=== PATIENT | male | born 2000 | race Hispanic/Latino ===

== ENCOUNTER 2018-07-01 16:39 | Emergency (ER) | payer BC, OTHER ==
--- NOTE | 2018-07-01 16:54 | ER ---
Nurse's Notes [facility] Name: Orion Barnes Jr Age: 18 yrs Sex: Male : 2000 Arrival Date: 07/01/2018 Time: 16:43 Bed 24 Private MD: None, None Diagnosis: Sleep related leg cramps;Contusion of right thigh Presentation: 07/01 16:44 Presenting complaint: Patient states: bruise noted on his right upper thigh 2 days ago sv and now he has pain to his RLE. Transition of care: patient was not received from another setting of care. Onset of symptoms was June 29, 2018. Care prior to arrival: None. 16:44 Method Of Arrival: Ambulatory sv 16:44 Acuity: MIRZA 3 sv 16:47 Presenting complaint: Mother states: "I don't know if its related but a couple of weeks sv ago he wasn't feeling good and I checked his sugar and it was 220." Pt has not f/u with a MD for this. 17:16 Risk Assessment: Do you want to hurt yourself or someone else? Patient reports no mg2 desire to harm self or others. Initial Sepsis Screen: Does the patient meet any 2 criteria? No. Patient's initial sepsis screen is negative. Does the patient have a suspected source of infection? No. Patient's initial sepsis screen is negative. Historical: - Allergies: 16:46 DEET; sv - PMHx: 16:46 None; sv - PSHx: 16:46 None; sv - Immunization history:: Flu vaccine status is unknown. - Social history:: Smoking status: unknown. - Ebola Screening: : No symptoms or risks identified at this time. Screenin:15 Abuse screen: Denies threats or abuse. Denies injuries from another. Nutritional mg2 screening: No deficits noted. Tuberculosis screening: No symptoms or risk factors identified. Fall Risk Gait- Weak (10 pts.). Assessment: 17:13 General: Appears in no apparent distress. comfortable, Behavior is calm, cooperative. mg2 Pain: Complains of pain in right leg Pain radiates to right lower leg Pain currently is 3 out of 10 on a pain scale. Quality of pain is described as aching, Pain began gradually, 1 day ago. Is intermittent. Neuro: Level of Consciousness is awake, alert, obeys commands, Oriented to person, place, time, situation. Cardiovascular: Capillary refill < 3 seconds Patient's skin is warm and dry. Respiratory: Airway is patent Respiratory effort is even, unlabored, Respiratory pattern is regular, symmetrical. GI: No signs and/or symptoms were reported involving the gastrointestinal system. : No deficits noted. EENT: No signs and/or symptoms were reported regarding the EENT system. Derm: Skin is intact, is healthy with good turgor, Skin is pink, warm \\T\\ dry. normal, Bruising that is yellow, on right leg. Musculoskeletal: Circulation, motion, and sensation intact. Capillary refill < 3 seconds, Reports pain in right leg. Vital Signs: 16:46 BP 127 / 62; Pulse 67; Resp 16; Temp 97.8; Pulse Ox 98% ; Weight 58.06 kg; Height 5 ft. sv 9 in. (175.26 cm); 16:46 Body Mass Index 18.90 (58.06 kg, 175.26 cm) sv ED Course: 16:43 Patient arrived in ED. mr 16:43 None, None is Private Physician. mr 16:45 Triage completed. sv 16:46 Elena Ordoñez FNP-C is [facility]. snw 16:46 Alirio Cheng MD is Attending Physician. snw 16:47 Arm band placed on. sv 16:50 Rodrigo Canas RN is Primary Nurse. mg2 17:15 No provider procedures requiring assistance completed. Patient did not have IV access mg2 during this emergency room visit. 17:16 Patient has correct armband on for positive identification. Door closed. mg2 Administered Medications: 17:12 Drug: Ketorolac 15 mg Route: IM; Site: right gluteus; mg2 17:13 Follow up: Response: No adverse reaction; Medication administered at discharge. mg2 Outcome: 16:53 Discharge ordered by . snw 17:16 Discharged to home via wheelchair, with family. mg2 17:16 Condition: stable 17:16 Discharge instructions given to patient, family, Instructed on discharge instructions, follow up and referral plans. medication usage, Demonstrated understanding of instructions, follow-up care, medications, Prescriptions given X 1. 17:17 Patient left the ED. mg2 Signatures: Viky Luu RN RN Elena Ordoñez FNP-C FNP-Csnw Violet Valadez Michele, DINESH RN mg2 Corrections: (The following items were deleted from the chart) 16:48 16:46 Resp 16bpm; Temp 97.8F; 58.06 kg; Height 5 ft. 9 in.; BMI: 18.9; sv sv
--- NOTE | 2018-07-01 16:54 | EDPHYS ---
Physician Documentation [facility] Name: Orion Barnes Jr Age: 18 yrs Sex: Male : 2000 Arrival Date: 07/01/2018 Time: 16:43 Bed 24 Private MD: None, None ED Physician Alirio Cheng HPI: 07/01 16:56 This 18 yrs old Male presents to ER via Ambulatory with complaints of Leg Pain.snw 16:56 The patient presents with pain, that is acute. The complaints affect the right snw quadriceps. Context: The problem was sustained at home, resulted from awoke from sleep. Onset: The symptoms/episode began/occurred suddenly, this morning. Treatment prior to arrival includes: no previous treatment. Severity of symptoms: At their worst the symptoms were mild, moderate. It is unknown whether or not the patient has had similar symptoms in the past. The patient has not recently seen a physician. Historical: - Allergies: 16:46 DEET; sv - PMHx: 16:46 None; sv - PSHx: 16:46 None; sv - Immunization history:: Flu vaccine status is unknown. - Social history:: Smoking status: unknown. - Ebola Screening: : No symptoms or risks identified at this time. ROS: 16:54 Constitutional: Negative for fever, chills, and weight loss, Eyes: Negative for injury, snw pain, redness, and discharge, ENT: Negative for injury, pain, and discharge, Neck: Negative for injury, pain, and swelling, Cardiovascular: Negative for chest pain, palpitations, and edema, Respiratory: Negative for shortness of breath, cough, wheezing, and pleuritic chest pain, Abdomen/GI: Negative for abdominal pain, nausea, vomiting, diarrhea, and constipation, Back: Negative for injury and pain, : Negative for injury, bleeding, discharge, and swelling, Skin: Negative for injury, rash, and discoloration, Neuro: Negative for headache, weakness, numbness, tingling, and seizure. 16:54 MS/extremity: Positive for pain, of the right quadriceps, small bruise noted to anterior thigh. Exam: 16:54 Constitutional: This is a well developed, well nourished patient who is awake, alert, snw and in no acute distress. Head/Face: Normocephalic, atraumatic. Eyes: Pupils equal round and reactive to light, extra-ocular motions intact. Lids and lashes normal. Conjunctiva and sclera are non-icteric and not injected. Cornea within normal limits. Periorbital areas with no swelling, redness, or edema. ENT: Nares patent. No nasal discharge, no septal abnormalities noted. Tympanic membranes are normal and external auditory canals are clear. Oropharynx with no redness, swelling, or masses, exudates, or evidence of obstruction, uvula midline. Mucous membranes moist. Neck: Trachea midline, no thyromegaly or masses palpated, and no cervical lymphadenopathy. Supple, full range of motion without nuchal rigidity, or vertebral point tenderness. No Meningismus. Chest/axilla: Normal chest wall appearance and motion. Nontender with no deformity. No lesions are appreciated. Cardiovascular: Regular rate and rhythm with a normal S1 and S2. No gallops, murmurs, or rubs. Normal PMI, no JVD. No pulse deficits. Respiratory: Lungs have equal breath sounds bilaterally, clear to auscultation and percussion. No rales, rhonchi or wheezes noted. No increased work of breathing, no retractions or nasal flaring. Abdomen/GI: Soft, non-tender, with normal bowel sounds. No distension or tympany. No guarding or rebound. No evidence of tenderness throughout. Back: No spinal tenderness. No costovertebral tenderness. Full range of motion. Skin: Warm, dry with normal turgor. Normal color with no rashes, no lesions, and no evidence of cellulitis. Neuro: Awake and alert, GCS 15, oriented to person, place, time, and situation. Cranial nerves II-XII grossly intact. Motor strength 5/5 in all extremities. Sensory grossly intact. Cerebellar exam normal. Normal gait. Psych: Awake, alert, with orientation to person, place and time. Behavior, mood, and affect are within normal limits. 16:54 Musculoskeletal/extremity: ROM: limited active range of motion due to pain, right quad, Circulation is intact in all extremities. Sensation intact. Weight bearing: able to fully bear weight, without difficulty. Vital Signs: 16:46 BP 127 / 62; Pulse 67; Resp 16; Temp 97.8; Pulse Ox 98% ; Weight 58.06 kg; Height 5 ft. sv 9 in. (175.26 cm); 16:46 Body Mass Index 18.90 (58.06 kg, 175.26 cm) sv MDM: 16:49 Patient medically screened. snw 16:55 Data reviewed: vital signs, nurses notes. Data interpreted: Pulse oximetry: on room air snw is 98 %. Interpretation: normal. Counseling: I had a detailed discussion with the patient and/or guardian regarding: the historical points, exam findings, and any diagnostic results supporting the discharge/admit diagnosis, the need for outpatient follow up, to return to the emergency department if symptoms worsen or persist or if there are any questions or concerns that arise at home. Special discussion: Based on the history and exam findings, there is no indication for further emergent testing or inpatient evaluation. I discussed with the patient/guardian the need to see the primary care provider for further evaluation of the symptoms. Administered Medications: 17:12 Drug: Ketorolac 15 mg Route: IM; Site: right gluteus; mg2 17:13 Follow up: Response: No adverse reaction; Medication administered at discharge. mg2 Disposition: 18:37 Co-signature as Attending Physician, Alirio Cheng MD. rn Disposition: 07/01/18 16:53 Discharged to Home. Impression: Sleep related leg cramps, Contusion of right thigh. - Condition is Stable. - Discharge Instructions: Leg Cramps, Muscle Cramps and Spasms, Muscle Strain. - Prescriptions for Mobic 7.5 mg Oral Tablet - take 1 tablet by ORAL route once daily take with food; 20 tablet. - Work release form, Medication Reconciliation Form, Thank You Letter, Antibiotic Education, Prescription Opioid Use form. - Follow up: Emergency Department; When: As needed; Reason: Worsening of condition. Follow up: Private Physician; When: 2 - 3 days; Reason: Recheck today's complaints, Continuance of care, Re-evaluation by your physician. Signatures: Viky Luu RN RN Elena Mancia, PRIMARY SUBSTANCE ABUSE COUNSELOR-C PRIMARY SUBSTANCE ABUSE COUNSELOR-Csnw Alirio Cheng MD MD rn Gardose, Michele, RN RN mg2 Corrections: (The following items were deleted from the chart) 17:17 16:53 07/01/2018 16:53 Discharged to Home. Impression: Sleep related leg cramps; mg2 Contusion of right thigh. Condition is Stable. Forms are Medication Reconciliation Form, Thank You Letter, Antibiotic Education, Prescription Opioid Use. Follow up: Emergency Department; When: As needed; Reason: Worsening of condition. Follow up: Private Physician; When: 2 - 3 days; Reason: Recheck today's complaints, Continuance of care, Re-evaluation by your physician. snalessandra
[2018-07-01] MEDS ORDERED: KETOROLAC 30 MG/ML INJ ONE (17:13)
== END 2018-07-01 17:17 | disposition home or self-care (01) ==
LOC: ER 16:39
DX: G47.62 Sleep related leg cramps (principal); S70.11XA Contusion of right thigh, initial encounter; X58.XXXA Exposure to other specified factors, initial encounter
CPT/HCPCS: 96372; 99283

== ENCOUNTER 2021-07-14 02:58 | Emergency (ER) | payer BC ==
[2021-07-14] MEDS ORDERED: MORPHINE 4 MG/ML SYR ONE (03:15)
[2021-07-14] MEDS ORDERED: ONDANSETRON 4 MG/2 ML VIAL ONE (03:15)
[2021-07-14] MEDS ORDERED: HYDROMORPHONE HCL 1 MG/ML INJ ONE ×2 (04:11→05:58)
[2021-07-14 04:21] LABS: Hematocrit 44.6 % (39.6-49.0); Lymphocytes % 26.7 % (15.3-44.8); RBC Red Blood Cell Count 4.78 M/uL (4.33-5.43)
[2021-07-14 04:26] LABS: Protime INR 0.93
[2021-07-14 04:43] LABS: Barbiturates NEGATIVE (NEGATIVE); Benzodiazepines NEGATIVE (NEGATIVE); Cocaine NEGATIVE (NEGATIVE); METHAMPHETAM NEGATIVE (NEGATIVE); Methadone NEGATIVE (NEGATIVE); Opiates NEGATIVE (NEGATIVE); Phencyclidine NEGATIVE (NEGATIVE); THC Cannibis POSITIVE (NEGATIVE)
[2021-07-14 04:44] LABS: ALT/SGPT 45 U/L (12-78); AST/SGOT 33 U/L (15-37); Albumin 4.4 g/dL (3.4-5.0); Alkaline Phosphatase 99 U/L (45-117); BUN Blood Urea Nitrogen 6 mg/dL (7-18); Bicarbonate 25 mmol/L (21-32); Bilirubin Total 0.3 mg/dL (0.2-1.0); Glucose Level 98 mg/dL (74-106); Potassium 3.6 mmol/L (3.5-5.1); Protein, Total 7.8 g/dL (6.4-8.2); Sodium Level 141 mmol/L (136-145)
[2021-07-14 04:47] LABS: Bilirubin Direct < 0.1 mg/dL (0-0.2)
--- NOTE | 2021-07-14 07:03 | ER ---
Nurse's Notes [facility] Name: Orion Barnes Jr Age: 21 yrs Sex: Male : 2000 Arrival Date: 07/14/2021 Time: 03:02 Bed 8 Private MD: Diagnosis: Tibial Plateau Frcture, Right;Alcohol use, unspecified with intoxication Presentation: 07/14 03:12 Chief complaint: Patient states: Pt states he had been drinking, states he jumped off a ll3 trampoline on to the ground then felt pain, states he asked his friends to "pop it back in like the movies", reports hitting head on ground after jumping off trampoline, reports LOC, States "I passed out from the pain", c/o difficulty breathing. Coronavirus screen: Vaccine status: Patient reports being unvaccinated. At this time, the client does not indicate any symptoms associated with coronavirus-19. Ebola Screen: No symptoms or risks identified at this time. Initial Sepsis Screen: Does the patient meet any 2 criteria? No. Patient's initial sepsis screen is negative. Does the patient have a suspected source of infection? No. Patient's initial sepsis screen is negative. Risk Assessment: Do you want to hurt yourself or someone else? Patient reports no desire to harm self or others. Onset of symptoms was July 14, 2021. 03:12 Method Of Arrival: Wheelchair ll3 03:12 Acuity: MIRZA 2 ll3 Triage Assessment: 03:18 General: Appears uncomfortable, Behavior is cooperative, anxious. Pain: Complains of ll3 pain in lateral aspect of right calf. Musculoskeletal: Circulation, motion, and sensation intact. Swelling present in lateral aspect of right calf Reports pain in lateral aspect of right calf Pain is 10 out of 10 on a pain scale. Injury Description: Pt states he jumped to the ground from a trampoline and landed wrong. Historical: - Allergies: 03:18 DEET; ll3 - Home Meds: 03:18 None [Active]; ll3 - PMHx: 03:18 None; ll3 - PSHx: 03:18 None; ll3 - Immunization history:: Client reports having NOT received the Covid vaccine. - Social history:: Smoking status: Patient reports the use of cigarette tobacco products, smokes one-half pack cigarettes per day, Patient uses alcohol, occasionally. street drugs, marijuana. Screenin:55 Abuse screen: Denies threats or abuse. Nutritional screening: No deficits noted. ll3 Tuberculosis screening: No symptoms or risk factors identified. Fall Risk No fall in past 12 months (0 pts). No secondary diagnosis (0 pts). IV access (20 points). Ambulatory Aid- None/Bed Rest/Nurse Assist (0 pts). Gait- Normal/Bed Rest/Wheelchair (0 pts) Mental Status- Oriented to own ability (0 pts). Total Ruiz Fall Scale indicates No Risk (0-24 pts). Assessment: 03:12 General: See triage assessment.. ll3 04:00 Reassessment: No changes from previously documented assessment. Patient and/or family ll3 updated on plan of care and expected duration. Pain level reassessed. Patient is alert, oriented x 3, equal unlabored respirations, skin warm/dry/pink. 05:00 Reassessment: No changes from previously documented assessment. Patient and/or family ag7 updated on plan of care and expected duration. Pain level reassessed. 06:00 Reassessment: No changes from previously documented assessment. Patient and/or family ag7 updated on plan of care and expected duration. Pain level reassessed. 07:15 Reassessment: Patient appears in no apparent distress at this time. No changes from jl7 previously documented assessment. Patient is alert, oriented x 3, equal unlabored respirations, skin warm/dry/pink. Awaiting crutches from [employer] for discharge. 08:39 Reassessment: Pt reports continued severe pain at injury site to right lower extremity, jl7 Dr. Samson notified, VO for 30 mg Toradol IVP, pt medicated as ordered. Right knee noted to be swollen, pt unable to straighten knee out and reports continued severe pain, knee immobilizer noted to be loose and unable to stabilize knee with the 12" 3-panel knee, no larger knee immobilizers available. Dr. Samson notified and gave VO to apply ortho glass knee immobilizer. Orthoglass knee immobilizer applied and pt reports moderate pain relief. Vital Signs: 03:12 BP 120 / 90; Pulse 110; Resp 18; Temp 98.6; Pulse Ox 98% on R/A; Weight 63.5 kg (R); ll3 Height 5 ft. 7 in. (170.18 cm) (R); Pain 10/10; 04:00 BP 114 / 94; Pulse 99; Resp 13; Pulse Ox 100% on R/A; ll3 05:18 BP 133 / 83; Pulse 105; Resp 13 S; Pulse Ox 99% on R/A; Pain 10/10; ag7 06:00 BP 133 / 107; Pulse 88; Resp 16 S; Pulse Ox 93% on R/A; Pain 10/10; ag7 08:00 BP 114 / 64; Pulse 76; Resp 15; Pulse Ox 98% on R/A; jl7 03:12 Body Mass Index 21.93 (63.50 kg, 170.18 cm) ll3 ED Course: 03:02 Patient arrived in ED. kz 03:16 Barbara Rios, DINESH is Primary Nurse. vc1 03:18 Triage completed. ll3 03:18 Arm band placed on Patient placed in an exam room, on a stretcher, on cardiac monitor technician, ll3 on pulse oximetry. 03:26 Sandro Garcia MD is Attending Physician. 7 03:46 XRAY Knee RIGHT 3 view In Process Unspecified. EDMS 04:55 Patient has correct armband on for positive identification. Placed in gown. Bed in low ll3 position. Call light in reach. Side rails up X 1. Pulse ox on. NIBP on. 05:33 CT Traumagram (Head C Spine CAP W Con) In Process Unspecified. EDMS 05:33 Knee Right Wo Cont In Process Unspecified. EDMS 06:52 Orth[address] and connected Dr. Leonard with Dr. Garcia for patient admission eb consultation. 07:01 Greg Leonard MD is Referral Physician. 7 07:15 Inserted saline lock: 20 gauge in right antecubital area, using aseptic technique. jl7 ,using aseptic technique. IV noted to be in place, placed by previous shift. 08:20 No provider procedures requiring assistance completed. IV discontinued, intact, jl7 bleeding controlled, No redness/swelling at site. Pressure dressing applied. Administered Medications: 03:18 Drug: morphine 4 mg Route: IVP; Site: right antecubital; vc1 03:18 Drug: Zofran (Ondansetron) 4 mg Route: IVP; Site: right antecubital; vc1 04:18 Drug: Dilaudid (HYDROmorphone) 1 mg Route: IVP; Site: right antecubital; vc1 06:21 Follow up: Response: No adverse reaction ll3 06:00 Drug: Dilaudid (HYDROmorphone) 1 mg Route: IVP; Site: right antecubital; ll3 07:55 Drug: Ketorolac 30 mg Route: IVP; Site: right antecubital; jl7 08:15 Follow up: Response: No adverse reaction; Pain is decreased 7 Outcome: 07:02 Discharge ordered by . [facility] 08:48 Discharged to home ambulatory, with crutches, with significant other. 7 08:48 Condition: stable 08:48 Discharge instructions given to patient, significant other, Instructed on discharge instructions, follow up and referral plans. medication usage, crutch walking, Splint Demonstrated understanding of instructions, follow-up care, medications, crutch walking, splint care, Prescriptions given X 2. 08:48 Patient left the ED. [facility] Signatures: Dispatcher [employer] EDZach Benavidez RN RN jl7 Lynn Aleman Maurice, MD MD 7 Yan Holcomb RN RN ll3 Barbara Rios RN RN vc1 Liliane Longoria Angela RN RN ag7 Corrections: (The following items were deleted from the chart) 04:56 04:56 General: See triage assessment.. ll3 ll3
--- NOTE | 2021-07-14 07:03 | EDPHYS ---
Physician Documentation [facility] Name: Orion Barnes Jr Age: 21 yrs Sex: Male : 2000 Arrival Date: 07/14/2021 Time: 03:02 Bed 8 Private MD: ED Physician Sandro Garcia HPI: 07/14 03:10 This 21 yrs old Male presents to ER via Wheelchair with complaints of Leg mh7 Injury. 03:10 Trauma demographics: County: The injury occurred in [place] Location of Injury: The mh7 injury occurred at a friend's home, Date: July 14, 2021. 03:10 Mechanism of injury: Fall: the patient fell trampoline, approximately and struck a mh7 grass-covered surface. Associated injuries: The patient sustained injury to the head, pain, right leg, decreased range of motion, painful injury. Onset: The symptoms/episode began/occurred today. Historical: - Allergies: 03:18 DEET; ll3 - Home Meds: 03:18 None [Active]; ll3 - PMHx: 03:18 None; ll3 - PSHx: 03:18 None; ll3 - Immunization history:: Client reports having NOT received the Covid vaccine. - Social history:: Smoking status: Patient reports the use of cigarette tobacco products, smokes one-half pack cigarettes per day, Patient uses alcohol, occasionally. street drugs, marijuana. ROS: 03:10 Constitutional: Negative for fever, chills, and weight loss, Eyes: Negative for injury, mh7 pain, redness, and discharge, ENT: Negative for injury, pain, and discharge, Neck: Negative for injury, pain, and swelling, Cardiovascular: Negative for chest pain, palpitations, and edema, Respiratory: Negative for shortness of breath, cough, wheezing, and pleuritic chest pain, Abdomen/GI: Negative for abdominal pain, nausea, vomiting, diarrhea, and constipation, Back: Negative for injury and pain, : Negative for injury, bleeding, discharge, and swelling, Skin: Negative for injury, rash, and discoloration, Psych: Negative for depression, anxiety, suicide ideation, homicidal ideation, and hallucinations, Allergy/Immunology: Negative for hives, rash, and allergies, Endocrine: Negative for neck swelling, polydipsia, polyuria, polyphagia, and marked weight changes, Hematologic/Lymphatic: Negative for swollen nodes, abnormal bleeding, and unusual bruising. Exam: 03:10 Head/Face: Normocephalic, atraumatic. Eyes: Pupils equal round and reactive to light, mh7 extra-ocular motions intact. Lids and lashes normal. Conjunctiva and sclera are non-icteric and not injected. Cornea within normal limits. Periorbital areas with no swelling, redness, or edema. ENT: Nares patent. No nasal discharge, no septal abnormalities noted. Tympanic membranes are normal and external auditory canals are clear. Oropharynx with no redness, swelling, or masses, exudates, or evidence of obstruction, uvula midline. Mucous membranes moist. Neck: Trachea midline, no thyromegaly or masses palpated, and no cervical lymphadenopathy. Supple, full range of motion without nuchal rigidity, or vertebral point tenderness. No Meningismus. Chest/axilla: Normal chest wall appearance and motion. Nontender with no deformity. No lesions are appreciated. Cardiovascular: Regular rate and rhythm with a normal S1 and S2. No gallops, murmurs, or rubs. Normal PMI, no JVD. No pulse deficits. Respiratory: Lungs have equal breath sounds bilaterally, clear to auscultation and percussion. No rales, rhonchi or wheezes noted. No increased work of breathing, no retractions or nasal flaring. Abdomen/GI: Soft, non-tender, with normal bowel sounds. No distension or tympany. No guarding or rebound. No evidence of tenderness throughout. Back: No spinal tenderness. No costovertebral tenderness. Full range of motion. Skin: Warm, dry with normal turgor. Normal color with no rashes, no lesions, and no evidence of cellulitis. 03:10 Psych: Awake, alert, with orientation to person, place and time. Behavior, mood, and affect are within normal limits. 03:10 Constitutional: The patient appears in no acute distress, alert, awake, uncomfortable. 03:10 Musculoskeletal/extremity: Extremities: noted in the right knee and proximal lateral right leg: ROM: limited active range of motion, in the right leg, limited passive range of motion, in the right leg, Circulation is intact in all extremities. Sensation intact. Compartment Syndrome exam of affected extremity: is normal. no numbness, no tingling, no sensation deficit, no palor, no weak pulses, Joints: the right knee displays limited range of motion, painful range of motion, Weight bearing: is unable to bear weight, Tendon exam: specific tendon testing normal through active and passive range of motion 03:10 Neuro: Orientation: is normal, Mentation: is normal, Memory: is normal, Cranial nerves: grossly normal, Cerebellar function: is grossly normal, Motor: is normal, Sensation: is normal, Gait: not tested. seizure activity, is not displayed by the patient, Abnormal movements: there are no abnormal movements. Vital Signs: 03:12 BP 120 / 90; Pulse 110; Resp 18; Temp 98.6; Pulse Ox 98% on R/A; Weight 63.5 kg (R); ll3 Height 5 ft. 7 in. (170.18 cm) (R); Pain 10/10; 04:00 BP 114 / 94; Pulse 99; Resp 13; Pulse Ox 100% on R/A; ll3 05:18 BP 133 / 83; Pulse 105; Resp 13 S; Pulse Ox 99% on R/A; Pain 10/10; ag7 06:00 BP 133 / 107; Pulse 88; Resp 16 S; Pulse Ox 93% on R/A; Pain 10/10; ag7 08:00 BP 114 / 64; Pulse 76; Resp 15; Pulse Ox 98% on R/A; jl7 03:12 Body Mass Index 21.93 (63.50 kg, 170.18 cm) ll3 MDM: 06:57 Differential diagnosis: intra-abdominal injury, closed head injury, extremity fracture, mh7 C spine fracture. Data reviewed: vital signs, nurses notes, lab test result(s), CBC, drug level(s), alcohol, electrolytes, radiologic studies, CT scan, plain films. Data interpreted: Pulse oximetry: on room air is 96 %. Interpretation: normal. Counseling: I had a detailed discussion with the patient and/or guardian regarding: the historical points, exam findings, and any diagnostic results supporting the discharge/admit diagnosis, lab results, radiology results, the need for outpatient follow up, a orthopedic surgeon. Response to treatment: the patient's symptoms have markedly improved after treatment. Physician consultation: Greg Leonard MD was contacted at 06:40, regarding patient's condition, and will see patient in office. 07:02 Patient medically screened. [facility] 07/14 03:49 Order name: Basic Metabolic Panel; Complete Time: 04:51 [facility] 07/14 03:49 Order name: CBC with Diff; Complete Time: 04:51 [facility] 07/14 03:49 Order name: Type And Screen; Complete Time: 05:11 [facility] 07/14 03:49 Order name: LFT's; Complete Time: 04:51 [facility] 07/14 03:49 Order name: Protime (+inr); Complete Time: 04:51 [facility] 07/14 03:49 Order name: Ptt, Activated; Complete Time: 04:51 [facility] 07/14 03:04 Order name: XRAY Knee RIGHT 3 view bb 07/14 03:49 Order name: CT Traumagram (Head C Spine CAP W Con) [facility] 07/14 03:49 Order name: ETOH Level; Complete Time: 04:51 [facility] 07/14 03:49 Order name: UDS; Complete Time: 04:51 [facility] 07/14 04:09 Order name: Knee Right Wo Cont EDMS 07/14 03:49 Order name: Labs collected and sent; Complete Time: 04:17 [facility] 07/14 05:48 Order name: Knee Immobilizer; Complete Time: 06:21 [facility] 07/14 07:07 Order name: Crutches [facility] Administered Medications: 03:18 Drug: morphine 4 mg Route: IVP; Site: right antecubital; vc1 03:18 Drug: Zofran (Ondansetron) 4 mg Route: IVP; Site: right antecubital; vc1 04:18 Drug: Dilaudid (HYDROmorphone) 1 mg Route: IVP; Site: right antecubital; vc1 06:21 Follow up: Response: No adverse reaction ll3 06:00 Drug: Dilaudid (HYDROmorphone) 1 mg Route: IVP; Site: right antecubital; ll3 07:55 Drug: Ketorolac 30 mg Route: IVP; Site: right antecubital; jl7 08:15 Follow up: Response: No adverse reaction; Pain is decreased jl7 Disposition Summary: 07/14/21 07:02 Discharge Ordered Location: Home [facility] Problem: new [facility] Symptoms: have improved [facility] Condition: Stable [facility] Diagnosis - Tibial Plateau Frcture, Right mh7 - Alcohol use, unspecified with intoxication [facility] Followup: [facility] - With: Private Physician - When: 1 - 2 days - Reason: Worsening of condition, Recheck today's complaints, Continuance of care, Re-evaluation by your physician Followup: [facility] - With: Greg Leonard MD - When: 1 - 2 days - Reason: Worsening of condition, Further diagnostic work-up, Recheck today's complaints Discharge Instructions: - Discharge Summary Sheet [facility] - Displaced Tibial Plateau Fracture [facility] - Crutch Use, Adult, [id number]-[id number] [facility] - Alcohol Intoxication, Uybh-ni-Nmor [facility] - How to Use a Knee Immobilizer, [id number] [facility] Forms: - Medication Reconciliation Form [facility] - Thank You Letter [facility] - Antibiotic Education [facility] - Prescription Opioid Use [facility] Prescriptions: - Ibuprofen 600 mg Oral Tablet - take 1 tablet by ORAL route every 6 hours As needed take with food; 15 tablet; [facility] Refills: 0, Product Selection Permitted - Tylenol-Codeine #3 300 mg-30 mg Oral - take 2 tablet by ORAL route every 6 hours As needed; 30 tablet; Refills: 0, [facility] Product Selection Permitted Signatures: Dispatcher [employer] Zach Everett RN RN jl7 Sandro Garcia MD MD [facility] Yan Holcomb RN RN ll3 Barbara Rios RN RN vc1
[2021-07-14] MEDS ORDERED: KETOROLAC 30 MG/ML INJ ONE (07:42)
[2021-07-14 08:56] VITALS: TEMP 98.6
[2021-07-14 09:01] VITALS: BP 114/64; O2SAT 98
--- NOTE | 2021-07-14 17:38 | RAD REPORT ---
EXAM DESCRIPTION: CT - Head C Spine Cap Phill Ponce - 07/14/2021 6:45 am CLINICAL HISTORY: Trauma COMPARISON: None. TECHNIQUE: CT HEAD C-SPINE WITHOUT CHEST ABDOMEN PELVIS WITH IV CONTRAST on 07/14/2021 3:49 AM CDT This exam was performed according to our departmental dose-optimization program, which includes autom ated exposure control, adjustment of the mA and/or kV according to patient size and/or use of iterati ve reconstruction technique. FINDINGS: Brain: There is no acute hemorrhage, mass effect or midline shift. Crowe-white differentiat ion is preserved. There is no hydrocephalus. There is no significant volume loss for age. The calvarium is intact. Orbits and globes are unremarkable. The paranasal sinuses are clear. Mastoid air cells are clear. Cervical Spine: There is no acute fracture. Alignment is anatomic. Disc spaces are maintained. Vertebral body heights are preserved. Soft tissues are unremarkable. Chest: The heart is normal in size. There is no pericardial effusion. Intrathoracic lymph nodes are n ot enlarged. There is no pleural effusion, pleural thickening or pneumothorax. Central airways are patent. Lungs a re clear with no consolidation, mass or interstitial lung disease. Abdomen: The liver is normal in appearance. There is no biliary dilatation. Gallbladder is normal in appearance. The pancreas and spleen are normal in appearance. The adrenal glands and kidneys are unre markable. Abdominal aorta is normal in course and caliber without aneurysm. There is no free air. There is no r etroperitoneal adenopathy. Pelvis: There is no bowel obstruction. Urinary bladder is unremarkable. There is no free fluid. Appen opal is normal. Skeleton: There are no acute osseous findings. No suspicious bony lesions. IMPRESSION: No definite acute post traumatic findings. Electronically signed by: Yehuda Cortes MD 07/14/2021 6:11 AM CDT Due to temporary technical issues with the PACS/Fluency reporting system, reports are being signed by the in house radiologists without review as a courtesy to insure prompt reporting. The interpreting radiologist is fully responsible for the content of the report.
--- NOTE | 2021-07-14 17:54 | RAD REPORT ---
EXAM DESCRIPTION: CT - Knee Right Wo Cont - 07/14/2021 6:43 am CLINICAL HISTORY: 1 years Male, EVAL TIBIAL FX COMPARISON: None TECHNIQUE: Contiguous axial CT images of the right knee were obtained. Sagittal and coronal reformat s were reviewed. This exam was performed according to our departmental dose-optimization program, w hich includes automated exposure control, adjustment of the mA and/or kV according to patient size an d/or use of iterative reconstruction technique. FINDINGS: There is a comminuted displaced and depressed fracture involving the lateral tibial platea u. The tibia is displaced laterally relative to the femur with varus angulation. The fracture also ex tends to the medial tibial plateau and through the posterior cortex. There is also fracture involveme nt of the tibial spines. The longitudinal component extends through the proximal metaphysis into the proximal and mid left fibula and the femur and patella appear intact. There is extensive soft tissue swelling around the knee and associated lipohemarthrosis. Diaphysis of the tibia. IMPRESSION: Comminuted displaced and depressed tibial plateau fracture. Electronically signed by: Orville Merino DO 07/14/2021 6:02 AM CDT Due to temporary technical issues with the PACS/Fluency reporting system, reports are being signed by the in house radiologists without review as a courtesy to insure prompt reporting. The interpreting radiologist is fully responsible for the content of the report.
--- NOTE | 2021-07-14 20:21 | RAD REPORT ---
EXAM DESCRIPTION: RAD - Knee Right 3 View - 07/14/2021 3:44 am CLINICAL HISTORY: 21 years Male Pain TECHNIQUE Three x-ray views of the right knee were performed on 07/14/2021 at 3:37 AM. COMPARISON: None FINDINGS: There is a comminuted, mildly displaced and depressed fracture through the lateral tibial plateau. There is partial medial subluxation of the distal femur relative to the proximal tibia. The patellofemoral compartment appears intact. There are no lytic or sclerotic bone lesions. No significa nt arthritic or degenerative changes are identified. Bone mineralization is normal. There is soft tissue swelling surrounding the proximal tibia and fibula. No definite knee joint effus ion is identified. There is no subcutaneous emphysema. IMPRESSION: Comminuted, mildly displaced and depressed lateral tibial plateau fracture with partial medial subluxation of the distal femur relative to the proximal tibia. There is surrounding soft tiss ue swelling. Electronically signed by: Nishi Payne DO 07/14/2021 4:20 AM CDT Due to temporary technical issues with the PACS/Fluency reporting system, reports are being signed by the in house radiologists without review as a courtesy to insure prompt reporting. The interpreting radiologist is fully responsible for the content of the report.
== END 2021-07-14 08:48 | disposition home or self-care (01) ==
LOC: ER 02:58
DX: S82.141A Displaced bicondylar fracture of right tibia, initial encounter for closed fracture (principal); F10.929 Alcohol use, unspecified with intoxication, unspecified; Y93.44 Activity, trampolining; F17.210 Nicotine dependence, cigarettes, uncomplicated; Z91.048 Other nonmedicinal substance allergy status
CPT/HCPCS: 85025; 80048; 36415; 80320; 86900; 86850; 85610; 86901; 80076; 85730; 80307; 70450; 72125; 71260; 73700; 74177; 73562; 96375; 96374; 99284; Q9967; J1170 ×2; J2405

== ENCOUNTER 2021-10-29 14:18 | Emergency (ER) | payer BC ==
--- OUTSIDE RECORDS SUMMARY | 2021-10-29 14:21 | XMS REPORT | Continuity of Care Document ---
:[address] [facility] t Address [address] [place] [address] Care Team Providers Name Role Phone Oliverio Attending Clinician Unavailable Jose Brand Attending Clinician [phone] Jose Brand Attending Clinician Unavailable Oliverio Admitting Clinician Unavailable Jose Brand Admitting Clinician Unavailable Payers Payer Name Policy Type Policy Number Effective Date Expiration Date S ourharesh [place] [id number] 2019 00:00:00 [place] Problems This patient has no known problems. Allergies, Adverse Reactions, Alerts Allergy Allergy Status Severity Reaction(s) Onset Inactive Treating Comm ents Source Name Type Date Date Clinician No Known DA Active U [facility] 07-23 Clear Allergie 00:00: Moses s 00 [facility] DEET DA Active CA ITCHINESS [facility] 5-09 Clear 00:00: Moses 00 [facility] Medications This patient has no known medications. Procedures This patient has no known procedures. Encounters Start End Encounter Admission Attending Care Care Encounter Source Date/Time Date/Time Type Type Clinicians Facility Department ID 2021-07-18 [facility] [id number] Common 14:43:06 [facility] 2021-10-18 2021-10-18 Outpatient Noble [facility] [id number] Soco 00:00:00 00:00:00 _Wai [id number] [facility] 2021-10-13 2021-10-13 Outpatient FOG_Brinker [facility] AOSM [id number] Soco 00:00:00 00:00:00 _Wai [id number] [facility] 2021-09-13 2021-09-13 Outpatient FOG_Brinker AOSM AOSM [id number] [facility] 10:21:00 10:21:00 _Wai [id number] [facility] 2021-09-12 2021-09-12 Outpatient FOG_Brinker AOSM AOSM [id number] [facility]o 11:36:00 11:36:00 _Wai [id number] [facility] 2021-09-12 2021-09-12 Outpatient Sunday, AOSM AOSM [id number] 00:00:00 00:00:00 Jose [id number] 2021-09-08 2021-09-08 Outpatient FOG_Brinker AOSM AOSM [id number] [facility] 01:54:00 01:54:00 _Wai [id number] [facility] 2021-09-03 2021-09-03 Outpatient FOG_Brinker AOSM AOSM [id number] Soco 10:07:00 10:07:00 _Wai [id number] [facility] 2021-08-23 2021-08-23 Outpatient FOG_Brinker AOSM AOSM [id number] [id number] Soco 11:30:00 11:30:00 _Wai [id number] [facility] 2021-08-22 2021-08-22 Outpatient FOG_Brinker AOSM AOSM [id number] Soco 01:22:00 01:22:00 _Wai [id number] [facility] 2021-08-22 2021-08-22 Outpatient Sunday, AOSM AOSM [id number] 00:00:00 00:00:00 Jose [id number] 2021-08-17 2021-08-17 Outpatient FOG_Sunday AOSM AOSM [id number] Soco 02:35:00 02:35:00 _JoseChelle [id number] [facility] 2021-08-14 2021-08-16 Outpatient WANDA Winston OBSE [id number] [facility] 07:24:00 15:26:00 Jose [facility] 2021-08-14 2021-08-16 Outpatient WANDA Winston OBSE [id number] [facility] 07:24:00 15:26:00 Jose [id number] [facility] 2021-08-14 2021-08-14 Outpatient Sunday, AOSM AOSM [id number] 00:00:00 00:00:00 Jose [id number] 2021-08-08 2021-08-08 Outpatient Sunday, AOSM AOSM [id number] 00:00:00 00:00:00 Jose [id number] 2021-08-02 2021-08-02 Outpatient WANDA Winston RADI [id number] [facility] 11:13:00 11:13:00 Jose 76 [facility] 2021-07-24 2021-07-26 Outpatient WANDA Winston OBSE [id number] [facility] 11:29:00 17:00:00 Jose [id number] [facility] 2021-07-24 2021-07-26 Outpatient WANDA Winston OBSE [id number] [facility] 11:29:00 17:00:00 Jose 78 [facility] Results Test Description Test Time Test Comments Results Result Comments Source BASIC METABOLIC PANEL 2021-08-15 06:12:00 Test Item Value Reference Range Interpretation Comme nts SODIUM (test code = NA) 133 mmol/L 136-145 L POTASSIUM (test code = K) 4.2 mmol/L 3.5-5.1 N CHLORIDE (test code = CL) 98.0 mmol/L 98-107 N CARBON DIOXIDE (test code = CO2) 28.3 mmol/L 21-32 N GLUCOSE (test code = GLU) 110 mg/dL 70-110 N BLOOD UREA NITROGEN (test code = 9 mg/dL 7-18 N BUN) GLOMERULAR FILTRATION RATE (test 110.2 >60 Unit of measure: mL/min/1.73 code = GFR) [id number] Ran ge:Healthy Adults >90 mL/m in/1.73 m2 For Chronic Kidney Disease: Stage II Mild Decreas e in GFR 60-90 Stage III Moder ate Decrease in GFR 30-59 St age IV Severe Decrease in GFR 15-29 Stage V Kidney Failure <15 CREATININE (test code = CREAT) 0.86 mg/dL 0.55-1.30 N CALCIUM (test code = CA) 8.1 mg/dL 8.2-10.1 L CBC W/AUTO [id number] 05:44:00 Test Item Value Reference Range Interpretation Comments WHITE BLOOD CELL (test code = WBC) 10.8 K/mm3 5.7-10.5 H RED BLOOD CELL (test code = RBC) 2.99 M/mm3 4.2-5.4 L HEMOGLOBIN (test code = HGB) 9.5 g/dL 12-16 L HEMATOCRIT (test code = HCT) 27.0 % 37-47 L MEAN CELL VOLUME (test code = MCV) 90 fL 80-98 N MEAN CELL HGB (test code = MCH) 31.8 pg 27-34 N MEAN CELL HGB CONCENTRATION (test 35.2 g/dL 30.8-34.1 H code = MCHC) RED CELL DISTRIBUTION WIDTH (test 12.7 % 11-16 N code = RDW) PLT (test code = PLT) 188 K/mm3 130-400 N MEAN PLATELET VOLUME (test code = 10.4 fL 8.9-12.1 N MPV) NEUTROPHIL % (test code = NT%) 75.2 % 45-70 H LYMPHOCYTE % (test code = LY%) 16.5 % 20-40 L MONOCYTE % (test code = MO%) 6.9 % 3-10 N EOSINOPHIL % (test code = EO%) 0.3 % 1-5 L BASOPHIL % (test code = BA%) 0.3 % 0.0-1.1 N NEUTROPHIL # (test code = NT#) 8.13 K/mm3 2.00-7.50 H LYMPHOCYTE # (test code = LY#) 1.78 K/mm3 1.50-4.00 N MONOCYTE # (test code = MO#) 0.75 K/mm3 0.2-0.8 N EOSINOPHIL # (test code = EO#) 0.03 K/mm3 0.04-0.4 L BASOPHIL # (test code = BA#) 0.03 K/mm3 0.02-0.10 N MANUAL DIFF REQUIRED (test code = NO MANUAL DIFF MDIFF) NUCLEATED RED BLOOD CELL (test 0 % 0-0 N code = NRBC) Novel Coronavirus 2018 [id number] 00:46:00 Test Item Value Reference Range Interpretation Comments Novel Coronavirus Negative Negative Positive r esults are 2019 Inhouse (test indicativ e of the presence code = COVNONPUI) ofSARS-CoV -2 RNA, clinical correlation wit h patient historyand othe r diagnostic info rmation is necessary to determinepatien t infection status. Positiv e results do not rule out bacterial infection or co -infection with other viru ses. Negative result s do not preclude SARS-C oV-2 infection andsh ould not be used as the kristal e basis for patient managementdecis ions. Negative result s must be combined with otherclinical observations, p atient history, and epidemiological information . Detection of SARS-CoV-2 RNA may be affe cted bysample collec tion methods, storag e conditions, and /or stageof infection. Thalia l RNA mutations, vacc inations, antiviraltherap eutics, antibiotics, chemotherapeuti c orimmunosuppres raza drugs have not been e valuated for effectson d etection. Results are for the identification of SARS-CoV-2 RNA usingreal-time (RT) polymerase merissa n reaction (PCR) technolog yfor the qualitative det ection of nucleic acids f rom hdeAMVH-VrK-1 v irus and diagnosis of SA RS-CoV-2 virusinfection. It is an Emergency Use Authorization ( EUA) testauthorized by the U.S. FDA. Novel Coronavirus 2018 [id number] 00:45:00 Test Item Value Reference Range Interpretation Comments Novel Coronavirus Negative Negative Positive r esults are 2019 Inhouse (test indicativ e of the presence code = COVNONPUI) ofSARS-CoV -2 RNA, clinical correlation wit h patient historyand othe r diagnostic info rmation is necessary to determinepatien t infection status. Positiv e results do not rule out bacterial infection or co -infection with other viru ses. Negative result s do not preclude SARS-C oV-2 infection andsh ould not be used as the kristal e basis for patient managementdecis ions. Negative result s must be combined with otherclinical observations, p atient history, and epidemiological information . Detection of SARS-CoV-2 RNA may be affe cted bysample collec tion methods, storag e conditions, and /or stageof infection. Thalia l RNA mutations, vacc inations, antiviraltherap eutics, antibiotics, chemotherapeuti c orimmunosuppres raza drugs have not been e valuated for effectson d etection. Results are for the identification of SARS-CoV-2 RNA usingreal-time (RT) polymerase merissa n reaction (PCR) technolog yfor the qualitative det ection of nucleic acids f rom otiVWHY-FiP-1 v irus and diagnosis of SA RS-CoV-2 virusinfection. It is an Emergency Use Authorization ( EUA) testauthorized by the U.S. FDA. CBC W/AUTO [id number] 20:46:00 Test Item Value Reference Range Interpretation Comments WHITE BLOOD CELL (test code = WBC) 9.4 K/mm3 5.7-10.5 N RED BLOOD CELL (test code = RBC) 4.24 M/mm3 4.2-5.4 N HEMOGLOBIN (test code = HGB) 13.3 g/dL 12-16 N HEMATOCRIT (test code = HCT) 37.8 % 37-47 N MEAN CELL VOLUME (test code = MCV) 89 fL 80-98 N MEAN CELL HGB (test code = MCH) 31.4 pg 27-34 N MEAN CELL HGB CONCENTRATION (test 35.2 g/dL 30.8-34.1 H code = MCHC) RED CELL DISTRIBUTION WIDTH (test 12.3 % 11-16 N code = RDW) PLT (test code = PLT) 339 K/mm3 130-400 N MEAN PLATELET VOLUME (test code = 10.3 fL 8.9-12.1 N MPV) NEUTROPHIL % (test code = NT%) 79.3 % 45-70 H LYMPHOCYTE % (test code = LY%) 15.7 % 20-40 L MONOCYTE % (test code = MO%) 4.0 % 3-10 N EOSINOPHIL % (test code = EO%) 0.5 % 1-5 L BASOPHIL % (test code = BA%) 0.2 % 0.0-1.1 N NEUTROPHIL # (test code = NT#) 7.45 K/mm3 2.00-7.50 N LYMPHOCYTE # (test code = LY#) 1.48 K/mm3 1.50-4.00 L MONOCYTE # (test code = MO#) 0.38 K/mm3 0.2-0.8 N EOSINOPHIL # (test code = EO#) 0.05 K/mm3 0.04-0.4 N BASOPHIL # (test code = BA#) 0.02 K/mm3 0.02-0.10 N MANUAL DIFF REQUIRED (test code = NO MANUAL DIFF MDIFF) NUCLEATED RED BLOOD CELL (test 0 % 0-0 N code = NRBC) SED [id number] 20:46:00 Test Item Value Reference Range Interpretation Comments SED RATE (test code = SEDW) 32 mm/hr 0-15 H COMPREHENSIVE METABOLIC [id number] 19:04:00 Test Item Value Reference Range Interpretation Comments SODIUM (test code = 137 mmol/L 136-145 N NA) POTASSIUM (test code = 3.7 mmol/L 3.5-5.1 N K) CHLORIDE (test code = 100.0 mmol/L 98-107 N CL) CARBON DIOXIDE (test 25.9 mmol/L 21-32 N code = CO2) GLUCOSE (test code = 137 mg/dL 70-110 H GLU) BLOOD UREA NITROGEN 13 mg/dL 7-18 N (test code = BUN) GLOMERULAR FILTRATION 103.2 >60 Unit o f measure: RATE (test code = GFR) mL/mi n/1.73 [id number] Range:Healthy Adults >90 mL/min/1.73 m2 For Chronic Kidney Disease: Stage II Mild Decrease i n GFR 60-90 Stage III Moderate Decrea se in GFR 30-59 St age IV Severe Decre ase in GFR 15-29 St age V Kidney Failur e <15 CREATININE (test code 0.91 mg/dL 0.55-1.30 N = CREAT) TOTAL PROTEIN (test 7.9 g/dL 6.4-8.2 N code = PROT) ALBUMIN (test code = 4.4 g/dL 3.4-5.0 N ALB) GLOBULIN (test code = 3.5 g/dL 2.2-4.2 N GLOB) ALBUMIN/GLOBULIN RATIO 1.3 0.7-2.0 N (test code = A/G) CALCIUM (test code = 9.5 mg/dL 8.2-10.1 N CA) BILIRUBIN TOTAL (test 0.40 mg/dL 0.2-1.00 N code = BILT) SGOT/AST (test code = 24.0 U/L 15-37 N AST) SGPT/ALT (test code = 29.0 U/L 12-78 N Please note new ALT) normal range. ALKALINE PHOSPHATASE 131 U/L 46-116 H TOTAL (test code = ALKP) C REACTIVE [id number] 19:04:00 Test Item Value Reference Range Interpretation Comments C REACTIVE PROTEIN (test code = < 0.2 mg/dL <0.9 CRP) PROTHROMBIN [id number] 18:58:00 Test Item Value Reference Range Interpretation Comments PROTHROMBIN TIME 13.0 secs 9.7-12.5 H Please note new normal PATIENT (test code = range. PTP) INTERNATIONAL NORMAL 1.17 <2.0 RECOMME NDED THERAPEUTIC RATIO (test code = RANGE FOR ORAL INR) ANTICOAGULANTTR EATMENT: CONDITION INRPr ophylaxis of venous throm bosis in 2.0 - 3.0 high- risk medical or surg ical patientsTreatme nt of venous thrombos is 2.0 - 3.0Prevention o f embolism 2.0 - 3.0Prevention o f recurrent embol ism, or 3.0 - 4.5 patie nts with mechanical pros thetic intravascular v white IS PATIENT ON ANTICOAGULANTS ? YLIST ANTICOAGULANT/ANTI PLT MEDICATION : AspirinHas Lab been notified if Patient is on Heparin Drip? NOTHROMBOPLASTIN TIME [id number] 18:58:00 Test Item Value Reference Range Interpretation Comments PTT ACTIVATED (test 28.2 secs 26.6-34.6 N Please n ote new code = APTT) normal range. IS PATIENT ON ANTICOAGULANTS ? YLIST ANTICOAGULANT/ANTI PLT MEDICATION : AspirinHas Lab been notified if Patient is on Heparin Drip? NO- DUP VEIN UNI/LTD 2021-08-02 12:31:00 [facility] 2000 Sex: M Patient Name: ANDREY ANDRADE JR Unit No: [id number] EXAMS: CPT CODE: [id number] [facility] VEIN UNI/LTD 41262 FINDINGS: Right lower extremity grayscale and Doppler venous ultrasound demonstrates normal flow and luminal compressibility without evidence of intraluminal thrombus. IMPRESSION: No evidence of DVTwithin deep venous structures of the right lower extremity. at 1231 Reported and signed by: Anibal Hollins M.D. CC: Jose Brand MD Technologist: MCKENZIE MARTÍNEZ, LEANA, RVT Transcribed D/ (1231) [facility] NAME: ANDREY ANDRADE JR [address] [facility] PHYS: [email or web address].[email or web address] - Jose Brand MD : 2000 AGE: 21 SEX: M [place], [place] [address] LOC: Y.RAD PHONE #: [phone] EXAM DATE: 08/02/2021 STATUS: REG CLI FAX #: [phone] RAD #: D/C DT PAGE 1 Signed Report Patient Name: ANDREY ANDRADE JR Unit No: [id number] EXAMS: CPT CODE: [id number] DUP VEIN UNI/LTD 46269 <Continued> Orig Print D/T: S: 08/02/2021 (1235) [facility] NAME: HARSH ANDRADE JR [address] [facility] PHYS: [email or web address] - Jose Brand MD : 2000 AGE: 21 SEX: M [place], [place] [address] LOC: Y.RAD PHONE #: [phone] EXAM DATE: 08/02/2021 STATUS: REG CLI FAX #: [phone] RAD #: D/C DT PAGE 2 Signed Report- CT LOWER EXTRM W/O C [id number] 09:46:00 [facility] 2000 Sex: M Patient Name: ANDREY ANDRADE JR Unit No: [id number] EXAMS: CPT CODE: [id number] 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 The fracture extends into the distal end of the tibial tubercle COMMENT: COMPARISON: No prior exams available. Scans were performed with thin sections and reconstructions were obtained. CT radiation dose optimization is achieved for this examination by the use of a CT protocol in accordance with ACR practice standards and adherence to clinical resource nurse's recommendations. A tibial fracture are present as described. No other fractures are seen at 0946 Reported and signed by: Derrick Singh MD CC: Jose Brand MD; Brenda WARE Technologist: Ernesto Keenan,RT(R) CTDI: DLP: Trnscrpt: 07/25/2021 (0946) [facility] NAME: ANDREY ANDRADE JR [address] [facility] PHYS: BRIMA. - Jose Brand MD : 2000 AGE: 21 SEX: M [place], [place] [address] LOC: Y.321 A PHONE #: [phone] EXAM DATE: 07/25/2021 STATUS: REG [facility] [place] #: [phone] RAD #: D/C DT PAGE 1 Signed ReportPatient Name: ANDREY ANDRADE JR Unit No: [id number] EXAMS: CPT CODE: [id number] CT LOWER EXTRM W/[place] [address] <Continued> Orig Print D/T: S: 07/25/2021 (1352) [facility] NAME:ANDREY ANDRADE [address] [facility] PHYS: [facility]. - Jose Brand MD : 2000 AGE: 21 SEX: M [place], [place] [address] LOC: Y.321 A PHONE #: [phone] EXAM DATE: 07/25/2021 STATUS: REG [facility] [place] #: [phone] RAD #: D/C DT PAGE 2 Signed ReportBASIC METABOLIC [id number] 06:59:00 Test Item Value Reference Range Interpretation Comments SODIUM (test code = 138 mmol/L 136-145 N NA) POTASSIUM (test code = 4.0 mmol/L 3.5-5.1 N K) CHLORIDE (test code = 100.0 mmol/L 98-107 N CL) CARBON DIOXIDE (test 27.9 mmol/L 21-32 N code = CO2) GLUCOSE (test code = 96 mg/dL 70-110 N GLU) BLOOD UREA NITROGEN 9 mg/dL 7-18 N (test code = BUN) GLOMERULAR FILTRATION 133.1 >60 Unit o f measure: RATE (test code = GFR) mL/mi n/1.73 [id number] Range:Healthy Adults >90 mL/min/1.73 m2 For Chronic Kidney Disease: Stage II Mild Decrease i n GFR 60-90 Stage III Moderate Decrea se in GFR 30-59 St age IV Severe Decre ase in GFR 15-29 S tage V Kidney Failur e <15 CREATININE (test code 0.73 mg/dL 0.55-1.30 N = CREAT) CALCIUM (test code = 8.8 mg/dL 8.2-10.1 N CA) CBC W/AUTO [id number] 06:02:00 Test Item Value Reference Range Interpretation Comments WHITE BLOOD CELL (test code = WBC) 9.8 K/mm3 5.7-10.5 N RED BLOOD CELL (test code = RBC) 3.58 M/mm3 4.2-5.4 L HEMOGLOBIN (test code = HGB) 11.5 g/dL 12-16 L HEMATOCRIT (test code = HCT) 33.1 % 37-47 L MEAN CELL VOLUME (test code = MCV) 93 fL 80-98 N MEAN CELL HGB (test code = MCH) 32.1 pg 27-34 N MEAN CELL HGB CONCENTRATION (test 34.7 g/dL 30.8-34.1 H code = MCHC) RED CELL DISTRIBUTION WIDTH (test 12.2 % 11-16 N code = RDW) PLT (test code = PLT) 282 K/mm3 130-400 N MEAN PLATELET VOLUME (test code = 9.7 fL 8.9-12.1 N MPV) NEUTROPHIL % (test code = NT%) 74.0 % 45-70 H LYMPHOCYTE % (test code = LY%) 13.5 % 20-40 L MONOCYTE % (test code = MO%) 8.8 % 3-10 N EOSINOPHIL % (test code = EO%) 2.9 % 1-5 N BASOPHIL % (test code = BA%) 0.3 % 0.0-1.1 N NEUTROPHIL # (test code = NT#) 7.23 K/mm3 2.00-7.50 N LYMPHOCYTE # (test code = LY#) 1.32 K/mm3 1.50-4.00 L MONOCYTE # (test code = MO#) 0.86 K/mm3 0.2-0.8 H EOSINOPHIL # (test code = EO#) 0.28 K/mm3 0.04-0.4 N BASOPHIL # (test code = BA#) 0.03 K/mm3 0.02-0.10 N MANUAL DIFF REQUIRED (test code = NO MANUAL DIFF MDIFF) NUCLEATED RED BLOOD CELL (test 0 % 0-0 N code = NRBC) C REACTIVE [id number] 04:46:00 Test Item Value Reference Range Interpretation Comments C REACTIVE PROTEIN (test code = 5.0 mg/dL 0.6-1.2 H CRP) ACUTE HEPATITIS [id number] 04:46:00 Test Item Value Reference Range Interpretation Comments AB HEPATITIS A IGM (test code = NONREACTIVE NONREACTIVE HAVMAB) AG HEPATITIS B SURFACE (test code NONREACTIVE NONREACTIVE = HBSAG) AB HEPATITIS B CORE IGM (test NONREACTIVE NONREACTIVE code = HBCMAB) AB HEPATITIS C (test code = NONREACTIVE NONREACTIVE HCVAB) SIGNAL TO CUTOFF (test code = 0.09 <0.80 CUTOFF) AB HIV 04:46:00 Test Item Value Reference Range Interpretation Comments AB HIV 1 (test code NONREACTIVE NONREACTIVE Done by Call Loopaur = HIV1AB) 4th Gen HIV Ag/ Ab Combo Screen ACUTE HEPATITIS [id number] 04:45:00 Test Item Value Reference Range Interpretation Comments AB HEPATITIS A IGM (test code = NONREACTIVE NONREACTIVE HAVMAB) AG HEPATITIS B SURFACE (test code NONREACTIVE NONREACTIVE = HBSAG) AB HEPATITIS B CORE IGM (test NONREACTIVE NONREACTIVE code = HBCMAB) AB HEPATITIS C (test code = NONREACTIVE NONREACTIVE HCVAB) SIGNAL TO CUTOFF (test code = 0.09 <0.80 N CUTOFF) AB HIV 1 04:45:00 Test Item Value Reference Range Interpretation Comments AB HIV 1 2 (test NONREACTIVE NONREACTIVE Done by Aditiveaur code = IAQ55EN) 4th Gen HIV Ag/Ab Combo Screen C REACTIVE [id number] 00:46:00 Test Item Value Reference Range Interpretation Comments C REACTIVE PROTEIN (test code = 5.0 mg/dL 0.6-1.2 H CRP) COMPREHENSIVE METABOLIC [id number] 23:59:00 Test Item Value Reference Range Interpretation Comments SODIUM (test code = NA) 136 mEq/L 135-145 POTASSIUM (test code = 3.7 mEq/L 3.5-5.0 K) CHLORIDE (test code = 99 mEq/L 100-115 L CL) CARBON DIOXIDE (test 25 mEq/L 22-31 code = CO2) GLUCOSE (test code = 93 mg/dL 65-110 GLU) BLOOD UREA NITROGEN 15 mg/dL 7-18 (test code = BUN) GLOMERULAR FILTRATION 119.8 >60 Unit o f measure: RATE (test code = GFR) mL/mi n/1.73 [id number] Range:Healthy Adults >90 mL/min/1.73 m2 For Chronic Kidney Disease: Stage II Mild Decrease i n GFR 60-90 Stage III Moderate Decrea se in GFR 30-59 St age IV Severe Decre ase in GFR 15-29 St age V Kidney Failur e <15Unit of vu ure: mL/min/1.73 [id number] Range:Healthy Adults >90 mL/min/1.73 m2 For Chronic Kidney Disease: Stage II Mild Decrease i n GFR 60-90 Stage III Moderate Decrea se in GFR 30-59 St age IV Severe Decre ase in GFR 15-29 St age V Kidney Failur e <15 CREATININE (test code = 0.8 mg/dL 0.7-1.3 CREAT) TOTAL PROTEIN (test 7.9 gm/dL 6.3-8.2 code = PROT) ALBUMIN (test code = 4.3 gm/dL 3.4-4.8 ALB) GLOBULIN (test code = 3.6 GLOB) ALBUMIN/GLOBULIN RATIO 1.19 (test code = A/G) CALCIUM (test code = 8.8 mg/dL 8.4-10.2 CA) BILIRUBIN TOTAL (test 0.8 mg/dL 0.2-1.0 code = BILT) SGOT/AST (test code = 63 units/L 15-37 H AST) SGPT/ALT (test code = 129 units/L 12-78 H ALT) ALKALINE PHOSPHATASE 194 units/L 46-116 H TOTAL (test code = ALKP) COMPREHENSIVE METABOLIC [id number] 23:58:00 Test Item Value Reference Range Interpretation Comments SODIUM (test code = NA) 136 mEq/L 135-145 N POTASSIUM (test code = K) 3.7 mEq/L 3.5-5.0 N CHLORIDE (test code = CL) 99 mEq/L 100-115 L CARBON DIOXIDE (test code = CO2) 25 mEq/L 22-31 N ANION GAP (test code = GAP) 15.50 10-20 N GLUCOSE (test code = GLU) 93 mg/dL 65-110 N BLOOD UREA NITROGEN (test code = 15 mg/dL 7-18 N BUN) GLOMERULAR FILTRATION RATE (test 120 ml/min >60 N code = GFR) CREATININE (test code = CREAT) 0.8 mg/dL 0.7-1.3 N TOTAL PROTEIN (test code = PROT) 7.9 gm/dL 6.3-8.2 N ALBUMIN (test code = ALB) 4.3 gm/dL 3.4-4.8 N CALCIUM (test code = CA) 8.8 mg/dL 8.4-10.2 N BILIRUBIN TOTAL (test code = 0.8 mg/dL 0.2-1.0 N BILT) SGOT/AST (test code = AST) 63 units/L 15-37 H SGPT/ALT (test code = ALT) 129 units/L 12-78 H ALKALINE PHOSPHATASE TOTAL (test 194 units/L 46-116 H code = ALKP) COVID 19 Asymptomatic IH [id number] 20:17:00 Test Item Value Reference Range Interpretation Comments COVID 19 Asymptomatic IH AG (test NEGATIVE NEGATIVE code = COVNONPUIAG) CBC W/AUTO [id number] 18:03:00 Test Item Value Reference Range Interpretation Comments WHITE BLOOD CELL (test code = WBC) 9.5 K/mm3 5.7-10.5 N RED BLOOD CELL (test code = RBC) 3.94 M/mm3 4.2-5.4 L HEMOGLOBIN (test code = HGB) 12.6 g/dL 12-16 N HEMATOCRIT (test code = HCT) 35.6 % 37-47 L MEAN CELL VOLUME (test code = MCV) 90 fL 80-98 N MEAN CELL HGB (test code = MCH) 32.0 pg 27-34 N MEAN CELL HGB CONCENTRATION (test 35.4 g/dL 30.8-34.1 H code = MCHC) RED CELL DISTRIBUTION WIDTH (test 12.2 % 11-16 N code = RDW) PLT (test code = PLT) 307 K/mm3 130-400 N MEAN PLATELET VOLUME (test code = 9.5 fL 8.9-12.1 N MPV) NEUTROPHIL % (test code = NT%) 77.6 % 45-70 H LYMPHOCYTE % (test code = LY%) 14.2 % 20-40 L MONOCYTE % (test code = MO%) 5.6 % 3-10 N EOSINOPHIL % (test code = EO%) 1.9 % 1-5 N BASOPHIL % (test code = BA%) 0.3 % 0.0-1.1 N NEUTROPHIL # (test code = NT#) 7.34 K/mm3 2.00-7.50 N LYMPHOCYTE # (test code = LY#) 1.34 K/mm3 1.50-4.00 L MONOCYTE # (test code = MO#) 0.53 K/mm3 0.2-0.8 N EOSINOPHIL # (test code = EO#) 0.18 K/mm3 0.04-0.4 N BASOPHIL # (test code = BA#) 0.03 K/mm3 0.02-0.10 N MANUAL DIFF REQUIRED (test code = NO MANUAL DIFF MDIFF) NUCLEATED RED BLOOD CELL (test 0 % 0-0 N code = NRBC) SED [id number] 18:03:00 Test Item Value Reference Range Interpretation Comments SED RATE (test code = SEDW) 78 mm/hr 0-15 H PROTHROMBIN [id number] 18:00:00 Test Item Value Reference Range Interpretation Comments PROTHROMBIN TIME 12.7 secs 9.7-12.5 H Please note new normal PATIENT (test code = range. PTP) INTERNATIONAL NORMAL 1.14 <2.0 RECOMME NDED THERAPEUTIC RATIO (test code = RANGE FOR ORAL INR) ANTICOAGULANTTR EATMENT: CONDITION INRPr ophylaxis of venous throm bosis in 2.0 - 3.0 high- risk medical or surg ical patientsTreatme nt of venous thrombos is 2.0 - 3.0Prevention o f embolism 2.0 - 3.0Prevention o f recurrent embol ism, or 3.0 - 4.5 patie nts with mechanical pros thetic intravascular v white IS PATIENT ON ANTICOAGULANTS ? NHas Lab been notified if Patient is on Heparin Drip? NOTHROMBOPLASTIN TIME [id number] 18:00:00 Test Item Value Reference Range Interpretation Comments PTT ACTIVATED (test 33.6 secs 26.6-34.6 N Please n ote new code = APTT) normal range. IS PATIENT ON ANTICOAGULANTS ? NHas Lab been notified if Patient is on Heparin Drip? NO
--- NOTE | 2021-10-29 16:36 | EDPHYS ---
Physician Documentation [facility] Name: Orion Barnes Jr Age: 21 yrs Sex: Male : 2000 Arrival Date: 10/29/2021 Time: 14:20 Bed Waiting Private MD: ED Physician HPI: 10/29 16:01 This 21 yrs old Male presents to ER via Unassigned with complaints of Ear snw Pain, Fall Injury. 16:01 called to triage x 2, no answer. snw MDM: 15:27 Patient medically screened. snw Administered Medications: No medications were administered Disposition Summary: 10/29/21 16:35 Eloped Disposition: Before Triage ph Reason: unknown ph Signatures: Elena Maguire, SERGIO-C RATE ANALYST-Csnw Preeti Pablo, RN RN ph
--- NOTE | 2021-10-29 16:36 | ER ---
Nurse's Notes [facility] Name: Orion Barnes Jr Age: 21 yrs Sex: Male : 2000 Arrival Date: 10/29/2021 Time: 14:20 Bed Waiting Private MD: Diagnosis: ED Course: 10/29 14:20 Patient arrived in ED. mr 15:20 Gerald Toro DO is Attending Physician. ms3 15:22 [facility] Mag[facility]C [facility] snw 15:23 Patient's name was called from ER lobby. No response. ph 15:44 Patient's name was called from ER lobby. No response. Unable to locate patient. Will ph disposition as left without being seen by a provider. Administered Medications: No medications were administered Outcome: 16:35 Patient left the ED. ph Signatures: Elena Maguire FNP-C CONE TENDER-Csnw ValadezViolet Patricia, RN RN Gerald Toro DO DO ms3
== END 2021-10-29 16:35 | disposition left against medical advice (07) ==
LOC: ER 14:18
DX: Z02.9 Encounter for administrative examinations, unspecified (principal)

== ENCOUNTER → 2023-04-29 | Emergency (ER) | payer BC, SELFPAY ==
[~2023-04-29] MED LIST: DIPHENHYDRAMINE 50 MG/ML VIAL ONE; KETOROLAC 30 MG/ML INJ ONE; METOCLOPRAMIDE 10 MG/2mL INJ ONE; NA CHLORIDE 0.9% 1,000 ML ONE; ONDANSETRON 4 MG/2 ML VIAL ONE; dexAMETHasone 10 MG/ML VIAL ONE
--- OUTSIDE RECORDS SUMMARY | 2023-04-29 11:49 | XMS REPORT | Continuity of Care Document ---
Author Name Unknown Address [address] [facility] [address] [place] [address] [facility] thconnect Address [address] [facility] [address] [place] [address] Care Team Providers Care Branch Operations Manager Name Role Phone STEPHANI, RUKHSANA Primary Care Physician Unavail able Oliverio Attending Clinician UnavailJose Raymond Attending Clinician [phone] KEELY CASTRO Attending Clinician Unavailable Keely Lima Attending Clinician [phone] Jose Brand Attending Clinician Unavailable Oliverio Admitting Clinician UnavailJose Raymond Admitting Clinician Unavailable Payers Payer Name Policy Type Policy Number Effective Date Expirati on Date Source [facility] ([facility] [id number] 2019 00:00:00 [facility] [id number] 2015 00:00:00 Problems Condition Name Condition Details Condition Category Status Onset Date Resolution Date Last Treatment Date Treating Clinician Comments Source Closed bicondylar fracture of tibial plateau Closed Bicondylar Fracture of Tibial Plateau Problem Active 08-08 00:00: 00 [facility] Allergies, Adverse Reactions, Alerts Allergy Name Allergy Type Status Severity Reaction(s) Onset Date Inactive Date Treating Clinician Comments Source No Known Drug Allergie s DA Active U 07-23 00:00: 00 [facility] DEET DA Active [place] ITCHINESS 07-23 00:00: 00 [facility] NO KNOWN ALLERGIE S Drug Class Active [facility] Social History Social Habit Start Date Stop Date Quantity Comments Source History of tobacco use 2013-07-29 00:00:00 Cigarette Smoker [facility] History SDOH Alcohol Frequency [facility] History SDOH Alcohol Std Drinks [facility] History SDOH Alcohol Binge [facility] Exposure to SARS-CoV-2 (event) 2021-10-19 00:00:00 2021-10-29 23:16:00 Not sure [facility] Alcohol intake 2021-10-29 00:00:00 2021-10-29 00:00:00 Current drinker of alcohol (finding) [facility] Tobacco use and exposure 2018-07-29 00:00:00 2018-07-29 00:00:00 Smokeless tobacco non-user [facility] Alcohol Comment 2018-07-29 00:00:00 2018-07-29 00:00:00 socially [facility] Tobacco Comment 2018-07-29 00:00:00 2018-07-29 00:00:00 smokesabout 3 or 4 cigarettes per day [facility] Sex Assigned At 2000 00:00:00 2000 00:00:00 [facility] Smoking Status Start Date Stop Date Source Smokes tobacco daily 2018-07-29 00:00:00 [facility] Medications Ordered Medication Name Filled Medication Name Start Date Stop Date Current Medication? Ordering Clinician Indication Dosage Frequency Signature (SIG) Comments Components Source doxycycline hyclate (Vibramycin ) capsule 100 mg 10-30 05:00: 00 10-30 05:03 :00 No 100mg 100 mg, Oral, ONCE, 1 dose, On Fri10/30/21 at 0000, LOVE
Re ason for Anti-Infec tive: Empiric Therapy for Suspected Infection< br>Empiric Therapy Site: Skin / Soft tissue
Duration of therapy: 72 hours [facility] doxycycline hyclate 100 mg capsule 10-29 00:00: 11-06 04:59 :00 No [id number] 100mg Take 1 capsule by mouth in the morning and 1 capsule in the evening. Do all this for 7 days. [facility] Diclofenac Sodium (VOLTAREN) 1 % gel 08-12 00:00: 00 10-29 00:00 :00 No [id number] Apply to area(s) daily. [facility] cyclobenzap rine 5 mg tablet 08-12 00:00: 00 10-29 00:00 :00 No [id number] 9103 5mg Take 1 tablet by mouth 3 (three) times daily as needed for Muscle Spasms. [facility] gabapentin 100 mg capsule 07-29 00:00: 00 10-29 00:00 :00 No [id number] 9103 100mg Take 1 capsule by mouth 3 (three) times daily as needed for Pain (scale 4-6). [facility] acetaminoph en 300 mg-codeine 30 mg tablet TAKE 1 TO 2 TABLETS BY MOUTH EVERY 6 HOURS NEEDED FOR PAIN acetaminoph en 300 mg-codeine 30 mg tablet TAKE 1 TO 2 TABLETS BY MOUTH EVERY 6 HOURS NEEDED FOR PAIN No acetaminop hen 300 mg-codeine 30 mg tablet TAKE 1 TO 2 TABLETS BY MOUTH EVERY 6 HOURS NEEDED FOR PAIN [facility] gabapentin 300 mg capsule TAKE 1 CAPSULE BY MOUTH THREE TIMES DAILY gabapentin 300 mg capsule TAKE 1 CAPSULE BY MOUTH THREE TIMES DAILY No gabapentin 300 mg capsule TAKE 1 CAPSULE BY MOUTH THREE TIMES DAILY [facility] hydrocodone 5 mg-acetamin ophen 325 mg tablet Take 1 tablet every 6 hours by oral route. hydrocodone 5 mg-acetamin ophen 325 mg tablet Take 1 tablet every 6 hours by oral route. No 1 Q6H hydrocodon e 5 mg-acetami nophen 325 mg tablet Take 1 tablet every 6 hours by oral route. [facility] oxycodone 10 mg tablet TAKE 1 TABLET BY MOUTH EVERY 6 HOURS FOR PAIN FOR PAIN SCALE 7 TO 10 oxycodone 10 mg tablet TAKE 1 TABLET BY MOUTH EVERY 6 HOURS FOR PAIN FOR PAIN SCALE 7 TO 10 No oxycodone 10 mg tablet TAKE 1 TABLET BY MOUTH EVERY 6 HOURS FOR PAIN FOR PAIN SCALE 7 TO 10 [facility] acetaminoph en 300 mg-codeine 30 mg tablet TAKE 1 TO 2 TABLETS BY MOUTH EVERY 6 HOURS NEEDED FOR PAIN acetaminoph en 300 mg-codeine 30 mg tablet TAKE 1 TO 2 TABLETS BY MOUTH EVERY 6 HOURS NEEDED FOR PAIN No acetaminop hen 300 mg-codeine 30 mg tablet TAKE 1 TO 2 TABLETS BY MOUTH EVERY 6 HOURS NEEDED FOR PAIN [facility] gabapentin 300 mg capsule TAKE 1 CAPSULE BY MOUTH THREE TIMES DAILY gabapentin 300 mg capsule TAKE 1 CAPSULE BY MOUTH THREE TIMES DAILY No gabapentin 300 mg capsule TAKE 1 CAPSULE BY MOUTH THREE TIMES DAILY [facility] hydrocodone 5 mg-acetamin ophen 325 mg tablet Take 1 tablet every 6 hours by oral route. hydrocodone 5 mg-acetamin ophen 325 mg tablet Take 1 tablet every 6 hours by oral route. No 1 Q6H hydrocodon e 5 mg-acetami nophen 325 mg tablet Take 1 tablet every 6 hours by oral route. [facility] oxycodone 10 mg tablet TAKE 1 TABLET BY MOUTH EVERY 6 HOURS FOR PAIN FOR PAIN SCALE 7 TO 10 oxycodone 10 mg tablet TAKE 1 TABLET BY MOUTH EVERY 6 HOURS FOR PAIN FOR PAIN SCALE 7 TO 10 No oxycodone 10 mg tablet TAKE 1 TABLET BY MOUTH EVERY 6 HOURS FOR PAIN FOR PAIN SCALE 7 TO 10 [facility] acetaminoph en 300 mg-codeine 30 mg tablet TAKE 1 TO 2 TABLETS BY MOUTH EVERY 6 HOURS NEEDED FOR PAIN acetaminoph en 300 mg-codeine 30 mg tablet TAKE 1 TO 2 TABLETS BY MOUTH EVERY 6 HOURS NEEDED FOR PAIN No acetaminop hen 300 mg-codeine 30 mg tablet TAKE 1 TO 2 TABLETS BY MOUTH EVERY 6 HOURS NEEDED FOR PAIN [facility] doxycycline hyclate 100 mg capsule TAKE 1 CAPSULE BY MOUTH IN THE MORNING AND 1 CAPSULE IN THE EVENING FOR 7 DAYS doxycycline hyclate 100 mg capsule TAKE 1 CAPSULE BY MOUTH IN THE MORNING AND 1 CAPSULE IN THE EVENING FOR 7 DAYS No doxycyclin e hyclate 100 mg capsule TAKE 1 CAPSULE BY MOUTH IN THE MORNING AND 1 CAPSULE IN THE EVENING FOR 7 DAYS [facility] gabapentin 300 mg capsule TAKE 1 CAPSULE BY MOUTH THREE TIMES DAILY gabapentin 300 mg capsule TAKE 1 CAPSULE BY MOUTH THREE TIMES DAILY No gabapentin 300 mg capsule TAKE 1 CAPSULE BY MOUTH THREE TIMES DAILY [facility] hydrocodone 5 mg-acetamin ophen 325 mg tablet Take 1 tablet every 6 hours by oral route. hydrocodone 5 mg-acetamin ophen 325 mg tablet Take 1 tablet every 6 hours by oral route. No 1 Q6H hydrocodon e 5 mg-acetami nophen 325 mg tablet Take 1 tablet every 6 hours by oral route. [facility] oxycodone 10 mg tablet TAKE 1 TABLET BY MOUTH EVERY 6 HOURS FOR PAIN FOR PAIN SCALE 7 TO 10 oxycodone 10 mg tablet TAKE 1 TABLET BY MOUTH EVERY 6 HOURS FOR PAIN FOR PAIN SCALE 7 TO 10 No oxycodone 10 mg tablet TAKE 1 TABLET BY MOUTH EVERY 6 HOURS FOR PAIN FOR PAIN SCALE 7 TO 10 [facility] acetaminoph en 300 mg-codeine 30 mg tablet TAKE 1 TO 2 TABLETS BY MOUTH EVERY 6 HOURS NEEDED FOR PAIN acetaminoph en 300 mg-codeine 30 mg tablet TAKE 1 TO 2 TABLETS BY MOUTH EVERY 6 HOURS NEEDED FOR PAIN No acetaminop hen 300 mg-codeine 30 mg tablet TAKE 1 TO 2 TABLETS BY MOUTH EVERY 6 HOURS NEEDED FOR PAIN [facility] gabapentin 300 mg capsule TAKE 1 CAPSULE BY MOUTH THREE TIMES DAILY gabapentin 300 mg capsule TAKE 1 CAPSULE BY MOUTH THREE TIMES DAILY No gabapentin 300 mg capsule TAKE 1 CAPSULE BY MOUTH THREE TIMES DAILY [facility] hydrocodone 5 mg-acetamin ophen 325 mg tablet Take 1 tablet every 6 hours by oral route. hydrocodone 5 mg-acetamin ophen 325 mg tablet Take 1 tablet every 6 hours by oral route. No 1 Q6H hydrocodon e 5 mg-acetami nophen 325 mg tablet Take 1 tablet every 6 hours by oral route. [facility] oxycodone 10 mg tablet TAKE 1 TABLET BY MOUTH EVERY 6 HOURS FOR PAIN FOR PAIN SCALE 7 TO 10 oxycodone 10 mg tablet TAKE 1 TABLET BY MOUTH EVERY 6 HOURS FOR PAIN FOR PAIN SCALE 7 TO 10 No oxycodone 10 mg tablet TAKE 1 TABLET BY MOUTH EVERY 6 HOURS FOR PAIN FOR PAIN SCALE 7 TO 10 [facility] acetaminoph en 300 mg-codeine 30 mg tablet TAKE 1 TO 2 TABLETS BY MOUTH EVERY 6 HOURS NEEDED FOR PAIN acetaminoph en 300 mg-codeine 30 mg tablet TAKE 1 TO 2 TABLETS BY MOUTH EVERY 6 HOURS NEEDED FOR PAIN No acetaminop hen 300 mg-codeine 30 mg tablet TAKE 1 TO 2 TABLETS BY MOUTH EVERY 6 HOURS NEEDED FOR PAIN [facility] gabapentin 300 mg capsule Take 1 capsule 3 times a day by oral route. gabapentin 300 mg capsule Take 1 capsule 3 times a day by oral route. No 1capsul e(s) TID gabapentin 300 mg capsule Take 1 capsule 3 times a day by oral route. [facility] hydrocodone 5 mg-acetamin ophen 325 mg tablet Take 1 tablet every 6 hours by oral route. hydrocodone 5 mg-acetamin ophen 325 mg tablet Take 1 tablet every 6 hours by oral route. No 1 Q6H hydrocodon e 5 mg-acetami nophen 325 mg tablet Take 1 tablet every 6 hours by oral route. [facility] oxycodone 10 mg tablet TAKE 1 TABLET BY MOUTH EVERY 6 HOURS FOR PAIN FOR PAIN SCALE 7 TO 10 oxycodone 10 mg tablet TAKE 1 TABLET BY MOUTH EVERY 6 HOURS FOR PAIN FOR PAIN SCALE 7 TO 10 No oxycodone 10 mg tablet TAKE 1 TABLET BY MOUTH EVERY 6 HOURS FOR PAIN FOR PAIN SCALE 7 TO 10 [facility] Vital Signs Vital Name Observation Time Observation Value Comments S brunilda Systolic blood pressure 2021-10-30 04:18:00 101 mm[Hg] [facility] Diastolic blood pressure 2021-10-30 04:18:00 74 mm[Hg] [facility] Heart rate 2021-10-30 04:18:00 94 /min [facility] Body temperature 2021-10-30 04:18:00 37.06 Ana M [facility] Respiratory rate 2021-10-30 04:18:00 18 /min [facility] Body height 2021-10-30 04:18:00 175.3 cm [facility] Body weight 2021-10-30 04:18:00 58.968 kg [facility] BMI 2021-10-30 04:18:00 19.20 kg/m2 [facility] Oxygen saturation in Arterial blood by Pulse oximetry 2021-10-30 04:18:00 98 /min [facility] Procedures Procedure Date / Time Performed Performing Clinicia n Source XR, knee, 1 or 2 view 2021-11-14 00:00:00 [facility] INCISION AND DRAINAGE 2021-10-30 04:52:20 Chrystal Castro [facility] NOTICE OF PRIVACY PRACTICES 2021-10-30 04:06:52 Doctor Unassigned, [place] [facility] CONSENT/REFUSAL FOR DIAGNOSIS AND TREATMENT 2021-10-30 04:06:29 Doctor Unassigned, [place] [facility] XR, knee, 1 or 2 view 2021-09-12 00:00:00 [facility] XR, knee, 1 or 2 view 2021-08-08 00:00:00 [facility] US, duplex, venous, lower extremity 2021-08-01 00:00:00 [facility] XR, knee, 1 or 2 view 2021-07-23 00:00:00 [facility] Encounters Start Date/Time End Date/Time Encounter Type Admission Type Attending Clinicians Care Facility Care Department Encounter ID Source 2022-07-02 09:26:23 Outpatient [facility] [id number] [facility] 2022-06-26 14:19:07 Outpatient [facility] [id number] [facility] 2021-07-18 14:43:06 Outpatient [facility] [id number] [facility] 2022-06-24 00:00:00 2022-06-24 00:00:00 Outpatient JUSTIN_Sunday Tovar AO AO [id number] [facility] 2021-11-23 00:00:00 2021-11-23 00:00:00 Outpatient Noble Tovar AO AO [id number] [facility] 2021-11-18 00:00:00 2021-11-18 00:00:00 Outpatient FOG_Tristaner _Jose_ AOSM AO [id number] [facility] 2021-11-14 00:00:00 2021-11-14 00:00:00 Outpatient FOG_Brhermanner _Wai AOSM AO [id number] [facility] 2021-11-14 00:00:00 2021-11-14 00:00:00 Jose Brand MD: [address] [place] [id number] , Ph. [phone] [facility] [place] [facility] [place] [facility] [id number] [facility] 2021-11-14 00:00:00 2021-11-14 00:00:00 [id number] 2021-10-29 23:22:00 2021-10-30 00:13:00 Emergency X [facility] ERT [id number] [facility] 2021-10-29 23:22:00 2021-10-30 00:13:00 Emergency Keely Castro [facility] [id number] [facility] 2021-10-28 00:00:00 2021-10-28 00:00:00 Outpatient FOG_Sunday _Wai AO AO [id number] [facility] 2021-10-18 00:00:00 2021-10-18 00:00:00 Outpatient FOG_Tristaner _Wai AOSM AO [id number] [facility] 2021-10-13 00:00:00 2021-10-13 00:00:00 Outpatient FOG_Brinker _Mark_MD AOSM AOSM [id number] [facility] 2021-09-13 10:21:00 2021-09-13 10:21:00 Outpatient FOG_Brinker _Mark_MD AOSM AOSM [id number] [facility] 2021-09-12 11:36:00 2021-09-12 11:36:00 Outpatient FOG_Brinker _Mark_MD AOSM AOSM [id number] [facility] 2021-09-12 00:00:00 2021-09-12 00:00:00 Jose Brand MD: [address] [place] [address] , Ph. [phone] [facility] [place] [facility] [place] [facility] [id number] [facility] 2021-09-12 00:00:00 2021-09-12 00:00:00 Outpatient Jose Brand AOSM AO [id number] 2021-09-08 01:54:00 2021-09-08 01:54:00 Outpatient FOG_Brinker _Mark_ AOSM AO [id number] [facility] 2021-09-03 10:07:00 2021-09-03 10:07:00 Outpatient FOG_Brinker _Mark_ AOSM AOSM [id number] [facility] 2021-08-23 11:30:00 2021-08-23 11:30:00 Outpatient FOG_Brinker _Mark_MD AOSM AOSM [id number] [facility] 2021-08-22 01:22:00 2021-08-22 01:22:00 Outpatient FOG_Brinker _Mark_MD AOSM AOSM [id number] [facility] 2021-08-22 00:00:00 2021-08-22 00:00:00 Jose Brand MD: [address] [place] [address] , Ph. [phone] [facility] [place] [facility] [place] [facility] [id number] [facility] 2021-08-22 00:00:00 2021-08-22 00:00:00 Outpatient Jose Brand AOSM AOSM [id number] 2021-08-17 02:35:00 2021-08-17 02:35:00 Outpatient FOG_Sunday _Jose_ AOSM AOSM [id number] [facility] 2021-08-14 07:24:00 2021-08-16 15:26:00 Outpatient Jose WinstonTO OBSE [id number] [facility] 2021-08-14 07:24:00 2021-08-16 15:26:00 Outpatient Jose Winston OBSE [id number] [facility] 2021-08-14 00:00:00 2021-08-14 00:00:00 Jose Brand MD: [address] [place] [address] , Ph. [phone] [facility] [place] [facility] [place] [facility] [id number] [facility] 2021-08-14 00:00:00 2021-08-14 00:00:00 Outpatient Jose Brand AORHONDA AOSM [id number] 2021-08-08 00:00:00 2021-08-08 00:00:00 Outpatient Jose Brand AOSM AOSM [id number] 2021-08-08 00:00:00 2021-08-08 00:00:00 Jose Brand MD: [address] [place] [address] , Ph. [phone] [facility] [place] [facility] [place] [facility] F[facility] [id number] [facility] 2021-08-02 11:13:00 2021-08-02 11:13:00 Outpatient Jose WinstonTO RADI [id number] [facility] 2021-08-01 00:00:00 2021-08-01 00:00:00 Jose Brand MD: [address] [place] [phone] , Ph. [phone] [facility] [place] [facility] [place] [facility] [id number] [facility] 2021-07-24 11:29:00 2021-07-26 17:00:00 Outpatient Jose Winston OBSE [id number] [facility] 2021-07-24 11:29:00 2021-07-26 17:00:00 Outpatient Jose Winston OBSE [id number] [facility] 2021-07-25 00:00:00 2021-07-25 00:00:00 Joselo Fonseca, LPO: [address] [facility] [address], [place] [address] , Ph. [phone] [facility] [place] [facility] [place] [facility] [id number] [facility] 2021-07-23 00:00:00 2021-07-23 00:00:00 Jose Brand MD: [address] [place] [phone] , Ph. [phone] [facility] [place] [facility] [place] [facility] [address] [id number] [facility] Results Test Description Test Time Test Comments Results Result Co mments Source CBC W/AUTO [id number] 05:44:00* Test Item Value Reference Range Interpretation Comme nts WHITE BLOOD CELL (test code = WBC) [...] 27-34 N MEAN CELL HGB CONCENTRATION (test code = MCHC) 35.2 g/dL 30.8-34.1 H RED CELL DISTRIBUTION WIDTH (test code = RDW) 12.7 % 11-16 N PLT (test code = PLT) 188 K/mm3 130-400 N MEAN PLATELET VOLUME (test c ode = MPV) 10.4 fL 8.9-12.1 N NEUTROPHIL % (test code = NT%) 75.2 [...] K/mm3 0.02-0.10 N MANUAL DIFF REQUIRED (test c ode = MDIFF) NO MANUAL DIFF NUCLEATED RED BLOOD CELL (te st code = NRBC) 0 % 0-0 N CBC W Auto Differential panel - [id number] 04:56:00* Test Item Value Reference Range Interpretation Comme nts white blood cell (test code = white blood cell) 10.8 K/mm3 5.7-10.5 H red blood cell (test code = red blood cell) 2.99 M/mm3 4.2-5.4 L hemoglobin (test code = hemoglobin) 9.5 g/dL 12-16 L hematocrit (test code = hematocrit) 27.0 % 37-47 L mean cell volume (test code = mean cell volume) 90 fL 80-98 mean cell HGB (test code = m juani cell HGB) 31.8 pg 27-34 mean cell HGB concentration (test code = mean cell HGB concentration) 35.2 g/dL 30.8-34.1 H red cell distribution width (test code = red cell distribution width) 12.7 % 11-16 plt (test code = plt) 188 K/mm3 130-400 mean platelet volume (test c ode = mean platelet volume) 10.4 fL 8.9-12.1 neutrophil % (test code = neutrophil %) 75.2 % 45-70 H lymphocyte % (test code = lymphocyte %) 16.5 % 20-40 L monocyte % (test code = mono cyte %) 6.9 % 3-10 eosinophil % (test code = eosinophil %) 0.3 % 1-5 L basophil % (test code = baso hyun %) 0.3 % 0.0-1.1 neutrophil # (test code = neutrophil #) 8.13 K/mm3 2.00-7.50 H lymphocyte # (test code = lymphocyte #) 1.78 K/mm3 1.50-4.00 monocyte # (test code = mono cyte #) 0.75 K/mm3 0.2-0.8 eosinophil # (test code = eosinophil #) 0.03 K/mm3 0.04-0.4 L basophil # (test code = baso hyun #) 0.03 K/mm3 0.02-0.10 manual diff required (test c ode = manual diff required) no manual diff nucleated red blood cell (te st code = nucleated red blood cell) 0 % 0-0 performing lab: (test code = performing lab:) [facility] metabolic [id number] 04:56:00* Test Item Value Reference Range Interpretation Comme nts sodium (test code = sodium) 133 mmol/L 136-145 L potassium (test code = potassium) 4.2 mmol/L 3.5-5.1 chloride (test code = chloride) 98.0 mmol/L 98-107 carbon dioxide (test code = carbon dioxide) 28.3 mmol/L 21-32 glucose (test code = glucose) 110 mg/dL 70-110 blood urea nitrogen (test co de = blood urea nitrogen) 9 mg/dL 7-18 glomerular filtration rate ( test code = glomerular filtration rate) 110.2 >60 creatinine (test code = creatinine) 0.86 mg/dL 0.55-1.30 calcium (test code = calcium) 8.1 mg/dL 8.2-10.1 L performing lab: (test code = performing lab:) [facility] W Auto Differential panel - [id number] 04:56:00* Test Item Value Reference Range Interpretation Comme nts white blood cell (test code = white blood cell) 10.8 K/mm3 5.7-10.5 H red blood cell (test code = red blood cell) 2.99 M/mm3 4.2-5.4 L hemoglobin (test code = hemoglobin) 9.5 g/dL 12-16 L hematocrit (test code = hematocrit) 27.0 % 37-47 L mean cell volume (test code = mean cell volume) 90 fL 80-98 mean cell HGB (test code = m juani cell HGB) 31.8 pg 27-34 mean cell HGB concentration (test code = mean cell HGB concentration) 35.2 g/dL 30.8-34.1 H red cell distribution width (test code = red cell distribution width) 12.7 % 11-16 plt (test code = plt) 188 K/mm3 130-400 mean platelet volume (test c ode = mean platelet volume) 10.4 fL 8.9-12.1 neutrophil % (test code = neutrophil %) 75.2 % 45-70 H lymphocyte % (test code = lymphocyte %) 16.5 % 20-40 L monocyte % (test code = mono cyte %) 6.9 % 3-10 eosinophil % (test code = eosinophil %) 0.3 % 1-5 L basophil % (test code = baso hyun %) 0.3 % 0.0-1.1 neutrophil # (test code = neutrophil #) 8.13 K/mm3 2.00-7.50 H lymphocyte # (test code = lymphocyte #) 1.78 K/mm3 1.50-4.00 monocyte # (test code = mono cyte #) 0.75 K/mm3 0.2-0.8 eosinophil # (test code = eosinophil #) 0.03 K/mm3 0.04-0.4 L basophil # (test code = baso hyun #) 0.03 K/mm3 0.02-0.10 manual diff required (test c ode = manual diff required) no manual diff nucleated red blood cell (te st code = nucleated red blood cell) 0 % 0-0 performing lab: (test code = performing lab:) [facility] [id number] 04:56:00* Test Item Value Reference Range Interpretation Comme nts sodium (test code = sodium) 133 mmol/L 136-145 L potassium (test code = potassium) 4.2 mmol/L 3.5-5.1 chloride (test code = chloride) 98.0 mmol/L 98-107 carbon dioxide (test code = carbon dioxide) 28.3 mmol/L 21-32 glucose (test code = glucose) 110 mg/dL 70-110 blood urea nitrogen (test co de = blood urea nitrogen) 9 mg/dL 7-18 glomerular filtration rate ( test code = glomerular filtration rate) 110.2 >60 creatinine (test code = creatinine) 0.86 mg/dL 0.55-1.30 calcium (test code = calcium) 8.1 mg/dL 8.2-10.1 L performing lab: (test code = performing lab:) [facility] Differential panel - [id number] 04:56:00* Test Item Value Reference Range Interpretation Comme nts white blood cell (test code = white blood cell) 10.8 K/mm3 5.7-10.5 H red blood cell (test code = red blood cell) 2.99 M/mm3 4.2-5.4 L hemoglobin (test code = hemoglobin) 9.5 g/dL 12-16 L hematocrit (test code = hematocrit) 27.0 % 37-47 L mean cell volume (test code = mean cell volume) 90 fL 80-98 mean cell HGB (test code = m juani cell HGB) 31.8 pg 27-34 mean cell HGB concentration (test code = mean cell HGB concentration) 35.2 g/dL 30.8-34.1 H red cell distribution width (test code = red cell distribution width) 12.7 % 11-16 plt (test code = plt) 188 K/mm3 130-400 mean platelet volume (test c ode = mean platelet volume) 10.4 fL 8.9-12.1 neutrophil % (test code = neutrophil %) 75.2 % 45-70 H lymphocyte % (test code = lymphocyte %) 16.5 % 20-40 L monocyte % (test code = mono cyte %) 6.9 % 3-10 eosinophil % (test code = eosinophil %) 0.3 % 1-5 L basophil % (test code = baso hyun %) 0.3 % 0.0-1.1 neutrophil # (test code = neutrophil #) 8.13 K/mm3 2.00-7.50 H lymphocyte # (test code = lymphocyte #) 1.78 K/mm3 1.50-4.00 monocyte # (test code = mono cyte #) 0.75 K/mm3 0.2-0.8 eosinophil # (test code = eosinophil #) 0.03 K/mm3 0.04-0.4 L basophil # (test code = baso hyun #) 0.03 K/mm3 0.02-0.10 manual diff required (test c ode = manual diff required) no manual diff nucleated red blood cell (te st code = nucleated red blood cell) 0 % 0-0 performing lab: (test code = performing lab:) [facility] [id number] 04:56:00* Test Item Value Reference Range Interpretation Comme nts sodium (test code = sodium) 133 mmol/L 136-145 L potassium (test code = potassium) 4.2 mmol/L 3.5-5.1 chloride (test code = chloride) 98.0 mmol/L 98-107 carbon dioxide (test code = carbon dioxide) 28.3 mmol/L 21-32 glucose (test code = glucose) 110 mg/dL 70-110 blood urea nitrogen (test co de = blood urea nitrogen) 9 mg/dL 7-18 glomerular filtration rate ( test code = glomerular filtration rate) 110.2 >60 creatinine (test code = creatinine) 0.86 mg/dL 0.55-1.30 calcium (test code = calcium) 8.1 mg/dL 8.2-10.1 L performing lab: (test code = performing lab:) [facility] Differential panel - [id number] 04:56:00* Test Item Value Reference Range Interpretation Comme nts white blood cell (test code = white blood cell) 10.8 K/mm3 5.7-10.5 H red blood cell (test code = red blood cell) 2.99 M/mm3 4.2-5.4 L hemoglobin (test code = hemoglobin) 9.5 g/dL 12-16 L hematocrit (test code = hematocrit) 27.0 % 37-47 L mean cell volume (test code = mean cell volume) 90 fL 80-98 mean cell HGB (test code = m juani cell HGB) 31.8 pg 27-34 mean cell HGB concentration (test code = mean cell HGB concentration) 35.2 g/dL 30.8-34.1 H red cell distribution width (test code = red cell distribution width) 12.7 % 11-16 plt (test code = plt) 188 K/mm3 130-400 mean platelet volume (test c ode = mean platelet volume) 10.4 fL 8.9-12.1 neutrophil % (test code = neutrophil %) 75.2 % 45-70 H lymphocyte % (test code = lymphocyte %) 16.5 % 20-40 L monocyte % (test code = mono cyte %) 6.9 % 3-10 eosinophil % (test code = eosinophil %) 0.3 % 1-5 L basophil % (test code = baso hyun %) 0.3 % 0.0-1.1 neutrophil # (test code = neutrophil #) 8.13 K/mm3 2.00-7.50 H lymphocyte # (test code = lymphocyte #) 1.78 K/mm3 1.50-4.00 monocyte # (test code = mono cyte #) 0.75 K/mm3 0.2-0.8 eosinophil # (test code = eosinophil #) 0.03 K/mm3 0.04-0.4 L basophil # (test code = baso hyun #) 0.03 K/mm3 0.02-0.10 manual diff required (test c ode = manual diff required) no manual diff nucleated red blood cell (te st code = nucleated red blood cell) 0 % 0-0 performing lab: (test code = performing lab:) [facility] metabolic [id number] 04:56:00* Test Item Value Reference Range Interpretation Comme nts sodium (test code = sodium) 133 mmol/L 136-145 L potassium (test code = potassium) 4.2 mmol/L 3.5-5.1 chloride (test code = chloride) 98.0 mmol/L 98-107 carbon dioxide (test code = carbon dioxide) 28.3 mmol/L 21-32 glucose (test code = glucose) 110 mg/dL 70-110 blood urea nitrogen (test co de = blood urea nitrogen) 9 mg/dL 7-18 glomerular filtration rate ( test code = glomerular filtration rate) 110.2 >60 creatinine (test code = creatinine) 0.86 mg/dL 0.55-1.30 calcium (test code = calcium) 8.1 mg/dL 8.2-10.1 L performing lab: (test code = performing lab:) [facility] Coronavirus 2019 [id number] 00:46:00* Test Item Value Reference Range Interpretation Comme nts Novel Coronavirus 2019 Inhouse (test code = COVNONPUI) Negative Negative Positive resul ts are indicative of the presence [id number]-[id number]-1 RNA, clinical correlation with patient historyand other diagnostic information is necessary to determinepatient infection status. Positive results do not rule outbacterial infection or co-infection with other viruses. Negative results do not preclude SARS-CoV-2 infection andshould not be used as the sole basis for patient managementdecisions. Negative results must be combined with otherclinical observations, patient history, and epidemiologicalinformation . Detection of SARS-CoV-2 RNA may be affected bysample collection methods, storage conditions, and/or stageof infection. Viral RNA mutations, vaccinations, antiviraltherapeutics, antibiotics, chemotherapeutic orimmunosuppressant drugs have not been evaluated for effectson detection. Results are for the identification of SARS-CoV-2 RNA usingreal-time (RT) polymerase chain reaction (PCR) technologyfor the qualitative detection of nucleic acids from xjpGWTH-SfI-1 virus and diagnosis of SARS-CoV-2 virusinfection. It is an Emergency Use Authorization (EUA) testauthorized by the U.S. FDA. Novel Coronavirus 2019 [id number] 00:45:00* Test Item Value Reference Range Interpretation Comme nts Novel Coronavirus 2019 Inhouse (test code = COVNONPUI) Negative Negative Positive resul ts are indicative of the presence [id number] RNA, clinical correlation with patient historyand other diagnostic information is necessary to determinepatient infection status. Positive results do not rule outbacterial infection or co-infection with other viruses. Negative results do not preclude SARS-CoV-2 infection andshould not be used as the sole basis for patient managementdecisions. Negative results must be combined with otherclinical observations, patient history, and epidemiologicalinformation . Detection of SARS-CoV-2 RNA may be affected bysample collection methods, storage conditions, and/or stageof infection. Viral RNA mutations, vaccinations, antiviraltherapeutics, antibiotics, chemotherapeutic orimmunosuppressant drugs have not been evaluated for effectson detection. Results are for the identification of SARS-CoV-2 RNA usingreal-time (RT) polymerase chain reaction (PCR) technologyfor the qualitative detection of nucleic acids from czyMTCM-IaM-8 virus and diagnosis of SARS-CoV-2 virusinfection. It is an Emergency Use Authorization (EUA) testauthorized by the U.S. FDA. CBC W/AUTO [id number] 20:46:00* Test Item Value Reference Range Interpretation Comme nts WHITE BLOOD CELL (test code = WBC) [...] 27-34 N MEAN CELL HGB CONCENTRATION (test code = MCHC) 35.2 g/dL 30.8-34.1 H RED CELL DISTRIBUTION WIDTH (test code = RDW) 12.3 % 11-16 N PLT (test code = PLT) 339 K/mm3 130-400 N MEAN PLATELET VOLUME (test c ode = MPV) 10.3 fL 8.9-12.1 N NEUTROPHIL % (test code = NT%) 79.3 [...] K/mm3 0.02-0.10 N MANUAL DIFF REQUIRED (test c ode = MDIFF) NO MANUAL DIFF NUCLEATED RED BLOOD CELL (te st code = NRBC) 0 % 0-0 N SED [id number] 20:46:00* Test Item Value Reference Range Interpretation Comme nts SED RATE (test code = SEDW) 32 mm/hr 0-15 H COMPREHENSIVE METABOLIC [id number] 19:04:00* Test Item Value Reference Range Interpretation Comme nts SODIUM (test code = NA) 137 mmol/L 136-145 N POTASSIUM (test code = K) 3.7 mmol/L 3.5-5.1 N CHLORIDE (test code = CL) 100.0 mmol/L 98-107 N CARBON DIOXIDE (test code = CO2) 25.9 mmol/L 21-32 N GLUCOSE (test code = GLU) 137 mg/dL 70-110 H BLOOD UREA NITROGEN (test code = BUN) 13 mg/dL 7-18 N GLOMERULAR FILTRATION RATE (test code = GFR) 103.2 >60 Unit of m easure: mL/min/1.73 f0Oihurkozw Range:Healthy Adults >90 mL/min/1.73 m2 For Chronic Kidney Disease: Stage II Mild Decrease in GFR 60-90 Stage III Moderate Decrease in GFR 30-59 Stage IV Severe Decrease in GFR 15-29 Stage V Kidney Failure <15 CREATININE (test code = CREAT) 0.91 mg/dL 0.55-1.30 N TOTAL PROTEIN (test code = PROT) 7.9 g/dL 6.4-8.2 N ALBUMIN (test code = ALB) 4.4 g/dL 3.4-5.0 N GLOBULIN (test code = GLOB) 3.5 g/dL 2.2-4.2 N ALBUMIN/GLOBULIN RATIO (test code = A/G) 1.3 0.7-2.0 N CALCIUM (test code = CA) 9.5 mg/dL 8.2-10.1 N BILIRUBIN TOTAL (test code = BILT) 0.40 mg/dL 0.2-1.00 N SGOT/AST (test code = AST) 24.0 U/L 15-37 N SGPT/ALT (test code = ALT) 29.0 U/L 12-78 N Please note new normal range. ALKALINE PHOSPHATASE TOTAL (test code = ALKP) 131 U/L 46-116 H C REACTIVE [id number] 19:04:00* Test Item Value Reference Range Interpretation Comme nts C REACTIVE PROTEIN (test cod e = CRP) < 0.2 mg/dL <0.9 PROTHROMBIN [id number] 18:58:00* Test Item Value Reference Range Interpretation Comme nts PROTHROMBIN TIME PATIENT (test code = PTP) 13.0 secs 9.7-12.5 H Please note new normal range. INTERNATIONAL NORMAL RATIO (test code = INR) 1.17 <2.0 RECOMMENDED THER APEUTIC RANGE FOR ORAL ANTICOAGULANTTREATMENT: CONDITION INRProphylaxis of venous thrombosis in 2.0 - 3.0 high-risk medical or surgical patientsTreatment of venous thrombosis 2.0 - 3.0Prevention of embolism 2.0 - 3.0Prevention of recurrent embolism, or 3.0 - 4.5 patients with mechanical prosthetic intravascular valves IS PATIENT ON ANTICOAGULANTS ? YLIST ANTICOAGULANT/ANTI PLT MEDICATION : AspirinHas Lab been notified if Patient is on Heparin Drip? NOTHROMBOPLASTIN TIME [id number] 18:58:00* Test Item Value Reference Range Interpretation Comme nts PTT ACTIVATED (test code = APTT) 28.2 secs 26.6-34.6 N Please note new normal range. IS PATIENT ON ANTICOAGULANTS ? YLIST ANTICOAGULANT/ANTI PLT MEDICATION : AspirinHas Lab been notified if Patient is on Heparin Drip? NOnovel coronavirus 2019 [id number] 17:57:00* Test Item Value Reference Range Interpretation Comme nts novel coronavirus 2019 inhou se (test code = novel coronavirus 2019 inhouse) negative negative performing lab: (test code = performing lab:) [facility] coronavirus 2019 [id number] 17:57:00* Test Item Value Reference Range Interpretation Comme nts novel coronavirus 2019 inhou se (test code = novel coronavirus 2019 inhouse) negative negative performing lab: (test code = performing lab:) [facility] coronavirus 2019 [id number] 17:57:00* Test Item Value Reference Range Interpretation Comme nts novel coronavirus 2019 inhou se (test code = novel coronavirus 2019 inhouse) negative negative performing lab: (test code = performing lab:) [facility] [id number] 17:41:00* Test Item Value Reference Range Interpretation Comme nts sed rate (test code = sed rate) 32 mm/HR 0-15 H performing lab: (test code = performing lab:) [facility] (PT)2021-08-08 17:41:00* Test Item Value Reference Range Interpretation Comme nts prothrombin time patient (te st code = prothrombin time patient) 13.0 secs 9.7-12.5 H international normal ratio ( test code = international normal ratio) 1.17 <2.0 performing lab: (test code = performing lab:) [facility]oplastin [facility] [id number] 17:41:00 * Test Item Value Reference Range Interpretation Comme nts PTT activated (test code = P TT activated) 28.2 secs 26.6-34.6 performing lab: (test code = performing lab:) [facility] 2000 panel - Serum or [id number] 17:41:00* Test Item Value Reference Range Interpretation Comme nts sodium (test code = sodium) 137 mmol/L 136-145 potassium (test code = potassium) 3.7 mmol/L 3.5-5.1 chloride (test code = chloride) 100.0 mmol/L 98-107 carbon dioxide (test code = carbon dioxide) 25.9 mmol/L 21-32 glucose (test code = glucose) 137 mg/dL 70-110 H blood urea nitrogen (test co de = blood urea nitrogen) 13 mg/dL 7-18 glomerular filtration rate ( test code = glomerular filtration rate) 103.2 >60 creatinine (test code = creatinine) 0.91 mg/dL 0.55-1.30 total protein (test code = t otal protein) 7.9 g/dL 6.4-8.2 albumin (test code = albumin) 4.4 g/dL 3.4-5.0 globulin (test code = globulin) 3.5 g/dL 2.2-4.2 albumin/globulin ratio (test code = albumin/globulin ratio) 1.3 0.7-2.0 calcium (test code = calcium) 9.5 mg/dL 8.2-10.1 bilirubin total (test code = bilirubin total) 0.40 mg/dL 0.2-1.00 SGOT/AST (test code = SGOT/AST) 24.0 U/L 15-37 SGPT/ALT (test code = SGPT/ALT) 29.0 U/L 12-78 alkaline phosphatase total ( test code = alkaline phosphatase total) 131 U/L 46-116 H performing lab: (test code = performing lab:) [facility] reactive [id number] 17:41:00* Test Item Value Reference Range Interpretation Comme nts C reactive protein (test cod e = C reactive protein) < 0.2 <0.9 performing lab: (test code = performing lab:) [facility] W Auto Differential panel - [id number] 17:41:00* Test Item Value Reference Range Interpretation Comme nts white blood cell (test code = white blood cell) 9.4 K/mm3 5.7-10.5 red blood cell (test code = red blood cell) 4.24 M/mm3 4.2-5.4 hemoglobin (test code = hemoglobin) 13.3 g/dL 12-16 hematocrit (test code = hematocrit) 37.8 % 37-47 mean cell volume (test code = mean cell volume) 89 fL 80-98 mean cell HGB (test code = m juani cell HGB) 31.4 pg 27-34 mean cell HGB concentration (test code = mean cell HGB concentration) 35.2 g/dL 30.8-34.1 H red cell distribution width (test code = red cell distribution width) 12.3 % 11-16 plt (test code = plt) 339 K/mm3 130-400 mean platelet volume (test c ode = mean platelet volume) 10.3 fL 8.9-12.1 neutrophil % (test code = neutrophil %) 79.3 % 45-70 H lymphocyte % (test code = lymphocyte %) 15.7 % 20-40 L monocyte % (test code = mono cyte %) 4.0 % 3-10 eosinophil % (test code = eosinophil %) 0.5 % 1-5 L basophil % (test code = baso hyun %) 0.2 % 0.0-1.1 neutrophil # (test code = neutrophil #) 7.45 K/mm3 2.00-7.50 lymphocyte # (test code = lymphocyte #) 1.48 K/mm3 1.50-4.00 L monocyte # (test code = mono cyte #) 0.38 K/mm3 0.2-0.8 eosinophil # (test code = eosinophil #) 0.05 K/mm3 0.04-0.4 basophil # (test code = baso hyun #) 0.02 K/mm3 0.02-0.10 manual diff required (test c ode = manual diff required) no manual diff nucleated red blood cell (te st code = nucleated red blood cell) 0 % 0-0 performing lab: (test code = performing lab:) [facility] [id number] 17:41:00* Test Item Value Reference Range Interpretation Comme nts sed rate (test code = sed rate) 32 mm/HR 0-15 H performing lab: (test code = performing lab:) [facility] MedicineProthrombin [facility] (PT)2021-08-08 17:41:00* Test Item Value Reference Range Interpretation Comme nts prothrombin time patient (te st code = prothrombin time patient) 13.0 secs 9.7-12.5 H international normal ratio ( test code = international normal ratio) 1.17 <2.0 performing lab: (test code = performing lab:) [facility]inethromboplastin time [id number] 17:41:00 * Test Item Value Reference Range Interpretation Comme nts PTT activated (test code = P TT activated) 28.2 secs 26.6-34.6 performing lab: (test code = performing lab:) [facility] 2000 panel - Serum or [id number] 17:41:00* Test Item Value Reference Range Interpretation Comme nts sodium (test code = sodium) 137 mmol/L 136-145 potassium (test code = potassium) 3.7 mmol/L 3.5-5.1 chloride (test code = chloride) 100.0 mmol/L 98-107 carbon dioxide (test code = carbon dioxide) 25.9 mmol/L 21-32 glucose (test code = glucose) 137 mg/dL 70-110 H blood urea nitrogen (test co de = blood urea nitrogen) 13 mg/dL 7-18 glomerular filtration rate ( test code = glomerular filtration rate) 103.2 >60 creatinine (test code = creatinine) 0.91 mg/dL 0.55-1.30 total protein (test code = t otal protein) 7.9 g/dL 6.4-8.2 albumin (test code = albumin) 4.4 g/dL 3.4-5.0 globulin (test code = globulin) 3.5 g/dL 2.2-4.2 albumin/globulin ratio (test code = albumin/globulin ratio) 1.3 0.7-2.0 calcium (test code = calcium) 9.5 mg/dL 8.2-10.1 bilirubin total (test code = bilirubin total) 0.40 mg/dL 0.2-1.00 SGOT/AST (test code = SGOT/AST) 24.0 U/L 15-37 SGPT/ALT (test code = SGPT/ALT) 29.0 U/L 12-78 alkaline phosphatase total ( test code = alkaline phosphatase total) 131 U/L 46-116 H performing lab: (test code = performing lab:) [facility] reactive [id number] 17:41:00* Test Item Value Reference Range Interpretation Comme nts C reactive protein (test cod e = C reactive protein) < 0.2 <0.9 performing lab: (test code = performing lab:) [facility] W Auto Differential panel - [id number] 17:41:00* Test Item Value Reference Range Interpretation Comme nts white blood cell (test code = white blood cell) 9.4 K/mm3 5.7-10.5 red blood cell (test code = red blood cell) 4.24 M/mm3 4.2-5.4 hemoglobin (test code = hemoglobin) 13.3 g/dL 12-16 hematocrit (test code = hematocrit) 37.8 % 37-47 mean cell volume (test code = mean cell volume) 89 fL 80-98 mean cell HGB (test code = m juani cell HGB) 31.4 pg 27-34 mean cell HGB concentration (test code = mean cell HGB concentration) 35.2 g/dL 30.8-34.1 H red cell distribution width (test code = red cell distribution width) 12.3 % 11-16 plt (test code = plt) 339 K/mm3 130-400 mean platelet volume (test c ode = mean platelet volume) 10.3 fL 8.9-12.1 neutrophil % (test code = neutrophil %) 79.3 % 45-70 H lymphocyte % (test code = lymphocyte %) 15.7 % 20-40 L monocyte % (test code = mono cyte %) 4.0 % 3-10 eosinophil % (test code = eosinophil %) 0.5 % 1-5 L basophil % (test code = baso hyun %) 0.2 % 0.0-1.1 neutrophil # (test code = neutrophil #) 7.45 K/mm3 2.00-7.50 lymphocyte # (test code = lymphocyte #) 1.48 K/mm3 1.50-4.00 L monocyte # (test code = mono cyte #) 0.38 K/mm3 0.2-0.8 eosinophil # (test code = eosinophil #) 0.05 K/mm3 0.04-0.4 basophil # (test code = baso hyun #) 0.02 K/mm3 0.02-0.10 manual diff required (test c ode = manual diff required) no manual diff nucleated red blood cell (te st code = nucleated red blood cell) 0 % 0-0 performing lab: (test code = performing lab:) [facility] [id number] 17:41:00* Test Item Value Reference Range Interpretation Comme nts sed rate (test code = sed rate) 32 mm/HR 0-15 H performing lab: (test code = performing lab:) [facility] MedicineProthrombin [facility] (PT)2021-08-08 17:41:00* Test Item Value Reference Range Interpretation Comme nts prothrombin time patient (te st code = prothrombin time patient) 13.0 secs 9.7-12.5 H international normal ratio ( test code = international normal ratio) 1.17 <2.0 performing lab: (test code = performing lab:) [facility] [id number] 17:41:00 * Test Item Value Reference Range Interpretation Comme nts PTT activated (test code = P TT activated) 28.2 secs 26.6-34.6 performing lab: (test code = performing lab:) [facility] 2000 [facility] - Serum or [id number] 17:41:00* Test Item Value Reference Range Interpretation Comme nts sodium (test code = sodium) 137 mmol/L 136-145 potassium (test code = potassium) 3.7 mmol/L 3.5-5.1 chloride (test code = chloride) 100.0 mmol/L 98-107 carbon dioxide (test code = carbon dioxide) 25.9 mmol/L 21-32 glucose (test code = glucose) 137 mg/dL 70-110 H blood urea nitrogen (test co de = blood urea nitrogen) 13 mg/dL 7-18 glomerular filtration rate ( test code = glomerular filtration rate) 103.2 >60 creatinine (test code = creatinine) 0.91 mg/dL 0.55-1.30 total protein (test code = t otal protein) 7.9 g/dL 6.4-8.2 albumin (test code = albumin) 4.4 g/dL 3.4-5.0 globulin (test code = globulin) 3.5 g/dL 2.2-4.2 albumin/globulin ratio (test code = albumin/globulin ratio) 1.3 0.7-2.0 calcium (test code = calcium) 9.5 mg/dL 8.2-10.1 bilirubin total (test code = bilirubin total) 0.40 mg/dL 0.2-1.00 SGOT/AST (test code = SGOT/AST) 24.0 U/L 15-37 SGPT/ALT (test code = SGPT/ALT) 29.0 U/L 12-78 alkaline phosphatase total ( test code = alkaline phosphatase total) 131 U/L 46-116 H performing lab: (test code = performing lab:) [facility] reactive [id number] 17:41:00* Test Item Value Reference Range Interpretation Comme nts C reactive protein (test cod e = C reactive protein) < 0.2 <0.9 performing lab: (test code = performing lab:) [facility] W Auto Differential panel - [id number] 17:41:00* Test Item Value Reference Range Interpretation Comme nts white blood cell (test code = white blood cell) 9.4 K/mm3 5.7-10.5 red blood cell (test code = red blood cell) 4.24 M/mm3 4.2-5.4 hemoglobin (test code = hemoglobin) 13.3 g/dL 12-16 hematocrit (test code = hematocrit) 37.8 % 37-47 mean cell volume (test code = mean cell volume) 89 fL 80-98 mean cell HGB (test code = m juani cell HGB) 31.4 pg 27-34 mean cell HGB concentration (test code = mean cell HGB concentration) 35.2 g/dL 30.8-34.1 H red cell distribution width (test code = red cell distribution width) 12.3 % 11-16 plt (test code = plt) 339 K/mm3 130-400 mean platelet volume (test c ode = mean platelet volume) 10.3 fL 8.9-12.1 neutrophil % (test code = neutrophil %) 79.3 % 45-70 H lymphocyte % (test code = lymphocyte %) 15.7 % 20-40 L monocyte % (test code = mono cyte %) 4.0 % 3-10 eosinophil % (test code = eosinophil %) 0.5 % 1-5 L basophil % (test code = baso hyun %) 0.2 % 0.0-1.1 neutrophil # (test code = neutrophil #) 7.45 K/mm3 2.00-7.50 lymphocyte # (test code = lymphocyte #) 1.48 K/mm3 1.50-4.00 L monocyte # (test code = mono cyte #) 0.38 K/mm3 0.2-0.8 eosinophil # (test code = eosinophil #) 0.05 K/mm3 0.04-0.4 basophil # (test code = baso hyun #) 0.02 K/mm3 0.02-0.10 manual diff required (test c ode = manual diff required) no manual diff nucleated red blood cell (te st code = nucleated red blood cell) 0 % 0-0 performing lab: (test code = performing lab:) [facility]- DUP VEIN UNI/[id number] 12:31:00 [facility] 2000 Sex: M Patient Name: ANDREY BARNES JR Unit No: [id number] EXAMS: CPT CODE: [id number] DUP VEIN UNI/LTD 65279 FINDINGS: Right lower extremity grayscale and Doppler venous ultrasound demonstrates normal flow and luminal compressibility without evidence of intraluminal thrombus. IMPRESSION: No evidence ofDVT within deep venous structures of the right lower extremity. at 1231 Reported and signed by: Anibal Hollins M.D. CC: Delon Brand MD Technologist: MCKENZIE MARTÍNEZ RDMS, RVT Transcribed D/ (1231) Chari [facility] NAME: ANDREY BARNES [address] PHYS: ANABEL - Jose Brand MD : 2000 AGE: 21 SEX: M [place], [place] [address] LOC: Y.RAD PHONE #: [phone] EXAM DATE: 08/02/2021 STATUS: REG CLI FAX #: [phone] RAD #: D/C DT PAGE 1 Signed Report Patient Name: ANDREY BARNES JR Unit No: [id number] EXAMS: CPT CODE: [id number] [facility] UNI/LTD 97185 (Continued) Orig Print D/T: S: 08/02/2021 (1235) [facility] NAME: ANDREY BARNES JR [address] [facility] PHYS: BRIMA.Jojo - Jose Brand MD : 2000 AGE: 21 SEX: M [place], [place] [address] LOC: Y.RAD PHONE #: [phone] EXAM DATE: 08/02/2021 STATUS: REG CLI FAX #: [phone] RAD #: D/C DT PAGE 2 Signed Report- CT LOWER EXTRM W/O C [id number] 09:46:00 [facility] 2000 Sex: M Patient Name: ANDREY BARNES JR Unit No: [id number] EXAMS: CPT CODE: [id number] CT LOWER EXTRM W/[place] [address] [place] OF THE RIGHT KNEE WITH SAGITTAL AND CORONAL RECONSTRUCTIONS DIAGNOSIS: There is a comminuted impacted fracture of the tibial plateau with 8 mm of depression of the posterior lateral plateau and 5 mm of depression of a central fragment which involves the lateral and part of the medialtibial spine. The fracture extends into the distal end of the tibial tubercle COMMENT: COMPARISON: No prior exams available. Scans were performed with thin sections and reconstructions were obtained.CT radiation dose optimization is achieved for this examination by the use of a CT protocol in accordance with ACR practice standards and adherence to manager process improvement's recommendations. A tibial fracture are present as described. No other fractures are seen at 0946 Reported and signed by: Derrick Singh MD CC: Jose Brand MD; Brenda WARE Technologist: Ernesto Keenan,RT(R) CTDI: DLP: Trnscrpt: 07/25/2021 (0946) KyraJCL [facility] NAME: ANDREY BARNES [address] [facility] PHYS: [facility]. - Jose Brand MD : 2000 AGE: 21 SEX: M [place] [address] LOC: Y.321 A PHONE #: [phone] EXAM DATE: 07/25/2021 [place] [facility] [place]: [phone] RAD #: D/C DT PAGE1 Signed Report Patient Name: ANDREY BARNES Unit No: [id number] EXAMS: CPT CODE: [id number] CT LOWER [place]TRM W/[place] [address] (Continued) Orig Print D/T: S: 07/25/2021 (1352) [facility] NAME: ANDREY BARNES [address] [facility] PHYS: [facility]. - Jose Brand MD : 2000AGE: 21 SEX: M [place] [address] LOC: Y.321 A PHONE #: [phone] EXAM DATE: 07/25/2021 STATUS: [place] [facility] [place]: [phone] RAD #: D/C DT PAGE 2 Signed ReportBASIC METABOLIC [id number] 06:59:00* Test Item Value Reference Range Interpretation Comme nts SODIUM (test code = NA) 138 mmol/L 136-145 N POTASSIUM (test code = K) 4.0 mmol/L 3.5-5.1 N CHLORIDE (test code = CL) 100.0 mmol/L 98-107 N CARBON DIOXIDE (test code = CO2) 27.9 mmol/L 21-32 N GLUCOSE (test code = GLU) 96 mg/dL 70-110 N BLOOD UREA NITROGEN (test code = BUN) 9 mg/dL 7-18 N GLOMERULAR FILTRATION RATE (test code = GFR) 133.1 >60 Unit of m easure: mL/min/1.73 f3Ojxuimdqo Range:Healthy Adults >90 mL/min/1.73 m2 For Chronic Kidney Disease: Stage II Mild Decrease in GFR 60-90 Stage III Moderate Decrease in GFR 30-59 Stage IV Severe Decrease in GFR 15-29 Stage V Kidney Failure <15 CREATININE (test code = CREAT) 0.73 mg/dL 0.55-1.30 N CALCIUM (test code = CA) 8.8 mg/dL 8.2-10.1 N CBC W/AUTO [id number] 06:02:00* Test Item Value Reference Range Interpretation Comme nts WHITE BLOOD CELL (test code = WBC) [...] 27-34 N MEAN CELL HGB CONCENTRATION (test code = MCHC) 34.7 g/dL 30.8-34.1 H RED CELL DISTRIBUTION WIDTH (test code = RDW) 12.2 % 11-16 N PLT (test code = PLT) 282 K/mm3 130-400 N MEAN PLATELET VOLUME (test c ode = MPV) 9.7 fL 8.9-12.1 N NEUTROPHIL % (test code = NT%) 74.0 [...] K/mm3 0.02-0.10 N MANUAL DIFF REQUIRED (test c ode = MDIFF) NO MANUAL DIFF NUCLEATED RED BLOOD CELL (te st code = NRBC) 0 % 0-0 N CBC W Auto Differential panel - [id number] 04:45:00* Test Item Value Reference Range Interpretation Comme nts white blood cell (test code = white blood cell) 9.8 K/mm3 5.7-10.5 red blood cell (test code = red blood cell) 3.58 M/mm3 4.2-5.4 L hemoglobin (test code = hemoglobin) 11.5 g/dL 12-16 L hematocrit (test code = hematocrit) 33.1 % 37-47 L mean cell volume (test code = mean cell volume) 93 fL 80-98 mean cell HGB (test code = m juani cell HGB) 32.1 pg 27-34 mean cell HGB concentration (test code = mean cell HGB concentration) 34.7 g/dL 30.8-34.1 H red cell distribution width (test code = red cell distribution width) 12.2 % 11-16 plt (test code = plt) 282 K/mm3 130-400 mean platelet volume (test c ode = mean platelet volume) 9.7 fL 8.9-12.1 neutrophil % (test code = neutrophil %) 74.0 % 45-70 H lymphocyte % (test code = lymphocyte %) 13.5 % 20-40 L monocyte % (test code = mono cyte %) 8.8 % 3-10 eosinophil % (test code = eosinophil %) 2.9 % 1-5 basophil % (test code = baso hyun %) 0.3 % 0.0-1.1 neutrophil # (test code = neutrophil #) 7.23 K/mm3 2.00-7.50 lymphocyte # (test code = lymphocyte #) 1.32 K/mm3 1.50-4.00 L monocyte # (test code = mono cyte #) 0.86 K/mm3 0.2-0.8 H eosinophil # (test code = eosinophil #) 0.28 K/mm3 0.04-0.4 basophil # (test code = baso hyun #) 0.03 K/mm3 0.02-0.10 manual diff required (test c ode = manual diff required) no manual diff nucleated red blood cell (te st code = nucleated red blood cell) 0 % 0-0 performing lab: (test code = performing lab:) [facility] [id number] 04:45:00* Test Item Value Reference Range Interpretation Comme nts sodium (test code = sodium) 138 mmol/L 136-145 potassium (test code = potassium) 4.0 mmol/L 3.5-5.1 chloride (test code = chloride) 100.0 mmol/L 98-107 carbon dioxide (test code = carbon dioxide) 27.9 mmol/L 21-32 glucose (test code = glucose) 96 mg/dL 70-110 blood urea nitrogen (test co de = blood urea nitrogen) 9 mg/dL 7-18 glomerular filtration rate ( test code = glomerular filtration rate) 133.1 >60 creatinine (test code = creatinine) 0.73 mg/dL 0.55-1.30 calcium (test code = calcium) 8.8 mg/dL 8.2-10.1 performing lab: (test code = performing lab:) [facility] W Auto Differential panel - [id number] 04:45:00* Test Item Value Reference Range Interpretation Comme nts white blood cell (test code = white blood cell) 9.8 K/mm3 5.7-10.5 red blood cell (test code = red blood cell) 3.58 M/mm3 4.2-5.4 L hemoglobin (test code = hemoglobin) 11.5 g/dL 12-16 L hematocrit (test code = hematocrit) 33.1 % 37-47 L mean cell volume (test code = mean cell volume) 93 fL 80-98 mean cell HGB (test code = m juani cell HGB) 32.1 pg 27-34 mean cell HGB concentration (test code = mean cell HGB concentration) 34.7 g/dL 30.8-34.1 H red cell distribution width (test code = red cell distribution width) 12.2 % 11-16 plt (test code = plt) 282 K/mm3 130-400 mean platelet volume (test c ode = mean platelet volume) 9.7 fL 8.9-12.1 neutrophil % (test code = neutrophil %) 74.0 % 45-70 H lymphocyte % (test code = lymphocyte %) 13.5 % 20-40 L monocyte % (test code = mono cyte %) 8.8 % 3-10 eosinophil % (test code = eosinophil %) 2.9 % 1-5 basophil % (test code = baso hyun %) 0.3 % 0.0-1.1 neutrophil # (test code = neutrophil #) 7.23 K/mm3 2.00-7.50 lymphocyte # (test code = lymphocyte #) 1.32 K/mm3 1.50-4.00 L monocyte # (test code = mono cyte #) 0.86 K/mm3 0.2-0.8 H eosinophil # (test code = eosinophil #) 0.28 K/mm3 0.04-0.4 basophil # (test code = baso hyun #) 0.03 K/mm3 0.02-0.10 manual diff required (test c ode = manual diff required) no manual diff nucleated red blood cell (te st code = nucleated red blood cell) 0 % 0-0 performing lab: (test code = performing lab:) [facility] metabolic [id number] 04:45:00* Test Item Value Reference Range Interpretation Comme nts sodium (test code = sodium) 138 mmol/L 136-145 potassium (test code = potassium) 4.0 mmol/L 3.5-5.1 chloride (test code = chloride) 100.0 mmol/L 98-107 carbon dioxide (test code = carbon dioxide) 27.9 mmol/L 21-32 glucose (test code = glucose) 96 mg/dL 70-110 blood urea nitrogen (test co de = blood urea nitrogen) 9 mg/dL 7-18 glomerular filtration rate ( test code = glomerular filtration rate) 133.1 >60 creatinine (test code = creatinine) 0.73 mg/dL 0.55-1.30 calcium (test code = calcium) 8.8 mg/dL 8.2-10.1 performing lab: (test code = performing lab:) [facility] W Auto Differential panel - [id number] 04:45:00* Test Item Value Reference Range Interpretation Comme nts white blood cell (test code = white blood cell) 9.8 K/mm3 5.7-10.5 red blood cell (test code = red blood cell) 3.58 M/mm3 4.2-5.4 L hemoglobin (test code = hemoglobin) 11.5 g/dL 12-16 L hematocrit (test code = hematocrit) 33.1 % 37-47 L mean cell volume (test code = mean cell volume) 93 fL 80-98 mean cell HGB (test code = m juani cell HGB) 32.1 pg 27-34 mean cell HGB concentration (test code = mean cell HGB concentration) 34.7 g/dL 30.8-34.1 H red cell distribution width (test code = red cell distribution width) 12.2 % 11-16 plt (test code = plt) 282 K/mm3 130-400 mean platelet volume (test c ode = mean platelet volume) 9.7 fL 8.9-12.1 neutrophil % (test code = neutrophil %) 74.0 % 45-70 H lymphocyte % (test code = lymphocyte %) 13.5 % 20-40 L monocyte % (test code = mono cyte %) 8.8 % 3-10 eosinophil % (test code = eosinophil %) 2.9 % 1-5 basophil % (test code = baso hyun %) 0.3 % 0.0-1.1 neutrophil # (test code = neutrophil #) 7.23 K/mm3 2.00-7.50 lymphocyte # (test code = lymphocyte #) 1.32 K/mm3 1.50-4.00 L monocyte # (test code = mono cyte #) 0.86 K/mm3 0.2-0.8 H eosinophil # (test code = eosinophil #) 0.28 K/mm3 0.04-0.4 basophil # (test code = baso hyun #) 0.03 K/mm3 0.02-0.10 manual diff required (test c ode = manual diff required) no manual diff nucleated red blood cell (te st code = nucleated red blood cell) 0 % 0-0 performing lab: (test code = performing lab:) [facility] [id number] 04:45:00* Test Item Value Reference Range Interpretation Comme nts sodium (test code = sodium) 138 mmol/L 136-145 potassium (test code = potassium) 4.0 mmol/L 3.5-5.1 chloride (test code = chloride) 100.0 mmol/L 98-107 carbon dioxide (test code = carbon dioxide) 27.9 mmol/L 21-32 glucose (test code = glucose) 96 mg/dL 70-110 blood urea nitrogen (test co de = blood urea nitrogen) 9 mg/dL 7-18 glomerular filtration rate ( test code = glomerular filtration rate) 133.1 >60 creatinine (test code = creatinine) 0.73 mg/dL 0.55-1.30 calcium (test code = calcium) 8.8 mg/dL 8.2-10.1 performing lab: (test code = performing lab:) [facility] REACTIVE [id number] 04:46:00* Test Item Value Reference Range Interpretation Comme nts C REACTIVE PROTEIN (test cod e = CRP) 5.0 mg/dL 0.6-1.2 H ACUTE HEPATITIS [id number] 04:46:00* Test Item Value Reference Range Interpretation Comme nts AB HEPATITIS A IGM (test cod e = HAVMAB) NONREACTIVE NONREACTIVE AG HEPATITIS B SURFACE (test code = HBSAG) NONREACTIVE NONREACTIVE AB HEPATITIS B CORE IGM (donald t code = HBCMAB) NONREACTIVE NONREACTIVE AB HEPATITIS C (test code = HCVAB) NONREACTIVE NONREACTIVE SIGNAL TO CUTOFF (test code = CUTOFF) 0.09 <0.80 AB HIV 04:46:00* Test Item Value Reference Range Interpretation Comme nts AB HIV 1 (test code = HIV1AB) NONREACTIVE NONREACTIVE Done by [employer] HIV Ag/Ab Combo Screen ACUTE HEPATITIS [id number] 04:45:00* Test Item Value Reference Range Interpretation Comme nts AB HEPATITIS A IGM (test cod e = HAVMAB) NONREACTIVE NONREACTIVE AG HEPATITIS B SURFACE (test code = HBSAG) NONREACTIVE NONREACTIVE AB HEPATITIS B CORE IGM (donald t code = HBCMAB) NONREACTIVE NONREACTIVE AB HEPATITIS C (test code = HCVAB) NONREACTIVE NONREACTIVE SIGNAL TO CUTOFF (test code = CUTOFF) 0.09 <0.80 N AB HIV 1 04:45:00* Test Item Value Reference Range Interpretation Comme nts AB HIV 1 2 (test code = QAG42MS) NONREACTIVE NONREACTIVE Done by [employer] HIV Ag/Ab Combo Screen C REACTIVE [id number] 00:46:00* Test Item Value Reference Range Interpretation Comme nts C REACTIVE PROTEIN (test cod e = CRP) 5.0 mg/dL 0.6-1.2 H COMPREHENSIVE METABOLIC [id number] 23:59:00* Test Item Value Reference Range Interpretation Comme nts SODIUM (test code = NA) 136 mEq/L 135-145 POTASSIUM (test code = K) 3.7 mEq/L 3.5-5.0 CHLORIDE (test code = CL) 99 mEq/L 100-115 L CARBON DIOXIDE (test code = CO2) 25 mEq/L 22-31 GLUCOSE (test code = GLU) 93 mg/dL 65-110 BLOOD UREA NITROGEN (test code = BUN) 15 mg/dL 7-18 GLOMERULAR FILTRATION RATE (test code = GFR) 119.8 >60 Unit of m easure: mL/min/1.73 d2Exidrhoeo Range:Healthy Adults >90 mL/min/1.73 m2 For Chronic Kidney Disease: Stage II Mild Decrease in GFR 60-90 Stage III Moderate Decrease in GFR 30-59 Stage IV Severe Decrease in GFR 15-29 Stage V Kidney Failure <15Unit of measure: mL/min/1.73 [id number] Range:Healthy Adults >90 mL/min/1.73 m2 For Chronic Kidney Disease: Stage II Mild Decrease in GFR 60-90 Stage III Moderate Decrease in GFR 30-59 Stage IV Severe Decrease in GFR 15-29 Stage V Kidney Failure <15 CREATININE (test code = CREAT) 0.8 mg/dL 0.7-1.3 TOTAL PROTEIN (test code = PROT) 7.9 gm/dL 6.3-8.2 ALBUMIN (test code = ALB) 4.3 gm/dL 3.4-4.8 GLOBULIN (test code = GLOB) 3.6 ALBUMIN/GLOBULIN RATIO (test code = A/G) 1.19 CALCIUM (test code = CA) 8.8 mg/dL 8.4-10.2 BILIRUBIN TOTAL (test code = BILT) 0.8 mg/dL 0.2-1.0 SGOT/AST (test code = AST) 63 units/L 15-37 H SGPT/ALT (test code = ALT) 129 units/L 12-78 H ALKALINE PHOSPHATASE TOTAL (test code = ALKP) 194 units/L 46-116 H COMPREHENSIVE METABOLIC [id number] 23:58:00* Test Item Value Reference Range Interpretation Comme nts SODIUM (test code = NA) 136 mEq/L 135-145 N POTASSIUM (test code = K) 3.7 mEq/L 3.5-5.0 N CHLORIDE (test code = CL) 99 mEq/L 100-115 L CARBON DIOXIDE (test code = CO2) 25 mEq/L 22-31 N ANION GAP (test code = GAP) 15.50 10-20 N GLUCOSE (test code = GLU) 93 mg/dL 65-110 N BLOOD UREA NITROGEN (test co de = BUN) 15 mg/dL 7-18 N GLOMERULAR FILTRATION RATE ( test code = GFR) 120 ml/min >60 N CREATININE (test code = CREAT) 0.8 mg/dL 0.7-1.3 N TOTAL PROTEIN (test code = PROT) 7.9 gm/dL 6.3-8.2 N ALBUMIN (test code = ALB) 4.3 gm/dL 3.4-4.8 N CALCIUM (test code = CA) 8.8 mg/dL 8.4-10.2 N BILIRUBIN TOTAL (test code = BILT) 0.8 mg/dL 0.2-1.0 N SGOT/AST (test code = AST) 63 units/L 15-37 H SGPT/ALT (test code = ALT) 129 units/L 12-78 H ALKALINE PHOSPHATASE TOTAL ( test code = ALKP) 194 units/L 46-116 H COVID 19 Asymptomatic IH [id number] 20:17:00* Test Item Value Reference Range Interpretation Comme nts COVID 19 Asymptomatic IH AG (test code = COVNONPUIAG) NEGATIVE NEGATIVE CBC W/AUTO [id number] 18:03:00* Test Item Value Reference Range Interpretation Comme nts WHITE BLOOD CELL (test code = WBC) [...] 27-34 N MEAN CELL HGB CONCENTRATION (test code = MCHC) 35.4 g/dL 30.8-34.1 H RED CELL DISTRIBUTION WIDTH (test code = RDW) 12.2 % 11-16 N PLT (test code = PLT) 307 K/mm3 130-400 N MEAN PLATELET VOLUME (test c ode = MPV) 9.5 fL 8.9-12.1 N NEUTROPHIL % (test code = NT%) 77.6 [...] K/mm3 0.02-0.10 N MANUAL DIFF REQUIRED (test c ode = MDIFF) NO MANUAL DIFF NUCLEATED RED BLOOD CELL (te st code = NRBC) 0 % 0-0 N SED [id number] 18:03:00* Test Item Value Reference Range Interpretation Comme nts SED RATE (test code = SEDW) 78 mm/hr 0-15 H PROTHROMBIN [id number] 18:00:00* Test Item Value Reference Range Interpretation Comme nts PROTHROMBIN TIME PATIENT (test code = PTP) 12.7 secs 9.7-12.5 H Please note new normal range. INTERNATIONAL NORMAL RATIO (test code = INR) 1.14 <2.0 RECOMMENDED THER APEUTIC RANGE FOR ORAL ANTICOAGULANTTREATMENT: CONDITION INRProphylaxis of venous thrombosis in 2.0 - 3.0 high-risk medical or surgical patientsTreatment of venous thrombosis 2.0 - 3.0Prevention of embolism 2.0 - 3.0Prevention of recurrent embolism, or 3.0 - 4.5 patients with mechanical prosthetic intravascular valves IS PATIENT ON ANTICOAGULANTS ? [facility] been notified if Patient is on Heparin Drip? NOTHROMBOPLASTIN TIME [id number] 18:00:00* Test Item Value Reference Range Interpretation Comme nts PTT ACTIVATED (test code = APTT) 33.6 secs 26.6-34.6 N Please note new normal range. IS PATIENT ON ANTICOAGULANTS ? [facility] been notified if Patient is on Heparin Drip? NOProthrombin time (PT)2021-07-23 14:40:00* Test Item Value Reference Range Interpretation Comme nts prothrombin time patient (te st code = prothrombin time patient) 12.7 secs 9.7-12.5 H international normal ratio ( test code = international normal ratio) 1.14 <2.0 performing lab: (test code = performing lab:) [facility] [id number] 14:40:00 * Test Item Value Reference Range Interpretation Comme nts PTT activated (test code = P TT activated) 33.6 secs 26.6-34.6 performing lab: (test code = performing lab:) [facility] Differential panel - [id number] 14:40:00* Test Item Value Reference Range Interpretation Comme nts white blood cell (test code = white blood cell) 9.5 K/mm3 5.7-10.5 red blood cell (test code = red blood cell) 3.94 M/mm3 4.2-5.4 L hemoglobin (test code = hemoglobin) 12.6 g/dL 12-16 hematocrit (test code = hematocrit) 35.6 % 37-47 L mean cell volume (test code = mean cell volume) 90 fL 80-98 mean cell HGB (test code = m juani cell HGB) 32.0 pg 27-34 mean cell HGB concentration (test code = mean cell HGB concentration) 35.4 g/dL 30.8-34.1 H red cell distribution width (test code = red cell distribution width) 12.2 % 11-16 plt (test code = plt) 307 K/mm3 130-400 mean platelet volume (test c ode = mean platelet volume) 9.5 fL 8.9-12.1 neutrophil % (test code = neutrophil %) 77.6 % 45-70 H lymphocyte % (test code = lymphocyte %) 14.2 % 20-40 L monocyte % (test code = mono cyte %) 5.6 % 3-10 eosinophil % (test code = eosinophil %) 1.9 % 1-5 basophil % (test code = baso hyun %) 0.3 % 0.0-1.1 neutrophil # (test code = neutrophil #) 7.34 K/mm3 2.00-7.50 lymphocyte # (test code = lymphocyte #) 1.34 K/mm3 1.50-4.00 L monocyte # (test code = mono cyte #) 0.53 K/mm3 0.2-0.8 eosinophil # (test code = eosinophil #) 0.18 K/mm3 0.04-0.4 basophil # (test code = baso hyun #) 0.03 K/mm3 0.02-0.10 manual diff required (test c ode = manual diff required) no manual diff nucleated red blood cell (te st code = nucleated red blood cell) 0 % 0-0 performing lab: (test code = performing lab:) [facility] [id number] 14:40:00* Test Item Value Reference Range Interpretation Comme nts sed rate (test code = sed rate) 78 mm/HR 0-15 H performing lab: (test code = performing lab:) [facility] 2000 panel - Serum or [id number] 14:40:00* Test Item Value Reference Range Interpretation Comme nts sodium (test code = sodium) 136 mEq/L 135-145 potassium (test code = potassium) 3.7 mEq/L 3.5-5.0 chloride (test code = chloride) 99 mEq/L 100-115 L carbon dioxide (test code = carbon dioxide) 25 mEq/L 22-31 glucose (test code = glucose) 93 mg/dL 65-110 blood urea nitrogen (test co de = blood urea nitrogen) 15 mg/dL 7-18 glomerular filtration rate ( test code = glomerular filtration rate) 119.8 >60 creatinine (test code = creatinine) 0.8 mg/dL 0.7-1.3 total protein (test code = t otal protein) 7.9 gm/dL 6.3-8.2 albumin (test code = albumin) 4.3 gm/dL 3.4-4.8 globulin (test code = globulin) 3.6 albumin/globulin ratio (test code = albumin/globulin ratio) 1.19 calcium (test code = calcium) 8.8 mg/dL 8.4-10.2 bilirubin total (test code = bilirubin total) 0.8 mg/dL 0.2-1.0 SGOT/AST (test code = SGOT/AST) 63 units/L 15-37 H SGPT/ALT (test code = SGPT/ALT) 129 units/L 12-78 H alkaline phosphatase total ( test code = alkaline phosphatase total) 194 units/L 46-116 H performing lab: (test code = performing lab:) [facility] reactive [id number] 14:40:00* Test Item Value Reference Range Interpretation Comme nts C reactive protein (test cod e = C reactive protein) 5.0 mg/dL 0.6-1.2 H performing lab: (test code = performing lab:) [facility] [id number] 14:40:00* Test Item Value Reference Range Interpretation Comme nts Ab hepatitis A IgM (test cod e = Ab hepatitis A IgM) nonreactive nonreactive Ag hepatitis B surface (test code = Ag hepatitis B surface) nonreactive nonreactive Ab hepatitis B core IgM (donald t code = Ab hepatitis B core IgM) nonreactive nonreactive Ab hepatitis C (test code = Ab hepatitis C) nonreactive nonreactive signal to cutoff (test code = signal to cutoff) 0.09 <0.80 performing lab: (test code = performing lab:) [facility] HIV 14:40:00* Test Item Value Reference Range Interpretation Comme nts Ab HIV 1 (test code = Ab HIV 1) nonreactive nonreactive performing lab: (test code = performing lab:) [facility] Health[facility]throm[facility] (PT)2021-07-23 14:40:00* Test Item Value Reference Range Interpretation Comme nts prothrombin time patient (te st code = prothrombin time patient) 12.7 secs 9.7-12.5 H international normal ratio ( test code = international normal ratio) 1.14 <2.0 performing lab: (test code = performing lab:) [facility] [id number] 14:40:00 * Test Item Value Reference Range Interpretation Comme nts PTT activated (test code = P TT activated) 33.6 secs 26.6-34.6 performing lab: (test code = performing lab:) [facility] Differential panel - [id number] 14:40:00* Test Item Value Reference Range Interpretation Comme nts white blood cell (test code = white blood cell) 9.5 K/mm3 5.7-10.5 red blood cell (test code = red blood cell) 3.94 M/mm3 4.2-5.4 L hemoglobin (test code = hemoglobin) 12.6 g/dL 12-16 hematocrit (test code = hematocrit) 35.6 % 37-47 L mean cell volume (test code = mean cell volume) 90 fL 80-98 mean cell HGB (test code = m juani cell HGB) 32.0 pg 27-34 mean cell HGB concentration (test code = mean cell HGB concentration) 35.4 g/dL 30.8-34.1 H red cell distribution width (test code = red cell distribution width) 12.2 % 11-16 plt (test code = plt) 307 K/mm3 130-400 mean platelet volume (test c ode = mean platelet volume) 9.5 fL 8.9-12.1 neutrophil % (test code = neutrophil %) 77.6 % 45-70 H lymphocyte % (test code = lymphocyte %) 14.2 % 20-40 L monocyte % (test code = mono cyte %) 5.6 % 3-10 eosinophil % (test code = eosinophil %) 1.9 % 1-5 basophil % (test code = baso hyun %) 0.3 % 0.0-1.1 neutrophil # (test code = neutrophil #) 7.34 K/mm3 2.00-7.50 lymphocyte # (test code = lymphocyte #) 1.34 K/mm3 1.50-4.00 L monocyte # (test code = mono cyte #) 0.53 K/mm3 0.2-0.8 eosinophil # (test code = eosinophil #) 0.18 K/mm3 0.04-0.4 basophil # (test code = baso hyun #) 0.03 K/mm3 0.02-0.10 manual diff required (test c ode = manual diff required) no manual diff nucleated red blood cell (te st code = nucleated red blood cell) 0 % 0-0 performing lab: (test code = performing lab:) [facility] [id number] 14:40:00* Test Item Value Reference Range Interpretation Comme nts sed rate (test code = sed rate) 78 mm/HR 0-15 H performing lab: (test code = performing lab:) [facility] MedicineComprehensive metabolic 2000 panel - Serum or [id number] 14:40:00* Test Item Value Reference Range Interpretation Comme nts sodium (test code = sodium) 136 mEq/L 135-145 potassium (test code = potassium) 3.7 mEq/L 3.5-5.0 chloride (test code = chloride) 99 mEq/L 100-115 L carbon dioxide (test code = carbon dioxide) 25 mEq/L 22-31 glucose (test code = glucose) 93 mg/dL 65-110 blood urea nitrogen (test co de = blood urea nitrogen) 15 mg/dL 7-18 glomerular filtration rate ( test code = glomerular filtration rate) 119.8 >60 creatinine (test code = creatinine) 0.8 mg/dL 0.7-1.3 total protein (test code = t otal protein) 7.9 gm/dL 6.3-8.2 albumin (test code = albumin) 4.3 gm/dL 3.4-4.8 globulin (test code = globulin) 3.6 albumin/globulin ratio (test code = albumin/globulin ratio) 1.19 calcium (test code = calcium) 8.8 mg/dL 8.4-10.2 bilirubin total (test code = bilirubin total) 0.8 mg/dL 0.2-1.0 SGOT/AST (test code = SGOT/AST) 63 units/L 15-37 H SGPT/ALT (test code = SGPT/ALT) 129 units/L 12-78 H alkaline phosphatase total ( test code = alkaline phosphatase total) 194 units/L 46-116 H performing lab: (test code = performing lab:) [facility] reactive [id number] 14:40:00* Test Item Value Reference Range Interpretation Comme nts C reactive protein (test cod e = C reactive protein) 5.0 mg/dL 0.6-1.2 H performing lab: (test code = performing lab:) [facility] [id number] 14:40:00* Test Item Value Reference Range Interpretation Comme nts Ab hepatitis A IgM (test cod e = Ab hepatitis A IgM) nonreactive nonreactive Ag hepatitis B surface (test code = Ag hepatitis B surface) nonreactive nonreactive Ab hepatitis B core IgM (donald t code = Ab hepatitis B core IgM) nonreactive nonreactive Ab hepatitis C (test code = Ab hepatitis C) nonreactive nonreactive signal to cutoff (test code = signal to cutoff) 0.09 <0.80 performing lab: (test code = performing lab:) [facility] HIV 14:40:00* Test Item Value Reference Range Interpretation Comme nts Ab HIV 1 (test code = Ab HIV 1) nonreactive nonreactive performing lab: (test code = performing lab:) [facility] HealthProthrombin time (PT)2021-07-23 14:40:00* Test Item Value Reference Range Interpretation Comme nts prothrombin time patient (te st code = prothrombin time patient) 12.7 secs 9.7-12.5 H international normal ratio ( test code = international normal ratio) 1.14 <2.0 performing lab: (test code = performing lab:) [facility] time [id number] 14:40:00 * Test Item Value Reference Range Interpretation Comme nts PTT activated (test code = P TT activated) 33.6 secs 26.6-34.6 performing lab: (test code = performing lab:) [facility] W Auto Differential panel - Mvozp7170-30-86 14:40:00* Test Item Value Reference Range Interpretation Comme nts white blood cell (test code = white blood cell) 9.5 K/mm3 5.7-10.5 red blood cell (test code = red blood cell) 3.94 M/mm3 4.2-5.4 L hemoglobin (test code = hemoglobin) 12.6 g/dL 12-16 hematocrit (test code = hematocrit) 35.6 % 37-47 L mean cell volume (test code = mean cell volume) 90 fL 80-98 mean cell HGB (test code = m juani cell HGB) 32.0 pg 27-34 mean cell HGB concentration (test code = mean cell HGB concentration) 35.4 g/dL 30.8-34.1 H red cell distribution width (test code = red cell distribution width) 12.2 % 11-16 plt (test code = plt) 307 K/mm3 130-400 mean platelet volume (test c ode = mean platelet volume) 9.5 fL 8.9-12.1 neutrophil % (test code = neutrophil %) 77.6 % 45-70 H lymphocyte % (test code = lymphocyte %) 14.2 % 20-40 L monocyte % (test code = mono cyte %) 5.6 % 3-10 eosinophil % (test code = eosinophil %) 1.9 % 1-5 basophil % (test code = baso hyun %) 0.3 % 0.0-1.1 neutrophil # (test code = neutrophil #) 7.34 K/mm3 2.00-7.50 lymphocyte # (test code = lymphocyte #) 1.34 K/mm3 1.50-4.00 L monocyte # (test code = mono cyte #) 0.53 K/mm3 0.2-0.8 eosinophil # (test code = eosinophil #) 0.18 K/mm3 0.04-0.4 basophil # (test code = baso hyun #) 0.03 K/mm3 0.02-0.10 manual diff required (test c ode = manual diff required) no manual diff nucleated red blood cell (te st code = nucleated red blood cell) 0 % 0-0 performing lab: (test code = performing lab:) [facility] ujwr6357-72-84 14:40:00* Test Item Value Reference Range Interpretation Comme nts sed rate (test code = sed rate) 78 mm/HR 0-15 H performing lab: (test code = performing lab:) [facility] 2000 panel - Serum or Obskmh5131-55-00 14:40:00* Test Item Value Reference Range Interpretation Comme nts sodium (test code = sodium) 136 mEq/L 135-145 potassium (test code = potassium) 3.7 mEq/L 3.5-5.0 chloride (test code = chloride) 99 mEq/L 100-115 L carbon dioxide (test code = carbon dioxide) 25 mEq/L 22-31 glucose (test code = glucose) 93 mg/dL 65-110 blood urea nitrogen (test co de = blood urea nitrogen) 15 mg/dL 7-18 glomerular filtration rate ( test code = glomerular filtration rate) 119.8 >60 creatinine (test code = creatinine) 0.8 mg/dL 0.7-1.3 total protein (test code = t otal protein) 7.9 gm/dL 6.3-8.2 albumin (test code = albumin) 4.3 gm/dL 3.4-4.8 globulin (test code = globulin) 3.6 albumin/globulin ratio (test code = albumin/globulin ratio) 1.19 calcium (test code = calcium) 8.8 mg/dL 8.4-10.2 bilirubin total (test code = bilirubin total) 0.8 mg/dL 0.2-1.0 SGOT/AST (test code = SGOT/AST) 63 units/L 15-37 H SGPT/ALT (test code = SGPT/ALT) 129 units/L 12-78 H alkaline phosphatase total ( test code = alkaline phosphatase total) 194 units/L 46-116 H performing lab: (test code = performing lab:) [facility] wetvqtf3205-65-91 14:40:00* Test Item Value Reference Range Interpretation Comme nts C reactive protein (test cod e = C reactive protein) 5.0 mg/dL 0.6-1.2 H performing lab: (test code = performing lab:) [facility] ksejx1193-73-16 14:40:00* Test Item Value Reference Range Interpretation Comme nts Ab hepatitis A IgM (test cod e = Ab hepatitis A IgM) nonreactive nonreactive Ag hepatitis B surface (test code = Ag hepatitis B surface) nonreactive nonreactive Ab hepatitis B core IgM (donald t code = Ab hepatitis B core IgM) nonreactive nonreactive Ab hepatitis C (test code = Ab hepatitis C) nonreactive nonreactive signal to cutoff (test code = signal to cutoff) 0.09 <0.80 performing lab: (test code = performing lab:) [facility] HIV 14:40:00* Test Item Value Reference Range Interpretation Comme nts Ab HIV 1 (test code = Ab HIV 1) nonreactive nonreactive performing lab: (test code = performing lab:) [facility] ih Fe4940-67-91 13:09:00 * Test Item Value Reference Range Interpretation Comme nts covid 19 asymptomatic ih Ag (test code = covid 19 asymptomatic ih Ag) negative negative performing lab: (test code = [facility] Cs5310-45-09 13:09:00 * Test Item Value Reference Range Interpretation Comme nts covid 19 asymptomatic ih Ag (test code = covid 19 asymptomatic ih Ag) negative negative performing lab: (test code = performing lab:) [facility] Wa5944-25-88 13:09:00 * Test Item Value Reference Range Interpretation Comme nts covid 19 asymptomatic ih Ag (test code = covid 19 asymptomatic ih Ag) negative negative performing lab: (test code = performing lab:) [facility] Notes Date/Time Note Provider Source 2021-09-03 09:27:00 [id number] WfEW5uffrXGlUtlPmS7x9FHAFjw1O Dfmeb5PWeEFpw6/ZpWaq4Tdf2QlKFhR3760-72-30I89:27:0 [id number] [facility] [place] [address] PATIENT NAME: ANDREY BARNES JR ADMIT DATE: 08/14/21ACCOUNT NO: [id number] ROOM NO: AGE: 21 REPORT TYPE: OPERATIVE REPORT SEX: M ADMITTING PHYSICIAN: ATTENDING PHYSICIAN:Jose Brand MD OPERATION DATE: 08/14/2021 SURGEON: Jose Brand MD. ATTENDING AMBULATORY CARE: Brenda Marsh physician licensed loan officer assistant certified PREOPERATIVE DIAGNOSIS: Displaced bicondylar fracture of right tibia, initialencounter for closed fracture (ICD-10 #S82.141A). POSTOPERATIVE DIAGNOSIS: Displaced bicondylar fracture of right tibia, initialencounter for closed fracture (ICD-10 #S82.141A). PROCEDURES:1. Removal of Ilizarov external fixator, right tibia.2. Open reduction and internal fixation of bicondylar tibial plateau fracture. ANESTHESIA: Per anesthesia team and was general endotracheal. COMPLICATIONS: None. TOURNIQUET TIME: ____. PROCEDURE IN DETAIL: After obtaining informed consent, the patient was broughtto the operating room and placed in supine position. Anesthesia was peranesthesia team and was general endotracheal. The right lower extremity wasprepped and draped in the normal sterile fashion. Following this, the Ilizarovframe was removed. All half pins and wires were removed and cut and theIlizarov frame was slid off the right lower extremity. All wires and pins andhalf pins were then removed atraumatically and the pin sites were debrided ofskin, subcutaneous tissue, muscle, and bone. Following this, the leg was onceagain reprepped and the pin sites were covered using occlusive sticky dressings. Following proper prepping and draping, the fixation of the bicondylar tibialplateau fracture commenced. A curvilinear lateral incision was performed after elevating the leg for 5minutes and elevating the tourniquet to 350 mmHg. Dissection was carried downthrough skin and subcutaneous tissue. Hemostasis was achieved usingelectrocautery. The fascial compartment was released and dissection was carrieddown to the lateral aspect of the proximal tibia as well as the proximal portionof the tibial shaft. Care was taken to protect all neurovascular structures. Following this, the lateral plateau fragment was booked open and the centralportion of the plateau was noted to be highly comminuted. Multiple attempts PATIENT NAME: ANDREY BARNES were necessary to reduce this and no real bony ridges were available. Threadedguide pins were then placed for articular fixation and the lateral wall was thenclosed, a lateral plate was placed and a small medial incision was made and bonereduction clamps were used to reduce the width of the tibial plateau. Acceptable reduction was achieved; however, this reduction was imperfect and itwas not felt that a perfect reduction was available as there was marginalimpaction and severe fragmentation of articular fragments, some of which weredebrided from the wound. Multiple screws were then placed in the plate fixing not only the lateral, butalso the medial plateau segment. Excellent stability was achieved. The kneewas brought through a range of motion and there was no clicking or grinding orcatching. A submeniscal arthrotomy had been performed and was repaired usingsuture. AP and lateral fluoroscopic image showed improvement of the anatomy, althoughagain an imperfect reduction. The wound was irrigated using copious salinesolution. The deep tissue was closed using 0 Vicryl in an interrupted fashion,intermediate tissue was closed using 0 Vicryl in an interrupted fashion,subcutaneous tissue closed using 2-0 Vicryl, and skin was coapted using klaudia. It should be noted that the closure was performed by Dr. Petersen of the plasticreconstructive service. This will be dictated in greater detail by Dr. Petersenas he was responsible for wound closure and will dictate this. Following this, bulky sterile dressings were applied. Anesthesia was reversed. The patient was taken to the recovery room where it was noted that the toes hadgood capillary refill. There were no complications of this procedure. The skilled assistance of Brenda Marsh, physician's licensed loan officer assistant certified, wasnecessary during this complex, instrumented open reduction and internal fixationof a bicondylar tibial plateau fracture. She assisted with every aspect of the operation including, but not limited to,proper and safe positioning of the patient, obtaining adequate surgicalexposure, manipulation of surgical instruments, and the delicate task ofproviding suction to the surgical wound. In addition, she assisted withreduction of the tibial plateau fracture and the continual process of hemostasisduring the procedure itself. She also assisted Dr. Petersen with surgical wound closure. The physician licensed loan officer assistant performed and supervised the surgical team with removalof the patient from the operating table and returning the patient back to [facility]. Ms. Marsh's assistance allowed me to perform the most sensitive and technicalportions of this operation using two hands, thus enhancing the patient's safety. This would not be possible without the help of the skilled licensed loan officer assistant familiarwith the procedure and capable of safely performing the aforementioned tasks. Our facility is not a teaching hospital, and as such, no surgical residents orinterns were available to assist. Dictated By: Jose Brand MD PATIENT NAME: ANDREY BARNES JR WT: OP:Y.COURT/LIGIA.01/NTSDD: 09/03/2021 09:27:23DT: 09/03/2021 12:51:56Conf#: [id number]/DID#: [id number] Authenticated by Jose Brand MD On 09/07/2021 01:54:25 PM at 0154 PATIENT NAME: ANDREY BARNES JR mzzrsx6034-30-14Q25:51:00Y.ZCX20850820-6020DTAgni lable for patient xczbLFCDMMOJWJBHQE3879-55-29M01:55:02 [facility]ATO 2021-08-29 14:49:00 [id number] 1/UTCWvLL4KTS1WVOBggHFMTdGwP7 SLIQIwAdHMhRE+s3xz/H1TC8sgeJ/PW5184-38-87F66:49:0 [id number] [place] [address] PATIENT NAME: ANDREY BARNES JR ADMIT DATE: 08/14/21ACCOUNT NO: [id number] ROOM NO: AGE: 21 REPORT TYPE: OPERATIVE REPORT SEX: M ADMITTING PHYSICIAN: ATTENDING PHYSICIAN:Jose Brand MD OPERATION DATE: 08/14/2021 INTRAOPERTIVE CONSULT SURGEON: Jasper Petersen MD ATTENDING AMBULATORY CARE: PREOPERATIVE DIAGNOSIS: Right knee tibial plateau fracture, open wound right lateral knee. POSTOPERATIVE DIAGNOSIS: Right knee tibial plateau fracture, open wound right lateral knee. TITLE OF THE PROCEDURE:1. Coverage of wound over orthopedic hardware 15 x 8 cm 2. Elevation and advancement of the iliotibial tract tendon with the repair. 3. Elevation and advancement of tibialis muscle with repair.4. Elevation and advancement of fasciocutaneous flaps, right lateral knee, 15cm. ANESTHESIA: General endotracheal anesthesia. INDICATIONS FOR PROCEDURE: The patient is a 21-year-old male status post rightknee tibial plateau fracture. The patient had open reduction and internalfixation by the orthopedic surgery service and they will dictate that portionseparately. Plastic surgery service was consulted intraoperatively to undergo evaluation of wounds and wound closures. DESCRIPTION OF PROCEDURE: The patient was brought to the operating room and was placed in supine position after obtaining informed consent. He underwent general endotracheal anesthesia without complication. The patient's right lower extremity was then prepped and draped in a sterile fashion. Orthopedic surgery service performed first portion of the procedure, they will dictate that portion separately. Upon completion, plastic surgery service was then called into the operative field. The patient then had evaluation of the wound. The patient was noted to have plates in place to the right lateral tibial plateau fracture. The patient therefore had thorough irrigation of the wound with antibiotic-containing saline solution. Hemostasis was then obtained with Bovie cautery. The patient then underwent elevation and advancement of iliotibial tract tendon with elevation and advancement of the tibialis muscle laterally. A closure over the orthopedic PATIENT NAME: ANDREY BARNES JR hardware was then done utilizing 2- 0 PDS. The patient had elevation and advancement of fascia and closure with 2- 0 PDS. The patient then underwent elevation of fasciocutaneous flaps 15x 8 cm. The patient then underwent advancement and complex wound closure utilizing 2-0 Monocryl deep dermal, followed by running3-0 Monocryl subcuticular. The patient then had final layer klaudia placed.The patient was then placed in a splint by the orthopedic surgery service andthey will dictate that portion separately. Upon completion, the patient wasthen extubated. He was awake, following extubation, was taken to recovery roomin a stable condition. BLOOD LOSS: For the plastic surgery service minimal. COMPLICATIONS: None. COUNTS: Sponge and needle counts correct. Dictated By: Jasper Petersen MD WT: OP:YKEV/CORY/LESLIEDD: 08/29/2021 14:49:15DT: 08/29/2021 19:48:23Conf#: [id number]/DID#: [id number] Authenticated and Edited by Jasper Petersen MD On 09/04/21 3:00:18 PM at 0301 PATIENT NAME: ANDREY BARNES JR gatryv4144-52-70L41:48:00Y.MQO33564673-3742VFFkbm lable for patient aeejODLYIGETDVDDML9412-05-85T87:02:25 [facility]ATO 2021-08-16 11:57:00 [id number] 03jqyo6+njgWiVJhZS1Q926GKjq0x O3T1+GQdYcgIM/jbWJOC9g/d4PfA5II3962-51-39V94:57:0 0 [facility] ([facility])Orthopaedic Progress NoteREPORT#:[id number] REPORT STATUS: SignedDATE:08/16/21 TIME: 1157 PATIENT: ANDREY BARNES UNIT #: [id number]#: [id number] [facility] AGE: 21 SEX: M ATTEND: Jose Brand [facility] AUTHOR: Jose Brand MD * ALL edits or amendments must be made on the electronic/computer document * SubjectivePatient reports:Yes: ambulating with therapy, pain, pain controlled. ObjectiveVS:Last Documented: Result Date Time Pulse Ox 100 08/16 1152 B/P 111/70 08/16 1152 B/P Mean 83.4 08/16 1152 O2 Delivery Room air 08/16 1152 Temp 96.4 08/16 1152 Pulse 90 08/16 1152 Resp 16 08/16 1152 O2 Flow Rate 3 08/15 1900 FiO2 28 08/15 0230 PATIENT WEIGHT: Weight (lb): 123Weight (oz): 7.34Weight (kg): 55.792 Medications:Active Meds + DC'd Last 24 HrsMagnesium Hydroxide (MILK OF MAGNESIA) 30 ML BEDTIME PRN PRN PO Methocarbamol (ROBAXIN) 500 MG ANES Q6H PRN PRN PO Enoxaparin Sodium (LOVENOX) 40 MG DAILY 0600 SUBQ Methocarbamol (ROBAXIN) 500 MG ANES Q6HR PO (DC) Cefazolin Sodium (KEFZOL) 1 GM Q8H IV (DC) Lactated Ringer's (LACTATED RINGERS) 1,000 ML .Q20H IV Diphenhydramine HCl (BENADRYL) 12.5 MG ANES Q4H PRN PRN IV Diphenhydramine HCl (BENADRYL) 25 MG ANES BEDTIME PRN PRN PO Hydromorphone HCl (DILAUDID 20 MG/NS 100 ML BREAK UP WORKER) 100 ML ASDIR IV (CKD) IV Miscellaneous Supplies (BREAK UP WORKER BEACH) 1 EA ASDIR MISC Naloxone HCl (NARCAN) 0.1 - 0.2 MG ANES ASDIR IV Ondansetron HCl (ZOFRAN) 4 MG ANES Q4H PRN PRN IV Promethazine HCl (PHENERGAN) 6.25 MG ANES ASDIR PRN IM Acetaminophen (TYLENOL) 650 MG Q4H PRN PRN PO Acetaminophen/Codeine Phosphate (TYLENOL W CODEINE NO.3) 1 UDTAB Q4H PRN PRN PO Acetaminophen/Codeine Phosphate (TYLENOL W CODEINE NO.3) 2 UDTAB Q4H PRN PRN PO Tramadol HCl (ULTRAM) 50 MG Q4H PRN PRN PO Tramadol HCl (ULTRAM) 100 MG Q4H PRN PRN PO Physical ExamGeneral appearance: alert, oriented, no acute distressExtremities: RLE with dressing C/D/I. Knee immobilizer in place. NVI. Negative compartment syndrome. Diagnosis, Assessment PlanFree text A P:POD#2 s/p ORIF of left tibia plateau fracture with removal of Ilizarov - DVT prophylaxis- Pain control- PT - NWB to LLE- NVI- Plan for d/c home today.- Take 81 mg ASA daily once home for DVT prophylaxis.- Pain medication per pain management. at 1159 RPT #:[id number] OF REPORT PRProgress tnxx2656-94-27C49:57:00Y.ACRE28857258-1179HSQjqju able for patient rmnxUWFAYFWQCUETBE9815-25-49R31:00:08 HCATO 2021-08-16 10:21:00 [id number] /kBFdsY6n/RJXkFLweK55dqDliSki I7FDW1dMWAcITWE4EDDOYXN2m7odr4q7522-78-21N40:21:0 0 [facility] ([facility])Clinical NoteREPORT#:[id number] REPORT STATUS: SignedDATE:08/16/21 TIME: 1021 PATIENT: ANDREY BARNES UNIT #: [id number]#: [id number] [facility] AGE: 21 SEX: M ATTEND: Jose Brand [facility] AUTHOR: Brandon Dugan MD * ALL edits or amendments must be made on the electronic/computer document * Clinical NoteNote:[facility] Brandon Baron M.D. (cell text [phone]) Assessment/Plan1.) Anemia of acute blood loss- .Hgb 9.5 -08/15/21, asymptomatic.2.) S/p Treatment of right fibula fracture with ORIF, external fixator removal,bone grafting, I D of pin and wire sites .acute multi-modal pain control and followup. Anticoagulation as per Dr. Brand.3.) Mild Hyponatremia- .has been avoiding XS fluid intake.* OK for DISCHARGE per Internal Medicine.* Will eRx pain medication (covering for Dr. Reed). Prior Events/Overnight: Uneventful.Chief Complaint: No significant complaints. ObjectiveVital SignsDate Temp Pulse Resp B/P B/P Mean Pulse Ox TpS728/01-/ 97.0-98.8 87-111 15-18 112-127/66-73 83.6-90.9 98-100 Gen: Alert, oriented, in mild to moderate discomfort Neck: No Masses, No Thyromegaly-CV: Regular Rate Rhythm / Edema- no significant Resp: Clear To Ascultation / Normal Respiratory EffortABD: NonTender / NonDistended MS/Skin: No sign of compartment syndrome / +toes DF/PF Other: Labs/X-ray: none Brandon Baron M.D. at 1148 RPT #:[id number] OF REPORT CLClinical vmuw6770-47-46P07:21:00Y.MBBF12928586-0502HUDdfau able for patient ovpyJZZBPZRQKJSSCF0644-07-14G39:48:58 HCATO 2021-08-15 17:23:00 [id number] 3X+MxdWeUTtS7abDuTbtiDjcwRuDq HZRsU/jC3JdeyKeXiVzp5PSpqOxPGDb1368-39-60D30:23:0 0 [facility] ([facility])Op/Inv Procedure Note - BriefREPORT#:[id number] REPORT STATUS: SignedDATE:08/15/21 TIME: 1723 PATIENT: ANDREY BARNES UNIT #: [id number]#: [id number] [facility]ZV[facility] 98 AGE: 21 SEX: M ATTEND: Jose Brand AUTHOR: Jose Brand MD * ALL edits or amendments must be made on the electronic/computer document * Op/Inv Proc Note - Brief TEXT Brief Op/Inv Procedure NoteNote details:*PRE-PROCEDURE DIAGNOSIS:Left tibial bicondylar plateau fracture *POST-PROCEDURE DIAGNOSIS:Same *PROCEDURE(S) PERFORMED:1. ORIF left tibia bicondylar plateau fracture2. Removal of left leg Ilizarov external fixator3. I D pin sites *PRIMARY SURGEON:Jose Brand *ATTENDING AMBULATORY CARE(S):Brenda Marsh PA-C ANESTHETIC:General *ESTIMATED BLOOD LOSS in ml's:200 cc *SPECIMEN(S) REMOVED:None *COMPLICATIONS:None DRAIN(S):None[] TUBE(S):None[] IMPLANT(S):None[] FLUIDS:[] URINE OUTPUT:[] *FINDINGS:Displaced, comminuted bicondylar plateau fracture. DISPOSITION:To PACU at 1725 RPT #:[id number] OF REPORT PNProcedure swlq5766-75-31F54:23:00Y.NZRU57680485-7412DIAfxiq able for patient xctyRNFORJVASFDUCC3754-90-43C70:25:44 HCATO 2021-08-15 17:17:00 [id number] rSwTEibGKVMzv6QCVnkbI1Pc+MFIm bxUVfLuSe56hMEQ005X30n4qaJO4H9N0793-47-18S94:17:0 0 [facility] ([facility])Orthopaedic Progress NoteREPORT#:[id number] REPORT STATUS: SignedDATE:08/15/21 TIME: 1717 PATIENT: ANDREY BARNES UNIT #: [id number]#: [id number] [facility] AGE: 21 SEX: M [facility]END[facility] AUTHOR: Jose Brand MD * ALL edits or amendments must be made on the electronic/computer document * SubjectivePatient reports:Yes: pain. No: ambulating with therapy. ObjectiveVS:Last Documented: Result Date Time Pulse Ox 98 08/15 1537 B/P 112/69 08/15 1537 B/P Mean 83.8 08/15 1537 O2 Delivery Room air 08/15 1537 Temp 97.0 08/15 1537 Pulse 87 08/15 1537 Resp 15 08/15 1537 FiO2 28 08/15 0230 O2 Flow Rate 2 08/15 0230 PATIENT WEIGHT: Weight (lb): 123Weight (oz): 7.34Weight (kg): 55.792 Medications:Active Meds + DC'd Last 24 HrsMagnesium Hydroxide (MILK OF MAGNESIA) 30 ML BEDTIME PRN PRN PO Methocarbamol (ROBAXIN) 500 MG ANES Q6H PRN PRN PO Enoxaparin Sodium (LOVENOX) 40 MG DAILY 0600 SUBQ Methocarbamol (ROBAXIN) 500 MG ANES Q6HR PO Cefazolin Sodium (KEFZOL) 1 GM Q8H IV (DC) Lactated Ringer's (LACTATED RINGERS) 1,000 ML .Q20H IV Diphenhydramine HCl (BENADRYL) 12.5 MG ANES Q4H PRN PRN IV Diphenhydramine HCl (BENADRYL) 25 MG ANES BEDTIME PRN PRN PO Hydromorphone HCl (DILAUDID 20 MG/NS 100 ML BREAK UP WORKER) 100 ML ASDIR IV (CKD) IV Miscellaneous Supplies (BREAK UP WORKER BEACH) 1 EA ASDIR MISC Naloxone HCl (NARCAN) 0.1 - 0.2 MG ANES ASDIR IV Ondansetron HCl (ZOFRAN) 4 MG ANES Q4H PRN PRN IV Promethazine HCl (PHENERGAN) 6.25 MG ANES ASDIR PRN IM Acetaminophen (TYLENOL) 650 MG Q4H PRN PRN PO Acetaminophen/Codeine Phosphate (TYLENOL W CODEINE NO.3) 1 UDTAB Q4H PRN PRN PO Acetaminophen/Codeine Phosphate (TYLENOL W CODEINE NO.3) 2 UDTAB Q4H PRN PRN PO Tramadol HCl (ULTRAM) 50 MG Q4H PRN PRN PO Tramadol HCl (ULTRAM) 100 MG Q4H PRN PRN PO Cefazolin Sodium (KEFZOL) 1 GM ONCALL IV (DC) Lactated Ringer's (LACTATED RINGERS) 1,000 ML PREOP IV FLUID IV (DC) Lidocaine HCl (XYLOCAINE) 2 ML PREOP SUBQ (DC) Physical ExamGeneral appearance: alert, oriented, no acute distressExtremities: RLE with dressing C/D/I. Knee immobilizer in place. NVI. Negative compartment syndrome. Diagnosis, Assessment PlanFree text A P:POD#1 s/p ORIF of left tibia plateau fracture with removal of Ilizarov - DVT prophylaxis- Pain control- PT - NWB to LLE- NVI- Consider d/c tomorrow if pain controlled and working well with PT. at 1723 RPT #:[id number] OF REPORT PRProgress nmtx2066-43-41Y40:17:00Y.GOMM33659484-9100XCZzbye able for patient lvyaXZRWLDVFEOJWJG7258-01-35P57:23:14 [facility]ATO 2021-08-15 10:09:00 [id number] 9nbvr7T6IKupxqHDgy+Me/btv6D+l nwERAolknN3ZXJY67ntP/Wn89hz52DT5498-17-62U48:09:0 0 [facility] ([facility])Clinical NoteREPORT#:[id number] REPORT STATUS: SignedDATE:08/15/21 TIME: 1009 PATIENT: ANDREY BARNES UNIT #: [id number]#: [id number] [facility] AGE: 21 SEX: M ATTEND: Jose Brand [facility] AUTHOR: Brandon Dugan MD * ALL edits or amendments must be made on the electronic/computer document * Clinical NoteNote:[facility] Brandon Baron M.D. (cell text [phone]) Assessment/Plan1.) Anemia of acute blood loss- .Hgb 9.5, asymptomatic.2.) S/p Treatment of right fibula fracture with ORIF, external fixator removal,bone grafting, I D of pin and wire sites .acute multi-modal pain control and followup. Anticoagulation as per Dr. Brand.3.) Mild Hyponatremia- .discussed avoiding XS fluid intake the next 24 hrs.* OK for DISCHARGE per Internal Medicine. Prior Events/Overnight: Uneventful.Chief Complaint: No significant complaints. ObjectiveVital Signs Date Temp Pulse Resp B/P B/P Mean Pulse Ox FiO2 08/14-08/15 97.3-98.6 77-105 12-20 95-120/59-78 76.4-91.4 98-100 28 Gen: Alert, oriented, in mild discomfort Neck: No Masses, No Thyromegaly-CV: Regular Rate Rhythm / Edema- no significant Resp: Clear To Ascultation / Normal Respiratory EffortABD: NonTender / NonDistended MS/Skin: No sign of compartment syndrome / +toes DF/PF Other: bulky dressing on leg Labs/X-ray: Laboratory Tests: 08/15 0456 Chemistry Sodium (136 - 145 mmol/L) 133 L Potassium (3.5 - 5.1 mmol/L) 4.2 Chloride (98 - 107 mmol/L) 98.0 Carbon Dioxide (21 - 32 mmol/L) 28.3 BUN (7 - 18 mg/dL) 9 Creatinine (0.55 - 1.30 mg/dL) 0.86 Glomerular Filtr Rate (>60) 110.2 Glucose (70 - 110 mg/dL) 110 Calcium (8.2 - 10.1 mg/dL) 8.1 L Hematology WBC (5.7 - 10.5 K/mm3) 10.8 H RBC (4.2 - 5.4 M/mm3) 2.99 L Hgb (12 - 16 g/dL) 9.5 L Hct (37 - 47 %) 27.0 L MCV (80 - 98 fL) 90 MCH (27 - 34 pg) 31.8 MCHC (30.8 - 34.1 g/dL) 35.2 H RDW (11 - 16 %) 12.7 Plt Count (130 - 400 K/mm3) 188 MPV (8.9 - 12.1 fL) 10.4 Neut % (Auto) (45 - 70 %) 75.2 H Lymph % (Auto) (20 - 40 %) 16.5 L [place] % (Auto) (3 - 10 %) 6.9 Eos % (Auto) (1 - 5 %) 0.3 L Baso % (Auto) (0.0 - 1.1 %) 0.3 Neut # (Auto) (2.00 - 7.50 K/mm3) 8.13 H Lymph # (Auto) (1.50 - 4.00 K/mm3) 1.78 [place] # (Auto) (0.2 - 0.8 K/mm3) 0.75 Eos # (Auto) (0.04 - 0.4 K/mm3) 0.03 L Baso # (Auto) (0.02 - 0.10 K/mm3) 0.03 Add Manual Diff (MANUAL DIFF) NO Nucleated RBC % (0 - 0 %) 0 Brandon Baron M.D. at 1129 RPT #:[id number] OF REPORT CLClinical fgoh9628-19-66J82:09:00Y.[id number] able for patient bfdaNSJDBEDUNDACKI1869-42-44A22:30:03 [facility] 2021-08-14 18:02:00 [id number] ykL8vMyV2buJ04NAj3BdIAlo01nnt 1U6L+EKpD7iooJjAtSBY5MIUWFQVxBR3317-92-09I75:02:0 0 [facility] ([facility])Clinical NoteREPORT#:[id number] REPORT STATUS: SignedDATE:08/14/21 TIME: 1801 PATIENT: ANDREY BARNES UNIT #: [id number]#: [id number] [facility] AGE: 21 SEX: M ATTEND: Jose Brand [facility] AUTHOR: Brandon Dugan MD * ALL edits or amendments must be made on the electronic/computer document * Clinical NoteNote:[facility] Brandon Baron MD(cell text [phone])Internal Medicine Consult at request of : Dr. Jose Brand Chief Complaint: right leg pain HPI: 21 yo M is now s/p Treatment of right fibula fracture with ORIF, external fixator removal, bone grafting, I D of pin and wire sites by Dr. Brand. Mr. Barnes sustained right tibial plateau fracture on 07/12/21 and underwent ilizarov placement for swelling on 07/24/2021.Comorbidities: see below. PmHx: .none ALLERGY: Allergies:No Known Drug Allergies (Coded, 07/23/21)DEET (Uncoded, Mild, ITCHINESS, 07/23/21) Home Medications: Home Medications:HYDROcodone/APAP (NORCO 5/325) 1 TAB PO Q6H PRN PRN PAIN ASPIRIN 81 MG PO DAILY SgHx: .Ilizarov right leg SHx: Tob: ppd x 6 years. FHx: .No significant hx of DVT/PE.Alcohol: occasional Drugs: none Lives with family . Vitals:Vital Signs Date Temp Pulse Resp B/P B/P Mean Pulse Ox FiO2 08/14 97.6-97.9 85-105 12-20 95-120/56-67 76.4 98-100 Gen: Alert, in mild discomfort.EYE: Nl lids conjunctiva.ENT: Nl ears Nose, nl lips,. Neck: Supple, nl thyroid, No masses.CV: Regular Rate Rhythm, no heave or significant murmur. Edema- none RESP: Clear to Auscultation, normal Respiratory effort.ABD: Soft, NonDistended,.LYM: No significant cervical Lymphadenopathy.MS: No sign of compartment syndrome, NEURO: Nonfocal, grossly normal sensation of LE, +Ankle DF/PF..Preop Labs (08/08/2021): CBC:. Hgb 13.3, Plt 339, CHEM: Na 137, K 3.7, Cr 0.91 (eGFR 103.2%), . .(medium to high risk of complications or morbidity) (major surgery) (IV sedative, meds).Assessment Plan1.) Anemia of Acute Blood Loss- .will recheck tomorrow. 2.) S/p Treatment of right fibula fracture with ORIF, external fixator removal,bone grafting, I D of pin and wire sites .acute multi-modal pain control and followup. Anticoagulation as per Dr. Brand. Brandon Baron M.D. Thanks!.....G8420 BMI is documented as within normal parameters (18-25). G8427 - current medications obtained and reviewed.1124F - offered discussion on advanced care plan and patient declined to addressissue at this time. at 1030 [facility] #:[id number] OF REPORT CLClinical hjfa4411-87-16O62:02:00Y.[id number] able for patient gnxnNCBWWZTNDZTQNT6967-16-29E05:31:01 [facility] 2021-07-27 14:12:00 [id number] q6zAUkBfhxQx0afsIw7kWIP5hetrG ruo6erLRjZF9jfPx2xCj+oaRBqFOE+A3919-11-11X80:12:0 [id number] [address] PATIENT NAME: ANDREY BARNES JR ADMIT DATE: 07/24/21ACCOUNT NO: [id number] ROOM NO: AGE: 21 REPORT TYPE: OPERATIVE REPORT SEX: M ADMITTING PHYSICIAN: ATTENDING PHYSICIAN:Jose Brand MD OPERATION DATE: 07/24/2021 SURGEON: Jose Brand MD ATTENDING AMBULATORY CARE: Brenda Marsh, physician licensed loan officer assistant certified. PREOPERATIVE DIAGNOSIS: Displaced fracture of lateral condyle of right tibia,initial encounter for closed fracture (ICD-10 # S82.121A). POSTOPERATIVE DIAGNOSIS: Displaced fracture of lateral condyle of right tibia,initial encounter for closed fracture (ICD-10 # S82.121A). PROCEDURES:1. Application of Ilizarov external fixator, right femur and tibia, spanningexternal fixation for severe right tibial plateau fracture. ANESTHESIA: Per anesthesia team and was general endotracheal. COMPLICATIONS: None. TOURNIQUET TIME: None used. PROCEDURE IN DETAIL: After obtaining informed consent, the patient was broughtto the operating room and placed in supine position. Anesthesia was peranesthesia team and was general endotracheal. The right lower extremity wasprepped and draped in the normal sterile fashion. Following this, the Ilizarovprocedure commenced. It should be noted no paralytic agents were used during this procedure. Itshould be noted when placing transosseous implants, care was taken to put themusculature of the compartment being traversed on stretch by positioning thefoot, ankle, and toes. Care was taken to look for motor flickers to the ankle,foot, and toes, indicating proximity to a nerve. This occurred, the implant wasremoved and repositioned. A combination of 1.8 olive wires, 1.8 smooth wires, and 6 and 5-mm half pinswere used during this mounting. The mounting included the 2 points of fixationon the femur and 2 points of fixation on the tibia. The frame was set up, sobetween rings 2 and 3, there were Fast-Fix struts to allow for distraction andligamentotaxis across the knee. Two 6-mm half pins were used in the proximal femur. Two 6-mm half pins were PATIENT NAME: ANDREY BARNES JR used in the femoral shaft. Two 6-mm half pins were used in the proximal tibia,including a 1.8 olive wire and 2 half pins were used in the distal tibiaincluding one 5-mm half pin. Excellent stability was achieved. Followingapplication of the frame, the Fast-Fix struts were released and traction wasapplied under fluoroscopic image to apply axial traction as well as a varusmoment to disimpact the lateral plateau, which was split and depressed. The Fast-Fix struts were then locked down. AP and lateral fluoroscopic imageshowed good temporary spanning fixation. Following this, all pin sites and wire sites were cleansed and dressedsterilely. Anesthesia was reversed. The patient was taken to the recovery roomwhere it was noted that the toes had good capillary refill. There were nocomplications of this procedure. The skilled assistance of Brenda Marsh, physician's licensed loan officer assistant certified, wasnecessary during this complex, instrumented Ilizarov application for severeright tibial plateau fracture. Ms. Marsh assisted with every aspect of theoperation including, but not limited to, proper and safe positioning of thepatient, manipulation of surgical instruments, and reduction of the fractureusing the Ilizarov method. Ms. Marsh performed Ilizarov frame constructionand also modification and alteration during the procedure. A skilled licensed loan officer assistant such as Ms. Marsh was necessary and mandatory duringIlizarov frame application stabilizing the Ilizarov frame while the surgeonplaces transosseous wires and half pins for bony fixation. Ms. Gordononstabilized the frame while Dr. Brand performed fixation using wires and halfpins. She also tensioned the fine wires after Dr. Brand had positioned themthrough the bone, transfixing the wires to the Ilizarov frame while Dr. Branddoes the same simultaneously on his side of frame. Ms. Marsh's assistance allowed me to perform the most sensitive and technicalportions of this operation using 2 hands, thus enhancing the patient's safety. This would not be possible without the help of a skilled licensed loan officer assistant familiar withthe procedure and capable of safely performing the aforementioned tasks. [facility] is not a teaching hospital and as such, no surgical residents orinterns were available to assist. Dictated By: Jose Brand MD WT: OP:TRA/LIGIA.01/NTSDD: 07/27/2021 14:12:26DT: 07/27/2021 19:12:13Conf#: [id number]/DID#: [id number] Authenticated by Jose Brand MD On 08/01/2021 09:09:12 AM at 0909 PATIENT NAME: ANDREY BARNES JR zuuswj5934-40-35J13:12:00Y.[id number] lable for patient dkbqTOSTPVXDGQMRCU9978-44-42F34:09:39 [facility] 2021-07-26 11:09:00 [id number]+t DuRXLn1OgmYBvTrrye7EXVFD6imwz c8uxDVgXnQdd65SUC2BELI8/D0c2Z4y4594-24-57P06:09:0 0 [facility] ([facility])Clinical NoteREPORT#:[id number] REPORT STATUS: SignedDATE:07/26/21 TIME: 1109 PATIENT: ANDREY BARNES JR UNIT #: [id number]#: [id number] ROOM[facility]BED: [facility]-ADOB: [birth year] AGE: 21 SEX: M ATTEND: Jose Brand MDADM AUTHOR: Brandon Dugan MD * ALL edits or amendments must be made on the electronic/computer document * Clinical NoteNote:[facility] Brandon Baron M.D. (cell text [phone]) Assessment/Plan1.) Anemia of acute blood loss- .Hgb 11.5 -07/25/21, asymptomatic.2.) POD#2 Right tibia treatment of fracture external fixator application, ilizarov, external fixation- .acute multi-modal pain control and followup. Anticoagulation as per Dr. Brand.3.) Tobacco nicotine use- .tobacco nicotine cessation counseling provided. Prior Events/Overnight: Uneventful.Chief Complaint: No significant complaints. ObjectiveVital Signs Date Temp Pulse Resp B/P B/P Mean Pulse Ox FiO2 07/25-07/26 98.2-101.5 67-99 15-16 113-138/56-79 0.0-98.5 94-100 28 Gen: Alert, oriented, in mild discomfort Neck: No Masses, No Thyromegaly-CV: Regular Rate Rhythm / Edema- no significant Resp: Clear To Ascultation / Normal Respiratory EffortABD: NonTender / NonDistended MS/Skin: No sign of compartment syndrome / +toes DF/PF Other: pin sites and skin tone look good. Labs/X-ray: none Brandon Baron M.D. at 1159 RPT #:[id number] OF REPORT CLClinical zhps3756-33-05L83:09:00Y.HQKC68068140-5907ONZuyfo able for patient kkfvMWJLSBIUKXZTFM4598-34-28Y27:00:03 [facility] 2021-07-26 08:25:00 [id number] MTYSAaz9sw7j5dIo0AdCc/ke0bLjP yIIi/wSLh8OvZHzWxBWta3duMq+TET/3230-09-86J50:25:0 0 [facility] ([facility])Orthopaedic Progress NoteREPORT#:[id number] REPORT STATUS: SignedDATE:07/26/21 TIME: 824 PATIENT: ANDREY BARNES UNIT #: [id number]#: [id number] ROOM/BED:: 98 AGE: 21 SEX: M ATTEND: Jose Brand [facility] AUTHOR: Brenda Marsh * ALL edits or amendments must be made on the electronic/computer document * SubjectivePatient reports:Yes: ambulating with therapy, pain, pain controlled. ObjectiveVS:Last Documented: Result Date Time Pulse Ox 98 07/26 713 B/P 138/71 07/26 0614 B/P Mean 93.3 07/26 713 O2 Delivery Room air 07/26 713 Temp 36.8 05/12 0714 Pulse 72 07/26 0714 Resp 15 07/26 0714 FiO2 28 07/26 0315 O2 Flow Rate 2 07/26 0315 PATIENT WEIGHT: Weight (lb): 144Weight (oz): 9.97Weight (kg): 65.317 Medications:Active Meds + DC'd Last 24 HrsMagnesium Hydroxide (MILK OF MAGNESIA) 30 ML BEDTIME PRN PRN PO Methocarbamol (ROBAXIN) 500 MG ANES Q6H PRN PRN PO (DC) Methocarbamol (ROBAXIN) 500 MG Q6HR PO Quetiapine Fumarate (SEROqueL) 25 MG Q6H PO Undefined Medication (NEOSPORIN PLUS CREAM) 1 APPLIC DAILY TOPICAL Enoxaparin Sodium (LOVENOX) 40 MG DAILY 0600 SUBQ Cefazolin Sodium (KEFZOL) 2 GM Q8H IV (DC) Lactated Ringer's (LACTATED RINGERS) 1,000 ML .Q20H IV Methocarbamol (ROBAXIN) 500 MG ANES Q6HR PO (DC) Acetaminophen (TYLENOL) 650 MG Q4H PRN PRN PO Acetaminophen/Codeine Phosphate (TYLENOL W CODEINE NO.3) 1 UDTAB Q4H PRN PRN PO Acetaminophen/Codeine Phosphate (TYLENOL W CODEINE NO.3) 2 UDTAB Q4H PRN PRN PO Diphenhydramine HCl (BENADRYL) 12.5 MG ANES Q4H PRN PRN IV Diphenhydramine HCl (BENADRYL) 25 MG ANES BEDTIME PRN PRN PO Hydromorphone HCl (DILAUDID 20 MG/NS 100 ML BREAK UP WORKER) 100 ML ASDIR IV (CKD) IV Miscellaneous Supplies (BREAK UP WORKER [place]) 1 EA ASDIR MISC Naloxone HCl (NARCAN) 0.1 - 0.2 MG ANES ASDIR IV Ondansetron HCl (ZOFRAN) 4 MG ANES Q4H PRN PRN IV Promethazine HCl (PHENERGAN) 6.25 MG ANES ASDIR PRN IM Tramadol HCl (ULTRAM) 50 MG Q4H PRN PRN PO Tramadol HCl (ULTRAM) 100 MG Q4H PRN PRN PO Physical ExamGeneral appearance: alert, oriented, no acute distressExtremities: RLE with Ilizarov in place. NVI. + ankle DF. Diagnosis, Assessment PlanFree text A P:POD#2 s/p application of right knee spanning Ilizarov - DVT prophylaxis- Pain control- PT - NWB to RLE- D/c home today- Take 81 mg ASA daily once home for DVT prophylaxis. at 0826 at 1353 RPT #:[id number] OF REPORT PRProgress tnin5923-12-53T95:25:00Y.DFFB87247986-0046RLOqyza able for patient bjwiZAWOKSLEACRKMC9019-59-73E50:26:55 [facility] 2021-07-25 14:07:00 [id number] B5PidcH0/Lsn00lgfPgvG22lHf5Z9 CwGFdZ4Q931TRlgYWsdMeofViGiHMpB3468-12-38N20:07:0 0 [facility] ([facility])Clinical NoteREPORT#:[id number] REPORT STATUS: SignedDATE:07/25/21 TIME: 1407 PATIENT: ANDREY BARNES UNIT #: [id number]#: [id number] [facility] [birth year] AGE: 21 SEX: M ATTEND: Jose Brand MDADM AUTHOR: Juan F Reed MD * ALL edits or amendments must be made on the electronic/computer document * Clinical NoteNote:Progress Note Dictated 1012 141 at 1409 RPT #:[id number] OF REPORT CLClinical ikur8473-73-85W39:07:00Y.ZORQ56142534-6882UBOdgwn able for patient ffnwUYTLOHSYDPZPIC0627-34-88J80:10:15 [facility] 2021-07-25 13:51:00 [id number] wHVeGnPf5kpsoqVMmtkrfELrNWj9x wFoekWVWsDaADlUm6SJpqMCZD9xrsWm1050-46-56G74:51:0 [id number] [facility] [place] [id number] PATIENT NAME: ANDREY BARNES JR ADMIT DATE: 07/24/21ACCOUNT NO: [id number] ROOM NO: AGE: 21 REPORT TYPE: PROGRESS NOTE SEX: M ADMITTING PHYSICIAN: ATTENDING PHYSICIAN:Jose Brand MD DATE: 07/25/2021 SUBJECTIVE: The patient is seen in his room. GENERAL: The patient is resting in bed. He does continue to have some painprimarily at the right knee area. The pain is about an 8 on a scale of 0 to 10. Occasional cramping and spasm. The patient does have an external fixator in his right leg above the knee, belowthe knee. The patient can wiggle the toes of the right foot. Good strength in both arms and in the left leg. The patient's girlfriend, Tremayne, is present. She is watching our nurses do thepin site cleaning, as she will be doing it once the patient is discharged [place]. OBJECTIVE: Vital signs reviewed. Blood pressure is 132/70, pulse rate 65,respirations 15. Temperature 36.8 Celsius. Oxygen saturation is 100%. LABORATORY DATA: Reviewed. WBC is 9800, hemoglobin 11.5 g, hematocrit 33%. Platelets 282,000. Neutrophils 74%, lymphocytes 13%, monocytes 8%, eosinophils 2%. Sodium is 138, potassium 4.0. BUN is 9, creatinine level 0.73. Glomerular filtration rate is 133. Glucose level 96. Calcium level is 8.8. MEDICATIONS: reviewed. The patient will be placed on quetiapine 25 mg q. 6 PATIENT NAME: ANDREY BARNES JR hours to serve as a narcotic enhancer, first dose now, next dose at 1800. The patient is on Robaxin 500 mg q. 6 hours and will continue that. The patient does have tramadol 50 mg or 100 mg q. 4 hours p.r.n. for mild ormoderate levels of pain. The patient also does have Tylenol with Codeine No. 3 one or two tablets q. 4hours p.r.n. for mild or moderate levels of pain. Both of these medicines will be accessed tomorrow a.m. The patient is on pain pump, hydromorphone Dilaudid. Dose is increased to 0.3mg, delay 8 minutes, 1-hour limit 2.1 mg. We will discontinue the pain pump tomorrow a.m. and used pain pills along withRobaxin and Seroquel. If pain is controlled, we will e-prescribe discharge medications tomorrow afterthe patient has been evaluated. Dictated By: Juan F Reed MD WT: PN:YKEV/LI/NTSDD: 07/25/2021 13:51:58DT: 07/25/2021 14:09:28Conf#: [id number]/DID#: [id number] Authenticated by Juan F Reed MD On 08/03/2021 02:07:57 PM at 0207 PATIENT NAME: ANDREY BARNES JR krhj7044-09-69Z49:09:00Y.[id number] ble for patient tjseOFMWPFVPGRIKSJ8067-81-36W55:08:36 [facility] 2021-07-25 12:27:00 [id number] WQsDH6itV8bI0SwmqXcmYPUHTcolt i87YCTYTsQq/+3w/IfA1bvl3MeNCB0w8361-23-60C29:27:0 0 [facility] ([facility])Orthopaedic Progress NoteREPORT#:[id number] REPORT STATUS: SignedDATE:07/25/21 TIME: 1227 PATIENT: ANDREY BARNES UNIT #: [id number]#: [id number] ROOM[facility]BED: [facility]-ADOB: [birth year] AGE: 21 SEX: M ATTEND: Jose Brand AUTHOR: Brenda Marsh * ALL edits or amendments must be made on the electronic/computer document * SubjectivePatient reports:Yes: pain. No: ambulating with therapy, pain controlled. ObjectiveVS:Last Documented: Result Date Time Pulse Ox 100 07/25 1121 B/P 132/70 07/25 1121 B/P Mean 90.5 07/252 O2 Delivery Nasal cannula 07/25 1121 Temp 36.8 07/25 1121 Pulse 65 07/25 112 Resp 15 07/25 112 FiO2 28 07/25 0845 O2 Flow Rate 2 07/25 0845 PATIENT WEIGHT: Weight (lb): 144Weight (oz): 9.97Weight (kg): 65.600 Medications:Active Meds + DC'd Last 24 HrsMagnesium Hydroxide (MILK OF MAGNESIA) 30 ML BEDTIME PRN PRN PO Methocarbamol (ROBAXIN) 500 MG ANES Q6H PRN PRN PO Undefined Medication (NEOSPORIN PLUS CREAM) 1 APPLIC DAILY TOPICAL Enoxaparin Sodium (LOVENOX) 40 MG DAILY 0600 SUBQ Cefazolin Sodium (KEFZOL) 2 GM Q8H IV Lactated Ringer's (LACTATED RINGERS) 1,000 ML .Q20H IV Methocarbamol (ROBAXIN) 500 MG ANES Q6HR PO (DC) Cefazolin Sodium (KEFZOL) 2 GM .STK-MED ONE IV (DC) Fentanyl Citrate (SUBLIMAZE) 100 MCG .STK-MED ONE IV (DC) Glycopyrrolate (RobinuL) 0.2 MG .STK-MED ONE IV (DC) Hydromorphone HCl (DILAUDID) 2 MG .STK-MED ONE IV (DC) Ketamine HCl (KETALAR) 500 MG .STK-MED ONE IV (DC) Lactated Ringer's (LACTATED RINGERS) 2,000 ML .STK-MED ONE IV (DC) Lidocaine HCl (XYLOCAINE PF) 5 ML .STK-MED ONE IV (DC) Midazolam HCl (VERSED) 5 MG .STK-MED ONE IV (DC) Ondansetron HCl (ZOFRAN) 4 MG .STK-MED ONE IV (DC) Propofol (DIPRIVAN) 400 MG .STK-MED ONE IV (DC) Rocuronium [place] (Rocuronium [place] 10 mg/mL) 50 MG .STK-MED ONE IV (DC) Succinylcholine Chloride (SUCOSTRIN) 200 MG .STK-MED ONE IV (DC) Lorazepam (ATIVAN 2 MG/ML VIAL) 0.5 MG PACU STAT IV (DC) Acetaminophen (TYLENOL) 650 MG Q4H PRN PRN PO Acetaminophen/Codeine Phosphate (TYLENOL W CODEINE NO.3) 1 UDTAB Q4H PRN PRN PO Acetaminophen/Codeine Phosphate (TYLENOL W CODEINE NO.3) 2 UDTAB Q4H PRN PRN PO Diphenhydramine HCl (BENADRYL) 12.5 MG ANES Q4H PRN PRN IV Diphenhydramine HCl (BENADRYL) 25 MG ANES BEDTIME PRN PRN PO Hydromorphone HCl (DILAUDID 20 MG/NS 100 ML BREAK UP WORKER) 100 ML ASDIR IV (CKD) IV Miscellaneous Supplies (BREAK UP WORKER [place]) 1 EA ASDIR MISC Naloxone HCl (NARCAN) 0.1 - 0.2 MG ANES ASDIR IV Ondansetron HCl (ZOFRAN) 4 MG ANES Q4H PRN PRN IV Promethazine HCl (PHENERGAN) 6.25 MG ANES ASDIR PRN IM Tramadol HCl (ULTRAM) 50 MG Q4H PRN PRN PO Tramadol HCl (ULTRAM) 100 MG Q4H PRN PRN PO Fentanyl Citrate (SUBLIMAZE) 25 MCG PACU Q5MIN PRN PRN IV (DC) Hydralazine HCl (hydrALAZINE HCL) 10 MG PACU Q10MIN PRN PRN IV (DC) Hydrocodone Bitart/Acetaminophen (NORCO 5/325 TABLET) 1 UDTAB PACU Q4H PRN PRN PO (DC) Hydrocodone Bitart/Acetaminophen (NORCO 10/325 TABLET) 1 UDTAB PACU Q4H PRN PRN PO (DC) Hydromorphone HCl (DILAUDID) 0.4 MG PACU Q5MIN PRN PRN IV (DC) Meperidine HCl (MEPERIDINE HCL) 12.5 MG PACU Q5MIN PRN PRN IV (DCr) Methocarbamol (ROBAXIN) 500 MG PACU ONCE PRN PO (DC) Metoprolol Tartrate (LOPRESSOR) 2 MG PACU Q10MIN PRN PRN IV (DC) Ondansetron HCl (ZOFRAN) 4 MG PACU ONCE PRN PRN IV (DC) Promethazine HCl (PHENERGAN) 6.25 MG PACU Q15MIN PRN PRN IM (DC) Cefazolin Sodium (KEFZOL) 2 GM ONCALL IV (DC) Lactated Ringer's (LACTATED RINGERS) 1,000 ML PREOP IV FLUID IV (DC) Lidocaine HCl (XYLOCAINE) 2 ML PREOP SUBQ (DC) Physical ExamGeneral appearance: alert, oriented, no acute distressExtremities: RLE with Ilizarov in place. NVI. + ankle DF. Diagnosis, Assessment PlanFree text A P:POD#1 s/p application of right knee spanning Ilizarov - DVT prophylaxis- Pain control- PT - NWB to RLE- Consider d/c home tomorrow if pain controlled at 1229 at 0741 RPT #:[id number] OF REPORT PRProgress gyrl1038-93-11F97:27:00Y.DKOT45262025-7866BHFraxl able for patient rfdgQRRAWKQUYYMNJK7196-58-39O55:29:33 [facility] 2021-07-25 10:28:00 [id number] e3ayM38Bf5cx9dD7Ax+Lexa+VfAoOb 0eP8JwEak7cyChgApn5qycycvX/yp/9613-87-09M77:28:0 0 [facility] ([facility])Clinical NoteREPORT#:[id number] REPORT STATUS: SignedDATE:07/25/21 TIME: 1028 PATIENT: ANDREY BARNES UNIT #: [id number]#: [id number] [facility] [birth year] AGE: 21 SEX: M ATTEND: Jose Brand AUTHOR: Brandon Dugan MD * ALL edits or amendments must be made on the electronic/computer document * Clinical NoteNote:[facility] Brandon Baron M.D. (cell text [phone]) Assessment/Plan1.) Anemia of acute blood loss- .Hgb 11.5, asymptomatic.2.) S/p Right tibia treatment of fracture external fixator application, ilizarov, external fixation- .acute multi-modal pain control and followup. Anticoagulation as per Dr. Brand.3.) Tobacco nicotine use- .tobacco nicotine cessation counseling provided. Prior Events/Overnight: Uneventful.Chief Complaint: No significant complaints. ObjectiveVital SignsDate Temp Pulse Resp B/P B/P Mean Pulse Ox YqR267/10- 96.4-100.6 66-103 13-16 115-163/63-104 93.4-113.4 91-100 28-100 07/25 Gen: Alert, oriented, in mild discomfort Neck: No Masses, No Thyromegaly-CV: Regular Rate Rhythm / Edema- no significant Resp: Clear To Ascultation / Normal Respiratory EffortABD: NonTender / NonDistended MS/Skin: No sign of compartment syndrome / +toes DF/PF Other: pin sites and skin tone look good. Labs/X-ray: Laboratory Tests: 07/25 0445 Chemistry Sodium (136 - 145 mmol/L) 138 Potassium (3.5 - 5.1 mmol/L) 4.0 Chloride (98 - 107 mmol/L) 100.0 Carbon Dioxide (21 - 32 mmol/L) 27.9 BUN (7 - 18 mg/dL) 9 Creatinine (0.55 - 1.30 mg/dL) 0.73 Glomerular Filtr Rate (>60) 133.1 Glucose (70 - 110 mg/dL) 96 Calcium (8.2 - 10.1 mg/dL) 8.8 Hematology WBC (5.7 - 10.5 K/mm3) 9.8 RBC (4.2 - 5.4 M/mm3) 3.58 L Hgb (12 - 16 g/dL) 11.5 L Hct (37 - 47 %) 33.1 L MCV (80 - 98 fL) 93 MCH (27 - 34 pg) 32.1 MCHC (30.8 - 34.1 g/dL) 34.7 H RDW (11 - 16 %) 12.2 Plt Count (130 - 400 K/mm3) 282 MPV (8.9 - 12.1 fL) 9.7 Neut % (Auto) (45 - 70 %) 74.0 H Lymph % (Auto) (20 - 40 %) 13.5 L [place] % (Auto) (3 - 10 %) 8.8 Eos % (Auto) (1 - 5 %) 2.9 Baso % (Auto) (0.0 - 1.1 %) 0.3 Neut # (Auto) (2.00 - 7.50 K/mm3) 7.23 Lymph # (Auto) (1.50 - 4.00 K/mm3) 1.32 L [place] # (Auto) (0.2 - 0.8 K/mm3) 0.86 H Eos # (Auto) (0.04 - 0.4 K/mm3) 0.28 Baso # (Auto) (0.02 - 0.10 K/mm3) 0.03 Add Manual Diff (MANUAL DIFF) NO Nucleated RBC % (0 - 0 %) 0 Brandon Baron M.D. at 1212 RPT #:[id number] OF REPORT CLClinical [id number]:28:00Y.[id number] able for patient ysgyVSJQGAMLNIZAXV9917-46-26J68:12:22 [facility] 2021-[facility] 18:34:00 [id number] sCOcckiehlLXJr9rPMUNtqjwmdHXw QMMNdRGxCLUJ9jqf4YBRJvS0OeWFkA39226-52-40M85:34:0 0 [facility])Clinical NoteREPORT#:[id number] REPORT STATUS: SignedDATE:07/24/21 TIME: 1833 PATIENT: ANDREY BARNES UNIT #: [id number]#: [id number] [facility]: [id number] AGE: 21 SEX: M ATTEND: Jose Brand AUTHOR: Juan F Reed MD * ALL edits or amendments must be made on the electronic/computer document * Clinical NoteNote:Consult Note Dictated [id number] at 1835 RPT #:[id number] OF REPORT CLClinical [id number]:34:00Y.[id number] able for patient nylmEPFVNCPHRMPARG1657-05-09N78:35:37 HCATO 2021-07-24 18:26:00 [id number]/NzyaxuyfRzXQJJE eEcqpRaJMeozVrQjzpHX9HGwIZtNhQv0068-81-14N11:26:0 0 [facility] ([facility])Clinical NoteREPORT#:[id number] REPORT STATUS: SignedDATE:07/24/21 TIME: 1825 PATIENT: ANDREY BARNES UNIT #: [id number]#: [id number] [facility] [birth year] AGE: 21 SEX: M ATTEND: Jose Brand AUTHOR: Brandon Dugan MD * ALL edits or amendments must be made on the electronic/computer document * Clinical NoteNote:[facility] Brandon Baron MD(cell text [phone])Internal Medicine Consult at request of : Dr. Jose Brand Chief Complaint: right leg pain HPI: 21 yo M is now s/p Right tibia treatment of fracture external fixator application, ilizarov, external fixation by Dr. Brand. Mr. Barnes fell off trampoline on 07/12/21 and sustained closed right tibial plateau fracture. Comorbidities: see below. PmHx: .None ALLERGY: Allergies:No Known Drug Allergies (Coded, 07/23/21)DEET (Uncoded, Mild, ITCHINESS, 07/23/21) Home Medications: Home Medications:No Known Home Medications SgHx: .None SHx: Tob: 1 ppd x 6 years. FHx: .No significant hx of DVT/PE.Alcohol: none Drugs: none Lives with Girlfriend . Vitals:Vital Signs Date Temp Pulse Resp B/P B/P Mean Pulse Ox FiO2 10 97.0-99.5 70-103 13-16 115-163/63-104 113.4 91-100 32-100 Gen: Groggy, sleepy in mild discomfort.EYE: Nl lids conjunctiva.ENT: Nl ears Nose, nl lips,. Neck: Supple, nl thyroid, No masses.CV: Regular Rate Rhythm, no heave or significant murmur. Edema- none RESP: Clear to Auscultation, normal Respiratory effort.ABD: Soft, NonDistended,.LYM: No significant cervical Lymphadenopathy.MS: No sign of compartment syndrome, pin site4s and skin tone look goodNEURO: Nonfocal, grossly normal sensation of LE, +toes DF/PF..Preop Labs(07/23/2021): CBC:. Hgb 12.6, Plt 307, CHEM: Na 136, K 3.7, Cr 0.8 (eGFR 119.8%), . (medium to high risk of complications or morbidity) (major surgery) (IV sedative, meds).Assessment Plan1.) Anemia of Acute Blood Loss- .will recheck tomorrow. 2.) S/p Right tibia treatment of fracture external fixator application, ilizarov, external fixation- .acute multi-modal pain control and followup. Anticoagulation as per Dr. Brand.3.) Tobacco nicotine use- .tobacco nicotine cessation counseling to be provided.. Brandon Baron M.D. Thanks!.... G8420 BMI is documented as within normal parameters (18-25).G8427 - current medications obtained and reviewed.1124F - offered discussion on advanced care plan and patient declined to addressissue at this time. at 2152 RPT #:[id number] OF REPORT CLClinical [id number]:26:00Y.[id number] able for patient aphcHAWKACGUOEISIX5116-06-56N30:52:29 [facility] 2021-07-24 16:16:00 [id number] [id number]1+8612-04-71S12:16:0 [id number] [facility] [address] [place] [address] PATIENT NAME: ANDREY BARNES JR ADMIT DATE: 07/24/21ACCOUNT NO: [id number] ROOM NO: AGE: 21 REPORT TYPE: CONSULTATION REPORT SEX: M ADMITTING PHYSICIAN: ATTENDING PHYSICIAN:Jose Brand MD CONSULTATION DATE: 07/24/2021 CONSULTING PHYSICIAN: Juan F Reed MD NEUROLOGY CONSULTATION HISTORY OF PRESENT ILLNESS: The patient is a 21-year-old male, , righthanded, right footed. The patient is being seen in PACU. The patient was admitted to [facility] earlier today, July 24. The patient states he fell getting off a trampoline on 07/12/2021. The patient has had pain in the right leg. The patient has had cramping and spasm in the muscles above the knee, below theknee. Occasional low back pain. He also has some numbness in his toes. No incontinence. No blurred vision, doubling, dizziness. PAST MEDICAL HISTORY: Noncontributory. PAST SURGICAL HISTORY: None. REVIEW OF SYSTEMS:EYES: No blurred vision.ENT: No dizziness.PULMONARY: No chest pain, coughing, or hemoptysis.GASTROINTESTINAL: No nausea or vomiting.GENITOURINARY: No incontinence.MUSCULOSKELETAL: As above.NEUROLOGIC: As above.PSYCHIATRIC: The patient states the pain in the last 10 days has made hisenergy level and appetite less. Pain does interfere with him getting sleep andstaying asleep. Pain has made him nervous, restless, depressed, forgetful. PATIENT NAME: ANDREY BARNES JR DRUG ALLERGIES: NONE KNOWN. SOCIAL HISTORY: The patient smokes a half pack of cigarettes a day. The patient states that on the weekend, he will sometimes drink a case of beer. The patient states he has not had any alcoholic drink in the last 10 days. The patient states he has not taken street drugs. The patient is single. The patient states he lives in a duplex, first level. The patient did have surgery today. The patient was diagnosed as having right tibial plateau fracture. The patient did undergo treatment of right tibia fracture with application ofIlizarov external fixator. Postoperatively, the patient has been placed on a BREAK UP WORKER pump with hydromorphone,dose is 0.2 mg, delay is 8 minutes, 1-hour limit 1.6 mg. The patient also placed on Robaxin 500 mg q. 6 hours scheduled. PHYSICAL EXAMINATION:EYES: Pupils are equal, 3 mm in size. Extraocular movements, visual santiago intact.NEUROLOGIC: Mental Status: The patient is alert. He is oriented to place, toyear. The patient states 7 out of 100 is 107. The patient states the current president as Reddy Mayorga. Short-term memory reduced. He could not recall any of 3 objects. Cranial NERVES: II, III, IV, , as above; V, intact to light touch; VII, nofacial asymmetry; VIII through XII intact. Motor: Good strength in both arms and in the left leg. The patient can wiggle the toes of the right foot. Reflexes: +1 at the biceps; 0 at the wrist. Not tested, right knee; not tested, right ankle. +1, left knee; 0, left ankle. Sensory exam intact to light touch over the hands and the feet. PATIENT NAME: ANDREY BARNES CLINICAL DIAGNOSES:1. Right tibial plateau fracture.2. Treatment of right tibia fracture with application of Ilizarov externalfixator.3. Musculoskeletal spasm of low back, right hip, right leg. TREATMENT: The patient will be continued on current medications. Continue painpump overnight until tomorrow. We will adjust medicines accordingly for pain. Dictated By: Juan F Reed MD WT: CON:TRA/IL/NTSDD: 07/24/2021 16:16:32DT: 07/24/2021 20:45:54Conf#: [id number]/DID#: [id number] cc: Jose Brand MD Authenticated by Juan F Reed MD On 08/03/2021 02:07:49 PM at 0207 PATIENT NAME: ANDREY BARNES JR :45:00Y.CA [id number] for patient [id number]:08:26 [facility] 2021-07-24 14:57:00 [id number] DDcSYDYsEYxf8awt2QZzgbHURp+7BIY7715-01-44P79:57:0 0 [facility] Procedure Note - BriefREPORT#:[id number] REPORT STATUS: SignedDATE:07/24/21 TIME: 1456 PATIENT: ANDREY BARNES JR UNIT #: [id number]#: [id number] [facility] [birth year] AGE: 21 SEX: M ATTEND: Jose Brand AUTHOR: Brenda Marsh * ALL edits or amendments must be made on the electronic/computer document * Op/Inv Proc Note - Brief TEXT Brief Op/Inv Procedure NoteNote details:*PRE-PROCEDURE DIAGNOSISRight tibial plateau fracture *POST-PROCEDURE DIAGNOSIS:Same *PROCEDURE(S) PERFORMED:Application of right knee spanning Ilizarov external fixator. *PRIMARY SURGEON:Jose Brand *ATTENDING AMBULATORY CARE(S):Brenda Marsh PA-C ANESTHETIC:General *ESTIMATED BLOOD LOSS in ml's:10 cc *SPECIMEN(S) REMOVED:None *COMPLICATIONS:None DRAIN(S):None[] TUBE(S):None[] IMPLANT(S):None[] FLUIDS:[] URINE OUTPUT:[] *FINDINGS:Severe, displaced right tibial plateau fracture. DISPOSITION:To PACU at 1500 at 0741 RPT #:[id number] OF REPORT PNProcedure [id number]:57:00Y.[id number] able for patient eqgoYHJGXSLGMJUOUL7899-59-54I53:01:15 [facility]
[2023-04-29 12:27] LABS: SARS-CoV-2 Antigen Rapid Res Negative (Negative)
--- NOTE | 2023-04-29 13:17 | ER ---
Nurse's Notes [facility] Name: Orion Barnes Jr Age: 23 yrs Sex: Male : 2000 Arrival Date: 04/29/2023 Time: 11:44 Bed 7 Private MD: Diagnosis: Headache;Acute upper respiratory infection, unspecified Presentation: 04/29 11:53 Chief complaint: Patient states: Headache, sore throat, SOB X 5 days. 100% RA. ld1 Coronavirus screen: Client presents with at least one sign or symptom that may indicate coronavirus-19. Standard/surgical mask placed on the client. Ebola Screen: No symptoms or risks identified at this time. Initial Sepsis Screen: Does the patient meet any 2 criteria? No. Patient's initial sepsis screen is negative. Does the patient have a suspected source of infection? No. Patient's initial sepsis screen is negative. Risk Assessment: Do you want to hurt yourself or someone else? Patient reports no desire to harm self or others. Onset of symptoms was April 29, 2023. 11:53 Method Of Arrival: Ambulatory ld1 11:53 Acuity: MIRZA 4 ld1 Triage Assessment: 11:54 General: Appears in no apparent distress. comfortable, Behavior is calm, cooperative, ld1 appropriate for age. Pain: Denies pain. EENT: No signs and/or symptoms were reported regarding the EENT system. Neuro: Level of Consciousness is awake, alert, obeys commands, Oriented to person, place, time, situation. Cardiovascular: Capillary refill < 3 seconds Patient's skin is warm and dry. Rhythm is sinus rhythm. Respiratory: Reports cough that is non-productive, Airway is patent Respiratory effort is even, unlabored, Onset: The symptoms/episode began/occurred suddenly, the patient has mild shortness of breath. GI: Abdomen is flat, non-distended. : No signs and/or symptoms were reported regarding the genitourinary system. Derm: No signs and/or symptoms reported regarding the dermatologic system. Musculoskeletal: No signs and/or symptoms reported regarding the musculoskeletal system. Historical: - Allergies: 11:54 DEET; ld1 - PMHx: 11:54 Seizure; ld1 - PSHx: 11:54 Right leg surgery; Spinal tap; Right leg surgery; ld1 - Immunization history:: Adult Immunizations up to date. - Social history:: Smoking status: Reported history of juuling and/or vaping. Patient uses alcohol, on a daily basis. Screenin:56 [facility] ED Fall Risk Assessment (Adult) History of falling in the last 3 months, ld1 including since admission No falls in past 3 months (0 pts). Abuse screen: Denies threats or abuse. Denies injuries from another. Nutritional screening: No deficits noted. Tuberculosis screening: No symptoms or risk factors identified. Assessment: 11:55 Reassessment: See triage assessment. Cardiovascular: Capillary refill < 3 seconds ld1 Patient's skin is warm and dry. Rhythm is sinus rhythm. Respiratory: Airway is patent Respiratory effort is even, unlabored, Breath sounds are clear bilaterally. 13:38 Reassessment: Patient appears in no apparent distress at this time. No changes from ld1 previously documented assessment. Patient and/or family updated on plan of care and expected duration. Pain level reassessed. Vital Signs: 11:53 BP 136 / 81; Pulse 95; Resp 18; Temp 98.6(TE); Pulse Ox 100% on R/A; Weight 63.5 kg; ld1 Height 5 ft. 8 in. ; Pain 0/10; 13:38 BP 114 / 78; Pulse 70; Resp 18; Pulse Ox 100% on R/A; ld1 11:53 Body Mass Index 21.29 (63.50 kg, 172.72 cm) ld1 11:53 Pain Scale: Adult ld1 ED Course: 11:47 Patient arrived in ED. im 11:50 Gerald Toro DO is Attending Physician. ms3 11:53 Naomi Toro, RN is Primary Nurse. ld1 11:54 Triage completed. ld1 11:54 Arm band placed on right wrist. ld1 11:56 Patient has correct armband on for positive identification. Placed in gown. Bed in low ld1 position. Call light in reach. Side rails up X2. monitoring coordinator on. Pulse ox on. NIBP on. Door closed. Noise minimized. 11:56 No provider procedures requiring assistance completed. ld1 12:03 SARS RAPID Sent. ko1 12:03 Flu Sent. ko1 13:39 IV discontinued, intact, bleeding controlled, No redness/swelling at site. ld1 Administered Medications: 12:00 Drug: NS 0.9% IV 1000 ml IV at 1 bolus Per protocol; 1000 mL bolus Route: IV; Rate: 1 ko1 bolus; Site: left antecubital; 12:01 Drug: metoCLOPramide IVP 10 mg IVP once; over 1 to 2 minutes Route: IVP; Site: left ko1 antecubital; 12:04 Drug: Ketorolac IVP 10 mg 10 mg IVP once Route: IVP; Site: left antecubital; ko1 12:05 Drug: Decadron - Dexamethasone IVP 10 mg IVP once Route: IVP; Site: left antecubital; ko1 12:08 Drug: diphenhydrAMINE IVP 25 mg IVP once Route: IVP; Site: left antecubital; ko1 12:15 Drug: Ondansetron IVP 4 mg IVP once; over 2 minutes Route: IVP; Site: left antecubital; ko1 Medication: 11:56 VIS not applicable for this client. ld1 Outcome: 13:16 Discharge ordered by . ms3 13:38 Discharged to home ambulatory, ld1 13:38 Condition: stable 13:38 Discharge instructions given to patient, Instructed on discharge instructions, follow up and referral plans. Demonstrated understanding of instructions, follow-up care, 13:39 Patient left the ED. ld1 Signatures: Gerald Toro DO DO ms3 Naomi Toro RN RN ld1 Shalini Banda RN RN ko1 Vivian Fisher Corrections: (The following items were deleted from the chart) 13:39 13:38 Patient did not have IV access during this emergency room visit. ld1 ld1
--- NOTE | 2023-04-29 13:17 | EDPHYS ---
Physician Documentation [facility] Name: Orion Barnes Jr Age: 23 yrs Sex: Male : 2000 Arrival Date: 04/29/2023 Time: 11:44 Bed 7 Private MD: ED Physician Gerald Toro HPI: 04/29 13:17 This 23 yrs old Male presents to ER via Ambulatory with complaints of Flu ms3 Symptoms. 13:17 23-year-old male with past medical history of seizures presents to the emergency ms3 department for headache, sore throat, shortness of breath that has been ongoing for 5 days. Patient states his headache is a 10/10 located generally throughout his head. Patient denies alleviating or inciting factors. Patient notes his girlfriend had similar symptoms. Patient states he has had previous headaches similar to this.. Historical: - Allergies: 11:54 DEET; ld1 - PMHx: 11:54 Seizure; ld1 - PSHx: 11:54 Right leg surgery; Spinal tap; Right leg surgery; ld1 - Immunization history:: Adult Immunizations up to date. - Social history:: Smoking status: Reported history of juuling and/or vaping. Patient uses alcohol, on a daily basis. ROS: 13:17 Constitutional: Negative for fever, and chills. Neck: Negative for injury, pain, and ms3 swelling, Cardiovascular: Negative for chest pain, and palpitations. Respiratory: Negative for shortness of breath, cough, wheezing, and pleuritic chest pain, Abdomen/GI: Negative for abdominal pain, nausea, vomiting, diarrhea, and constipation, Skin: Negative for injury, rash, and discoloration, 13:17 Neuro: Positive for headache, Exam: 13:17 Constitutional: This is a well developed, well nourished patient who is awake, alert, ms3 and in no acute distress. Head/Face: Normocephalic, atraumatic. Neck: Trachea midline, no cervical lymphadenopathy. Supple, full range of motion without nuchal rigidity, or vertebral point tenderness. No Meningismus. Chest/axilla: Normal chest wall appearance and motion. Nontender with no deformity. Cardiovascular: Regular rate and rhythm with a normal S1 and S2. No gallops, murmurs, or rubs. Normal PMI, no JVD. No pulse deficits. Respiratory: Lungs have equal breath sounds bilaterally, clear to auscultation and percussion. No rales, rhonchi or wheezes noted. No increased work of breathing, no retractions or nasal flaring. Abdomen/GI: Soft, non-tender, with normal bowel sounds. No distension or tympany. No guarding or rebound. No evidence of tenderness throughout. Skin: Warm, dry with normal turgor. Normal color with no rashes, no lesions, and no evidence of cellulitis. MS/ Extremity: Pulses equal, no cyanosis. Neurovascular intact. Full, normal range of motion. Neuro: Awake and alert, GCS 15, oriented to person, place, time, and situation. Cranial nerves II-XII grossly intact. Motor strength 5/5 in all extremities. Sensory grossly intact. Cerebellar exam normal. Normal gait. Vital Signs: 11:53 BP 136 / 81; Pulse 95; Resp 18; Temp 98.6(TE); Pulse Ox 100% on R/A; Weight 63.5 kg; ld1 Height 5 ft. 8 in. ; Pain 0/10; 13:38 BP 114 / 78; Pulse 70; Resp 18; Pulse Ox 100% on R/A; ld1 11:53 Body Mass Index 21.29 (63.50 kg, 172.72 cm) ld1 11:53 Pain Scale: Adult ld1 MDM: 11:58 Patient medically screened. ms3 13:17 Differential diagnosis: Flu versus COVID versus URI versus head. Data reviewed: vital ms3 signs, nurses notes, and as a result, I will discharge patient. I considered the following discharge prescriptions or medication management in the emergency department Medications were administered in the Emergency Department. See MAR. Counseling: I had a detailed discussion with the patient and/or guardian regarding the historical points, exam findings, and any diagnostic results supporting the discharge/admit diagnosis, lab results, the need for outpatient follow up, to return to the emergency department if symptoms worsen or persist or if there are any questions or concerns that arise at home. Response to treatment: the patient's symptoms have markedly improved after treatment, and as a result, I will discharge patient. Special discussion: I discussed with the patient/guardian in detail that at this point there is no indication for admission to the hospital. It is understood, however, that if the symptoms persist or worsen the patient needs to return immediately for re-evaluation. ED course: On reevaluation patient improved, alert and orient x 4, no apparent distress, nontoxic-appearing, ambulatory emergency room, speaking full sentences. All questions were answered. Patient to follow-up with primary care physician in 2 to 3 days. Return precautions discussed include worsening symptoms, or any other concerns. 04/29 11:56 Order name: Flu; Complete Time: 12:44 ms3 04/29 11:56 Order name: SARS RAPID; Complete Time: 12:44 ms3 Administered Medications: 12:00 Drug: NS 0.9% IV 1000 ml IV at 1 bolus Per protocol; 1000 mL bolus Route: IV; Rate: 1 ko1 bolus; Site: left antecubital; 12:01 Drug: metoCLOPramide IVP 10 mg IVP once; over 1 to 2 minutes Route: IVP; Site: left ko1 antecubital; 12:04 Drug: Ketorolac IVP 10 mg 10 mg IVP once Route: IVP; Site: left antecubital; ko1 12:05 Drug: Decadron - Dexamethasone IVP 10 mg IVP once Route: IVP; Site: left antecubital; ko1 12:08 Drug: diphenhydrAMINE IVP 25 mg IVP once Route: IVP; Site: left antecubital; ko1 12:15 Drug: Ondansetron IVP 4 mg IVP once; over 2 minutes Route: IVP; Site: left antecubital; ko1 Disposition Summary: 04/29/23 13:16 Discharge Ordered Notes: Location: Home ms3 Condition: Stable ms3 Diagnosis - Headache ms3 - Acute upper respiratory infection, unspecified ms3 Discharge Instructions: - Discharge Summary Sheet ms3 - General Headache Without Cause ms3 - Upper Respiratory Infection, Adult ms3 Forms: - Medication Reconciliation Form ms3 - Thank You Letter ms3 - Antibiotic Education ms3 - Prescription Opioid Use ms3 - Patient Portal Instructions ms3 - Leadership Thank You Letter ms3 Signatures: Dispatcher [employer] EDGerald Narvaez DO DO ms3 Naomi Toro RN RN ld1 Shalini Banda RN RN ko1
[2023-04-29 13:57] VITALS: BP 114/78; TEMP 98.6; O2SAT 100
== END ==
LOC: ER 11:44
DX: J06.9 Acute upper respiratory infection, unspecified (principal); Z11.52 Encounter for screening for COVID-19
CPT/HCPCS: 36415; 87804; 87811; J1100; J1200; J2405; J2765; J7030

== ENCOUNTER → 2023-05-22 | Emergency (ER) | payer SELFPAY ==
[~2023-05-22] MED LIST changes: -DIPHENHYDRAMINE 50 MG/ML VIAL ONE; +HYDROMORPHONE HCL 1 MG/ML INJ ONE; -METOCLOPRAMIDE 10 MG/2mL INJ ONE; -NA CHLORIDE 0.9% 1,000 ML ONE; -ONDANSETRON 4 MG/2 ML VIAL ONE; -dexAMETHasone 10 MG/ML VIAL ONE
--- OUTSIDE RECORDS SUMMARY | 2023-05-22 23:01 | XMS REPORT | Continuity of Care Document ---
Author Name Unknown Address [address] [facility] [address] [place] [address] [facility] thconnect Address [address] [place] [address] Care Team Providers Care Institute Scientist Name Role Phone STEPHANI RUKHSANA Primary Care Physician Unavail able Oliverio Attending Clinician UnavailJose Raymond Attending Clinician [phone] KEELY CASTRO Attending Clinician Unavailable Keely Lima Attending Clinician [phone] Jose Brand Attending Clinician Unavailable Oliverio Admitting Clinician UnavailJose Raymond Admitting Clinician Unavailable Payers Payer Name Policy Type Policy Number Effective Date Expirati on Date Source [facility] [id number] 2019 00:00:00 [facility] [id number] 2015 00:00:00 Problems Condition Name Condition Details [...] s DA Active U 07-23 00:00: 00 [facility] DEET DA Active DC ITCHINESS 07-23 00:00: 00 [facility] NO KNOWN ALLERGIE S Drug Class Active Univers [facility] Social History Social Habit Start Date Stop Date Quantity Comments Source History of tobacco use 2013-07-29 00:00:00 Cigarette Smoker [facility] History SDOH Alcohol Frequency [facility] History SDOH Alcohol Std Drinks [facility] History SDOH Alcohol Binge [facility] Exposure to SARS-CoV-2 (event) 2021-10-19 00:00:00 2021-10-29 23:16:00 Not sure [facility] Alcohol intake 2021-10-29 00:00:00 2021-10-29 00:00:00 Current drinker of alcohol (finding) [facility] Tobacco use and exposure 2018-07-29 00:00:00 2018-07-29 00:00:00 Smokeless tobacco non-user [facility] Alcohol Comment 2018-07-29 00:00:00 2018-07-29 00:00:00 socially [facility] Tobacco Comment 2018-07-29 00:00:00 2018-07-29 00:00:00 smokesabout 3 or 4 cigarettes per day [facility] Sex Assigned At 2000 00:00:00 2000 00:00:00 [facility] Smoking Status Start Date Stop Date Source Smokes tobacco daily 2018-07-29 00:00:00 [facility] Medications Ordered Medication Name Filled Medication Name [...] Soft tissue
Duration of therapy: 72 hours [facility] doxycycline hyclate 100 mg capsule 10-29 00:00: 00 11-06 04:59 :00 No [id number] 100mg Take 1 capsule by mouth in the morning and 1 capsule in the evening. Do all this for 7 days. [facility] Diclofenac Sodium (VOLTAREN) 1 % gel 08-12 00:00: 00 10-29 00:00 :00 No [id number] 9103 Apply to area(s) daily. [facility] cyclobenzap rine 5 mg tablet 08-12 00:00: 00 10-29 00:00 :00 No [id number] 9103 5mg Take 1 tablet by mouth 3 (three) times daily as needed for Muscle Spasms. [facility] gabapentin 100 mg capsule 07-29 00:00: 00 10-29 00:00 :00 No [id number] 9103 100mg Take 1 capsule by mouth 3 (three) times daily as needed for Pain (scale 4-6). [facility] acetaminoph en 300 mg-codeine 30 mg tablet [...] CAPSULE IN THE EVENING FOR 7 DAYS [facility] gabapentin 300 mg capsule TAKE 1 CAPSULE BY MOUTH THREE TIMES DAILY gabapentin 300 mg capsule TAKE 1 CAPSULE BY MOUTH THREE TIMES DAILY No gabapentin 300 mg capsule TAKE 1 CAPSULE BY MOUTH THREE TIMES DAILY [facility] hydrocodone 5 mg-acetamin ophen 325 mg tablet Take 1 tablet every 6 hours by oral route. hydrocodone 5 mg-acetamin ophen 325 mg tablet Take 1 tablet every 6 hours by oral route. No 1 Q6H hydrocodon e 5 mg-acetami nophen 325 mg tablet Take 1 tablet every 6 hours by oral route. [facility] oxycodone 10 [...] PAIN FOR PAIN SCALE 7 TO 10 [facility] acetaminoph en 300 [...] MOUTH EVERY 6 HOURS NEEDED FOR PAIN [facility] gabapentin 300 mg capsule TAKE 1 CAPSULE BY MOUTH THREE TIMES DAILY gabapentin 300 mg capsule TAKE 1 CAPSULE BY MOUTH THREE TIMES DAILY No gabapentin 300 mg capsule TAKE 1 CAPSULE BY MOUTH THREE TIMES DAILY [facility] hydrocodone 5 mg-acetamin ophen 325 mg tablet Take 1 tablet every 6 hours by oral route. hydrocodone 5 mg-acetamin ophen 325 mg tablet Take 1 tablet every 6 hours by oral route. No 1 Q6H hydrocodon e 5 mg-acetami nophen 325 mg tablet Take 1 tablet every 6 hours by oral route. [facility] oxycodone 10 [...] Name Observation Time Observation Value Comments S ource Systolic blood pressure 2021-10-30 04:18:00 101 mm[Hg] [facility] Diastolic blood pressure 2021-10-30 04:18:00 74 mm[Hg] [facility] Heart rate 2021-10-30 04:18:00 94 /min [facility] Body temperature 2021-10-30 04:18:00 37.06 Ana M [facility] Respiratory rate 2021-10-30 04:18:00 18 /min [facility] Body height 2021-10-30 04:18:00 175.3 cm [facility] Body weight 2021-10-30 04:18:00 58.968 kg [facility] BMI 2021-10-30 04:18:00 19.20 kg/m2 [facility] Oxygen saturation in Arterial blood by Pulse oximetry 2021-10-30 04:18:00 98 /min [facility] Procedures Procedure Date / Time Performed Performing Clinicia n Source XR, knee, 1 or 2 view 2021-11-14 00:00:00 [facility] INCISION AND DRAINAGE 2021-10-30 04:52:20 Franky Castro [facility] NOTICE OF PRIVACY PRACTICES 2021-10-30 04:06:52 Doctor Unassigned, [facility] CONSENT/REFUSAL FOR DIAGNOSIS AND TREATMENT 2021-10-30 04:06:29 Doctor Unassigned, [facility] XR, knee, 1 or 2 view 2021-09-12 [...] Department Encounter ID Source 2022-07-02 09:26:23 Outpatient [facility] [id number] [facility] 2022-06-26 14:19:07 Outpatient [facility] [id number] [facility] 2021-07-18 14:43:06 Outpatient [facility] [id number] [facility] 2022-06-24 00:00:00 2022-06-24 00:00:00 Outpatient JUSTIN_Sunday Tovar AO AO [id number] [facility] 2021-11-23 00:00:00 2021-11-23 00:00:00 Outpatient Noble Tovar AOSM AO [id number] [facility] 2021-11-18 00:00:00 2021-11-18 00:00:00 Outpatient FOG_Brdav _Wai AOSM AO [id number] [facility] 2021-11-14 00:00:00 2021-11-14 00:00:00 Outpatient FOG_Brhermanner _Wai AOSM AO [id number] [facility] 2021-11-14 00:00:00 2021-11-14 00:00:00 Jose Brand MD: [address] [place] [address] , Ph. [phone] [facility] [place] [facility] [id number] [facility] 2021-11-14 00:00:00 2021-11-14 00:00:00 [facility] [id number] 2021-10-29 23:22:00 2021-10-30 00:13:00 Emergency X DEANNDAYANARAKEELY [facility] ERT [id number] [facility] 2021-10-29 23:22:00 2021-10-30 00:13:00 Emergency Keely Castro [facility] [id number] [facility] 2021-10-28 00:00:00 2021-10-28 00:00:00 Outpatient FOG_Sunday _Wai AO AO [id number] [facility] 2021-10-18 00:00:00 2021-10-18 00:00:00 Outpatient FOG_Sunday Tovar AOSM AO [id number] [facility] 2021-10-13 00:00:00 2021-10-13 00:00:00 Outpatient FOG_Sunday _Wai AOSM AOSM [id number] [facility] 2021-09-13 10:21:00 2021-09-13 10:21:00 Outpatient FOG_Brinker _Mark_ AOSM AOSM [id number] [facility] 2021-09-12 11:36:00 2021-09-12 11:36:00 Outpatient FOG_Brinker _Mark_ AOSM AOSM [id number] [facility] 2021-09-12 00:00:00 2021-09-12 00:00:00 Jose Brand MD: [address] [place] [address] , Ph. [phone] [facility] [place] [facility] [id number] [facility] 2021-09-12 00:00:00 2021-09-12 00:00:00 Outpatient Jose Brand AOSM [place] [id number] 2021-09-08 01:54:00 2021-09-08 01:54:00 Outpatient FOG_Brinker _Jose_ AOSM AO [id number] [facility] 2021-09-03 10:07:00 2021-09-03 10:07:00 Outpatient FOG_Brinker _Mark_ AOSM AOSM [id number] [facility] 2021-08-23 11:30:00 2021-08-23 11:30:00 Outpatient FOG_Brinker _Mark_ AOSM AOSM [id number] [facility] 2021-08-22 01:22:00 2021-08-22 01:22:00 Outpatient FOG_Brinker _Mark_ AOSM AOSM [id number] [facility] 2021-08-22 00:00:00 2021-08-22 00:00:00 Jose Brand MD: [address] [place] [address] , Ph. [phone] [facility] [place] [facility] [id number] [facility] 2021-08-22 00:00:00 2021-08-22 00:00:00 Outpatient Jose Brand AOSM AOSM [id number] 2021-08-17 02:35:00 2021-08-17 02:35:00 Outpatient FOG_Sunday _Jose_ AOSM AOSM [id number] [facility] 2021-08-14 07:24:00 2021-08-16 15:26:00 Outpatient Jose Winston HCAT[facility] OBSE [id number] [facility] 2021-08-14 07:24:00 2021-08-16 15:26:00 Outpatient Jose Winston HCATO OBSE [id number] [facility] 2021-08-14 00:00:00 2021-08-14 00:00:00 Jose Brand MD: [address] [place] [address] , Ph. [phone] [facility] [place] [facility] [id number] [facility] 2021-08-14 00:00:00 2021-08-14 00:00:00 Outpatient Jose Brand AOSM [id number] 2021-08-08 00:00:00 2021-08-08 00:00:00 Outpatient Jose Brand AORHONDA AOSM [id number] 2021-08-08 00:00:00 2021-08-08 00:00:00 Jose Brand MD: [address] [place] [address] , Ph. [phone] [facility] [place] [facility] FOG_[address] [id number] [facility] 2021-08-02 11:13:00 2021-08-02 11:13:00 Outpatient Jose WinstonTO RADI [id number] [facility] 2021-08-01 00:00:00 2021-08-01 00:00:00 Jose Brand MD: [address] [place] [address] , Ph. [phone] [facility] [place] [facility] - FOG_Of[address] [id number] [facility] 2021-07-24 11:29:00 2021-07-26 17:00:00 Outpatient Jose Winston OBSE [id number] [facility] 2021-07-24 11:29:00 2021-07-26 17:00:00 Outpatient Jose Winston OBSE [id number] [facility] 2021-07-25 00:00:00 2021-07-25 00:00:00 Joselo Fonseca, LPO: [address] [facility] [address] [facility], [address] [address] , Ph. [phone] [facility] [place] [facility] [id number] [facility] 2021-07-23 00:00:00 2021-07-23 00:00:00 Jose Brand MD: [address] [place] [address] , Ph. [phone] [facility] [place] [facility] F[facility] [address] [place] [phone] [facility] Results Test Description Test Time Test Comments Results Result Co mments Source CBC W/AUTO [id number] 05:44:00* Test Item Value Reference Range Interpretation [...] N CBC W Auto Differential panel - [id number] 04:56:00* Test Item Value Reference Range Interpretation [...] lab: (test code = performing lab:) [facility] metabolic [id number] 04:56:00* Test Item Value Reference Range Interpretation [...] performing lab: (test code = performing lab:) [facility] W Auto Differential panel - [id number] 04:56:00* Test Item Value Reference Range Interpretation [...] performing lab: (test code = performing lab:) [facility] [id number] 04:56:00* Test Item Value Reference Range Interpretation [...] performing lab: (test code = performing lab:) [facility] W Auto Differential panel - [id number] 04:56:00* Test Item Value Reference Range Interpretation [...] performing lab: (test code = performing lab:) [facility] [id number] 04:56:00* Test Item Value Reference Range Interpretation [...] performing lab: (test code = performing lab:) [facility] W Auto Differential panel - [id number] 04:56:00* Test Item Value Reference Range Interpretation [...] performing lab: (test code = performing lab:) [facility] [id number] 04:56:00* Test Item Value Reference Range Interpretation [...] performing lab: (test code = performing lab:) [facility] Coronavirus 2019 [id number] 00:46:00* Test Item Value Reference Range Interpretation Comme nts Novel Coronavirus 2019 Inhouse (test code = COVNONPUI) Negative Negative Positive resul ts are indicative of the presence soLYZY-TnQ-2 RNA, clinical correlation with patient historyand other [...] the qualitative detection of nucleic acids from aavIJQH-NjI-7 virus and diagnosis of SARS-CoV-2 virusinfection. It is an Emergency Use Authorization (EUA) testauthorized by the U.S. FDA. Novel Coronavirus 2018 [id number] 00:45:00* Test Item Value Reference Range Interpretation Comme nts Novel Coronavirus 2019 Inhouse (test code = COVNONPUI) Negative Negative Positive resul ts are indicative of the presence wnMZIR-LzH-9 RNA, clinical correlation with patient historyand other [...] the qualitative detection of nucleic acids from osbOHCY-QwR-4 virus and diagnosis of SARS-CoV-2 virusinfection. It is an Emergency Use Authorization (EUA) testauthorized by the U.S. FDA. CBC W/AUTO [id number] 20:46:00* Test Item Value Reference Range Interpretation [...] = NRBC) 0 % 0-0 N SED [id number] 20:46:00* Test Item Value Reference Range Interpretation Comme nts SED RATE (test code = SEDW) 32 mm/hr 0-15 H COMPREHENSIVE METABOLIC [id number] 19:04:00* Test Item Value Reference Range Interpretation [...] 103.2 >60 Unit of m easure: mL/min/1.73 u9Sejcsnvvs Range:Healthy Adults >90 mL/min/1.73 m2 For Chronic [...] ALKP) 131 U/L 46-116 H C REACTIVE [id number] 19:04:00* Test Item Value Reference Range Interpretation Comme nts C REACTIVE PROTEIN (test cod e = CRP) < 0.2 mg/dL <0.9 PROTHROMBIN [id number] 18:58:00* Test Item Value Reference Range Interpretation [...] Patient is on Heparin Drip? NOTHROMBOPLASTIN TIME [id number] 18:58:00* Test Item Value Reference Range Interpretation Comme nts PTT ACTIVATED (test code = APTT) 28.2 secs 26.6-34.6 N Please note new normal range. IS PATIENT ON ANTICOAGULANTS ? YLIST ANTICOAGULANT/ANTI PLT MEDICATION : AspirinHas Lab been notified if Patient is on Heparin Drip? NOnovel coronavirus 2019 [id number] 17:57:00* Test Item Value Reference Range Interpretation Comme nts novel coronavirus 2019 inhou se (test code = novel coronavirus 2019 inhouse) negative negative performing lab: (test code = performing lab:) [facility] coronavirus 2019 [id number] 17:57:00* Test Item Value Reference Range Interpretation Comme nts novel coronavirus 2019 inhou se (test code = novel coronavirus 2019 inhouse) negative negative performing lab: (test code = performing lab:) [facility] coronavirus 2019 [id number] 17:57:00* Test Item Value Reference Range Interpretation Comme nts novel coronavirus 2019 inhou se (test code = novel coronavirus 2019 inhouse) negative negative performing lab: (test code = performing lab:) [facility] [id number] 17:41:00* Test Item Value Reference Range Interpretation Comme nts sed rate (test code = sed rate) 32 mm/HR 0-15 H performing lab: (test code = performing lab:) [facility]'SProthrombin time (PT)2021-08-08 17:41:00* Test Item Value Reference Range Interpretation Comme nts prothrombin time patient (te st code = prothrombin time patient) 13.0 secs 9.7-12.5 H international normal ratio ( test code = international normal ratio) 1.17 <2.0 performing lab: (test code = performing lab:) [facility]Sthromboplastin time [id number] 17:41:00 * Test Item Value Reference Range Interpretation Comme nts PTT activated (test code = P TT activated) 28.2 secs 26.6-34.6 performing lab: (test code = performing lab:) [facility]SComprehensive metabolic 2000 panel - Serum or [id number] 17:41:00* Test Item Value Reference Range Interpretation [...] (test code = performing lab:) [facility] reactive [id number] 17:41:00* Test Item Value Reference Range Interpretation Comme nts C reactive protein (test cod e = C reactive protein) < 0.2 <0.9 performing lab: (test code = performing lab:) [facility] W Auto Differential panel - [id number] 17:41:00* Test Item Value Reference Range Interpretation [...] performing lab: (test code = performing lab:) [facility] [id number] 17:41:00* Test Item Value Reference Range Interpretation Comme nts sed rate (test code = sed rate) 32 mm/HR 0-15 H performing lab: (test code = performing lab:) [facility] Medicine[facility]th[facility] time (PT)2021-08-08 17:41:00* Test Item Value Reference Range Interpretation Comme nts prothrombin time patient (te st code = prothrombin time patient) 13.0 secs 9.7-12.5 H international normal ratio ( test code = international normal ratio) 1.17 <2.0 performing lab: (test code = performing lab:) [facility] time [id number] 17:41:00 * Test Item Value Reference Range Interpretation Comme nts PTT activated (test code = P TT activated) 28.2 secs 26.6-34.6 performing lab: (test code = performing lab:) [facility] 2000 panel - Serum or [id number] 17:41:00* Test Item Value Reference Range Interpretation [...] (test code = performing lab:) [facility] reactive [id number] 17:41:00* Test Item Value Reference Range Interpretation Comme nts C reactive protein (test cod e = C reactive protein) < 0.2 <0.9 performing lab: (test code = performing lab:) [facility] W Auto Differential panel - [id number] 17:41:00* Test Item Value Reference Range Interpretation [...] = performing lab:) [facility] [id number] 17:41:00* Test Item Value Reference Range Interpretation [...] performing lab: (test code = performing lab:) [facility]Sthromboplastin time [id number] 17:41:00 * Test Item Value Reference Range Interpretation Comme nts PTT activated (test code = P TT activated) 28.2 secs 26.6-34.6 performing lab: (test code = performing lab:) [facility] metabolic 2000 panel - Serum or [id number] 17:41:00* Test Item Value Reference Range Interpretation [...] (test code = performing lab:) [facility] reactive [id number] 17:41:00* Test Item Value Reference Range Interpretation Comme nts C reactive protein (test cod e = C reactive protein) < 0.2 <0.9 performing lab: (test code = performing lab:) [facility] W Auto Differential panel - [id number] 17:41:00* Test Item Value Reference Range Interpretation [...] performing lab: (test code = performing lab:) [facility] UNI/[id number] 12:31:00 [facility] 2000 Sex: M Patient Name: ANDREY BARNES Unit No: [id number] EXAMS: CPT CODE: [id number] [facility] UNI/[id number] FINDINGS: Right lower extremity grayscale and Doppler venous ultrasound demonstrates normal flow and luminal compressibility without evidence of intraluminal thrombus. IMPRESSION: No evidence of DVT within deep venous structures of the right lower extremity. at 1231 Reported and signed by: Anibal Hollins M.D. CC: Jose Brand MD Technologist: MCKENZIE MARTÍNEZ RDMS, RVT Transcribed D/ (1231) [facility]: [facility]ARN[facility] [address] [facility] [address] PHYS: Delon Cordero MD : 2000 AGE: 21 SEX: M [place], [place] [address] LOC: YHectorRAD PHONE #:[phone] EXAM DATE: 08/02/2021 STATUS: REG CLI FAX #: [phone] RAD #: D/C DT PAGE 1 Signed Report Patient Name: ANDREY BARNES JR Unit No: [id number] EXAMS: CPT CODE: [id number] [facility] UNI/LTD 02986 (Continued) Orig Print D/T: S: 08/02/2021 (1235) [facility] NAME: ANDREY BARNES JR [address] [facility] PHYS: BRIMA.01 - Jose Brand MD : 2000 AGE: 21 SEX: M [place], [place] [address] LOC: Y.RAD PHONE #: [phone] EXAM DATE: 08/02/2021 STATUS: REG CLI FAX #: [phone] RAD #: D/C DT PAGE 2 Signed Report- CT LOWER EXTRM W/O C [id number] 09:46:[address] [facility] : 2000 Sex: M Patient Name: ANDREY BARNES JR Unit No: [id number] EXAMS: CPT CODE: [id number] CT LOWER EXTRM W/[place] [address] CT OF THE RIGHT KNEE WITH SAGITTAL [...] with ACR practice standards and adherence to hasher machine operator's recommendations. A tibial fracture are present as described. No other fractures are seen at 0946 Reported and signed by: Derrick Singh MD CC: Jose To; Brenda WARE Technologist: Ernesto Keenan,RT(R) CTDI: DLP: Trnscrpt: 07/25/2021 (0946) KyraJCL [facility] NAME: ANDREY BARNES [address] [facility] - Jose Brand MD : 2000 AGE: 21 SEX: M [place] [address] LOC: Y.321 A PHONE #: [phone] EXAM DATE: 07/25/2021 STATUS: REG [facility] FAX #: [phone] RAD #: D/C DT PAGE 1 Signed Report Patient Name: ANDREY BARNES Unit No: [id number] EXAMS: CPT CODE: [id number] CT LOWER EXTRM W/[place] [address] (Continued) Orig Print D/T: S: 07/25/2021 (1352) [facility] NAME: ANDREY BARNES [address] [facility] - Jose Brand MD : 2000AGE: 21 SEX: M [place] [address] LOC: Y.321 A PHONE #: [phone] EXAM DATE: 07/25/2021 STATUS: REG [facility] FAX #: [phone] RAD #: D/C DT PAGE 2 Signed ReportBASIC METABOLIC [id number] 06:59:00* Test Item Value Reference Range Interpretation [...] 133.1 >60 Unit of m easure: mL/min/1.73 i5Wmvuvliur Range:Healthy Adults >90 mL/min/1.73 m2 For Chronic Kidney Disease: Stage II Mild Decrease in GFR 60-90 Stage III Moderate Decrease in GFR 30-59 Stage IV Severe Decrease in GFR 15-29 Stage V Kidney Failure <15 CREATININE (test code = CREAT) 0.73 mg/dL 0.55-1.30 N CALCIUM (test code = CA) 8.8 mg/dL 8.2-10.1 N CBC W/AUTO [id number] 06:02:00* Test Item Value Reference Range Interpretation [...] N CBC W Auto Differential panel - [id number] 04:45:00* Test Item Value Reference Range Interpretation [...] performing lab: (test code = performing lab:) [facility] [id number] 04:45:00* Test Item Value Reference Range Interpretation [...] performing lab: (test code = performing lab:) [facility] W Auto Differential panel - [id number] 04:45:00* Test Item Value Reference Range Interpretation [...] performing lab: (test code = performing lab:) [facility] metabolic [id number] 04:45:00* Test Item Value Reference Range Interpretation [...] performing lab: (test code = performing lab:) [facility] W Auto Differential panel - [id number] 04:45:00* Test Item Value Reference Range Interpretation [...] lab: (test code = performing lab:) [facility] metabolic ohhsy7574-38-24 04:45:00* Test Item Value Reference Range Interpretation [...] performing lab: (test code = performing lab:) [facility] REACTIVE QQFWOYD9224-38-48 04:46:00* Test Item Value Reference Range Interpretation Comme nts C REACTIVE PROTEIN (test cod e = CRP) 5.0 mg/dL 0.6-1.2 H ACUTE HEPATITIS FQPJI4206-99-74 04:46:00* Test Item Value Reference Range Interpretation [...] = HIV1AB) NONREACTIVE NONREACTIVE Done by Siemens Interface21aur 4th Gen HIV Ag/Ab Combo Screen ACUTE HEPATITIS RJVSC8280-87-25 04:45:00* Test Item Value Reference Range Interpretation [...] AB HIV 1 2 (test code = GRG27AP) NONREACTIVE NONREACTIVE Done by Siemens Interface21auAvenda Systems 4th Gen HIV Ag/Ab Combo Screen C REACTIVE PKWNYRE7087-94-62 00:46:00* Test Item Value Reference Range Interpretation Comme nts C REACTIVE PROTEIN (test cod e = CRP) 5.0 mg/dL 0.6-1.2 H COMPREHENSIVE METABOLIC XOFJY8338-45-04 23:59:00* Test Item Value Reference Range Interpretation [...] 119.8 >60 Unit of m easure: mL/min/1.73 v8Qkmpsvqcz Range:Healthy Adults >90 mL/min/1.73 m2 For Chronic Kidney Disease: Stage II Mild Decrease in GFR 60-90 Stage III Moderate Decrease in GFR 30-59 Stage IV Severe Decrease in GFR 15-29 Stage V Kidney Failure <15Unit of measure: mL/min/1.73 c4Kbweefzoc Range:Healthy Adults >90 mL/min/1.73 m2 For Chronic [...] ALKP) 194 units/L 46-116 H COMPREHENSIVE METABOLIC NVTDR6227-15-99 23:58:00* Test Item Value Reference Range Interpretation [...] units/L 46-116 H COVID 19 Asymptomatic IH DI8445-67-17 20:17:00* Test Item Value Reference Range Interpretation Comme nts COVID 19 Asymptomatic IH AG (test code = COVNONPUIAG) NEGATIVE NEGATIVE CBC W/AUTO TZGO4273-59-11 18:03:00* Test Item Value Reference Range Interpretation [...] = NRBC) 0 % 0-0 N SED BQOM4195-78-31 18:03:00* Test Item Value Reference Range Interpretation Comme nts SED RATE (test code = SEDW) 78 mm/hr 0-15 H PROTHROMBIN MCAL1987-72-50 18:00:00* Test Item Value Reference Range Interpretation [...] intravascular valves IS PATIENT ON ANTICOAGULANTS ? [facility] Lab been notified if Patient is on Heparin Drip? NOTHROMBOPLASTIN TIME VVAGZAX1431-53-29 18:00:00* Test Item Value Reference Range Interpretation Comme nts PTT ACTIVATED (test code = APTT) 33.6 secs 26.6-34.6 N Please note new normal range. IS PATIENT ON ANTICOAGULANTS ? [facility] been notified if Patient is on Heparin Drip? NOProthrombin time (PT)2021-07-23 14:40:00* Test Item Value Reference Range Interpretation Comme nts prothrombin time patient (te st code = prothrombin time patient) 12.7 secs 9.7-12.5 H international normal ratio ( test code = international normal ratio) 1.14 <2.0 performing lab: (test code = performing lab:) [facility] anptnyo6184-06-42 14:40:00 * Test Item Value Reference Range Interpretation Comme nts PTT activated (test code = P TT activated) 33.6 secs 26.6-34.6 performing lab: (test code = performing lab:) [facility] W Auto Differential panel - Lebnn6386-76-17 14:40:00* Test Item Value Reference Range Interpretation [...] performing lab: (test code = performing lab:) [facility] dizi4998-51-69 14:40:00* Test Item Value Reference Range Interpretation Comme nts sed rate (test code = sed rate) 78 mm/HR 0-15 H performing lab: (test code = performing lab:) [facility] MedicineComprehensive metabolic 2000 panel - Serum or Dzlmfx5146-51-06 14:40:00* Test Item Value Reference Range Interpretation [...] performing lab: (test code = performing lab:) [facility] reactive wuajiey6118-59-33 14:40:00* Test Item Value Reference Range Interpretation Comme nts C reactive protein (test cod e = C reactive protein) 5.0 mg/dL 0.6-1.2 H performing lab: (test code = performing lab:) [facility] hepatitis ccwsn0284-08-46 14:40:00* Test Item Value Reference Range Interpretation [...] performing lab: (test code = performing lab:) [facility]SA[facility] HIV 14:40:00* Test Item Value Reference Range Interpretation Comme nts Ab HIV 1 (test code = Ab HIV 1) nonreactive nonreactive performing lab: (test code = performing lab:) [facility]SProthrombin time (PT)2021-07-23 14:40:00* Test Item Value Reference Range Interpretation Comme nts prothrombin time patient (te st code = prothrombin time patient) 12.7 secs 9.7-12.5 H international normal ratio ( test code = international normal ratio) 1.14 <2.0 performing lab: (test code = performing lab:) [facility]romboplastin time lqozisp4179-49-00 14:40:00 * Test Item Value Reference Range Interpretation Comme nts PTT activated (test code = P TT activated) 33.6 secs 26.6-34.6 performing lab: (test code = performing lab:) [facility]SCBC W Auto Differential panel - Inuft5790-63-66 14:40:00* Test Item Value Reference Range Interpretation [...] performing lab: (test code = performing lab:) [facility] hjdo6632-43-42 14:40:00* Test Item Value Reference Range Interpretation Comme nts sed rate (test code = sed rate) 78 mm/HR 0-15 H performing lab: (test code = performing lab:) [facility] MedicineComprehensive metabolic 2000 panel - Serum or Wgphzw1524-09-20 14:40:00* Test Item Value Reference Range Interpretation [...] (test code = performing lab:) [facility] reactive pxyhkrc2195-11-38 14:40:00* Test Item Value Reference Range Interpretation Comme nts C reactive protein (test cod e = C reactive protein) 5.0 mg/dL 0.6-1.2 H performing lab: (test code = performing lab:) [facility] ubwdv5217-98-92 14:40:00* Test Item Value Reference Range Interpretation [...] performing lab: (test code = performing lab:) [facility] HIV 14:40:00* Test Item Value Reference Range Interpretation Comme nts Ab HIV 1 (test code = Ab HIV 1) nonreactive nonreactive performing lab: (test code = performing lab:) [facility]SProthrombin time (PT)2021-07-23 14:40:00* Test Item Value Reference Range Interpretation Comme nts prothrombin time patient (te st code = prothrombin time patient) 12.7 secs 9.7-12.5 H international normal ratio ( test code = international normal ratio) 1.14 <2.0 performing lab: (test code = performing lab:) [facility]Sthromboplastin time xgmizim6241-11-55 14:40:00 * Test Item Value Reference Range Interpretation Comme nts PTT activated (test code = P TT activated) 33.6 secs 26.6-34.6 performing lab: (test code = performing lab:) [facility] W Auto Differential panel - Imipf1170-44-52 14:40:00* Test Item Value Reference Range Interpretation [...] = performing lab:) [facility] bimn3419-77-97 14:40:00* Test Item Value Reference Range Interpretation Comme nts sed rate (test code = sed rate) 78 mm/HR 0-15 H performing lab: (test code = performing lab:) [facility] MedicineComprehensive metabolic 2000 panel - Serum or Qccybz5466-33-11 14:40:00* Test Item Value Reference Range Interpretation [...] performing lab: (test code = performing lab:) [facility] reactive ndswizj8526-98-56 14:40:00* Test Item Value Reference Range Interpretation Comme nts C reactive protein (test cod e = C reactive protein) 5.0 mg/dL 0.6-1.2 H performing lab: (test code = performing lab:) [facility] zwcru4922-44-32 14:40:00* Test Item Value Reference Range Interpretation [...] performing lab: (test code = performing lab:) [facility] HIV 14:40:00* Test Item Value Reference Range Interpretation Comme nts Ab HIV 1 (test code = Ab HIV 1) nonreactive nonreactive performing lab: (test code = performing lab:) [facility]Scovid [facility] asymptomatic ih Lj8233-81-96 13:09:00 * Test Item Value Reference Range Interpretation Comme nts covid 19 asymptomatic ih Ag (test code = covid 19 asymptomatic ih Ag) negative negative performing lab: (test code = performing lab:) [facility]id [facility] asymptomatic ih Ft3579-88-25 13:09:00 * Test Item Value Reference Range Interpretation Comme nts covid 19 asymptomatic ih Ag (test code = covid 19 asymptomatic ih Ag) negative negative performing lab: (test code = performing lab[facility] Ch6816-09-38 13:09:00 * Test Item Value Reference Range Interpretation Comme nts covid 19 asymptomatic ih Ag (test code = covid 19 asymptomatic ih Ag) negative negative performing lab: (test code = performing lab:) [facility] Notes Date/Time Note Provider Source 2021-09-03 09:27:00 [id number] VbFS4jksbBCiDslPgM3n3BPWQbf8Y Fmnsu9EVsJZgx6/FaJwx5Wuy7WmYXaC4952-28-63T12:27:0 [id number] [facility] [place] [address] PATIENT NAME: ANDREY BARNES JR ADMIT DATE: 08/14/21ACCOUNT NO: [id number] ROOM NO: AGE: 21 REPORT TYPE: OPERATIVE REPORT SEX: M ADMITTING PHYSICIAN: ATTENDING PHYSICIAN:Jose Brand MD OPERATION DATE: 08/14/2021 SURGEON: Jose Brand MD. REFUGE WORKER: Brenda Marsh physician press assistant certified PREOPERATIVE DIAGNOSIS: Displaced bicondylar fracture [...] The skilled assistance of Brenda Marsh, physician's press assistant certified, wasnecessary during this complex, instrumented [...] Petersen with surgical wound closure. The physician press assistant performed and supervised the surgical team with removalof the patient from the operating table and returning the patient back to [facility]. Ms. Marsh's assistance allowed me to perform the most sensitive and technicalportions of this operation using two hands, thus enhancing the patient's safety. This would not be possible without the help of the skilled press assistant familiarwith the procedure and capable of safely performing the aforementioned tasks. Our facility is not a teaching hospital, and as such, no surgical residents orinterns were available to assist. Dictated By: Jose Brand MD PATIENT NAME: ANDREY BARNES JR WT: OP:Y.COURT/LIGIA.01/NTSDD: 09/03/2021 09:27:23DT: 09/03/2021 12:51:56Conf#: [id number]/DID#: [id number] Authenticated by Jose Brand MD On 09/07/2021 01:54:25 PM at 0154 PATIENT NAME: ANDREY BARNES JR rheves6368-44-25W82:51:00Y.MAR26483700-7220UNPnjj lable for patient gjblUJSPBTXTVOJZYC5940-42-74P87:55:02 [facility] 2021-08-29 14:49:00 W876241-52820192cWeg 1/TBVEoZP0TOP2QMAJwkJUSSbMdX6 SLIQIwAdHMhRE+s3xz/P8MS0itcW/PK3591-06-82M78:49:0 [id number] [place] [address] PATIENT NAME: ANDREY BARNES JR ADMIT DATE: 08/14/21ACCOUNT NO: [id number] ROOM NO: AGE: 21 REPORT TYPE: OPERATIVE REPORT SEX: M ADMITTING PHYSICIAN: ATTENDING PHYSICIAN:Jose Brand MD OPERATION DATE: 08/14/2021 INTRAOPERTIVE CONSULT SURGEON: Jasper Petersen MD REFUGE WORKER: PREOPERATIVE DIAGNOSIS: Right knee tibial plateau fracture, [...] correct. Dictated By: Jasper Petersen MD WT: OP:Y.COURT/CORY/LESLIEDD: 08/29/2021 14:49:15DT: 08/29/2021 19:48:23Conf#: [id number]/DID#: [id number] Authenticated and Edited by Jasper Petersen MD On 09/04/21 3:00:18 PM at 0301 PATIENT NAME: ANDREY BARNES JR pgdhlh9060-71-07O50:48:00Y.YJU05280557-2370DNRdjk lable for patient dgrrDABLNNACQJTABS5442-84-59I62:02:25 [facility] 11:57:00 U236528-24821448a6J7 95ykwe4+xogNiNRtAY0O364NMhq4e O3T1+GQdYcgIM/aeVTED7a/j3XeT2UV4412-87-41W09:57:[address] [facility]Orthopaedic Progress NoteREPORT#:[id number] REPORT STATUS: SignedDATE:08/16/21 TIME: 1157 PATIENT: ANDREY BARNES UNIT #: [id number]#: [id number] [facility] AGE: 21 SEX: M ATTEND: Jose [...] Hydromorphone HCl (DILAUDID 20 MG/NS 100 ML ENVIRONMENTAL COMPLIANCE INSPECTOR) 100 ML ASDIR IV (CKD) IV Miscellaneous Supplies (ENVIRONMENTAL COMPLIANCE INSPECTOR [place]ACH) 1 EA ASDIR MISC Naloxone HCl [...] medication per pain management. at 1159 RPT #:[id number] OF REPORT PRProgress cwzl7051-78-86L60:57:00Y.IWYU43919073-4063APMatzn able for patient mukvODFNUKNUSIRBHC4031-96-58L79:00:08 [facility] 2021-08-16 10:21:00 J511009-034630986us0 /kTMbrM9l/UDXbRVnxB27kyLlcJaz X6XYS7jVMFnVEFH3BKEYVAT2e7rec6t2075-07-71T74:21:[address] [facility] ([facility])Clinical NoteREPORT#:[id number] REPORT STATUS: SignedDATE:08/16/21 TIME: 1021 PATIENT: ANDREY BARNES JR UNIT #: [id number]#: [id number] [facility] 98 AGE: 21 SEX: M ATTEND: Jose Brand [facility] AUTHOR: Brandon Dugan MD * ALL edits or amendments must be made on the electronic/computer document * Clinical NoteNote:[facility] Brandon Baron M.D. (cell text [phone]) Assessment/Plan1.) Anemia of acute blood loss- .Hgb [...] Pulse Resp B/P B/P Mean Pulse Ox HlK974/01-06/ 97.0-98.8 87-111 15-18 112-127/66-73 83.6-90.9 98-100 Gen: Alert, oriented, in mild to moderate discomfort Neck: No Masses, No Thyromegaly-CV: Regular Rate Rhythm / Edema- no significant Resp: Clear To Ascultation / Normal Respiratory EffortABD: NonTender / NonDistended MS/Skin: No sign of compartment syndrome / +toes DF/PF Other: Labs/X-ray: none Brandon Baron M.D. at 1148 RPT #:[id number] OF REPORT CLClinical xxvn7024-49-63I77:21:00Y.PSSZ66149238-7174JLIewlb able for patient ztfsOLZHSLAPVVISJJ3009-51-20T92:48:58 [facility] 2021-08-15 17:23:00 J911238-417284911C0e 3X+KhwYcVRtI2gfUzXgaqPaodRdRe HZRsU/xI5ZkqlXaItVgi0XExsErMVUh3053-74-91D86:23:[address] [facility] ([facility])Op/Inv Procedure Note - BriefREPORT#:[id number] REPORT STATUS: SignedDATE:08/15/21 TIME: 1723 PATIENT: ANDREY BARNES UNIT #: [id number]#: [id number] [facility]VGJC: 98 AGE: 21 SEX: M ATTEND: Jose [...] I D pin sites *PRIMARY SURGEON:Jose Brand *REFUGE WORKER(S):Brenda Marsh PA-C ANESTHETIC:General *ESTIMATED BLOOD LOSS in ml's:200 cc *SPECIMEN(S) REMOVED:None *COMPLICATIONS:None DRAIN(S):None[] TUBE(S):None[] IMPLANT(S):None[] FLUIDS:[] URINE OUTPUT:[] *FINDINGS:Displaced, comminuted bicondylar plateau fracture. DISPOSITION:To PACU at 1725 RPT #:[id number] OF REPORT PNProcedure kfxs9334-44-37R78:23:00Y.WDWK26475385-4799NIMqzif able for patient yirrTTQDVYXISJNKVR5683-91-08N30:25:44 [facility]AT[facility] 2021-08-15 17:17:00 K655666-96262035yo4U dSdEZcoPJDZwx9VFTqltQ5Kj+MFIm jzGToLhGa68sDUT158O59b7kdSM4L2K6983-59-86A21:17:[address] [facility] ([facility])Orthopaedic Progress NoteREPORT#:[id number] REPORT STATUS: SignedDATE:08/15/21 TIME: 171 PATIENT: ANDREY BARNES UNIT #: [id number]#: [id number] [facility]-ZITQ: 98 AGE: 21 SEX: M ATTEND: Jose [...] Hydromorphone HCl (DILAUDID 20 MG/NS 100 ML ENVIRONMENTAL COMPLIANCE INSPECTOR) 100 ML ASDIR IV (CKD) IV Miscellaneous Supplies (ENVIRONMENTAL COMPLIANCE INSPECTOR [place]) 1 EA ASDIR MISC Naloxone HCl [...] working well with PT. at 1723 RPT #:[id number] OF REPORT PRProgress ejww6146-01-36M57:17:00Y.KJMP80652778-7266FMYxstw able for patient uinvNKOHJAVGNIVDVK7541-28-66D90:23:14 [facility] 2021-08-15 10:09:00 H771296-69438151dE4T 9gyom9C6GWcuajITkr+Me/btv6D+l ipBZAoyunJ0GMMT98gdU/Ha11ob44NT1813-74-75M86:09:[address] [facility] ([facility])Clinical NoteREPORT#:[id number] REPORT STATUS: SignedDATE:08/15/21 TIME: 1009 PATIENT: ANDREY BARNES UNIT #: [id number]#: [id number] [facility] 98 AGE: 21 SEX: M ATTEND: Jose Brand [facility] AUTHOR: Brandon Dugan MD * ALL edits or amendments must be made on the electronic/computer document * Clinical NoteNote:[facility] Brandon Baron M.D. (cell text [phone]) Assessment/Plan1.) Anemia of acute blood loss- .Hgb [...] (Auto) (20 - 40 %) 16.5 L [place] % (Auto) (3 - 10 %) 6.9 Eos % (Auto) (1 - 5 %) 0.3 L Baso % (Auto) (0.0 - 1.1 %) 0.3 Neut # (Auto) (2.00 - 7.50 K/mm3) 8.13 H Lymph # (Auto) (1.50 - 4.00 K/mm3) 1.78 [place] # (Auto) (0.2 - 0.8 K/mm3) 0.75 Eos # (Auto) (0.04 - 0.4 K/mm3) 0.03 L Baso # (Auto) (0.02 - 0.10 K/mm3) 0.03 Add Manual Diff (MANUAL DIFF) NO Nucleated RBC % (0 - 0 %) 0 Brandon Baron M.D. at 1129 RPT #:[id number] OF REPORT CLClinical hbza5226-01-62D14:09:00Y.WMQM59031529-9043ROGmkrm able for patient igdlRWXRLKELYTLAKQ6480-08-79E75:30:03 [facility] 2021-08-14 18:02:00 W599372-56711981c3bv dqA5zTzV2gyH55STs8GmQEry19tta 1U6L+MTgD8epgDuRlUMC6OWVPTCEtEL7122-07-78Y23:02:[address] [facility] ([facility])Clinical NoteREPORT#:[id number] REPORT STATUS: SignedDATE:08/14/21 TIME: 1801 PATIENT: ANDREY BARNES UNIT #: [id number]#: [id number] [facility]-XWEP: 98 AGE: 21 SEX: M ATTEND: Jose Brand [facility] AUTHOR: Brandon Dugan MD * ALL edits or amendments must be made on the electronic/computer document * Clinical NoteNote:[facility] Brandon Baron MD(cell text [phone])Internal Medicine Consult at request of : Dr. [...] to addressissue at this time. at 1030 [facility] #:[id number] OF REPORT CLClinical eooy8252-58-58Q22:02:00Y.ILPK42157576-4109MVFweqt able for patient xzrtRLURIEAUGLTHMK3360-51-01V50:31:01 [facility] 2021-07-27 14:12:00 S677720-11792496kGPX n9dLYpYczvJc5nqcZv3kNIM6edcoZ nmi5ngHLnXF1ljYd2eDz+oaRBqFOE+N0956-70-55V17:12:0 [id number] [address] PATIENT NAME: ANDREY BARNES JR ADMIT DATE: 07/24/21ACCOUNT NO: [id number] ROOM NO: AGE: 21 REPORT TYPE: OPERATIVE REPORT SEX: M ADMITTING PHYSICIAN: ATTENDING PHYSICIAN:Jose Brand MD OPERATION DATE: 07/24/2021 SURGEON: Jose Brand MD REFUGE WORKER: Brenda Marsh, physician press assistant certified. PREOPERATIVE DIAGNOSIS: Displaced fracture of [...] The skilled assistance of Brenda Marsh, physician's press assistant certified, wasnecessary during this complex, instrumented Ilizarov application for severeright tibial plateau fracture. Ms. Marsh assisted with every aspect of theoperation including, but not limited to, proper and safe positioning of thepatient, manipulation of surgical instruments, and reduction of the fractureusing the Ilizarov method. Ms. Marsh performed Ilizarov frame constructionand also modification and alteration during the procedure. A skilled press assistant such as Ms. Marsh was necessary [...] possible without the help of a skilled press assistant familiar withthe procedure and capable of safely performing the aforementioned tasks. [facility] is not a teaching hospital and as such, no surgical residents orinterns were available to assist. Dictated By: Jose Brand MD WT: OP:TRA/LIGIA.01/NTSDD: 07/27/2021 14:12:26DT: 07/27/2021 19:12:13Conf#: [id number]/DID#: [id number] Authenticated by Jose Brand MD On 08/01/2021 09:09:12 AM at 0909 PATIENT NAME: ANDREY BARNES JR utpcho1961-93-33V79:12:00Y.KPY16414550-1044YHKspy lable for patient ifwrWUHBRZLGDQDYBV8053-35-05E78:09:39 [facility] 2021-07-26 11:09:00 D110008-85300740Js+t YnVODw7CpnPZkBrvrg3MVIJS0diiq g9udQEpPtBoh91JYV1ZZIB7/W1j0C6b6711-43-52Q36:09:[address] [facility] ([facility])Clinical NoteREPORT#:[id number] REPORT STATUS: SignedDATE:07/26/21 TIME: 1109 PATIENT: ANDREY BARNES JR UNIT #: [id number]#: [id number] ROOM/BED: [facility]-ADOB: [birth year] AGE: 21 SEX: M ATTEND: Jose Brand MDADM AUTHOR: Brandon Dugan MD * ALL edits or amendments must be made on the electronic/computer document * Clinical NoteNote:[facility] Brandon Baron M.D. (cell text [phone]) Assessment/Plan1.) Anemia of acute blood loss- .Hgb [...] none Brandon Baron M.D. at 1159 RPT #:[id number] OF REPORT CLClinical ucfh9800-61-22W63:09:00Y.ECFL43139403-6731MIPosvg able for patient wvhnHDUPQBKMESEYPM7708-41-04U52:00:03 [facility] 2021-07-26 08:25:00 R298113-41681048oku5 WJODOhy4sj1u1vNh0JeVk/ms7qDpG yIIi/bQQr5PnIBoHwHHux6alPo+TET/3476-60-37E55:25:[address] [facility] ([facility])Orthopaedic Progress NoteREPORT#:[id number] REPORT STATUS: SignedDATE:07/26/21 TIME: 824 PATIENT: ANDREY BARNES UNIT #: [id number]#: [id number] ROOM/BED:: 98 AGE: 21 SEX: M ATTEND: Jose Brand [facility] AUTHOR: Brenda Marsh * ALL edits or amendments must be made on the electronic/computer document * SubjectivePatient reports:Yes: ambulating with therapy, pain, pain controlled. ObjectiveVS:Last Documented: Result Date Time Pulse Ox 98 07/26 713 B/P 138/71 07/26 713 B/P Mean 93.3 07/26 713 O2 Delivery Room air 07/26 713 Temp 36.8 07/26 713 Pulse 72 05/12 0714 Resp 15 07/26 0714 FiO2 28 [...] Hydromorphone HCl (DILAUDID 20 MG/NS 100 ML ENVIRONMENTAL COMPLIANCE INSPECTOR) 100 ML ASDIR IV (CKD) IV Miscellaneous Supplies (ENVIRONMENTAL COMPLIANCE INSPECTOR [place]) 1 EA ASDIR MISC Naloxone HCl [...] DVT prophylaxis. at 0826 at 1353 RPT #:[id number] OF REPORT PRProgress dovt8951-95-25P34:25:00Y.RXVH33850217-4962FTPsllw able for patient mqkhGQUAGYJHLQZFIY0433-10-95T50:26:55 [facility] 2021-07-25 14:07:00 S881892-65735837p3p4 N7UetlY7/Jgc52gduXayM98pVt7H4 NgMTkH1J941SNbdKFynLngmUkQqKFyN3166-94-69Y08:07:[address] [facility] ([facility])Clinical NoteREPORT#:[id number] REPORT STATUS: SignedDATE:07/25/21 TIME: 1407 PATIENT: ANDREY BARNES UNIT #: [id number]#: [id number] [facility] [birth year] AGE: 21 SEX: M ATTEND: Jose Brand MDADM AUTHOR: Juan F Reed MD * ALL edits or amendments must be made on the electronic/computer document * Clinical NoteNote:Progress Note Dictated 1012 141 at 1409 RPT #:[id number] OF REPORT CLClinical lcuy7580-97-48C40:07:00Y.PCQN44737033-4972XPXxexb able for patient qeouFXWMGUTSFDBYBM6524-47-81X53:10:15 [facility] 2021-07-25 13:51:00 A700865-02500226wBhm oRCnAiZi9nruoaNBnzdxyOYsQCv6x pMkotGSPqTcFDfSx6ADwjSHBT7isfMe4483-29-95C25:51:0 [address] [facility] [place] [address] PATIENT NAME: ANDREY BARNES JR ADMIT DATE: 07/24/21ACCOUNT NO: [id number] ROOM NO: AGE: 21 REPORT TYPE: PROGRESS [...] doing it once the patient is discharged topatton. OBJECTIVE: Vital signs reviewed. Blood pressure is [...] Dictated By: Juan F Reed MD WT: PN:Y.COURT/MOLST/NTSDD: 07/25/2021 13:51:58DT: 07/25/2021 14:09:28Conf#: [id number]/DID#: [id number] Authenticated by Juan F Reed MD On 08/03/2021 02:07:57 PM at 0207 PATIENT NAME: ANDREY BARNES JR usrg3735-54-05Z77:09:00Y.DGN82290721-1199TPRawgzp ble for patient owyaQRFSWYNVNGTKWX5184-20-38U40:08:36 [facility] 2021-07-25 12:27:00 H199025-92126612cYwG QOlUT9pqX4jT4QqkjKjtNNQIRsuik v93WNCSQyGx/+3w/VnK5zul0LuYHS7k8632-12-81Z04:27:[address] [facility]Orthopaedic Progress NoteREPORT#:[id number] REPORT STATUS: SignedDATE:07/25/21 TIME: 1227 PATIENT: ANDREY BARNES JR UNIT #: [id number]#: [id number] ROOM/BED: 321-ADOB: [birth year] AGE: 21 SEX: M ATTEND: Jose Brand AUTHOR: Brenda Marsh * ALL edits or amendments must be made on the electronic/computer document * SubjectivePatient reports:Yes: pain. No: ambulating with therapy, pain controlled. ObjectiveVS:Last Documented: Result Date Time Pulse Ox 100 07/25 1121 B/P 132/70 07/25 1121 B/P Mean 90.5 07/25 1121 O2 Delivery Nasal cannula 07/25 1121 Temp 36.8 07/25 112 Pulse 65 07/25 1122 Resp 15 07/25 112 FiO2 28 07/25 [...] 400 MG .STK-MED ONE IV (DC) Rocuronium Elbert (Rocuronium Elbert 10 mg/mL) 50 MG .STK-MED ONE IV [...] Hydromorphone HCl (DILAUDID 20 MG/NS 100 ML ENVIRONMENTAL COMPLIANCE INSPECTOR) 100 ML ASDIR IV (CKD) IV Miscellaneous Supplies (ENVIRONMENTAL COMPLIANCE INSPECTOR [place]) 1 EA ASDIR MISC Naloxone HCl [...] pain controlled at 1229 at 0741 RPT #:[id number] OF REPORT PRProgress [id number]:27:00Y.[id number] able for patient autvBNGUBNBXSXMKNL2448-91-05Q62:29:33 [facility]ATO 2021-07-25 10:28:00 [id number] i8ddE54Cb3fl1xG1Et+Lexa+VfAoOb 9hU9QaMxx5rwZuzPry3qjkmcfN/yph/7999-85-61T82:28:[address] [facility] ([facility])Clinical NoteREPORT#:[id number] REPORT STATUS: SignedDATE:07/25/21 TIME: 1028 PATIENT: ANDREY BARNES UNIT #: [id number]#: [id number] ROOM/BED: [facility]-ADOB: [birth year] AGE: 21 SEX: M ATTEND: Jose Brand MDADM AUTHOR: Brandon Dugan MD * ALL edits or amendments must be made on the electronic/computer document * Clinical NoteNote:[facility] Brandon Baron M.D. (cell text [phone]) Assessment/Plan1.) Anemia of acute blood loss- .Hgb 11.5, asymptomatic.2.) S/p Right tibia treatment of fracture external fixator application, ilizarov, external fixation- .acute multi-modal pain control and followup. Anticoagulation as per Dr. Brand.3.) Tobacco nicotine use- .tobacco nicotine cessation counseling provided. Prior Events/Overnight: Uneventful.Chief Complaint: No significant complaints. ObjectiveVital SignsDate Temp Pulse Resp B/P B/P Mean Pulse Ox YsL091/10- 96.4-100.6 66-103 13-16 115-163/63-104 93.4-113.4 91-100 28-100 [...] (Auto) (20 - 40 %) 13.5 L [place] % (Auto) (3 - 10 %) 8.8 Eos % (Auto) (1 - 5 %) 2.9 Baso % (Auto) (0.0 - 1.1 %) 0.3 Neut # (Auto) (2.00 - 7.50 K/mm3) 7.23 Lymph # (Auto) (1.50 - 4.00 K/mm3) 1.32 L [place] # (Auto) (0.2 - 0.8 K/mm3) 0.86 H Eos # (Auto) (0.04 - 0.4 K/mm3) 0.28 Baso # (Auto) (0.02 - 0.10 K/mm3) 0.03 Add Manual Diff (MANUAL DIFF) NO Nucleated RBC % (0 - 0 %) 0 Brandon Baron M.D. at 1212 RPT #:[id number] OF REPORT CLClinical nnan6308-93-14U59:28:00Y.[id number] able for patient bzfdMCXNLJXFSEUOZX4269-33-99J11:12:22 [facility] 2021-[facility] 18:34:00 [id number] fMIelcqjbkAGFw0tPAMOizdefySIn VAPHoTQhYILU0jlv0TIQXgE2MgYOaE11511-03-52J50:34:[address] [facility] ([facility])Clinical NoteREPORT#:[id number] REPORT STATUS: SignedDATE:07/24/21 TIME: 1833 PATIENT: ANDREY BARNES UNIT #: [id number]#: [id number] [facility] [birth year] AGE: 21 SEX: M ATTEND: Jose Brand AUTHOR: Juan F Reed MD * ALL edits or amendments must be made on the electronic/computer document * Clinical NoteNote:Consult Note Dictated [id number] at 1835 RPT #:[id number] OF REPORT CLClinical znes0300-51-02C08:34:00Y.[id number] able for patient pnbvGTRYIQKGDEAIIV7665-62-31U38:35:37 [facility]ATO 2021-07-24 18:26:00 [id number] le3j1rPEyEjqc/NzyaxuyfRzXQJJE qGyrjXcTWxvrMmAnocWU6RDiJWjKsAx1471-87-95R26:26:[address] [facility] ([facility])Clinical NoteREPORT#:[id number] REPORT STATUS: SignedDATE:07/24/21 TIME: 1825 PATIENT: NADREY BARNES UNIT #: [id number]#: [id number] [facility] [birth year] AGE: 21 SEX: M ATTEND: Jose Brand [facility] AUTHOR: Brandon Dugan MD * ALL edits or amendments must be made on the electronic/computer document * Clinical NoteNote:[facility] Brandon Baron MD(cell text [phone])Internal Medicine Consult at request of : Dr. Jsoe Brand Chief Complaint: right leg pain HPI: [...] Resp B/P B/P Mean Pulse Ox FiO2 07/24 97.0-99.5 70-103 13-16 115-163/63-104 113.4 91-100 32-100 [...] addressissue at this time. at 2152 RPT #:[id number] OF REPORT CLClinical rqfc0923-72-90D06:26:00Y.[id number] able for patient lxuiEEAXBUQMAWMZON1948-21-81Z04:52:29 [facility]ATO 2021-07-24 16:16:00 [id number] 2R9sNLD3Tmxqep+aFN7ceT6yjK9x4 uZcK9FcHOA24VcL8aBLiFmK02r1Ak1+3511-36-04C89:16:0 [id number] [place] [address] PATIENT NAME: ANDREY BARNES JR ADMIT DATE: 07/24/21ACCOUNT NO: [id number] ROOM NO: AGE: 21 REPORT TYPE: CONSULTATION REPORT SEX: M ADMITTING PHYSICIAN: ATTENDING PHYSICIAN:Jose Brand MD CONSULTATION DATE: 07/24/2021 CONSULTING PHYSICIAN: Juan F Reed MD NEUROLOGY CONSULTATION HISTORY OF PRESENT ILLNESS: The patient is a 21-year-old male, , righthanded, right footed. The patient is being seen in PACU. The patient was admitted to [facility] earlier today, July 24. The patient states [...] the patient has been placed on a ENVIRONMENTAL COMPLIANCE INSPECTOR pump with hydromorphone,dose is 0.2 mg, delay [...] Dictated By: Juan F Reed MD WT: CON:TRA/LI/NTSDD: 07/24/2021 16:16:32DT: 07/24/2021 20:45:54Conf#: [id number]/DID#: [id number] cc: Jose Brand MD Authenticated by Juan F Reed MD On 08/03/2021 02:07:49 PM at 0207 PATIENT NAME: ANDREY BARNES JR :45:00Y.NE [id number] for patient axerZTNBEMBHBRQCBO0557-39-91M62:08:26 [facility]ATO 2021-07-24 14:57:00 [id number] [id number] LAsUWFUmRHod5uzs8VIwmlJBSo+7ASF6920-08-41W61:57:[address] [facility] ([facility])Op/Inv Procedure Note - BriefREPORT#:[id number] REPORT STATUS: SignedDATE:07/24/21 TIME: 1456 PATIENT: ANDREY BARNES JR UNIT #: [id number]#: [id number] [facility] [birth year] AGE: 21 SEX: M ATTEND: Jose Brand AUTHOR: Brenda Marsh * ALL edits or amendments must be made on the electronic/computer document * Op/Inv Proc Note - Brief TEXT Brief Op/Inv Procedure NoteNote details:*PRE-PROCEDURE DIAGNOSISRight tibial plateau fracture *POST-PROCEDURE DIAGNOSIS:Same *PROCEDURE(S) PERFORMED:Application of right knee spanning Ilizarov external fixator. *PRIMARY SURGEON:Jose Brand *REFUGE WORKER(S):Brenda Marsh PA-C ANESTHETIC:General *ESTIMATED BLOOD LOSS in ml's:10 cc *SPECIMEN(S) REMOVED:None *COMPLICATIONS:None DRAIN(S):None[] TUBE(S):None[] IMPLANT(S):None[] FLUIDS:[] URINE OUTPUT:[] *FINDINGS:Severe, displaced right tibial plateau fracture. DISPOSITION:To PACU at 1500 at 0741 RPT #:[id number] OF REPORT PNProcedure yqqr8318-11-05N42:57:00Y.[id number] able for patient msgoUUAAHZUYEFNWCT4165-44-30N35:01:15 HCATO
--- NOTE | 2023-05-23 01:28 | EDPHYS ---
Physician Documentation [facility] Name: Orion Barnes Age: 23 yrs Sex: Male : 2000 Arrival Date: 05/22/2023 Time: 22:57 Bed 15 Private MD: ED Physician Keven Baker HPI: 05/21 23:30 This 23 yrs old Male presents to ER via Wheelchair with complaints of Leg Pain.cp 23:30 The patient presents with an injury, pain, that is acute. The complaints affect the cp right lower leg. 23:30 Context: the patient is not able to bear weight, Problem is a result from a previous cp injury: Yes. fracture to right tibial plateau with hardware placement. 23:30 Onset: The symptoms/episode began/occurred just prior to arrival. Associated signs and cp symptoms: The patient has no apparent associated signs or symptoms. Treatment prior to arrival includes: no previous treatment. Patient reports immediate pain to right lower leg after misstep while running. Historical: - Allergies: 23:11 DEET; km8 - PMHx: 23:11 Seizure; km8 - PSHx: 23:11 Right leg surgery; Spinal tap; km8 - Immunization history:: Client reports receiving the 2nd dose of the Covid vaccine, Flu vaccine is up to date. - Social history:: Smoking status: Reported history of juuling and/or vaping. Patient uses alcohol, on a daily basis. claims drinking about a 6 pack/day. Patient/guardian denies using street drugs. ROS: 23:35 MS/extremity: Positive for injury or acute deformity, swelling, tenderness, of the cp right cotto, 23:35 Constitutional: Negative for body aches, chills, fever, poor PO intake, cp 23:35 Cardiovascular: Negative for chest pain, palpitations, cp 23:35 Respiratory: Negative for cough, shortness of breath, wheezing, 23:35 Abdomen/GI: Negative for abdominal pain, vomiting, diarrhea, constipation, Exam: 23:40 Constitutional: The patient appears in no acute distress, alert, awake, non-toxic, well cp developed, well nourished, uncomfortable, 23:40 Head/Face: Normocephalic, atraumatic. cp 23:40 Eyes: Periorbital structures: appear normal, Conjunctiva: normal, no exudate, no injection, Sclera: no appreciated abnormality, Lids and lashes: appear normal, bilaterally, 23:40 ENT: External ear(s): are unremarkable, Nose: is normal, Mouth: Lips: moist, Oral mucosa: pink and intact, moist, Posterior pharynx: Airway: no evidence of obstruction, patent, 23:40 Neck: ROM/movement: is normal, is supple, without pain, no range of motions limitations, 23:40 Chest/axilla: Inspection: normal, 23:40 Cardiovascular: Rate: tachycardic, Rhythm: regular, 23:40 Respiratory: the patient does not display signs of respiratory distress, Respirations: cp normal, no use of accessory muscles, no retractions, labored breathing, is not present, Breath sounds: are clear throughout, no decreased breath sounds, no stridor, no wheezing, 23:40 Abdomen/GI: Exam negative for discomfort, distension, guarding, Inspection: abdomen cp appears normal, 23:40 Back: pain, is absent, ROM is normal, 23:40 Musculoskeletal/extremity: Extremities: grossly normal except: noted in the right lower cp leg: ecchymosis, pain, swelling, tenderness, Perfusion: the extremity is normally perfused throughout, Severe pain noted. 23:40 Neuro: Orientation: to person, place \T\ time. Mentation: is normal, Motor: moves all fours, strength is normal, Vital Signs: 23:09 BP 138 / 82; Pulse 102; Resp 16; Temp 98.9(TE); Pulse Ox 100% on R/A; Weight 63.96 kg [facility] (R); Height 6 ft. 7 in. ; Pain 10/10; 0308 00:00 BP 135 / 90; Pulse 100; Resp 17 S; Pulse Ox 100% on R/A; ha1 01:00 BP 124 / 82; Pulse 84; Resp 17 S; Pulse Ox 100% on R/A; ha1 02:00 BP 128 / 81; Pulse 84; Resp 17 S; Temp 97.9(T); Pulse Ox 100% on R/A; ha1 0307 23:09 Body Mass Index 15.88 (63.96 kg, 200.66 cm) [facility] 03 23:09 Pain Scale: Adult [facility] Procedures: 02:00 Splinting: Splint applied to right leg using non-wt bearing posterior long leg. applied cp by nurse. Examined by me, post splint application: neurovascular intact, Patient tolerated well. MDM: 05/21 23:19 Patient medically screened. 05/22 00:00 Differential diagnosis: dislocation, open fracture, closed fracture, contusion. 01:27 Data reviewed: vital signs, nurses notes, radiologic studies, plain films. cp 01:27 I considered the following discharge prescriptions or medication management in the emergency department Medications were administered in the Emergency Department. See MAR. Independent interpretation of the following test(s) in the Emergency Department X-Ray: My interpretation is images of right tib/fib show comminuted mid shaft fracture of right tibia. Counseling: I had a detailed discussion with the patient and/or guardian regarding the historical points, exam findings, and any diagnostic results supporting the discharge/admit diagnosis, radiology results, the need for outpatient follow up, for definitive care, a orthopedic surgeon, to return to the emergency department if symptoms worsen or persist or if there are any questions or concerns that arise at home. Response to treatment: the patient's symptoms have markedly improved after treatment, and as a result, I will discharge patient. 05/21 23:21 Order name: XRAY Tib Fib RIGHT cp 05/21 23:21 Order name: XRAY Femur RIGHT cp 05/21 23:21 Order name: IV; Complete Time: 23:32 cp 05/22 00:52 Order name: Crutches; Complete Time: 01:37 cp 05/22 00:52 Order name: Splint - Long Leg: Posterior w/ Stirrup; Complete Time: 01:37 cp Administered Medications: 05/21 23:36 Drug: HYDROmorphone IVP 1 mg IVP once Route: IVP; Site: right antecubital; km8 05/22 00:00 Follow up: Response: No adverse reaction; Pain is unchanged, physician notified; RASS: ha1 Alert and Calm (0) 00:40 Drug: HYDROmorphone IVP 1 mg IVP once Route: IVP; Site: right antecubital; ha1 01:00 Follow up: Response: No adverse reaction; Pain is decreased; RASS: Alert and Calm (0) ha1 01:20 Drug: Ketorolac IVP 15 mg IVP once Route: IVP; Site: right antecubital; ha1 02:00 Follow up: Response: No adverse reaction; Pain is decreased ha1 Disposition: 02:46 Co-signature as Attending Physician, Keven Baker MD I agree with the assessment sp4 and plan of care. I reviewed the patient's care provided by the Advanced Practice Provider and agree with the diagnosis and treatment plan. Disposition Summary: 05/23/23 01:28 Discharge Ordered Notes: Location: Home cp Problem: new cp Symptoms: have improved cp Condition: Stable cp Diagnosis - Nondisplaced comminuted fracture of shaft of right tibia, initial encounter for cp closed fracture Followup: cp - With: Private Physician - When: 2 - 3 days - Reason: Recheck today's complaints Discharge Instructions: - Discharge Summary Sheet cp - Tibial Fracture, Adult cp Forms: - Medication Reconciliation Form cp - Thank You Letter cp - Antibiotic Education cp - Prescription Opioid Use cp - Patient Portal Instructions cp - Leadership Thank You Letter cp Prescriptions: - acetaminophen-codeine 300-30 mg Oral tablet - take 2 tablet ORAL route every 6 hours as needed for pain; 16 tablet; Refills: cp 0, Product Selection Permitted - Ibuprofen 800 mg Oral Tablet - take 1 tablet ORAL route every 8 hours As needed take with food; 30 tablet; cp Refills: 0, Product Selection Permitted Signatures: Dispatcher [employer] EDMS Ron Moreira PA PA cp Gaby Gibson, RN RN ha1 Keven Baker MD MD sp4 Claudia Decker RN RN km8
--- NOTE | 2023-05-23 01:28 | ER ---
Nurse's Notes [facility] Name: Orion Barnes Age: 23 yrs Sex: Male : 2000 Arrival Date: 05/22/2023 Time: 22:57 Bed 15 Private MD: Diagnosis: Nondisplaced comminuted fracture of shaft of right tibia, initial encounter for closed fracture Presentation: 05/21 23:09 Chief complaint: Patient states: pt was running at about 2230 today and felt a snap; pt km8 has noted deformity to right lower leg; pt had surgery on same leg about 2 years ago. Coronavirus screen: Client denies travel out of the [place] in the last 14 days. Ebola Screen: No symptoms or risks identified at this time. Initial Sepsis Screen: Does the patient meet any 2 criteria? HR > 90 bpm. No. Patient's initial sepsis screen is negative. Does the patient have a suspected source of infection? No. Patient's initial sepsis screen is negative. Risk Assessment: Do you want to hurt yourself or someone else? Patient reports no desire to harm self or others. Onset of symptoms was May 22, 2023 at 22:30. 23:09 Method Of Arrival: Wheelchair km8 23:09 Acuity: MIRZA 3 km8 Triage Assessment: 23:11 General: Appears in no apparent distress. uncomfortable, Behavior is calm, cooperative, km8 appropriate for age. Pain: Complains of pain in right cotto Pain currently is 10 out of 10 on a pain scale. EENT: No signs and/or symptoms were reported regarding the EENT system. Neuro: Level of Consciousness is awake, alert, obeys commands, Oriented to person, place, time, situation, Appropriate for age. Cardiovascular: Denies chest pain, shortness of breath, Patient's skin is warm and dry. Respiratory: Airway is patent Respiratory effort is even, unlabored, Respiratory pattern is regular, symmetrical. GI: No signs and/or symptoms were reported involving the gastrointestinal system. : No signs and/or symptoms were reported regarding the genitourinary system. Derm: Skin is intact, is healthy with good turgor, Skin is dry, Skin is pink, warm \\T\\ dry. normal, Skin temperature is warm. Musculoskeletal: Circulation, motion, and sensation intact. Swelling present in right cotto. Historical: - Allergies: 23:11 DEET; km8 - PMHx: 23:11 Seizure; km8 - PSHx: 23:11 Right leg surgery; Spinal tap; km8 - Immunization history:: Client reports receiving the 2nd dose of the Covid vaccine, Flu vaccine is up to date. - Social history:: Smoking status: Reported history of juuling and/or vaping. Patient uses alcohol, on a daily basis. claims drinking about a 6 pack/day. Patient/guardian denies using street drugs. Screenin:16 [facility] ED Fall Risk Assessment (Adult) History of falling in the last 3 months, ha1 including since admission No falls in past 3 months (0 pts) Confusion or Disorientation No (0 pts) Intoxicated or Sedated No (0 pts) Impaired Gait Yes (1 pt) Mobility Assist Device Used Yes (1 pt) Altered Elimination No (0 pt) Score/Fall Risk Level 3 or more points = High Risk Oriented to surroundings, Maintained a safe environment, Educated pt \\T\\ family on fall prevention, incl call for assistance when getting out of bed. Abuse screen: Denies threats or abuse. Denies injuries from another. Nutritional screening: No deficits noted. Tuberculosis screening: No symptoms or risk factors identified. Assessment: 23:16 General: Appears uncomfortable, Behavior is cooperative, anxious. Pain: Complains of ha1 pain in lateral aspect of right calf Pain does not radiate. Pain currently is 10 out of 10 on a pain scale. Quality of pain is described as sharp, shooting, throbbing, Pain began 1 day ago. Is continuous, Aggravated by increased activity, repositioning, weight bearing. Neuro: Level of Consciousness is awake, alert, obeys commands, Oriented to person, place, time, situation. Cardiovascular: Capillary refill < 3 seconds Patient's skin is warm and dry. Respiratory: Airway is patent Trachea midline Respiratory effort is even, unlabored, Respiratory pattern is regular, symmetrical. GI: No signs and/or symptoms were reported involving the gastrointestinal system. : No signs and/or symptoms were reported regarding the genitourinary system. Derm: Skin is moist, Skin is normal. Musculoskeletal: Circulation, motion, and sensation intact. Swelling present in lateral aspect of right calf Reports pain in lateral aspect of right calf PT. STATES "I HAD A PREVIOUS FRACTURE ON THE SAME LEG BEFORE AND I THINK I JUST BROKE MY LEG AGAIN". 05/22 00:00 Reassessment: Patient and/or family updated on plan of care and expected duration. Pain ha1 level reassessed. Patient is alert, oriented x 3, equal unlabored respirations, skin warm/dry/pink. PAIN 9/10. NOTIFIED CARE PROVIDER. 01:00 Reassessment: Patient and/or family updated on plan of care and expected duration. Pain ha1 level reassessed. Patient is alert, oriented x 3, equal unlabored respirations, skin warm/dry/pink. 01:56 Reassessment: Patient and/or family updated on plan of care and expected duration. Pain ha1 level reassessed. Patient is alert, oriented x 3, equal unlabored respirations, skin warm/dry/pink. Cardiovascular: Capillary refill < 3 seconds in right toes. Vital Signs: 05/21 23:09 BP 138 / 82; Pulse 102; Resp 16; Temp 98.9(TE); Pulse Ox 100% on R/A; Weight 63.96 kg [facility] (R); Height 6 ft. 7 in. ; Pain 10/10; 05/22 00:00 BP 135 / 90; Pulse 100; Resp 17 S; Pulse Ox 100% on R/A; ha1 01:00 BP 124 / 82; Pulse 84; Resp 17 S; Pulse Ox 100% on R/A; ha1 02:00 BP 128 / 81; Pulse 84; Resp 17 S; Temp 97.9(T); Pulse Ox 100% on R/A; ha1 05/21 23:09 Body Mass Index 15.88 (63.96 kg, 200.66 cm) [facility] 05/21 23:09 Pain Scale: Adult 8 ED Course: 05/21 23:03 Patient arrived in ED. mr 23:07 Ron Moreira PA is PHCP. cp 23:07 Keven Baker MD is Attending Physician. cp 23:11 Triage completed. km8 23:11 Arm band placed on right wrist. km8 23:30 Inserted saline lock: 20 gauge in right antecubital area, using aseptic technique. km8 23:37 Patient has correct armband on for positive identification. Bed in low position. Call km8 light in reach. Side rails up X2. Pulse ox on. NIBP on. 05/22 00:31 Gaby Gibson, RN is Primary Nurse. ha1 01:07 XRAY Tib Fib RIGHT In Process Unspecified. EDMS 01:07 XRAY Femur RIGHT In Process Unspecified. EDMS 01:35 Orthoglass splint: Posterior long leg splint applied on right leg. stirrup splint oe applied on right leg. 01:45 Assist provider with fracture care of right leg and right cotto Fracture is closed. ha1 Obvious deformity is not noted. Circulation, motor and sensation Immobilized with preformed splint, Post immobilization, circulation, motor and sensation remain intact. Patient tolerated well. 01:58 Provided Education on: following up with orthopedic . ha1 01:58 IV discontinued, intact, bleeding controlled, No redness/swelling at site. Pressure ha1 dressing applied. Administered Medications: 05/21 23:36 Drug: HYDROmorphone IVP 1 mg IVP once Route: IVP; Site: right antecubital; km8 05/22 00:00 Follow up: Response: No adverse reaction; Pain is unchanged, physician notified; RASS: ha1 Alert and Calm (0) 00:40 Drug: HYDROmorphone IVP 1 mg IVP once Route: IVP; Site: right antecubital; ha1 01:00 Follow up: Response: No adverse reaction; Pain is decreased; RASS: Alert and Calm (0) ha1 01:20 Drug: Ketorolac IVP 15 mg IVP once Route: IVP; Site: right antecubital; ha1 02:00 Follow up: Response: No adverse reaction; Pain is decreased ha1 Medication: 00:49 VIS not applicable for this client. ha1 Outcome: 01:28 Discharge ordered by . erick 01:58 Discharged to home via wheelchair, with crutches, ha1 01:58 Condition: stable 01:58 Discharge instructions given to patient, family, Instructed on discharge instructions, follow up and referral plans. medication usage, Demonstrated understanding of instructions, follow-up care, medications, Prescriptions given X 2, 02:00 Patient left the ED. ha1 Signatures: Dispatcher [employer] [facility] Violet Valadez, De Reg mr Ron Moreira, JEANIE PA cp Dean Recinos Heidy, RN RN 1 Claudia Decker RN RN km8
[2023-05-23 02:45] VITALS: BP 128/81; TEMP 97.9; O2SAT 100
--- NOTE | 2023-05-23 17:40 | RAD REPORT ---
EXAM DESCRIPTION: XR FEMUR 2 VIEWS RIGHT CLINICAL HISTORY: 23 years Male PAIN TECHNIQUE: Two x-ray views of the right femur were performed on 05/23/2023 at 12:37 AM. COMPARISON: None FINDINGS: There is no evidence of fracture or dislocation. There is no significant arthritis or dege nerative change. No focal lytic or sclerotic bone lesions are seen. Bone mineralization is normal. No focal soft tissue abnormalities are identified. A metallic artifact projects over the soft tissues along the proximal right femur. IMPRESSION: No evidence of acute osseous injury involving the right femur. A metallic artifact proje cts over the soft tissues along the proximal right femur. Electronically signed by: Nishi Payne DO 05/23/2023 01:22 AM LOAN DOCUMENTS CLOSER Due to temporary technical issues with the PACS/Fluency reporting system, reports are being signed by the in house radiologists without review as a courtesy to insure prompt reporting. The interpreting radiologist is fully responsible for the content of the report.
--- NOTE | 2023-05-23 18:50 | RAD REPORT ---
EXAM DESCRIPTION: Tib Fib Right RadLex: XR TIBIA FIBULA RIGHT CLINICAL HISTORY: 23 years Male, PAIN COMPARISON: None. FINDINGS: AP and lateral views of the right tibia and fibula. Postsurgical changes related to latera l plate and screw fixation of the proximal tibia. There is an acute appearing, comminuted nondisplace d fracture of the mid tibial shaft width anterior soft tissue edema. No joint dislocation. IMPRESSION: Acute appearing comminuted nondisplaced fracture of the mid tibial shaft. Electronically signed by: Zoe Wei MD 05/23/2023 01:23 AM FABRICATION DEPARTMENT SUPERVISOR Due to temporary technical issues with the PACS/Fluency reporting system, reports are being signed by the in house radiologists without review as a courtesy to insure prompt reporting. The interpreting radiologist is fully responsible for the content of the report.
== END ==
LOC: ER 22:57 → EDBD 22:57
PROC: 2W3LX1Z Immobilization of Right Lower Extremity using Splint (ICD-10-PCS; principal; 2023-05-22)
DX: S82.254A Nondisplaced comminuted fracture of shaft of right tibia, initial encounter for closed fracture (principal); Z91.048 Other nonmedicinal substance allergy status
CPT/HCPCS: 96374; 96375; 99285; J1170

== ENCOUNTER 2024-04-26 17:18 | Emergency (ER) | payer SELFPAY ==
--- OUTSIDE RECORDS SUMMARY | 2024-04-26 17:22 | XMS REPORT | Continuity of Care Document ---
Author Name Unknown Address [address] [facility] [address] [place] [address] [facility] thconnect Address [address] [facility]. 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 Name Role Phone KARRIE BRAND Primary Care Physician Unavailab NANCY Calzada Attending Clinician Unavailab Nancy Calzada DO Attending Clinician [phone] Oliverio Attending Clinician UnavailKarrie Raymond Attending Clinician [phone] KEELY CASTRO Attending Clinician Unavailable Keely Lima Attending Clinician Karrie Brand Attending Clinician Unavailable NANCY KOCH Admitting Clinician Christianne Barakat Admitting Clinician UnavailKarrie Raymond Admitting Clinician Unavailable Payers Payer Name Policy Type Policy Number Effective Date Expirati on Date Source [place] [id number] 2015 00:00:00 [place] [id number] 2019 00:00:00 Problems Condition Name Condition Details Condition Category Status Onset Date Resolution Date Last Treatment Date Treating Clinician Comments Source Closed bicondylar fracture of tibial plateau Closed Bicondylar Fracture of Tibial Plateau Problem Active 08-08 00:00: 00 [facility] Allergies, Adverse Reactions, Alerts Allergy Name Allergy Type Status Severity Reaction(s) Onset Date Inactive Date Treating Clinician Comments Source DIETHYLT OLUAMIDE DRUG INGREDI Active Rash 07-11 00:00: 00 [facility] Diethylt oluamide Propensi ty to adverse reaction s Active Rash 07-11 00:00: 00 [facility] No Known Drug Allergie s DA Active U 07-23 00:00: 00 [facility] DEET DA Active [place] ITCHINESS 07-23 00:00: 00 [facility] NO KNOWN ALLERGIE S Drug Class Active [facility] Social History Social Habit Start Date Stop Date Quantity Comments Source History of tobacco use 2013-07-29 00:00:00 Cigarette Smoker [facility] History SDOH Alcohol Frequency [facility] History SDOH Alcohol Std Drinks [facility] History SDOH Alcohol Binge [facility] intake 2023-07-12 00:00:00 2023-07-12 00:00:00 Current drinker of alcohol (finding) [facility] Exposure to SARS-CoV-2 (event) 2021-10-19 00:00:00 2021-10-29 23:16:00 Not sure [facility] History of Social function 2018-09-24 00:00:00 2018-09-24 00:00:00 [facility] Tobacco use and exposure 2018-07-29 00:00:00 2018-07-29 00:00:00 Smokeless tobacco non-user [facility] Alcohol Comment 2018-07-29 00:00:00 2018-07-29 00:00:00 socially [facility] Tobacco Comment 2018-07-29 00:00:00 2018-07-29 00:00:00 smokesabout 3 or 4 cigarettes per day [facility] Sex Assigned At 2000 00:00:00 2000 00:00:00 [facility] Smoking Status Start Date Stop Date Source Smokes tobacco daily 2018-07-29 00:00:00 [facility] Medications Ordered Medication Name Filled Medication Name Start Date Stop Date Current Medication? Ordering Clinician Indication Dosage Frequency Signature (SIG) Comments Components Source HYDROcodone -acetaminop hen (NORCO 5) 5-325 mg tablet 1 tablet 07-11 11:45: 00 07-11 11:35 :00 No 1{tbl} 1 tablet, Oral, ONCE, 1 dose, On 07/12/23 at 0645, LOVE [facility] ibuprofen (IBU) tablet 800 mg 07-11 11:45: 00 07-11 10:56 :00 No 800mg 800 mg, Oral, ONCE, 1 dose, On 07/12/23 at 0645, Routine [facility] doxycycline hyclate 100 mg capsule 10-29 00:00: 00 11-06 04:59 :00 No [id number] 100mg Take 1 capsule by mouth in the morning and 1 capsule in the evening. Do all this for 7 days. [facility] Diclofenac Sodium (VOLTAREN) 1 % gel 08-12 00:00: 00 10-29 00:00 :00 No [id number] 9103 Apply to area(s) daily. [facility] cyclobenzap rine 5 mg tablet 08-12 00:00: 00 10-29 00:00 :00 No [id number] 9103 5mg Take 1 tablet by mouth 3 (three) times daily as needed for Muscle Spasms. [facility] gabapentin 100 mg capsule 07-29 00:0010-29 00:00 :00 No [id number] 9103 100mg Take 1 capsule by mouth 3 (three) times daily as needed for Pain (scale 4-6). [facility] acetaminoph en 300 mg-codeine 30 mg [...] DAILY [facility] oxycodone [...] DAILY [facility] oxycodone [...] 10 [facility] doxycycline [...] DAYS [facility] Vital Signs Vital Name Observation Time Observation Value Comments Irving worley Systolic blood pressure 2023-07-12 11:37:00 139 mm[Hg] [facility] Diastolic blood pressure 2023-07-12 11:37:00 78 mm[Hg] [facility] Heart rate 2023-07-12 11:37:00 107 /min [facility] Body temperature 2023-07-12 11:37:00 36.5 Ana M [facility] Oxygen saturation in Arterial blood by Pulse oximetry 2023-07-12 11:37:00 99 /min [facility] Respiratory rate 2023-07-12 10:17:00 20 /min [facility] Body height 2023-07-12 10:17:00 170.2 cm [facility] Body weight 2023-07-12 10:17:00 61.236 kg [facility] BMI 2023-07-12 10:17:00 21.14 kg/m2 [facility] Systolic blood pressure 2021-10-30 04:18:00 101 mm[Hg] [facility] Diastolic blood pressure 2021-10-30 04:18:00 74 mm[Hg] [facility] Heart rate 2021-10-30 04:18:00 94 /min [facility] Body temperature 2021-10-30 04:18:00 37.06 Ana M [facility] Respiratory rate 2021-10-30 04:18:00 18 /min [facility] Body height 2021-10-30 04:18:00 175.3 cm [facility] Body weight 2021-10-30 04:18:00 58.968 kg [facility] BMI 2021-10-30 04:18:00 19.20 kg/m2 [facility] Oxygen saturation in Arterial blood by Pulse oximetry 2021-10-30 04:18:00 98 /min [facility] Procedures Procedure Date / Time Performed Performing Clinicia n Source XR, knee, 1 or 2 view 2021-11-14 00:00:00 [facility] INCISION AND DRAINAGE 2021-10-30 04:52:20 Franky Castro [facility] NOTICE OF PRIVACY PRACTICES 2021-10-30 04:06:52 Doctor Unassigned, Ada [facility] CONSENT/REFUSAL FOR DIAGNOSIS AND TREATMENT 2021-10-30 04:06:29 Doctor Unassigned, Ada [facility] XR, knee, 1 or 2 view [...] Department Encounter ID Source 2022-07-02 09:26:23 Outpatient [facility] [id number] [facility] 2022-06-26 14:19:07 Outpatient [facility] [id number] [facility] 2021-07-18 14:43:06 Outpatient [facility] [id number] [facility] 2023-07-12 05:08:00 2023-07-12 06:49:00 Emergency X NANCY KOCH [facility] ERT [id number] [facility] 2023-07-12 05:08:00 2023-07-12 06:49:00 Emergency Nancy Koch [facility] [id number] [facility] 2022-06-24 00:00:00 2022-06-24 00:00:00 Outpatient JUSTIN_Sunday Tovar AO AO [id number] [facility] 2021-11-23 00:00:00 2021-11-23 00:00:00 Outpatient FOG_Sunday Tovar AO AO [id number] [facility] 2021-11-18 00:00:00 2021-11-18 00:00:00 Outpatient JUSTIN_Sunday Tovar AO AO [id number] [facility] 2021-11-14 00:00:00 2021-11-14 00:00:00 Outpatient FOG_Brinker _Karrie_ AOSM AO [id number] [facility] 2021-11-14 00:00:00 2021-11-14 00:00:00 Karrie Brand MD: [address] [place] [address] , Ph. [phone] [facility] [place] [facility] [id number] [facility] 2021-11-14 00:00:00 2021-11-14 00:00:00 Outpatient Karrie Brand AOSM AO [id number] 2021-10-29 23:22:00 2021-10-30 00:13:00 Emergency X KEELY CASTRO [facility] ERT [id number] [facility] 2021-10-29 23:22:00 2021-10-30 00:13:00 Emergency Keely Castro [facility] [id number] [facility] 2021-10-28 00:00:00 2021-10-28 00:00:00 Outpatient FOG_Sunday _Wai AOSM AO [id number] [facility] 2021-10-18 00:00:00 2021-10-18 00:00:00 Outpatient FOG_Brinker _Karrie_ AOSM AOSM [id number] [facility] 2021-10-13 00:00:00 2021-10-13 00:00:00 Outpatient FOG_Brinker _Wai AOSM AOSM [id number] [facility] 2021-09-13 10:21:00 2021-09-13 10:21:00 Outpatient FOG_Brinker _Wai AOSM AOSM [id number] [facility] 2021-09-12 11:36:00 2021-09-12 11:36:00 Outpatient FOG_Brinker _Karrie_ AOSM AOSM [id number] [facility] 2021-09-12 00:00:00 2021-09-12 00:00:00 Karrie Brand MD: [address] [place] [address] , Ph. [phone] [facility] [place] [facility] F[facility]Ofc [address] [id number] [facility] 2021-09-12 00:00:00 2021-09-12 00:00:00 Outpatient Karrie Brand AO AO [id number] 2021-09-08 01:54:00 2021-09-08 01:54:00 Outpatient FOG_Brinkshaina _Karrie_ AOSM AO [id number] [facility] 2021-09-03 10:07:00 2021-09-03 10:07:00 Outpatient FOG_Brinker _Karrie_ AOSM AOSM [id number] [facility] 2021-08-23 11:30:00 2021-08-23 11:30:00 Outpatient FOG_Brinker _Karrie_ AOSM AO [id number] [facility] 2021-08-22 01:22:00 2021-08-22 01:22:00 Outpatient FOG_Brinker _Karrie_ AOSM AOSM [id number] [facility] 2021-08-22 00:00:00 2021-08-22 00:00:00 Karrie Brand MD: [address] [place] [address] , Ph. [phone] [facility] [place] [facility] [id number] [facility] 2021-08-22 00:00:00 2021-08-22 00:00:00 Outpatient Sunday Karrie AOSM AOSM [id number] 2021-08-17 02:35:00 2021-08-17 02:35:00 Outpatient FOG_Sunday _aKrrie_ AOSM AOSM [id number] [facility] 2021-08-14 07:24:00 2021-08-16 15:26:00 Outpatient ANNA Sunday Karrie ISABELTO OBSE [id number] [facility] 2021-08-14 07:24:00 2021-08-16 15:26:00 Outpatient ANNA Karrie Brand ISABELKHOI OBSE [id number] [facility] 2021-08-14 00:00:00 2021-08-14 00:00:00 Karrie Brand MD: [address] [place] [address] , Ph. [phone] [facility] [place] [facility] [id number] [facility] 2021-08-14 00:00:00 2021-08-14 00:00:00 Outpatient Karrie Brand AORHONDA AOSM [id number] 2021-08-08 00:00:00 2021-08-08 00:00:00 Outpatient Karrie Brand AORHONDA AOSM [id number] 2021-08-08 00:00:00 2021-08-08 00:00:00 Karrie Brand MD: [address] [place] [address] , Ph. [phone] [facility] [place] [facility] [address] [place] [id number] [facility] 2021-08-02 11:13:00 2021-08-02 11:13:00 Outpatient Karrie Winston RADI [id number] [facility] 2021-08-01 00:00:00 2021-08-01 00:00:00 Karrie Brand MD: [address] [place] [address] , Ph. [phone] [facility] [place] [facility] F[facility] [address] [id number] [facility] 2021-07-24 11:29:00 2021-07-26 17:00:00 Outpatient Karrie Winston WANDA OBSE [id number] [facility] 2021-07-24 11:29:00 2021-07-26 17:00:00 Outpatient Karrie Winston WANDA OBSE [id number] [facility] 2021-07-25 00:00:00 2021-07-25 00:00:00 Joselo Fonseca, O: [address] [facility], [address], [place] [address] , Ph. [phone] [facility] [place] [facility] [id number] [facility] 2021-07-23 00:00:00 2021-07-23 00:00:00 Karrie Brand MD: [address] [place] [address] , Ph. [phone] [facility] - [facility] [address] [place] [id number] [facility] Results Test Description Test Time Test Comments Results Result Co mments Source CBC W/AUTO [id number] 05:44:00* Test Item Value Reference Range Interpretation [...] N CBC W Auto Differential panel - [id number] 04:56:00* Test Item Value Reference Range Interpretation [...] lab: (test code = performing lab:) [facility] Sports [facility] metabolic [id number] 04:56:00* Test Item Value Reference Range Interpretation [...] performing lab: (test code = performing lab:) [facility] Coronavirus 2019 [id number] 00:46:00* Test Item Value Reference Range Interpretation Comme nts Novel Coronavirus 2019 Inhouse (test code = COVNONPUI) Negative Negative Positive resul ts are indicative of the presence ysGLWA-JnA-3 RNA, clinical correlation with patient historyand other [...] the qualitative detection of nucleic acids from ljgHLRP-LaI-1 virus and diagnosis of SARS-CoV-2 virusinfection. It is an Emergency Use Authorization (EUA) testauthorized by the U.S. FDA. Novel Coronavirus 2018 [id number] 00:45:00* Test Item Value Reference Range Interpretation Comme [facility] Novel Coronavirus 2019 Inhouse (test code = COVNONPUI) Negative Negative Positive resul ts are indicative of the presence hmZUTS-PlX-5 RNA, clinical correlation with patient historyand other [...] the qualitative detection of nucleic acids from yqpECRJ-JyD-8 virus and diagnosis of SARS-CoV-2 virusinfection. It is an Emergency Use Authorization (EUA) testauthorized by the U.S. FDA. CBC W/AUTO [id number] 20:46:00* Test Item Value Reference Range Interpretation [...] = NRBC) 0 % 0-0 N SED [id number] 20:46:00* Test Item Value Reference Range Interpretation Comme nts SED RATE (test code = SEDW) 32 mm/hr 0-15 H COMPREHENSIVE METABOLIC [id number] 19:04:00* Test Item Value Reference Range Interpretation [...] 103.2 >60 Unit of m easure: mL/min/1.73 s6Crsukirxf Range:Healthy Adults >90 mL/min/1.73 m2 For Chronic [...] ALKP) 131 U/L 46-116 H C REACTIVE [id number] 19:04:00* Test Item Value Reference Range Interpretation Comme nts C REACTIVE PROTEIN (test cod e = CRP) < 0.2 mg/dL <0.9 PROTHROMBIN [id number] 18:58:00* Test Item Value Reference Range Interpretation [...] Patient is on Heparin Drip? NOTHROMBOPLASTIN TIME [id number] 18:58:00* Test Item Value Reference Range Interpretation Comme nts PTT ACTIVATED (test code = APTT) 28.2 secs 26.6-34.6 N Please note new normal range. IS PATIENT ON ANTICOAGULANTS ? YLIST ANTICOAGULANT/ANTI PLT MEDICATION : AspirinHas Lab been notified if Patient is on Heparin Drip? NOnovel coronavirus 2019 [id number] 17:57:00* Test Item Value Reference Range Interpretation Comme nts novel coronavirus 2019 inhou se (test code = novel coronavirus 2019 inhouse) negative negative performing lab: (test code = performing lab:) [facility] [id number] 17:41:00* Test Item Value Reference Range Interpretation Comme nts sed rate (test code = sed rate) 32 mm/HR 0-15 H performing lab: (test code = performing lab:) [facility] MedicineProthrombin time (PT)2021-08-08 17:41:00* Test Item Value Reference Range Interpretation Comme nts prothrombin time patient (te st code = prothrombin time patient) 13.0 secs 9.7-12.5 H international normal ratio ( test code = international normal ratio) 1.17 <2.0 performing lab: (test code = performing lab:) [facility] [id number] 17:41:00 * Test Item Value Reference Range Interpretation Comme nts PTT activated (test code = P TT activated) 28.2 secs 26.6-34.6 performing lab: (test code = performing lab:) [facility] 2000 panel - Serum or [id number] 17:41:00* Test Item Value Reference Range Interpretation [...] (test code = performing lab:) [facility] reactive [id number] 17:41:00* Test Item Value Reference Range Interpretation Comme nts C reactive protein (test cod e = C reactive protein) < 0.2 <0.9 performing lab: (test code = performing lab:) [facility] W Auto Differential panel - [id number] 17:41:00* Test Item Value Reference Range Interpretation [...] lab: (test code = performing lab:) [facility] Sports Medicine- DUP VEIN UNI/[id number] 12:31:00 [facility] 2000 Sex: M Patient Name: ANDREY ANDRADE JR Unit No: [id number] EXAMS: CPT CODE: [id number] DUP VEIN UNI/LTD 59206 FINDINGS: Right lower extremity grayscale and Doppler venous ultrasound demonstrates normal flow and luminal compressibility without evidence of intraluminal thrombus. IMPRESSION: No evidence of DVT within deep venous structures of the right lower extremity. at 1231 Reported and signed by: Anibal Hollins M.D. CC: Karrie Brand MD Technologist: MCKENZIE MARTÍNEZ RDMS, RVT Transcribed D/ (1231) KyraJ [facility] NAME: ANDREY ANDRADE [address] [facility] [address] PHYS: Karrie Cordero Stoney : 2000 AGE: 21 SEX: M [place], [place] [address] LOC: Y.RAD PHONE #: [phone] EXAM DATE: 08/02/2021 STATUS: REG CLI FAX #: [phone] RAD #: D/C DT PAGE 1 Signed Report Patient Name: ANDREY ANDRADE JR Unit No: [id number] EXAMS: CPT CODE: [id number] DUP VEIN UNI/LTD 35313 (Continued) Orig Print D/T: S: 08/02/2021 (1235) [facility] NAME: ANDREY ANDRADE [address] [facility] [address] PHYS: BRIMA.01 - Karrie Brand MD : 2000 AGE: 21 SEX: M [place], [place] [address] LOC: TahminaRAD PHONE #: [phone] EXAM DATE: 08/02/2021 STATUS: REG CLI FAX #: [phone] RAD #: D/C DT PAGE 2 Signed Report- CT LOWER EXTRM W/O C [id number] 09:46:00 [facility] 2000 Sex: M Patient Name: ANDREY ANDRADE JR Unit No: [id number] EXAMS: CPT CODE: [id number] CT LOWER EXTRM W/[place] [address] CT OF THE RIGHT KNEE WITH SAGITTAL [...] with ACR practice standards and adherence to nerve specialist's recommendations. A tibial fracture are present as described. No other fractures are seen at 0946 Reported and signed by: Derrick Singh MD CC: Karrie Brand MD; Brenda WARE Technologist: Ernesto Keenan,RT(R) CTDI: DLP: Trnscrpt: 07/25/2021 (0946) KyraJCL [facility] NAME: ANDREY ANDRADE JR [address] [facility] PHYS: BRIMA. - Karrie Brand MD : 2000 AGE: 21 SEX: M [place], [place] [address] LOC: Y.321 A PHONE #: [phone] EXAM DATE: 07/25/2021 STATUS: REG [place] FAX #: [phone] RAD #: D/C DT PAGE 1Signed Report Patient Name: ANDREY ANDRADE JR Unit No: [id number] EXAMS: CPT CODE: [id number] CTL[place] EXTRM W/[place] [address] (Continued) Orig Print D/T: S: 07/25/2021 (1352) [facility] NAME: ANDREY ANDRADE [address] [facility] PHYS: BR. - Karrie Brand MD : 2000 AGE: 21 SEX: M [place], [place] [address] LOC: Y.321 A PHONE #: [phone] EXAM DATE: 07/25/2021 STATUS: REG [place] FAX #: [phone] RAD #: D/C DT PAGE 2 Signed ReportBASIC METABOLIC [id number] 06:59:00* Test Item Value Reference Range Interpretation [...] 133.1 >60 Unit of m easure: mL/min/1.73 o4Ellfhwpqw Range:Healthy Adults >90 mL/min/1.73 m2 For Chronic Kidney Disease: Stage II Mild Decrease in GFR 60-90 Stage III Moderate Decrease in GFR 30-59 Stage IV Severe Decrease in GFR 15-29 Stage V Kidney Failure <15 CREATININE (test code = CREAT) 0.73 mg/dL 0.55-1.30 N CALCIUM (test code = CA) 8.8 mg/dL 8.2-10.1 N CBC W/AUTO [id number] 06:02:00* Test Item Value Reference Range Interpretation [...] N CBC W Auto Differential panel - [id number] 04:45:00* Test Item Value Reference Range Interpretation [...] performing lab: (test code = performing lab:) [facility] metabolic [id number] 04:45:00* Test Item Value Reference Range Interpretation [...] performing lab: (test code = performing lab:) [facility] REACTIVE [id number] 04:46:00* Test Item Value Reference Range Interpretation Comme [facility] C REACTIVE PROTEIN (test cod e = CRP) 5.0 mg/dL 0.6-1.2 H ACUTE HEPATITIS [id number] 04:46:00* Test Item Value Reference Range Interpretation Comme [facility] AB HEPATITIS A IGM (test cod e [...] code = HIV1AB) NONREACTIVE NONREACTIVE Done by [employer] HIV Ag/Ab Combo Screen ACUTE HEPATITIS [id number] 04:45:00* Test Item Value Reference Range Interpretation [...] AB HIV 1 2 (test code = ORY05OT) NONREACTIVE NONREACTIVE Done by [employer] 4th Gen HIV Ag/Ab Combo Screen C REACTIVE [id number] 00:46:00* Test Item Value Reference Range Interpretation Comme nts C REACTIVE PROTEIN (test cod e = CRP) 5.0 mg/dL 0.6-1.2 H COMPREHENSIVE METABOLIC [id number] 23:59:00* Test Item Value Reference Range Interpretation [...] 119.8 >60 Unit of m easure: mL/min/1.73 k8Rjaaqxbsq Range:Healthy Adults >90 mL/min/1.73 m2 For Chronic Kidney Disease: Stage II Mild Decrease in GFR 60-90 Stage III Moderate Decrease in GFR 30-59 Stage IV Severe Decrease in GFR 15-29 Stage V Kidney Failure <15Unit of measure: mL/min/1.73 p8Fyjaajnmu Range:Healthy Adults >90 mL/min/1.73 m2 For Chronic [...] ALKP) 194 units/L 46-116 H COMPREHENSIVE METABOLIC [id number] 23:58:00* Test Item Value Reference Range Interpretation [...] units/L 46-116 H COVID 19 Asymptomatic IH [id number] 20:17:00* Test Item Value Reference Range Interpretation Comme nts COVID 19 Asymptomatic IH AG (test code = COVNONPUIAG) NEGATIVE NEGATIVE CBC W/AUTO [id number] 18:03:00* Test Item Value Reference Range Interpretation [...] = NRBC) 0 % 0-0 N SED [id number] 18:03:00* Test Item Value Reference Range Interpretation Comme nts SED RATE (test code = SEDW) 78 mm/hr 0-15 H PROTHROMBIN [id number] 18:00:00* Test Item Value Reference Range Interpretation [...] IS PATIENT ON ANTICOAGULANTS ? [facility] Lab been notified if Patient is on Heparin Drip? NOTHROMBOPLASTIN TIME [id number] 18:00:00* Test Item Value Reference Range Interpretation Comme nts PTT ACTIVATED (test code = APTT) 33.6 secs 26.6-34.6 N Please note new normal range. IS PATIENT ON ANTICOAGULANTS ? [facility] Lab been notified if Patient is on Heparin Drip? NOProthrombin time (PT)2021-07-23 14:40:00* Test Item Value Reference Range Interpretation Comme nts prothrombin time patient (te st code = prothrombin time patient) 12.7 secs 9.7-12.5 H international normal ratio ( test code = international normal ratio) 1.14 <2.0 performing lab: (test code = performing lab:) [facility] [id number] 14:40:00 * Test Item Value Reference Range Interpretation Comme nts PTT activated (test code = P TT activated) 33.6 secs 26.6-34.6 performing lab: (test code = performing lab:) [facility] Auto Differential panel - [id number] 14:40:00* Test Item Value Reference Range Interpretation [...] = performing lab:) [facility] [id number] 14:40:00* Test Item Value Reference Range Interpretation Comme nts sed rate (test code = sed rate) 78 mm/HR 0-15 H performing lab: (test code = performing lab:) [facility] MedicineCom[facility] metabolic 2000 panel - Serum or [id number] 14:40:00* Test Item Value Reference Range Interpretation [...] performing lab: (test code = performing lab:) [facility] reactive [id number] 14:40:00* Test Item Value Reference Range Interpretation Comme nts C reactive protein (test cod e = C reactive protein) 5.0 mg/dL 0.6-1.2 H performing lab: (test code = performing lab:) [facility] [id number] 14:40:00* Test Item Value Reference Range Interpretation [...] (test code = performing lab:) [facility] HIV 14:40:00* Test Item Value Reference Range Interpretation Comme nts Ab HIV 1 (test code = Ab HIV 1) nonreactive nonreactive performing lab: (test code = performing lab:) [facility] [id number] 13:09:00 * Test Item Value Reference Range Interpretation Comme nts covid 19 asymptomatic ih Ag (test code = covid 19 asymptomatic ih Ag) negative negative performing lab: (test code = performing lab:) [facility]
[2024-04-26] MEDS ORDERED: FAMOTIDINE 20 MG/2 ML VIAL IV ONE (18:00)
[2024-04-26] MEDS ORDERED: NA CHLORIDE 0.9% 1,000 ML ONE (18:00)
[2024-04-26] MEDS ORDERED: ONDANSETRON 4 MG/2 ML VIAL ONE (18:00)
--- NOTE | 2024-04-26 18:08 | RAD REPORT ---
EXAM: Chest Single View HISTORY: COUGH COMPARISON: 06/02/2014 FINDINGS: LUNGS/PLEURA: The lungs are clear. No pleural effusions or pneumothorax. No pulmonary edema. MEDIASTINUM: The mediastinal silhouette is within normal limits. CARDIAC: The cardiac silhouette is within normal limits. UPPER ABDOMEN: No significant abnormality. BONES: No acute abnormality. LINES/TUBES/OTHER: N/A IMPRESSION: No evidence of acute cardiopulmonary disease.
[2024-04-26 18:23] LABS: Specific Gravity 1.026 (1.005-1.030); Sqamous Epithelial <5 /HPF (None Seen); Urine Bacteria None Seen /HPF (<20); Urine Bilirubin NEGATIVE (Negative); Urine Blood Negative (Negative); Urine Clarity Clear (Clear); Urine Color Yellow (Yellow); Urine Culture Reflex Order NOT NEEDED; Urine Glucose NEGATIVE (Negative); Urine Ketones 1+ (Negative); Urine Microscopic Reflex YN ORDER UMIC; Urine Mucus Slight /HPF (None Seen); Urine Nitrite NEGATIVE (Negative); Urine Protein 1+ (Negative); Urine RBC <5 /HPF (None Seen); Urine Urobilinogen 1+ (Normal); Urine WBC <5 /HPF (<5); Urine pH 8.5 (5.0-7.0)
[2024-04-26 18:37] LABS: Absolute Eosinophils 0.1 K/uL (0-0.5); Absolute Lymphocytes (CBC) 1.7 K/uL (0.7-4.9); Absolute Monocytes 0.6 K/uL (0.1-1.3); Absolute Neutrophil 4.4 K/uL (1.8-8.0); Basophils % 0.6 % (0-1.3); Eosinophils % 1.3 % (0-4.4); Hematocrit 45.8 % (39.6-49.0); Hemoglobin 15.7 g/dL (13.6-17.9); Lymphocytes % 25.3 % (15.3-44.8); MCHC 34.2 g/dL (32.0-36.0); MCV 90.6 fL (80-100); MPV 7.6 fL (7.6-11.3); Monocytes % 8.2 % (3.3-12.3); Neutrophils % 64.6 % (41.7-73.7); Nucleated Red Blood Cells % 0.1 % (0-0); Platelets 194 thou/uL (152-406); RBC Red Blood Cell Count 5.06 M/uL (4.33-5.43); Red Cell Distribution Width 12.9 % (12.1-15.2)
[2024-04-26 18:38] LABS: Albumin 3.6 g/dL (3.4-5.0); Albumin/Globulin Ratio 0.8 (1.1-1.8); Bilirubin Total 0.5 mg/dL (0.2-1.0); Globulin 4.4 g/dL (2.3-3.5)
[2024-04-26 18:48] LABS: Barbiturates NEGATIVE (NEGATIVE); Benzodiazepines NEGATIVE (NEGATIVE); Cocaine NEGATIVE (NEGATIVE); METHAMPHETAM NEGATIVE (NEGATIVE); Methadone NEGATIVE (NEGATIVE); Opiates NEGATIVE (NEGATIVE); Phencyclidine NEGATIVE (NEGATIVE); THC Cannibis NEGATIVE (NEGATIVE)
[2024-04-26 18:57] LABS: SARS-CoV-2 Antigen CONTROL BLUE LINE VIS/BG OK; SARS-CoV-2 Antigen Rapid Res Negative (Negative)
--- NOTE | 2024-04-26 19:38 | ER ---
Nurse's Notes [facility] Name: Orion Barnes Jr Age: 24 yrs Sex: Male : 2000 Arrival Date: 04/26/2024 Time: 17:18 Bed 20 Private MD: Diagnosis: Nausea with vomiting, unspecified;Cough Presentation: 04/26 17:24 Chief complaint: Patient states: "I just don't feel good, I feel shaky and I've been aa5 throwing up". Pt also reports slight cough x 2 days ago. Coronavirus screen: cough unrelated to allergies. Ebola Screen: Patient denies travel to an Ebola-affected area in the 21 days before illness onset. Initial Sepsis Screen: Does the patient meet any 2 criteria? HR > 90 bpm. Does the patient have a suspected source of infection? No. Patient's initial sepsis screen is negative. Risk Assessment: Do you want to hurt yourself or someone else? Patient reports no desire to harm self or others. Onset of symptoms was April 26, 2024. 17:24 Method Of Arrival: Ambulatory aa5 17:24 Acuity: MIRZA 3 aa5 Historical: - Allergies: 17:25 DEET; aa5 - PMHx: 17:25 Seizure; aa5 - PSHx: 17:25 Right leg surgery; Spinal tap; aa5 - Immunization history:: Adult Immunizations unknown. - Infectious Disease History:: Denies. - Social history:: Smoking status: Reported history of juuling and/or vaping. Screenin:48 [facility] ED Fall Risk Assessment (Adult) History of falling in the last 3 months, dd2 including since admission No falls in past 3 months (0 pts) Confusion or Disorientation No (0 pts) Intoxicated or Sedated No (0 pts) Impaired Gait No (0 pts) Mobility Assist Device Used No (0 pt) Altered Elimination No (0 pt) Score/Fall Risk Level 0 - 2 = Low Risk Oriented to surroundings, Maintained a safe environment, Educated pt \\T\\ family on fall prevention, incl call for assistance when getting out of bed, Assessed \\T\\ reinforced patient's understanding of fall precautions, Hourly rounding (assess needs \\T\\ fall precautionary measures) done. Abuse screen: Denies threats or abuse. Nutritional screening: No deficits noted. Tuberculosis screening: No symptoms or risk factors identified. Assessment: 19:23 Reassessment: REPORT RECEIVED FROM DINESH MOISE. ASSUMING CARE OF PT. PT REPORTS FEELING dd2 BETTER. DENIES PAIN OR NAUSEA AT THIS TIME. 19:23 General: Appears in no apparent distress. Behavior is calm, cooperative, appropriate dd2 for age. Pain: Denies pain. Neuro: No deficits noted. Cardiovascular: No deficits noted. Respiratory: No deficits noted. Airway is patent Respiratory effort is even, unlabored, Respiratory pattern is regular, symmetrical. GI: Abdomen is non-distended, Bowel sounds present X 4 quads. Abd is soft and non tender X 4 quads. Reports nausea. : No deficits noted. No signs and/or symptoms were reported regarding the genitourinary system. EENT: No deficits noted. No signs and/or symptoms were reported regarding the EENT system. Derm: No deficits noted. No signs and/or symptoms reported regarding the dermatologic system. Musculoskeletal: No deficits noted. No signs and/or symptoms reported regarding the musculoskeletal system. Circulation, motion, and sensation intact. Range of motion: intact in all extremities. Vital Signs: 17:24 BP 155 / 95; Pulse 98; Resp 18 S; Temp 98.7(O); Pulse Ox 99% on R/A; Weight 77.11 kg aa5 (R); Height 5 ft. 8 in. ; 19:30 BP 133 / 90; Pulse 77; Resp 16; Pulse Ox 100% on R/A; dd2 20:49 BP 131 / 81; Pulse 84; Resp 16; Temp 98.2; Pulse Ox 100% on R/A; dd2 17:24 Body Mass Index 25.85 (77.11 kg, 172.72 cm) aa5 ED Course: 17:20 Patient arrived in ED. ra3 17:23 Ron Moreira PA is PHCP. cp 17:23 Alirio Cheng MD is Attending Physician. cp 17:24 Arm band placed on Patient placed in an exam room, on a stretcher. aa5 17:25 Triage completed. aa5 17:40 Jorge Horne, DINESH is Primary Nurse. bp 17:48 XRAY Chest (1 view) In Process Unspecified. EDMS 18:13 Initial lab(s) drawn, by me, sent to lab. Urine collected: clean catch specimen, clear, bp EKG done, by ED staff, reviewed by Jorge Horne RN. Inserted saline lock: 22 gauge in right forearm, using aseptic technique. Blood collected. Flushed with 10 mL NS. 20:48 Patient has correct armband on for positive identification. Bed in low position. Call dd2 light in reach. Side rails up X 1. Provided Education on: D/C EDUCATION. Client placed on continuous cardiac and pulse oximetry monitoring. NIBP monitoring applied. Door closed. Noise minimized. Warm blanket given. Pillow given. Verbal reassurance given. 20:48 No provider procedures requiring assistance completed. IV discontinued, intact, dd2 bleeding controlled, No redness/swelling at site. Pressure dressing applied. Administered Medications: 18:10 Drug: NS 0.9% IV 1000 ml IV at 1 bolus Per protocol; to be given as a bolus over 60 bp minutes Route: IV; Rate: 1 bolus; Site: right forearm; 18:10 Drug: Ondansetron IVP 4 mg IVP once; over 2 minutes Route: IVP; Site: right forearm; bp 18:10 Drug: Famotidine IVP 20 mg IVP once; dilute with 10 mL 0.9% NaCl; give over 2 minutes bp Route: IVP; Site: right forearm; Medication: 19:23 VIS not applicable for this client. dd2 Outcome: 19:38 Discharge ordered by MD. cp 20:58 Discharged to home ambulatory, dd2 20:58 Condition: stable 20:58 Discharge instructions given to patient, Instructed on discharge instructions, follow up and referral plans. medication usage, Demonstrated understanding of instructions, follow-up care, medications, Prescriptions given X 2, 20:58 Patient left the ED. dd2 Signatures: Dispatcher [employer] EDMS Dara Phillips, RN RN aa5 Ron Moreira PA PA Jorge Car, RN RN Ramona Jimenez ra3 BRANDON DAN RN RN dd2 Corrections: (The following items were deleted from the chart) 20:58 20:48 [facility] ED Fall Risk Assessment (Adult) History of falling in the last 3 months, dd2 including since admission No falls in past 3 months (0 pts) dd2
--- NOTE | 2024-04-26 19:38 | EDPHYS ---
Physician Documentation [facility] Name: Orion Barnes Jr Age: 24 yrs Sex: Male : 2000 Arrival Date: 04/26/2024 Time: 17:18 Bed 20 Private MD: ED Physician Alirio Cheng HPI: 04/26 17:35 This 24 yrs old Male presents to ER via Ambulatory with complaints of Shaky cp and sick. 17:35 The patient's problem is reported as tremulous. cp 17:35 Onset: The symptoms/episode began/occurred today. Associated signs and symptoms: cp Pertinent positives: cough, vomiting, nausea, Pertinent negatives: abdominal pain, chest pain, diarrhea, hematemesis. Patient's baseline: Neuro: alert and fully oriented, Motor: no deficits, Ambulation: walks without assistance, Speech: normal. 17:38 Admits to drinking about 2 cases of beer every other day for several years. Reports not cp drinking as much yesterday. Historical: - Allergies: 17:25 DEET; aa5 - PMHx: 17:25 Seizure; aa5 - PSHx: 17:25 Right leg surgery; Spinal tap; aa5 - Immunization history:: Adult Immunizations unknown. - Infectious Disease History:: Denies. - Social history:: Smoking status: Reported history of juuling and/or vaping. ROS: 17:40 Constitutional: Positive for chills, Negative for body aches, fever, poor PO intake, cp 17:40 Respiratory: Positive for cough, cp 17:40 Eyes: Negative for injury, pain, redness, and discharge, cp 17:40 Cardiovascular: Negative for chest pain, palpitations, 17:40 Abdomen/GI: Positive for nausea and vomiting, Negative for abdominal pain, diarrhea, constipation, hematemesis, 17:40 Skin: Negative for cellulitis, rash, 17:40 Neuro: Negative for altered mental status, headache, syncope, weakness, 17:40 All other systems are negative, cp Exam: 17:45 Constitutional: The patient appears in no acute distress, alert, awake, cp non-diaphoretic, non-toxic, well developed, well nourished, 17:45 Head/Face: Normocephalic, atraumatic. cp 17:45 Eyes: Periorbital structures: appear normal, Conjunctiva: normal, no exudate, no injection, Sclera: no appreciated abnormality, Lids and lashes: appear normal, bilaterally, 17:45 ENT: External ear(s): are unremarkable, Nose: is normal, Mouth: Lips: moist, Oral mucosa: pink and intact, moist, Posterior pharynx: Airway: no evidence of obstruction, patent, 17:45 Neck: ROM/movement: is normal, is supple, without pain, no range of motions limitations, 17:45 Chest/axilla: Inspection: normal, Palpation: is normal, no crepitus, no tenderness, 17:45 Cardiovascular: Rate: normal, Rhythm: regular, 17:45 Respiratory: the patient does not display signs of respiratory distress, Respirations: normal, no use of accessory muscles, no retractions, labored breathing, is not present, Breath sounds: are clear throughout, no decreased breath sounds, no stridor, no wheezing, 17:45 Abdomen/GI: Inspection: abdomen appears normal, Bowel sounds: active, all quadrants, Palpation: abdomen is soft and non-tender, in all quadrants, 17:45 Back: CVA tenderness, is absent, 17:45 Skin: cellulitis, is not appreciated, no rash present. 17:45 Neuro: Orientation: to person, place \T\ time. Mentation: is normal, Motor: moves all fours, strength is normal, Sensation: is normal, 18:37 ECG was reviewed by the Attending Physician. cp 19:30 CT study not indicated or reported. Reason for not performing CT: not indicated cp Vital Signs: 17:24 BP 155 / 95; Pulse 98; Resp 18 S; Temp 98.7(O); Pulse Ox 99% on R/A; Weight 77.11 kg aa5 (R); Height 5 ft. 8 in. ; 19:30 BP 133 / 90; Pulse 77; Resp 16; Pulse Ox 100% on R/A; dd2 20:49 BP 131 / 81; Pulse 84; Resp 16; Temp 98.2; Pulse Ox 100% on R/A; dd2 17:24 Body Mass Index 25.85 (77.11 kg, 172.72 cm) aa5 MDM: 17:24 Medical Screening Exam initiated cp 19:38 Data reviewed: vital signs, nurses notes, lab test result(s), radiologic studies, plain cp films, and as a result, I will discharge patient. 19:38 Differential diagnosis: metabolic disorder, drug effects, viral Infection, bacterial cp infection, pneumonia. I considered the following discharge prescriptions or medication management in the emergency department Medications were administered in the Emergency Department. See MAR. Independent interpretation of the following test(s) in the Emergency Department EKG: See my EKG interpretation above X-Ray: My interpretation is chest xray negative for focal pneumonia. Care significantly affected by the following Social Determinants of Health: Misuse of alcohol and/or drugs. Counseling: I had a detailed discussion with the patient and/or guardian regarding the historical points, exam findings, and any diagnostic results supporting the discharge/admit diagnosis, lab results, radiology results, to return to the emergency department if symptoms worsen or persist or if there are any questions or concerns that arise at home. Response to treatment: the patient's symptoms have markedly improved after treatment, and as a result, I will discharge patient. 04/26 17:32 Order name: CBC with Diff; Complete Time: 19:19 cp 04/26 17:32 Order name: CMP; Complete Time: 19:19 cp 04/26 19:19 Interpretation: Normal except: ALK 119; GLOB 4.4; A/G 0.8. cp 04/26 17:32 Order name: Lipase; Complete Time: 19:19 cp 04/26 17:32 Order name: Urinalysis w/ reflexes; Complete Time: 19:19 cp 04/26 19:19 Interpretation: Normal except: UKET 1+; UPH 8.5; UPROT 1+; UUROB 1+; UESTR 25. cp 04/26 17:32 Order name: Magnesium; Complete Time: 19:19 cp 04/26 17:32 Order name: Influenza Screen (a \T\ B); Complete Time: 19:19 cp 04/26 17:32 Order name: SARS RAPID; Complete Time: 19:19 cp 04/26 17:32 Order name: ETOH Level; Complete Time: 19:19 cp 04/26 17:32 Order name: UDS; Complete Time: 19:19 cp 04/26 17:32 Order name: XRAY Chest (1 view); Complete Time: 19:19 cp 04/26 19:19 Interpretation: Report review. cp 04/26 17:32 Order name: EKG; Complete Time: 17:32 cp 04/26 17:32 Order name: IV Saline Lock; Complete Time: 18:31 cp 04/26 17:32 Order name: Labs collected and sent; Complete Time: 18:31 cp 04/26 17:32 Order name: EKG - Nurse/Tech; Complete Time: 18:30 cp EC:37 Rate is 74 beats/min. Rhythm is regular. IN interval is normal. QRS interval is normal. cp QT interval is normal. T waves are Inverted in leads III, aVR. Interpreted by me. Reviewed by me. Administered Medications: 18:10 Drug: NS 0.9% IV 1000 ml IV at 1 bolus Per protocol; to be given as a bolus over 60 bp minutes Route: IV; Rate: 1 bolus; Site: right forearm; 18:10 Drug: Ondansetron IVP 4 mg IVP once; over 2 minutes Route: IVP; Site: right forearm; bp 18:10 Drug: Famotidine IVP 20 mg IVP once; dilute with 10 mL 0.9% NaCl; give over 2 minutes bp Route: IVP; Site: right forearm; Disposition: 04/27 09:48 Co-signature as Attending Physician, Alirio Cheng MD I reviewed the patient's care rn provided by the Advanced Practice Provider and agree with the diagnosis and treatment plan. Disposition Summary: 04/26/24 19:38 Discharge Ordered Notes: Location: Home cp Problem: new cp Symptoms: have improved cp Condition: Stable cp Diagnosis - Nausea with vomiting, unspecified cp - Cough cp Followup: cp - With: Private Physician - When: As needed - Reason: Worsening of condition Discharge Instructions: - Discharge Summary Sheet cp - Nausea and Vomiting, Adult cp - Cough, Adult cp Forms: - Medication Reconciliation Form cp - Antibiotic Education cp - Prescription Opioid Use cp - Patient Portal Instructions cp - Leadership Thank You Letter cp - Work release form dd2 Prescriptions: - Zofran 4 mg Oral Tablet - take 1 tablet ORAL route every 12 hours As needed; 20 tablet; Refills: 0, cp Product Selection Permitted - Tessalon Perles 100 mg Oral capsule - take 2 capsule ORAL route every 8 hours As needed; 30 capsule; Refills: 0, cp Product Selection Permitted Signatures: Dispatcher [employer] EDAlirio Gamble MD MD rn Calderon, Audri, RN RN aa5 Page, Ron, PA PA cp Ozzie, Jorge, RN RN bp Corrections: (The following items were deleted from the chart) 04/26 17:33 17:32 CBC+H.LAB.BRZ ordered. EDMS EDMS 17:33 17:32 COMPREHENSIVE METABOLIC PANEL+C.LAB.BRZ ordered. EDMS EDMS 17:33 17:32 LIPASE+C.LAB.BRZ ordered. EDMS EDMS 17:33 17:32 Urinalysis+U.LAB.BRZ ordered. EDMS EDMS 17:33 17:32 MAGNESIUM+C.LAB.BRZ ordered. EDMS EDMS 17:33 17:32 Influenza Screen (A \T\ B)+BA.LAB.BRZ ordered. EDMS EDMS 17:33 17:32 SARS-COV-2 Antigen Rapid+I.LAB.BRZ ordered. EDMS EDMS 17:33 17:32 ETHANOL+C.LAB.BRZ ordered. EDMS EDMS 17:33 17:32 URINE DRUG SCREEN+UC.LAB.BRZ ordered. EDMS EDMS
[2024-04-27 01:16] VITALS: O2SAT 100
[2024-04-27 01:17] VITALS: BP 131/81; TEMP 98.2
--- NOTE | 2024-04-28 11:49 | EKG ---
Test Date: 2024-04-26 Test Time: 18:31:06 Radar Technician: RONNA MEASUREMENT RESULTS: Intervals: Rate: 74 MN: 138 QRSD: 94 QT: 354 QTc: 392 [place]: P: 45 MN: 138 QRS: 67 T: 28 INTERPRETIVE STATEMENTS: Normal sinus rhythm with sinus arrhythmia Normal ECG Compared to ECG 04/26/2024 18:30:41 No significant changes Electronically Signed On 04-28-24 11:48:29 SUEDING MACHINE TENDER by Brian Nolan
--- NOTE | 2024-04-28 11:50 | EKG ---
Test Date: 2024-04-26 Test Time: 18:30:41 Laborer High Density Press: RONNA MEASUREMENT RESULTS: Intervals: Rate: 90 MN: 138 QRSD: 94 QT: 348 QTc: 425 [place]: P: 56 MN: 138 QRS: 66 T: 22 INTERPRETIVE STATEMENTS: Normal sinus rhythm with sinus arrhythmia Normal ECG No previous ECG available for comparison Electronically Signed On 04-28-24 11:48:32 RETURN TO VENDOR by Brian Nolan
== END 2024-04-26 20:58 | disposition home or self-care (01) ==
LOC: ER 17:18
DX: R11.2 Nausea with vomiting, unspecified (principal); R05.9 Cough, unspecified; Z11.52 Encounter for screening for COVID-19
CPT/HCPCS: 36415; 71045; 80053; 80307; 81001; 82077; 83690; 83735; 85025; 87804; 87811; 93005; 96374; 96375; 99284; J2405; J7030

== ENCOUNTER 2024-12-25 19:49 | Emergency (ER) | payer SELFPAY ==
--- OUTSIDE RECORDS SUMMARY | 2024-12-25 19:54 | XMS REPORT | Continuity of Care Document ---
Author Name Unknown Address [address] [facility] [address] [place] [address] [facility] Address [address] [facility] [address] [place] [address] Care Team Providers Care Drip Box Tender Name Role Phone KARRIE BRAND Primary Care Physician Unavailab NANCY Calzada Attending Clinician UnavailNancy Caldwell DO Attending Clinician [phone] Oliverio Attending Clinician UnavailKarrie Raymond Attending Clinician [phone] KEELY CASTRO Attending Clinician Unavailable Keely Lima Attending Clinician Karrie Brand Attending Clinician Unavailable NANCY KOCH Admitting Clinician Christianne Barakat Admitting Clinician UnavailKarrie Raymond Admitting Clinician Unavailable Payers Payer Name Policy Type Policy Number Effective Date Expirati on Date Source [place] [id number] 2015 00:00:00 [place] [facility] (PP[place]) [id number] 2019 00:00:00 Problems Condition Name Condition Details [...] DRUG INGREDI Active Rash 07-11 00:00: 00 [facility] Diethylt oluamide Propensi ty to adverse reaction s Active Rash 07-11 00:00: 00 [facility] No Known Drug Allergie s DA Active U 07-23 00:00: 00 [facility] DEET DA Active DE ITCHINESS 07-23 00:00: 00 [facility] NO KNOWN ALLERGIE S Drug Class Active [facility] Social History Social Habit Start Date Stop Date Quantity Comments Source History of tobacco use 2013-07-29 00:00:00 Cigarette Smoker [facility] History SDOH Alcohol Frequency [facility] History SDOH Alcohol Std Drinks [facility] History SDOH Alcohol Binge [facility] intake 2023-07-12 00:00:00 2023-07-12 00:00:00 Current drinker of alcohol (finding) [facility] Exposure to SARS-CoV-2 (event) 2021-10-19 00:00:00 2021-10-29 23:16:00 Not sure [facility] History of Social function 2018-09-24 00:00:00 2018-09-24 00:00:00 [facility] Tobacco use and exposure 2018-07-29 00:00:00 2018-07-29 00:00:00 Smokeless tobacco non-user [facility] Alcohol Comment 2018-07-29 00:00:00 2018-07-29 00:00:00 socially [facility] Tobacco Comment 2018-07-29 00:00:00 2018-07-29 00:00:00 smokesabout 3 or 4 cigarettes per day [facility] Sex Assigned At 2000 00:00:00 2000 00:00:00 [facility] Smoking Status Start Date Stop Date Source Smokes tobacco daily 2018-07-29 00:00:00 [facility] Medications Ordered Medication Name Filled Medication Name Start Date Stop Date Current Medication? Ordering Clinician Indication Dosage Frequency Signature (SIG) Comments Components Source HYDROcodone -acetaminop hen (NORCO 5) 5-325 mg tablet 1 tablet 07-11 11:45: 00 07-11 11:35 :00 No 1{tbl} 1 tablet, Oral, ONCE, 1 dose, On 07/12/23 at 0645, LOVE [facility] ibuprofen (IBU) tablet 800 mg 07-11 11:45: 00 07-11 10:56 :00 No 800mg 800 mg, Oral, ONCE, 1 dose, On 07/12/23 at 0645, Routine [facility] doxycycline hyclate 100 mg capsule 10-29 00:00: 00 11-06 04:59 :00 No [id number] 100mg Take 1 capsule by mouth in the morning and 1 capsule in the evening. Do all this for 7 days. [facility] Diclofenac Sodium (VOLTAREN) 1 % gel 08-12 00:00: 00 10-29 00:00 :00 No [id number] 9103 Apply to area(s) daily. [facility] cyclobenzap rine 5 mg tablet 08-12 00:00: 00 10-29 00:00 :00 No [id number] 9103 5mg Take 1 tablet by mouth 3 (three) times daily as needed for Muscle Spasms. [facility] gabapentin 100 mg capsule 07-29 00:0010-29 00:00 :00 No [id number] 9103 100mg Take 1 capsule by mouth 3 (three) times daily as needed for Pain (scale 4-6). [facility] acetaminoph en 300 mg-codeine 30 [...] Systolic blood pressure 2023-07-12 11:37:00 139 mm[Hg] [facility] Diastolic blood pressure 2023-07-12 11:37:00 78 mm[Hg] [facility] Heart rate 2023-07-12 11:37:00 107 /min [facility] Body temperature 2023-07-12 11:37:00 36.5 Ana M [facility] Oxygen saturation in Arterial blood by Pulse oximetry 2023-07-12 11:37:00 99 /min [facility] Respiratory rate 2023-07-12 10:17:00 20 /min [facility] Body height 2023-07-12 10:17:00 170.2 cm [facility] Body weight 2023-07-12 10:17:00 61.236 kg [facility] BMI 2023-07-12 10:17:00 21.14 kg/m2 [facility] Systolic blood pressure 2021-10-30 04:18:00 101 mm[Hg] [facility] Diastolic blood pressure 2021-10-30 04:18:00 74 mm[Hg] [facility] Heart rate 2021-10-30 04:18:00 94 /min [facility] Body temperature 2021-10-30 04:18:00 37.06 Ana M [facility] Respiratory rate 2021-10-30 04:18:00 18 /min [facility] Body height 2021-10-30 04:18:00 175.3 cm [facility] Body weight 2021-10-30 04:18:00 58.968 kg [facility] BMI 2021-10-30 04:18:00 19.20 kg/m2 [facility] Oxygen saturation in Arterial blood by Pulse oximetry 2021-10-30 04:18:00 98 /min [facility] Procedures Procedure Date / Time Performed Performing Clinicia n Source XR, knee, 1 or 2 view 2021-11-14 00:00:00 [facility] INCISION AND DRAINAGE 2021-10-30 04:52:20 Franky Castro [facility] NOTICE OF PRIVACY PRACTICES 2021-10-30 04:06:52 Doctor Unassigned, [place] [facility] CONSENT/REFUSAL FOR DIAGNOSIS AND TREATMENT 2021-10-30 04:06:29 Doctor Unassigned, [place] [facility] XR, knee, 1 or 2 view 2021-09-12 [...] Department Encounter ID Source 2022-07-02 09:26:23 Outpatient [facility] [id number] [facility] 2022-06-26 14:19:07 Outpatient [facility] [id number] [facility] 2021-07-18 14:43:06 [facility] [id number] [facility] 2023-07-12 05:08:00 2023-07-12 06:49:00 Emergency X NANCY KOCH [facility] ERT [id number] [facility] 2023-07-12 05:08:00 2023-07-12 06:49:00 Emergency Nancy Koch [facility] [id number] [facility] 2021-11-14 00:00:00 2021-11-14 00:00:00 Karrie Brand MD: [address] [place] [phone] , Ph. [phone] [facility] [place] [facility] [place] [facility] [id number] [facility] 2021-11-14 00:00:00 2021-11-14 00:00:00 Outpatient Karrie Brand [facility] [id number] 2021-10-29 23:22:00 2021-10-30 00:13:00 Emergency X KEELY CASTRO [facility] ERT [id number] [facility] 2021-10-29 23:22:00 2021-10-30 00:13:00 Emergency Keely Castro [facility] [id number] [facility] 2021-09-12 00:00:00 2021-09-12 00:00:00 Karrie Brand MD: [address] [place] [phone] , Ph. [phone] [facility] [place] [facility] [place] [facility] [address] [id number] [facility] 2021-09-12 00:00:00 2021-09-12 00:00:00 Outpatient Karrie Brand [place] [id number] 2021-08-22 00:00:00 2021-08-22 00:00:00 Karrie Brand MD: [address] [place] [phone] , Ph. [phone] [facility] [place] [facility] [place] [facility] [address] [id number] [facility] 2021-08-22 00:00:00 2021-08-22 00:00:00 Outpatient Karrie Brand AO [id number] 2021-08-14 07:24:00 2021-08-16 15:26:00 Outpatient Karrie Winston OBSE [id number] [facility] 2021-08-14 07:24:00 2021-08-16 15:26:00 Outpatient Karrie Winston OBSE [id number] [facility] 2021-08-14 00:00:00 2021-08-14 00:00:00 Karrie Brand MD: [address] [place] [phone] , Ph. [phone] [place] [facility] [place] [facility] [id number] [facility] 2021-08-14 00:00:00 2021-08-14 00:00:00 Outpatient SundayKarrie AO [id number] 2021-08-08 00:00:00 2021-08-08 00:00:00 Outpatient Karrie Brand [facility] AO [id number] 2021-08-08 00:00:00 2021-08-08 00:00:00 Karrie Brand MD: [address] [place] [phone] , Ph. [phone] [place] [facility] [place] [facility] [id number] [facility] 2021-08-02 11:13:00 2021-08-02 11:13:00 Outpatient Karrie WinstonTO RADI [id number] [facility] 2021-08-01 00:00:00 2021-08-01 00:00:00 Karrie Brand MD: [address] [place] [phone] , Ph. [phone] [place] [facility] [place] [facility] [id number] [facility] 2021-07-24 11:29:00 2021-07-26 17:00:00 Outpatient Karrie Winston OBSE [id number] [facility] 2021-07-24 11:29:00 2021-07-26 17:00:00 Outpatient Karrie Winston OBSE [id number] [facility] 2021-07-25 00:00:00 2021-07-25 00:00:00 Joselo Fonseca, LPO: [address] [facility], [address], [place] [address] , Ph. [phone] [place] [facility] [place] [facility] [id number] [facility] 2021-07-23 00:00:00 2021-07-23 00:00:00 Karrie Brand MD: [address] [place] [address] , Ph. [phone] [facility] [place] [facility] [place] [facility] [address] [id number] [facility] Results Test Description Test Time Test Comments Results Result Co mments Source CBC W/AUTO [id number] 05:44:00* Test Item Value Reference Range Interpretation [...] N CBC W Auto Differential panel - [id number] 04:56:00* Test Item Value Reference Range Interpretation [...] performing lab: (test code = performing lab:) [facility] [id number] 04:56:00* Test Item Value Reference Range Interpretation [...] performing lab: (test code = performing lab:) [facility] Coronavirus 2019 [id number] 00:46:00* Test Item Value Reference Range Interpretation Comme nts Novel Coronavirus 2019 Inhouse (test code = COVNONPUI) Negative Negative Positive resul ts are indicative of the presence geVAYU-KyK-1 RNA, clinical correlation with patient historyand other [...] the qualitative detection of nucleic acids from sswLSQC-CdZ-2 virus and diagnosis of SARS-CoV-2 virusinfection. It is an Emergency Use Authorization (EUA) testauthorized by the U.S. FDA. Novel Coronavirus 2019 [id number] 00:45:00* Test Item Value Reference Range Interpretation Comme nts Novel Coronavirus 2019 Inhouse (test code = COVNONPUI) Negative Negative Positive resul ts are indicative of the presence uhPYVR-NzY-1 RNA, clinical correlation with patient historyand other [...] the qualitative detection of nucleic acids from mcrFFIM-FeI-3 virus and diagnosis of SARS-CoV-2 virusinfection. It is an Emergency Use Authorization (EUA) testauthorized by the U.S. FDA. CBC W/AUTO [id number] 20:46:00* Test Item Value Reference Range Interpretation [...] = NRBC) 0 % 0-0 N SED [id number] 20:46:00* Test Item Value Reference Range Interpretation Comme nts SED RATE (test code = SEDW) 32 mm/hr 0-15 H COMPREHENSIVE METABOLIC [id number] 19:04:00* Test Item Value Reference Range Interpretation [...] 103.2 >60 Unit of m easure: mL/min/1.73 j6Otdpqgqzd Range:Healthy Adults >90 mL/min/1.73 m2 For Chronic [...] ALKP) 131 U/L 46-116 H C REACTIVE [id number] 19:04:00* Test Item Value Reference Range Interpretation Comme nts C REACTIVE PROTEIN (test cod e = CRP) < 0.2 mg/dL <0.9 PROTHROMBIN [id number] 18:58:00* Test Item Value Reference Range Interpretation [...] Patient is on Heparin Drip? NOTHROMBOPLASTIN TIME [id number] 18:58:00* Test Item Value Reference Range Interpretation Comme nts PTT ACTIVATED (test code = APTT) 28.2 secs 26.6-34.6 N Please note new normal range. IS PATIENT ON ANTICOAGULANTS ? YLIST ANTICOAGULANT/ANTI PLT MEDICATION : AspirinHas Lab been notified if Patient is on Heparin Drip? NOnovel coronavirus 2019 [id number] 17:57:00* Test Item Value Reference Range Interpretation Comme nts novel coronavirus 2019 inhou se (test code = novel coronavirus 2019 inhouse) negative negative performing lab: (test code = performing lab:) [facility] [id number] 17:41:00* Test Item Value Reference Range Interpretation Comme nts sed rate (test code = sed rate) 32 mm/HR 0-15 H performing lab: (test code = performing lab:) [facility] (PT)2021-08-08 17:41:00* Test Item Value Reference Range Interpretation Comme nts prothrombin time patient (te st code = prothrombin time patient) 13.0 secs 9.7-12.5 H international normal ratio ( test code = international normal ratio) 1.17 <2.0 performing lab: (test code = performing lab:) [facility] time [id number] 17:41:00 * Test Item Value Reference Range Interpretation Comme nts PTT activated (test code = P TT activated) 28.2 secs 26.6-34.6 performing lab: (test code = performing lab:) [facility] Hospital[facility] 2000 panel - Serum or [id number] 17:41:00* Test Item Value Reference Range Interpretation [...] performing lab: (test code = performing lab:) [facility] reactive [id number] 17:41:00* Test Item Value Reference Range Interpretation Comme nts C reactive protein (test cod e = C reactive protein) < 0.2 <0.9 performing lab: (test code = performing lab:) [facility] W Auto Differential panel - [id number] 17:41:00* Test Item Value Reference Range Interpretation [...] performing lab: (test code = performing lab:) [facility]- DUP VEIN UNI/[id number] 12:31:00 [facility]ESY : 2000 Sex: M Patient Name: ANDREY BARNES Unit No: [id number] EXAMS: CPT CODE: [id number] DUP VEIN UNI/LTD 93298 FINDINGS: Right lower extremity grayscale and Doppler venous ultrasound demonstrates normal flow and luminal compressibility without evidence of intraluminal thrombus. IMPRESSION: No evidence ofDVT within deep venous structures of the right lower extremity. at 1231 Reported and signed by: Anibal Hollins M.D. CC: Karrie Brand MD Technologist: MCKENZIE MARTÍNEZ RDMS, RVT Transcribed D/ (1231) KyraSLJ [facility] NAME: ANDREY BARNES [address] [facility] PHYS: BRIMA. - Karrie Brand MD : 2000 AGE: 21 SEX: M [place] [address] LOC: Y.RAD PHONE #: [phone] EXAM DATE: 08/02/2021 STATUS: REG CLI FAX #: [phone] RAD #: D/C DT PAGE 1 Signed Report Patient Name: ANDREY BARNES Unit No: [id number] EXAMS: CPT CODE: [id number] DUP VEIN UNI/LTD 72990 (Continued) Orig Print D/T: S: 08/02/2021 (1235) [facility] NAME: ANDREY BARNES [address] [facility] PHYS: BRIMA. - Karrie Brand MD : 2000 AGE: 21 SEX: M [place] [address] LOC: Y.RAD PHONE #: [phone] EXAM DATE: 08/02/2021 STATUS: REG CLI FAX #: [phone] RAD #: D/C DT PAGE 2 Signed Report- CT LOWER EXTRM W/O C [id number] 09:46:00 [facility] : 2000 Sex: M Patient Name: ANDREY BARNES JR Unit No: [id number] EXAMS: CPT CODE: [id number] CT LOWER EXTRM W/[place] [address] CT OF THE RIGHT KNEE WITH SAGITTAL [...] with ACR practice standards and adherence to decorating kiln operator's recommendations. A tibial fracture are present as described. No other fractures are seen at 0946 Reported and signed by: Derrick Singh MD CC: Karrie Brand MD; Brenda WARE Technologist: Ernesto Keenan,RT(R) CTDI: DLP: Trnscrpt: 07/25/2021 (0946) KyraJCL [facility] NAME: ANDREY BARNES [address] [facility] PHYS: BRIMA. - Karrie Brand MD : 2000 AGE: 21 SEX: M [place], [place] [address] LOC: Y.321 A PHONE #: [phone] EXAM DATE: 07/25/2021 STATUS: REG [facility] FAX #: [phone] RAD #: D/C DT PAGE 1Signed Report Patient Name: ANDREY BARNES JR Unit No: [id number] EXAMS: CPT CODE: [id number] CT LOWER EXTRM W/[place] [address] (Continued) Orig Print D/T: S: 07/25/2021 (1352) [facility] NAME: ANDREY BARNES [address] [facility] PHYS: BRIMA. - Karrie Brand MD : 2000 AGE: 21 SEX: M [place], [place] [address] LOC: YJeremias A PHONE #: [phone] EXAM DATE: 07/25/2021 STATUS: REG SDC FAX #: [phone] RAD #: D/C DT PAGE 2 Signed ReportBASIC METABOLIC [id number] 06:59:00* Test Item Value Reference Range Interpretation [...] 133.1 >60 Unit of m easure: mL/min/1.73 r5Rntjeugap Range:Healthy Adults >90 mL/min/1.73 m2 For Chronic Kidney Disease: Stage II Mild Decrease in GFR 60-90 Stage III Moderate Decrease in GFR 30-59 Stage IV Severe Decrease in GFR 15-29 Stage V Kidney Failure <15 CREATININE (test code = CREAT) 0.73 mg/dL 0.55-1.30 N CALCIUM (test code = CA) 8.8 mg/dL 8.2-10.1 N CBC W/AUTO [id number] 06:02:00* Test Item Value Reference Range Interpretation [...] N CBC W Auto Differential panel - [id number] 04:45:00* Test Item Value Reference Range Interpretation [...] code = performing lab:) [facility] [id number] 04:45:00* Test Item Value Reference Range Interpretation [...] performing lab: (test code = performing lab:) [facility] REACTIVE [id number] 04:46:00* Test Item Value Reference Range Interpretation Comme nts C REACTIVE PROTEIN (test cod e = CRP) 5.0 mg/dL 0.6-1.2 H ACUTE HEPATITIS [id number] 04:46:00* Test Item Value Reference Range Interpretation [...] = HIV1AB) NONREACTIVE NONREACTIVE Done by [employer] 4th Gen HIV Ag/Ab Combo Screen ACUTE HEPATITIS [id number] 04:45:00* Test Item Value Reference Range Interpretation [...] AB HIV 1 2 (test code = OXX83UG) NONREACTIVE NONREACTIVE Done by [employer] 4th Gen HIV Ag/Ab Combo Screen C REACTIVE [id number] 00:46:00* Test Item Value Reference Range Interpretation Comme nts C REACTIVE PROTEIN (test cod e = CRP) 5.0 mg/dL 0.6-1.2 H COMPREHENSIVE METABOLIC [id number] 23:59:00* Test Item Value Reference Range Interpretation [...] 119.8 >60 Unit of m easure: mL/min/1.73 c0Zxoatjdto Range:Healthy Adults >90 mL/min/1.73 m2 For Chronic Kidney Disease: Stage II Mild Decrease in GFR 60-90 Stage III Moderate Decrease in GFR 30-59 Stage IV Severe Decrease in GFR 15-29 Stage V Kidney Failure <15Unit of measure: mL/min/1.73 u5Oiadhepfa Range:Healthy Adults >90 mL/min/1.73 m2 For Chronic [...] ALKP) 194 units/L 46-116 H COMPREHENSIVE METABOLIC [id number] 23:58:00* Test Item Value Reference Range Interpretation [...] units/L 46-116 H COVID 19 Asymptomatic IH [id number] 20:17:00* Test Item Value Reference Range Interpretation Comme nts COVID 19 Asymptomatic IH AG (test code = COVNONPUIAG) NEGATIVE NEGATIVE CBC W/AUTO [id number] 18:03:00* Test Item Value Reference Range Interpretation [...] = NRBC) 0 % 0-0 N SED [id number] 18:03:00* Test Item Value Reference Range Interpretation Comme nts SED RATE (test code = SEDW) 78 mm/hr 0-15 H PROTHROMBIN [id number] 18:00:00* Test Item Value Reference Range Interpretation [...] intravascular valves IS PATIENT ON ANTICOAGULANTS ? [facility] been notified if Patient is on Heparin Drip? NOTHROMBOPLASTIN TIME [id number] 18:00:00* Test Item Value Reference Range Interpretation Comme nts PTT ACTIVATED (test code = APTT) 33.6 secs 26.6-34.6 N Please note new normal range. IS PATIENT ON ANTICOAGULANTS ? [facility] been notified if Patient is on Heparin Drip? NOProthrombin time (PT)2021-07-23 14:40:00* Test Item Value Reference Range Interpretation Comme nts prothrombin time patient (te st code = prothrombin time patient) 12.7 secs 9.7-12.5 H international normal ratio ( test code = international normal ratio) 1.14 <2.0 performing lab: (test code = performing lab:) [facility] [id number] 14:40:00 * Test Item Value Reference Range Interpretation Comme nts PTT activated (test code = P TT activated) 33.6 secs 26.6-34.6 performing lab: (test code = performing lab:) [facility] W Auto Differential panel - [id number] 14:40:00* Test Item Value Reference Range Interpretation [...] performing lab: (test code = performing lab:) [facility] [place] [facility] [id number] 14:40:00* Test Item Value Reference Range Interpretation Comme nts sed rate (test code = sed rate) 78 mm/HR 0-15 H performing lab: (test code = performing lab:) [facility] MedicineComprehensive metabolic 2000 panel - Serum or [id number] 14:40:00* Test Item Value Reference Range Interpretation [...] performing lab: (test code = performing lab:) [facility] reactive [id number] 14:40:00* Test Item Value Reference Range Interpretation Comme nts C reactive protein (test cod e = C reactive protein) 5.0 mg/dL 0.6-1.2 H performing lab: (test code = performing lab:) [facility] hepatitis [id number] 14:40:00* Test Item Value Reference Range Interpretation [...] performing lab: (test code = performing lab:) [facility] HIV 14:40:00* Test Item Value Reference Range Interpretation Comme nts Ab HIV 1 (test code = Ab HIV 1) nonreactive nonreactive performing lab: (test code = performing lab:) [facility]cov[facility] asymptomatic ih [id number] 13:09:00 * Test Item Value Reference Range Interpretation Comme nts covid 19 asymptomatic ih Ag (test code = covid 19 asymptomatic ih Ag) negative negative performing lab: (test code = performing lab:) [facility] Notes Date/Time Note Provider Source 2023-07-12 06:48:03 Pt given printed and verbal discharge instructions regarding RLE pain, encouraged RICE, Discussed ibuprofen and to take with food to avoid GI distress, alternate with Tylenol to help with pain and/or fever Discussed norco side affects and to avoid driving/operating machinery/or engaging in activities requiring alertness while taking. Pt verbalized understanding of instructions,pt encouraged to follow up with pcp and or ortho Advised to seek medical attention for new/prolonged/worsening of symptoms, No adverse reaction to meds given in ER noted upon discharge Awake, alert oriented, resp reg unlabored, skin w/d, pt leaving in no apparent distress, [facility] 2023-07-12 06:11:11 EDP at bedside [facility] 2023-07-12 05:13:12 CC: Pt reports fall backwards, injuring right lower leg 1 hr ago. Pt has previous [facility] to R[facility]: liver problems, hairline fracture last month to RLE, 1 yr ago had external fixation to RLE Awake, alert, oriented, resp reg unlabored, skin warm, color appropriate for race, moves all ext without difficulty. Pt reports drinking alcohol tonight [facility] 2023-07-12 05:08:00 [facility] Emergency Department Note Patient Name: Andrey Barnes Jr. Date of : 2000 23 year old male Treatment Room: TX1/CT1 Primary Care Physician: No primary care provider on file. Patient Escorted by: Self [9] Mode of Arrival: Personal means [1] EMS Treatment Prior to ED Arrival: MATERIAL PLANNER treatment: None Travel and Exposure Screening: Symptoms Does patient have any of these symptoms?: (not recorded) Exposure Screening Has patient had contact with someone with a communicable disease in the last month?: (not recorded) Diseases exposed to:: (not recorded) Is Patient ?: (not recorded) Exposure Date: (not recorded) Chief Complaint: Chief Complaint Patient presents with Leg Pain History of Present Illness: The patient presents from home for evaluation for pain to his right lower leg. He had a previous fracture to that leg that required surgery as well as an external fixator. He reports he was recently allowed to go back to walking without crutches. [place] the [place] today when he suffered a fall and has had pain and swelling to his right lower leg. He is concerned he refractured the area. No medications taken prior to arrival. Here for evaluation. Past Medical History/Immunizations: History reviewed. No pertinent past medical history. Tetanus received in last 5 years: Yes Allergies: Allergies Allergen Reactions Insect Repellent (Deet) [Diethyltoluamide] Rash Past Social History: Tobacco Use Every Day; Cigarettes: Started 07/29/2013 Smokeless Tobacco: Never used smokeless tobacco. Comments: smokesabout 3 or 4 cigarettes per day Alcohol Use Yes. Comments: socially Drug Use No. Sexual Activity Sexually active; Partners: Female; Control/Protection: None. Past Surgical History: Past Surgical History: Procedure Laterality Date LUMBAR PUNCTURE WY ANES NERVE MUSC TENDON FASCIA&BURSA KNEE&/POPLT Right Review of Systems: Review of Systems Constitutional: Negative for chills and fever. Respiratory: Negative for cough. Cardiovascular: Negative for chest pain. Gastrointestinal: Negative for abdominal pain. Genitourinary: Negative for dysuria. Musculoskeletal: Positive for arthralgias. Negative for neck pain and neck stiffness. Skin: Negative for wound. Neurological: Negative for dizziness. Psychiatric/Behavioral: Negative for agitation. Endocrine: Negative for goiter. Physical Exam: ED Triage Vitals [07/12/23 0517] Weight 61.2 kg (135 lb) Actual or estimated Estimated by patient/family report Height 1.702 m (5' 7") BP Pulse 111 Resp 20 Temp 36.5 ?C (97.7 ?F) Temp source Oral SpO2 98 % Measured on Room air Physical Exam Vitals and nursing note reviewed. Constitutional: Appearance: Normal appearance. HENT: Head: Normocephalic and atraumatic. Cardiovascular: Rate and Rhythm: Normal rate. Pulmonary: Effort: Pulmonary effort is normal. Abdominal: General: There is no distension. Musculoskeletal: General: Swelling and tenderness present. Normal range of motion. Cervical back: Neck supple. Comments: Swelling to anterior mid right lower leg FROM right knee and ankle. +2 dp right side Skin: General: Skin is warm and dry. Neurological: General: No focal deficit present. Mental Status: He is alert and oriented to person, place, and time. Radiology: XR TIBIA FIBULA 2 VW RIGHT Preliminary Result EXAM: XR TIBIA FIBULA 2 VW RIGHT HISTORY: 23 years old Male; right leg pain COMPARISON: None FINDINGS: Radiographs of the right tibia-fibula demonstrate plate and screw fixation of the tibial condylar fracture. Soft tissue swelling is present about the region of mid tibial ghost track. IMPRESSION Plate and screw fixation of the tibial plateau fracture. Preliminary Report Dictated by Resident: Ines Cat Lab Results: Lab Results - No data to display EKG: If EKG completed, see Procedure Note. Orders and Treatments: Orders Placed This Encounter Procedures XR TIBIA FIBULA 2 VW RIGHT Orders Placed This Encounter Medications ibuprofen (IBU) tablet 800 mg First Provider Eval: ED Events Date/Time Event User Comments 07/12/23521 Medical Screening Begins NANCY KOCH DO -- 07/12/23521 First Provider Evaluation NANCY KOCH DO -- ED COURSE Diagnosis/Impression as of 07/12/23627 Pain of right lower extremity Procedures: Procedures MDM: Medical Decision Making The patient presents from home for evaluation for right leg pain that occurred just prior to arrival when he had a slip and fall on the beach. He had a prior fracture to the right lower leg requiring an external fixator as well as surgery and was recently released from using crutches. He is concerned he may have rebroken the leg. He denies any medications for his pain today. Vital signs are stable in the ER. He has full range of motion of his right knee and ankle. +2 dorsalis pedis right side. He has swelling noted to the anterior mid portion of his right lower leg. Will obtain x-ray to evaluate possible fracture. Anticipate discharge home later. 626 -the patient is doing well here in the ER. The x-ray of his right tib-fib shows no acute osseous injuries but he does have a ghost track visible to the right tibia. He was given a posterior long-leg splint and advised to remain nonweightbearing to that right leg until he follows up with Ortho in 1 week. He remained stable here in the ER and is okay for discharge home with PCP follow-up. Problems Addressed: Pain of right lower extremity: acute illness or injury Amount and/or Complexity of Data Reviewed Radiology: ordered and independent interpretation performed. Decision-making details documented in ED Course. Risk OTC drugs. Prescription drug management. Flowsheet Documentation: Scoring Tools: No data recorded Disposition/Condition: ED Disposition ED Disposition Disch - Home Condition Stable Comment -- Discharge Medications: Patient's Medications No medications on file Follow-up: Contact information for follow-up Karrie Brand Specialty: ORT-ORTHOPAEDIC SURGERY Relationship: PCP - General [address] [place] [phone] Electronically signed by: Nancy Koch DO 07/12/23627 [facility] 2021-09-03 09:27:00 [id number] [place] [address] PATIENT NAME: ANDREY BARNES JR ADMIT DATE: 08/14/21 ACCOUNT NO: [id number] ROOM NO: AGE: 21 REPORT TYPE: OPERATIVE REPORT SEX: M ADMITTING PHYSICIAN: ATTENDING PHYSICIAN:Karrie Brand MD OPERATION DATE: 08/14/2021 SURGEON: Karrie Brand MD. ALMOND GRINDER: Brenda Marsh physician food and beverage assistant manager certified PREOPERATIVE DIAGNOSIS: Displaced bicondylar fracture of right tibia, initial encounter for closed fracture (ICD-10 #S82.141A). POSTOPERATIVE DIAGNOSIS: Displaced bicondylar fracture of right tibia, initial encounter for closed fracture (ICD-10 #S82.141A). PROCEDURES: 1. Removal of Ilizarov external fixator, right tibia. 2. Open reduction and internal fixation of bicondylar tibial plateau fracture. ANESTHESIA: Per anesthesia team and was general endotracheal. COMPLICATIONS: None. TOURNIQUET TIME: ____. PROCEDURE IN DETAIL: After obtaining informed consent, the patient was brought to the operating room and placed in supine position. Anesthesia was per anesthesia team and was general endotracheal. The right lower extremity was prepped and draped in the normal sterile fashion. Following this, the Ilizarov frame was removed. All half pins and wires were removed and cut and the Ilizarov frame was slid off the right lower extremity. All wires and pins and half pins were then removed atraumatically and the pin sites were debrided of skin, subcutaneous tissue, muscle, and bone. Following this, the leg was once again reprepped and the pin sites were covered using occlusive sticky dressings. Following proper prepping and draping, the fixation of the bicondylar tibial plateau fracture commenced. A curvilinear lateral incision was performed after elevating the leg for 5 minutes and elevating the tourniquet to 350 mmHg. Dissection was carried down through skin and subcutaneous tissue. Hemostasis was achieved using electrocautery. The fascial compartment was released and dissection was carried down to the lateral aspect of the proximal tibia as well as the proximal portion of the tibial shaft. Care was taken to protect all neurovascular structures. Following this, the lateral plateau fragment was booked open and the central portion of the plateau was noted to be highly comminuted. Multiple attempts PATIENT NAME: ANDREY BARNES were necessary to reduce this and no real bony ridges were available. Threaded guide pins were then placed for articular fixation and the lateral wall was then closed, a lateral plate was placed and a small medial incision was made and bone reduction clamps were used to reduce the width of the tibial plateau. Acceptable reduction was achieved; however, this reduction was imperfect and it was not felt that a perfect reduction was available as there was marginal impaction and severe fragmentation of articular fragments, some of which were debrided from the wound. Multiple screws were then placed in the plate fixing not only the lateral, but also the medial plateau segment. Excellent stability was achieved. The knee was brought through a range of motion and there was no clicking or grinding or catching. A submeniscal arthrotomy had been performed and was repaired using suture. AP and lateral fluoroscopic image showed improvement of the anatomy, although again an imperfect reduction. The wound was irrigated using copious saline solution. The deep tissue was closed using 0 Vicryl in an interrupted fashion, intermediate tissue was closed using 0 Vicryl in an interrupted fashion, subcutaneous tissue closed using 2-0 Vicryl, and skin was coapted using klaudia. It should be noted that the closure was performed by Dr. Petersen of the plastic reconstructive service. This will be dictated in greater detail by Dr. Petersen as he was responsible for wound closure and will dictate this. Following this, bulky sterile dressings were applied. Anesthesia was reversed. The patient was taken to the recovery room where it was noted that the toes had good capillary refill. There were no complications of this procedure. The skilled assistance of Brenda Marsh, physician's food and beverage assistant manager certified, was necessary during this complex, instrumented open reduction and internal fixation of a bicondylar tibial plateau fracture. She assisted with every aspect of the operation including, but not limited to, proper and safe positioning of the patient, obtaining adequate surgical exposure, manipulation of surgical instruments, and the delicate task of providing suction to the surgical wound. In addition, she assisted with reduction of the tibial plateau fracture and the continual process of hemostasis during the procedure itself. She also assisted Dr. Petersen with surgical wound closure. The physician food and beverage assistant manager performed and supervised the surgical team with removal of the patient from the operating table and returning the patient back to the [facility]. Ms. Marsh's assistance allowed me to perform the most sensitive and technical portions of this operation using two hands, thus enhancing the patient's safety. This would not be possible without the help of the skilled food and beverage assistant manager familiar with the procedure and capable of safely performing the aforementioned tasks. Our facility is not a teaching hospital, and as such, no surgical residents or interns were available to assist. Dictated By: Karrie Brand MD PATIENT NAME: ANDREY BARNES JR WT: OP:TRA/LIGIA./NTS Conf#: [id number]/DID#: [id number] Authenticated by Karrie Brand MD On 09/07/2021 01:54:25 PM at 0154 PATIENT NAME: ANDREY BARNES JR [facility] 2021-08-29 14:49:00 [id number] [place] [address] PATIENT NAME: ANDREY BARNES JR ADMIT DATE: 08/14/21 ACCOUNT NO: [id number] ROOM NO: AGE: 21 REPORT TYPE: OPERATIVE REPORT SEX: M ADMITTING PHYSICIAN: ATTENDING PHYSICIAN:Karrie Brand MD OPERATION DATE: 08/14/2021 INTRAOPERTIVE CONSULT SURGEON: Jasper Petersen MD ALMOND GRINDER: PREOPERATIVE DIAGNOSIS: Right knee tibial plateau fracture, open wound right lateral knee. POSTOPERATIVE DIAGNOSIS: Right knee tibial plateau fracture, open wound right lateral knee. TITLE OF THE PROCEDURE: 1. Coverage of wound over orthopedic hardware 15 x 8 cm 2. Elevation and advancement of the iliotibial tract tendon with the repair. 3. Elevation and advancement of tibialis muscle with repair. 4. Elevation and advancement of fasciocutaneous flaps, right lateral knee, 15 cm. ANESTHESIA: General endotracheal anesthesia. INDICATIONS FOR PROCEDURE: The patient is a 21-year-old male status post right knee tibial plateau fracture. The patient had open reduction and internal fixation by the orthopedic surgery service and they will dictate that portion separately. Plastic surgery service was consulted intraoperatively to [...] over the orthopedic PATIENT NAME: ANDREY BARNES hardware was then done utilizing 2- 0 PDS. The patient had elevation and advancement of fascia and closure with 2- 0 PDS. The patient then underwent elevation of fasciocutaneous flaps 15x 8 cm. The patient then underwent advancement and complex wound closure utilizing 2-0 Monocryl deep dermal, followed by running 3-0 Monocryl subcuticular. The patient then had final layer klaudia placed. The patient was then placed in a splint by the orthopedic surgery service and they will dictate that portion separately. Upon completion, the patient was then extubated. He was awake, following extubation, was taken to recovery room in a stable condition. BLOOD LOSS: For the plastic surgery service minimal. COMPLICATIONS: None. COUNTS: Sponge and needle counts correct. Dictated By: Jasper Petersen MD WT: OP:YKEV/CORY/LESLIE Conf#: [id number]/DID#: [id number] Authenticated and Edited by Jasper Petersen MD On 09/04/21 3:00:18 PM at 0301 PATIENT NAME: ANDREY BARNES JR [facility] 2021-08-16 11:57:00 [facility] ([facility]) Orthopaedic Progress Note REPORT#:[id number] REPORT STATUS: Signed DATE:08/16/21 TIME: 1157 PATIENT: ANDREY BARNES JR UNIT #: [id number] ROOM/BED: [address] : 98 AGE: 21 SEX: M ATTEND: Karrie Bradn MD ADM AUTHOR: Karrie Brand MD * ALL edits or amendments must be made on the electronic/computer document * Subjective Patient reports: Yes: ambulating with therapy, pain, pain controlled. Objective VS: Last Documented: Result Date Time Pulse Ox 100 08/16 1152 B/P 111/70 08/16 1152 B/P Mean 83.4 08/16 1152 O2 Delivery Room air 08/16 1152 Temp 96.4 08/16 1152 Pulse 90 08/16 1152 Resp 16 08/16 1152 O2 Flow Rate 3 08/15 1900 FiO2 28 08/15 0230 PATIENT WEIGHT: Weight (lb): 123 Weight (oz): 7.34 Weight (kg): 55.792 Medications: Active Meds + DC'd Last 24 Hrs Magnesium Hydroxide (MILK OF MAGNESIA) 30 ML BEDTIME [...] Hydromorphone HCl (DILAUDID 20 MG/NS 100 ML CONCERT PROMOTER) 100 ML ASDIR IV (CKD) IV Miscellaneous Supplies (CONCERT PROMOTER [place]) 1 EA ASDIR MISC Naloxone HCl [...] 100 MG Q4H PRN PRN PO Physical Exam General appearance: alert, oriented, no acute distress Extremities: RLE with dressing C/D/I. Knee immobilizer in place. NVI. Negative compartment syndrome. Diagnosis, Assessment Plan Free text A P: POD#2 s/p ORIF of left tibia plateau fracture with removal of Ilizarov - DVT prophylaxis - Pain control - PT - NWB to LLE - NVI - Plan for d/c home today. - Take 81 mg ASA daily once home for DVT prophylaxis. - Pain medication per pain management. at 1159 RPT #:[id number] END OF REPORT [facility] 2021-08-16 10:21:00 [facility] ([facility]) Clinical Note REPORT#:[id number] REPORT STATUS: Signed DATE:08/16/21 TIME: 1021 PATIENT: ANDREY BARNES UNIT #: [id number] [facility] AGE: 21 SEX: M ATTEND: Karrie Brand MD ADM AUTHOR: Brandon Dugan MD * ALL edits or amendments must be made on the electronic/computer document * Clinical Note Note: [facility] Brandon Baron M.D. (cell text [phone]) Assessment/Plan 1.) Anemia of acute blood loss- .Hgb 9.5 -08/15/21, asymptomatic. 2.) S/p Treatment of right fibula fracture with ORIF, external fixator removal, bone grafting, I D of pin and wire sites .acute multi-modal pain control and followup. Anticoagulation as per Dr. Brand. 3.) Mild Hyponatremia- .has been avoiding XS fluid intake. * OK for DISCHARGE per Internal Medicine. * Will eRx pain medication (covering for Dr. Reed). Prior Events/Overnight: Uneventful. Chief Complaint: No significant complaints. Objective Vital Signs Date Temp Pulse Resp B/P B/P Mean Pulse Ox FiO2 08/15-08/16 97.0-98.8 87-111 15-18 112-127/66-73 83.6-90.9 98-100 Gen: Alert, oriented, in mild to moderate discomfort Neck: No Masses, No Thyromegaly- CV: Regular Rate Rhythm / Edema- no significant Resp: Clear To Ascultation / Normal Respiratory Effort ABD: NonTender / NonDistended MS/Skin: No sign of compartment syndrome / +toes DF/PF Other: Labs/X-ray: none Brandon Baron M.D. at 1148 RPT #:[id number] END OF REPORT [facility] 2021-08-15 17:23:00 [facility] ([facility]) Op/Inv Procedure Note - Brief REPORT#:[id number] REPORT STATUS: Signed DATE:08/15/21 TIME: 1723 PATIENT: ANDREY BARNES UNIT #: [id number] ROOM/BED: [address] : 98 AGE: 21 SEX: M ATTEND: Karrie Brand MD ADM AUTHOR: Karrie Brand MD * ALL edits or amendments must be made on the electronic/computer document * Op/Inv Proc Note - Brief TEXT Brief Op/Inv Procedure Note Note details: *PRE-PROCEDURE DIAGNOSIS: Left tibial bicondylar plateau fracture *POST-PROCEDURE DIAGNOSIS: Same *PROCEDURE(S) PERFORMED: 1. ORIF left tibia bicondylar plateau fracture 2. Removal of left leg Ilizarov external fixator 3. I D pin sites *PRIMARY SURGEON: Karrie Brand *ALMOND GRINDER(S): Brenda Marsh PA-C ANESTHETIC: General *ESTIMATED BLOOD LOSS in ml's: 200 cc *SPECIMEN(S) REMOVED: None *COMPLICATIONS: None DRAIN(S): None[] TUBE(S): None[] IMPLANT(S): None[] FLUIDS: [] URINE OUTPUT: [] *FINDINGS: Displaced, comminuted bicondylar plateau fracture. DISPOSITION: To PACU at 1725 RPT #:[id number] END OF REPORT [facility] 2021-08-15 17:17:00 [facility] ([facility] Orthopaedic Progress Note REPORT#:[id number] REPORT STATUS: Signed DATE:08/15/21 TIME: 1717 PATIENT: ANDREY BARNES UNIT #: [id number] ROOM/BED: [address] : 98 AGE: 21 SEX: M ATTEND: Karrie Brand MD ADM AUTHOR: Karrie Brand MD * ALL edits or amendments must be made on the electronic/computer document * Subjective Patient reports: Yes: pain. No: ambulating with therapy. Objective VS: Last Documented: Result Date Time Pulse Ox 98 08/15 1537 B/P 112/69 08/15 1537 B/P Mean 83.8 08/15 1537 O2 Delivery Room air 08/15 153 Temp 97.0 08/15 1537 Pulse 87 08/15 1537 Resp 15 08/15 1537 FiO2 28 08/15 0230 O2 Flow Rate 2 08/15 0230 PATIENT WEIGHT: Weight (lb): 123 Weight (oz): 7.34 Weight (kg): 55.792 Medications: Active Meds + DC'd Last 24 Hrs Magnesium Hydroxide (MILK OF MAGNESIA) 30 ML BEDTIME [...] Hydromorphone HCl (DILAUDID 20 MG/NS 100 ML CONCERT PROMOTER) 100 ML ASDIR IV (CKD) IV Miscellaneous Supplies (CONCERT PROMOTER [place]) 1 EA ASDIR MISC Naloxone HCl [...] (XYLOCAINE) 2 ML PREOP SUBQ (DC) Physical Exam General appearance: alert, oriented, no acute distress Extremities: RLE with dressing C/D/I. Knee immobilizer in place. NVI. Negative compartment syndrome. Diagnosis, Assessment Plan Free text A P: POD#1 s/p ORIF of left tibia plateau fracture with removal of Ilizarov - DVT prophylaxis - Pain control - PT - NWB to LLE - NVI - Consider d/c tomorrow if pain controlled and working well with PT. at 1723 RPT #:[id number] END OF REPORT [facility] 2021-08-15 10:09:00 [facility] ([facility]) Clinical Note REPORT#:[id number] REPORT STATUS: Signed DATE:08/15/21 TIME: 100 PATIENT: ANDREY BARNES JR UNIT #: [id number] ROOM/BED: [address] : 98 AGE: 21 SEX: M ATTEND: Karrie Brand MD ADM AUTHOR: Brandon Dugan MD * ALL edits or amendments must be made on the electronic/computer document * Clinical Note Note: [facility] Brandon Baron M.D. (cell text [phone]) Assessment/Plan 1.) Anemia of acute blood loss- .Hgb 9.5, asymptomatic. 2.) S/p Treatment of right fibula fracture with ORIF, external fixator removal, bone grafting, I D of pin and wire sites .acute multi-modal pain control and followup. Anticoagulation as per Dr. Brand. 3.) Mild Hyponatremia- .discussed avoiding XS fluid intake the next 24 hrs. * OK for DISCHARGE per Internal Medicine. Prior Events/Overnight: Uneventful. Chief Complaint: No significant complaints. Objective Vital Signs Date Temp Pulse Resp B/P B/P Mean Pulse Ox FiO2 08/14-08/15 97.3-98.6 77-105 12-20 95-120/59-78 76.4-91.4 98-100 28 Gen: Alert, oriented, in mild discomfort Neck: No Masses, No Thyromegaly- CV: Regular Rate Rhythm / Edema- no significant Resp: Clear To Ascultation / Normal Respiratory Effort ABD: NonTender / NonDistended MS/Skin: No sign of [...] (Auto) (20 - 40 %) 16.5 L [place] % (Auto) (3 - 10 %) 6.9 Eos % (Auto) (1 - 5 %) 0.3 L Baso % (Auto) (0.0 - 1.1 %) 0.3 Neut # (Auto) (2.00 - 7.50 K/mm3) 8.13 H Lymph # (Auto) (1.50 - 4.00 K/mm3) 1.78 [place] # (Auto) (0.2 - 0.8 K/mm3) 0.75 Eos # (Auto) (0.04 - 0.4 K/mm3) 0.03 L Baso # (Auto) (0.02 - 0.10 K/mm3) 0.03 Add Manual Diff (MANUAL DIFF) NO Nucleated RBC % (0 - 0 %) 0 Brandon Baron M.D. at 1129 RPT #:[id number] END OF REPORT [facility] 2021-08-14 18:02:00 [facility] ([facility]) Clinical Note REPORT#:[id number] REPORT STATUS: Signed DATE:08/14/21 TIME: 1801 PATIENT: ANDREY BARNES UNIT #: [id number] ROOM/BED: [facility]-A : 98 AGE: 21 SEX: M ATTEND: Karrie Brand MD ADM AUTHOR: Brandon Dugan MD * ALL edits or amendments must be made on the electronic/computer document * Clinical Note Note: [facility] Brandon Baron MD (cell text [phone]) Internal Medicine Consult at request of : Dr. Karrie Brand Chief Complaint: right leg pain HPI: 21 yo M is now s/p Treatment of right fibula fracture with ORIF, external fixator removal, bone grafting, I D of pin and wire sites by Dr. Brand. Mr. Barnes sustained right tibial plateau fracture on 07/12/21 and underwent ilizarov placement for swelling on 07/24/2021. Comorbidities: see below. PmHx: .none ALLERGY: Allergies: No Known Drug Allergies (Coded, 07/23/21) DEET (Uncoded, Mild, ITCHINESS, 07/23/21) Home Medications: Home Medications: HYDROcodone/APAP (NORCO 5/325) 1 TAB PO Q6H PRN PRN PAIN ASPIRIN 81 MG PO DAILY SgHx: .Ilizarov right leg SHx: Tob: ppd x 6 years. FHx: .No significant hx of DVT/PE. Alcohol: occasional Drugs: none Lives with family . Vitals: Vital Signs Date Temp Pulse Resp B/P B/P Mean Pulse Ox FiO2 08/14 97.6-97.9 85-105 12-20 95-120/56-67 76.4 98-100 Gen: Alert, in mild discomfort. EYE: Nl lids conjunctiva. ENT: Nl ears Nose, nl lips,. Neck: Supple, nl thyroid, No masses. CV: Regular Rate Rhythm, no heave or significant murmur. Edema- none RESP: Clear to Auscultation, normal Respiratory effort. ABD: Soft, NonDistended,. LYM: No significant cervical Lymphadenopathy. MS: No sign of compartment syndrome, NEURO: Nonfocal, grossly normal sensation of LE, +Ankle DF/PF . . Preop Labs (08/08/2021): CBC:. Hgb 13.3, Plt 339, CHEM: Na 137, K 3.7, Cr 0.91 (eGFR 103.2%), . . (medium to high risk of complications or morbidity) (major surgery) (IV sedative, meds) . Assessment Plan 1.) Anemia of Acute Blood Loss- .will recheck tomorrow. 2.) S/p Treatment of right fibula fracture with ORIF, external fixator removal, bone grafting, I D of pin and wire sites .acute multi-modal pain control and followup. Anticoagulation as per Dr. Brand. Brandon Baron M.D. Thanks! . . . . . G8420 BMI is documented as within normal parameters (18-25). G8427 - current medications obtained and reviewed. 1124F - offered discussion on advanced care plan and patient declined to address issue at this time. at 1030 RPT #:[id number] END OF REPORT [facility] 2021-07-27 14:12:00 [id number] [place] [address] PATIENT NAME: ANDREY BARNES JR ADMIT DATE: 07/24/21 ACCOUNT NO: [id number] ROOM NO: AGE: 21 REPORT TYPE: OPERATIVE REPORT SEX: M ADMITTING PHYSICIAN: ATTENDING PHYSICIAN:Karrie Brand MD OPERATION DATE: 07/24/2021 SURGEON: Karrie Brand MD ALMOND GRINDER: Brenda Marsh, physician food and beverage assistant manager certified. PREOPERATIVE DIAGNOSIS: Displaced fracture of lateral condyle of right tibia, initial encounter for closed fracture (ICD-10 # S82.121A). POSTOPERATIVE DIAGNOSIS: Displaced fracture of lateral condyle of right tibia, initial encounter for closed fracture (ICD-10 # S82.121A). PROCEDURES: 1. Application of Ilizarov external fixator, right femur and tibia, spanning external fixation for severe right tibial plateau fracture. ANESTHESIA: Per anesthesia team and was general endotracheal. COMPLICATIONS: None. TOURNIQUET TIME: None used. PROCEDURE IN DETAIL: After obtaining informed consent, the patient was brought to the operating room and placed in supine position. Anesthesia was per anesthesia team and was general endotracheal. The right lower extremity was prepped and draped in the normal sterile fashion. Following this, the Ilizarov procedure commenced. It should be noted no paralytic agents were used during this procedure. It should be noted when placing transosseous implants, care was taken to put the musculature of the compartment being traversed on stretch by positioning the foot, ankle, and toes. Care was taken to look for motor flickers to the ankle, foot, and toes, indicating proximity to a nerve. This occurred, the implant was removed and repositioned. A combination of 1.8 olive wires, 1.8 smooth wires, and 6 and 5-mm half pins were used during this mounting. The mounting included the 2 points of fixation on the femur and 2 points of fixation on the tibia. The frame was set up, so between rings 2 and 3, there were Fast-Fix struts to allow for distraction and ligamentotaxis across the knee. Two 6-mm half pins were used in the proximal femur. Two 6-mm half pins were PATIENT NAME: ANDREY BARNES used in the femoral shaft. Two 6-mm half pins were used in the proximal tibia, including a 1.8 olive wire and 2 half pins were used in the distal tibia including one 5-mm half pin. Excellent stability was achieved. Following application of the frame, the Fast-Fix struts were released and traction was applied under fluoroscopic image to apply axial traction as well as a varus moment to disimpact the lateral plateau, which was split and depressed. The Fast-Fix struts were then locked down. AP and lateral fluoroscopic image showed good temporary spanning fixation. Following this, all pin sites and wire sites were cleansed and dressed sterilely. Anesthesia was reversed. The patient was taken to the recovery room where it was noted that the toes had good capillary refill. There were no complications of this procedure. The skilled assistance of Brenda Marsh, physician's food and beverage assistant manager certified, was necessary during this complex, instrumented Ilizarov application for severe right tibial plateau fracture. Ms. Marsh assisted with every aspect of the operation including, but not limited to, proper and safe positioning of the patient, manipulation of surgical instruments, and reduction of the fracture using the Ilizarov method. Ms. Marsh performed Ilizarov frame construction and also modification and alteration during the procedure. A skilled food and beverage assistant manager such as Ms. Marsh was necessary and mandatory during Ilizarov frame application stabilizing the Ilizarov frame while the surgeon places transosseous wires and half pins for bony fixation. Ms. Marsh stabilized the frame while Dr. Brand performed fixation using wires and half pins. She also tensioned the fine wires after Dr. Brand had positioned them through the bone, transfixing the wires to the Ilizarov frame while Dr. Brand does the same simultaneously on his side of frame. Ms. Marsh's assistance allowed me to perform the most sensitive and technical portions of this operation using 2 hands, thus enhancing the patient's safety. This would not be possible without the help of a skilled food and beverage assistant manager familiar with the procedure and capable of safely performing the aforementioned tasks. Our facility is not a teaching hospital and as such, no surgical residents or interns were available to assist. Dictated By: Karrie Brand MD WT: OP:TRA//NTS Conf#: [id number]/DID#: [id number] Authenticated by Karrie Brand MD On 08/01/2021 09:09:12 AM at 0909 PATIENT NAME: ANDREY BARNES [facility] 2021-07-26 11:09:00 [facility] ([facility]) Clinical Note REPORT#:[id number] REPORT STATUS: Signed DATE:07/26/21 TIME: 1109 PATIENT: ANDREY BARNES JR UNIT #: [id number] [facility] AGE: 21 SEX: M ATTEND: Karrie Brand MD ADM AUTHOR: Brandon Dugan MD * ALL edits or amendments must be made on the electronic/computer document * Clinical Note Note: [facility] Brandon Baron M.D. (cell text [phone]) Assessment/Plan 1.) Anemia of acute blood loss- .Hgb 11.5 -07/25/21, asymptomatic. 2.) POD#2 Right tibia treatment of fracture external fixator application, ilizarov, external fixation- .acute multi-modal pain control and followup. Anticoagulation as per Dr. Brand. 3.) Tobacco nicotine use- .tobacco nicotine cessation counseling provided. Prior Events/Overnight: Uneventful. Chief Complaint: No significant complaints. Objective Vital Signs Date Temp Pulse Resp B/P B/P Mean Pulse Ox FiO2 07/25-07/26 98.2-101.5 67-99 15-16 113-138/56-79 0.0-98.5 94-100 28 Gen: Alert, oriented, in mild discomfort Neck: No Masses, No Thyromegaly- CV: Regular Rate Rhythm / Edema- no significant Resp: Clear To Ascultation / Normal Respiratory Effort ABD: NonTender / NonDistended MS/Skin: No sign of compartment syndrome / +toes DF/PF Other: pin sites and skin tone look good. Labs/X-ray: none Brandon Baron M.D. at 1159 [facility] #:[id number] END OF REPORT [facility] 2021-07-26 08:25:00 [facility] ([facility]) Orthopaedic Progress Note REPORT#:[id number] REPORT STATUS: Signed DATE:07/26/21 TIME: 824 PATIENT: ANDREY BARNES UNIT #: [id number] ROOM/BED: : 98 AGE: 21 SEX: M ATTEND: Karrie Brand MD ADM AUTHOR: Brenda Marsh * ALL edits or amendments must be made on the electronic/computer document * Subjective Patient reports: Yes: ambulating with therapy, pain, pain controlled. Objective VS: Last Documented: Result Date Time Pulse Ox 98 07/26 07 B/P 138/71 07/26 0614 B/P Mean 93.3 07/26 713 O2 Delivery Room air 07/26 713 Temp 36.8 07/26 713 Pulse 72 07/26 713 Resp 15 07/26 713 FiO2 28 07/26 0315 O2 Flow Rate 2 07/265 PATIENT WEIGHT: Weight (lb): 144 Weight (oz): 9.97 Weight (kg): 65.317 Medications: Active Meds + DC'd Last 24 Hrs Magnesium Hydroxide (MILK OF MAGNESIA) 30 ML BEDTIME [...] Hydromorphone HCl (DILAUDID 20 MG/NS 100 ML CONCERT PROMOTER) 100 ML ASDIR IV (CKD) IV Miscellaneous Supplies (CONCERT PROMOTER [place]) 1 EA ASDIR MISC Naloxone HCl (NARCAN) 0.1 - 0.2 MG ANES ASDIR IV Ondansetron HCl (ZOFRAN) 4 MG ANES Q4H PRN PRN IV Promethazine HCl (PHENERGAN) 6.25 MG ANES ASDIR PRN IM Tramadol HCl (ULTRAM) 50 MG Q4H PRN PRN PO Tramadol HCl (ULTRAM) 100 MG Q4H PRN PRN PO Physical Exam General appearance: alert, oriented, no acute distress Extremities: RLE with Ilizarov in place. NVI. + ankle DF. Diagnosis, Assessment Plan Free text A P: POD#2 s/p application of right knee spanning Ilizarov - DVT prophylaxis - Pain control - PT - NWB to RLE - D/c home today - Take 81 mg ASA daily once home for DVT prophylaxis. at 0826 at 1353 RPT #:[id number] END OF REPORT [facility] 2021-07-25 14:07:00 [facility] ([facility]) Clinical Note REPORT#:[id number] REPORT STATUS: Signed DATE:07/25/21 TIME: 1407 PATIENT: ANDREY BARNES JR UNIT #: [id number] ROOM/BED: [address] : 98 AGE: 21 SEX: M ATTEND: Karrie Brand MD ADM AUTHOR: Juan F Reed MD * ALL edits or amendments must be made on the electronic/computer document * Clinical Note Note: Progress Note Dictated 1012 141 at 1409 RPT #:[id number] END OF REPORT [facility] 2021-07-25 13:51:00 [id number] [place] [address] PATIENT NAME: ANDREY BARNES JR ADMIT DATE: 07/24/21 ACCOUNT NO: [id number] ROOM NO: AGE: 21 REPORT TYPE: PROGRESS NOTE SEX: M ADMITTING PHYSICIAN: ATTENDING PHYSICIAN:Karrie Brand MD DATE: 07/25/2021 SUBJECTIVE: The patient is seen in his room. GENERAL: The patient is resting in bed. He does continue to have some pain primarily at the right knee area. The pain is about an 8 on a scale of 0 to 10. Occasional cramping and spasm. The patient does have an external fixator in his right leg above the knee, below the knee. The patient can wiggle the toes of the right foot. Good strength in both arms and in the left leg. The patient's girlfriend, Tremayne, is present. She is watching our nurses do the pin site cleaning, as she will be doing it once the patient is discharged to home. OBJECTIVE: Vital signs reviewed. Blood pressure is 132/70, pulse rate 65, respirations 15. Temperature 36.8 Celsius. Oxygen saturation is [...] mg q. 4 hours p.r.n. for mild or moderate levels of pain. The patient also does have Tylenol with Codeine No. 3 one or two tablets q. 4 hours p.r.n. for mild or moderate levels of pain. Both of these medicines will be accessed tomorrow a.m. The patient is on pain pump, hydromorphone Dilaudid. Dose is increased to 0.3 mg, delay 8 minutes, 1-hour limit 2.1 mg. We will discontinue the pain pump tomorrow a.m. and used pain pills along with Robaxin and Seroquel. If pain is controlled, we will e-prescribe discharge medications tomorrow after the patient has been evaluated. Dictated By: Juan F Reed MD WT: PN:YKEV/LI/LESLIE Conf#: [id number]/DID#: [id number] Authenticated by Juan F Reed MD On 08/03/2021 02:07:57 PM at 0207 PATIENT NAME: ANDREY BARNES [facility] 2021-07-25 12:27:00 [facility] ([facility]) Orthopaedic Progress Note REPORT#:[id number] REPORT STATUS: Signed DATE:07/25/21 TIME: 1227 PATIENT: ANDREY BARNES UNIT #: [id number] ROOM[facility]BED: [facility] : 98 AGE: 21 SEX: M ATTEND: Karrie Brand MD ADM AUTHOR: Brenda Marsh * ALL edits or amendments must be made on the electronic/computer document * Subjective Patient reports: Yes: pain. No: ambulating with therapy, pain controlled. Objective VS: Last Documented: Result Date Time Pulse Ox 100 07/25 112 B/P 132/70 07/25 1122 B/P Mean 90.5 07/25 1122 O2 Delivery Nasal cannula 07/25 112 Temp 36.8 07/25 1122 Pulse 65 07/25 1122 Resp 15 07/25 1122 FiO2 28 07/25 0845 O2 Flow Rate 2 07/25 0845 PATIENT WEIGHT: Weight (lb): 144 Weight (oz): 9.97 Weight (kg): 65.600 Medications: Active Meds + DC'd Last 24 Hrs Magnesium Hydroxide (MILK OF MAGNESIA) 30 ML BEDTIME [...] 400 MG .STK-MED ONE IV (DC) Rocuronium [place] (Rocuronium [place] 10 mg/mL) 50 MG .STK-MED ONE IV ( DC) Succinylcholine Chloride (SUCOSTRIN) 200 MG .STK-MED ONE [...] Hydromorphone HCl (DILAUDID 20 MG/NS 100 ML CONCERT PROMOTER) 100 ML ASDIR IV (CKD) IV Miscellaneous Supplies (CONCERT PROMOTER BEACH) 1 EA ASDIR MISC Naloxone HCl [...] (XYLOCAINE) 2 ML PREOP SUBQ (DC) Physical Exam General appearance: alert, oriented, no acute distress Extremities: RLE with Ilizarov in place. NVI. + ankle DF. Diagnosis, Assessment Plan Free text A P: POD#1 s/p application of right knee spanning Ilizarov - DVT prophylaxis - Pain control - PT - NWB to RLE - Consider d/c home tomorrow if pain controlled at 1229 at 0741 RPT #:[id number] END OF REPORT [facility] 2021-07-25 10:28:00 [facility] ([facility]) Clinical Note REPORT#:[id number] REPORT STATUS: Signed DATE:07/25/21 TIME: 1028 PATIENT: ANDREY BARNES UNIT #: [id number] ROOM/BED: [address] : 98 AGE: 21 SEX: M ATTEND: Karrie Brand MD ADM AUTHOR: Brandon Dugan MD * ALL edits or amendments must be made on the electronic/computer document * Clinical Note Note: [facility] Brandon Baron M.D. (cell text [phone]) Assessment/Plan 1.) Anemia of acute blood loss- .Hgb 11.5, asymptomatic. 2.) S/p Right tibia treatment of fracture external fixator application, ilizarov , external fixation- .acute multi-modal pain control and followup. Anticoagulation as per Dr. Brand. 3.) Tobacco nicotine use- .tobacco nicotine cessation counseling provided. Prior Events/Overnight: Uneventful. Chief Complaint: No significant complaints. Objective Vital Signs Date Temp Pulse Resp B/P B/P Mean Pulse Ox FiO2 07/24- 96.4-100.6 66-103 13-16 115-163/63-104 93.4-113.4 91-100 28-100 07/25 Gen: Alert, oriented, in mild discomfort Neck: No Masses, No Thyromegaly- CV: Regular Rate Rhythm / Edema- no significant Resp: Clear To Ascultation / Normal Respiratory Effort ABD: NonTender / NonDistended MS/Skin: No sign of [...] (Auto) (20 - 40 %) 13.5 L [place] % (Auto) (3 - 10 %) 8.8 Eos % (Auto) (1 - 5 %) 2.9 Baso % (Auto) (0.0 - 1.1 %) 0.3 Neut # (Auto) (2.00 - 7.50 K/mm3) 7.23 Lymph # (Auto) (1.50 - 4.00 K/mm3) 1.32 L [place] # (Auto) (0.2 - 0.8 K/mm3) 0.86 H Eos # (Auto) (0.04 - 0.4 K/mm3) 0.28 Baso # (Auto) (0.02 - 0.10 K/mm3) 0.03 Add Manual Diff (MANUAL DIFF) NO Nucleated RBC % (0 - 0 %) 0 Brandon Baron M.D. at 1212 RPT #:[id number] END OF REPORT [facility] 2021-07-24 18:34:00 [facility]) Clinical Note REPORT#:[id number] REPORT STATUS: Signed DATE:07/24/21 TIME: 1833 PATIENT: ANDREY BARNES JR UNIT #: [id number] ROOM/BED: [address] : 98 AGE: 21 SEX: M ATTEND: Karrie Brand MD ADM AUTHOR: Juan F Reed MD * ALL edits or amendments must be made on the electronic/computer document * Clinical Note Note: Consult Note Dictated 511 347 at 1835 RPT #:[id number] END OF REPORT [facility] 2021-07-24 18:26:00 [facility]) Clinical Note REPORT#:[id number] REPORT STATUS: Signed DATE:07/24/21 TIME: 1825 PATIENT: ANDREY BARNES UNIT #: [id number] [facility] AGE: 21 SEX: M ATTEND: Karrie Brand MD ADM AUTHOR: Brandon Dugan MD * ALL edits or amendments must be made on the electronic/computer document * Clinical Note Note: [facility] Brandon Baron MD (cell text [phone]) Internal Medicine Consult at request of : Dr. Karrie Brand Chief Complaint: right leg pain HPI: 21 yo M is now s/p Right tibia treatment of fracture external fixator application, ilizarov, external fixation by Dr. Brand. Mr. Barnes fell off trampoline on 07/12/21 and sustained closed right tibial plateau fracture. Comorbidities: see below. PmHx: .None ALLERGY: Allergies: No Known Drug Allergies (Coded, 07/23/21) DEET (Uncoded, Mild, ITCHINESS, 07/23/21) Home Medications: Home Medications: No Known Home Medications SgHx: .None SHx: Tob: 1 ppd x 6 years. FHx: .No significant hx of DVT/PE. Alcohol: none Drugs: none Lives with Girlfriend . Vitals: Vital Signs Date Temp Pulse Resp B/P B/P Mean Pulse Ox FiO2 /10 97.0-99.5 70-103 13-16 115-163/63-104 113.4 91-100 32-100 Gen: Groggy, sleepy in mild discomfort. EYE: Nl lids conjunctiva. ENT: Nl ears Nose, nl lips,. Neck: Supple, nl thyroid, No masses. CV: Regular Rate Rhythm, no heave or significant murmur. Edema- none RESP: Clear to Auscultation, normal Respiratory effort. ABD: Soft, NonDistended,. LYM: No significant cervical Lymphadenopathy. MS: No sign of compartment syndrome, pin site4s and skin tone look good NEURO: Nonfocal, grossly normal sensation of LE, +toes DF/PF . . Preop Labs(07/23/2021): CBC:. Hgb 12.6, Plt 307, CHEM: Na 136, K 3.7, Cr 0.8 (eGFR 119.8%), . (medium to high risk of complications or morbidity) (major surgery) (IV sedative, meds) . Assessment Plan 1.) Anemia of Acute Blood Loss- .will recheck tomorrow. 2.) S/p Right tibia treatment of fracture external fixator application, ilizarov , external fixation- .acute multi-modal pain control and followup. Anticoagulation as per Dr. Brand. 3.) Tobacco nicotine use- .tobacco nicotine cessation counseling to be provided. . Brandon Baron M.D. Thanks! . . . . G8420 BMI is documented as within normal parameters (18-25). G8427 - current medications obtained and reviewed. 1124F - offered discussion on advanced care plan and patient declined to address issue at this time. at 2152 RPT #:[id number] END OF REPORT [facility] 2021-07-24 16:16:00 [id number] [place] [address] PATIENT NAME: ANDREY BARNES JR ADMIT DATE: 07/24/21 ACCOUNT NO: [id number] ROOM NO: AGE: 21 REPORT TYPE: CONSULTATION REPORT SEX: M ADMITTING PHYSICIAN: ATTENDING PHYSICIAN:Karrie Brand MD CONSULTATION DATE: 07/24/2021 CONSULTING PHYSICIAN: Juan F Reed MD NEUROLOGY CONSULTATION HISTORY OF PRESENT ILLNESS: The patient is a 21-year-old male, , right handed, right footed. The patient is being seen in PACU. The patient was admitted to [facility] earlier today, July 24. The patient states he fell getting off a trampoline on 07/12/2021. The patient has had pain in the right leg. The patient has had cramping and spasm in the muscles above the knee, below the knee. Occasional low back pain. He also has some numbness in his toes. No incontinence. No blurred vision, doubling, dizziness. PAST MEDICAL HISTORY: Noncontributory. PAST SURGICAL HISTORY: None. REVIEW OF SYSTEMS: EYES: No blurred vision. ENT: No dizziness. PULMONARY: No chest pain, coughing, or hemoptysis. GASTROINTESTINAL: No nausea or vomiting. GENITOURINARY: No incontinence. MUSCULOSKELETAL: As above. NEUROLOGIC: As above. PSYCHIATRIC: The patient states the pain in the last 10 days has made his energy level and appetite less. Pain does interfere with him getting sleep and staying asleep. Pain has made him nervous, restless, [...] The patient states he lives in a [facility], first level. The patient did have surgery today. The patient was diagnosed as having right tibial plateau fracture. The patient did undergo treatment of right tibia fracture with application of Ilizarov external fixator. Postoperatively, the patient has been placed on a CONCERT PROMOTER pump with hydromorphone, dose is 0.2 mg, delay is 8 minutes, 1-hour limit 1.6 mg. The patient also placed on Robaxin 500 mg q. 6 hours scheduled. PHYSICAL EXAMINATION: EYES: Pupils are equal, 3 mm in size. Extraocular movements, visual santiago intact. NEUROLOGIC: Mental Status: The patient is alert. He is oriented to place, to year. The patient states 7 out of 100 is 107. The patient states the current president as Reddy Mayorga. Short-term memory reduced. He could not recall any of 3 objects. Cranial NERVES: II, III, IV, , as above; V, intact to light touch; VII, no facial asymmetry; VIII through XII intact. Motor: Good [...] and the feet. PATIENT NAME: ANDREY BARNES JR CLINICAL DIAGNOSES: 1. Right tibial plateau fracture. 2. Treatment of right tibia fracture with application of Ilizarov external fixator. 3. Musculoskeletal spasm of low back, right hip, right leg. TREATMENT: The patient will be continued on current medications. Continue pain pump overnight until tomorrow. We will adjust medicines accordingly for pain. Dictated By: Juan F Reed MD WT: CON:TRA/MOLST/NTS Conf#: [id number]/DID#: [id number] cc: Karrie Brand MD Authenticated by Juan F Reed MD On 08/03/2021 02:07:49 PM at 0207 PATIENT NAME: ANDREY BARNES JR [facility] 2021-07-24 14:57:00 [facility] ([facility]) Op/Inv Procedure Note - Brief REPORT#:[id number] REPORT STATUS: Signed DATE:07/24/21 TIME: 1456 PATIENT: ANDREY BARNES JR UNIT #: [id number] ROOM/BED: [address] : 98 AGE: 21 SEX: M ATTEND: Karrie Brand MD ADM AUTHOR: Brenda Marsh * ALL edits or amendments must be made on the electronic/computer document * Op/Inv Proc Note - Brief TEXT Brief Op/Inv Procedure Note Note details: *PRE-PROCEDURE DIAGNOSIS Right tibial plateau fracture *POST-PROCEDURE DIAGNOSIS: Same *PROCEDURE(S) PERFORMED: Application of right knee spanning Ilizarov external fixator. *PRIMARY SURGEON: Karrie Brand *ALMOND GRINDER(S): Brenda Marsh PA-C ANESTHETIC: General *ESTIMATED BLOOD LOSS in ml's: 10 cc *SPECIMEN(S) REMOVED: None *COMPLICATIONS: None DRAIN(S): None[] TUBE(S): None[] IMPLANT(S): None[] FLUIDS: [] URINE OUTPUT: [] *FINDINGS: Severe, displaced right tibial plateau fracture. DISPOSITION: To PACU at 1500 at 0741 RPT #:[id number] END OF REPORT [facility]
[2024-12-25] MEDS ORDERED: IBUPROFEN 400 MG TAB ONE (20:11)
--- NOTE | 2024-12-25 21:23 | RAD REPORT ---
EXAMINATION: US RIGHT LOWER EXTREMITY VENOUS DOPPLER CLINICAL INDICATION: [facility] MAIN right leg PAIN Bed Name: 19 Y TECHNIQUE: Complete bilateral duplex sonography of the RIGHT lower extremity veins was performed. The examination included compression for vein patency, color Doppler imaging and flow augmentation in response to distal compression of the distal external iliac, common femoral, femoral, popliteal, tibi al, and great and small saphenous veins. COMPARISON: No prior exam. FINDINGS: Duplex sonography testing of the veins of the RIGHT lower extremity was performed. Color flow imaging shows all veins to be compressible with [id number] color filling. Pulsatile and phasic flow is present within all lower extremity deep and superficial veins examined. IMPRESSION: No evidence of deep venous thrombosis.
--- NOTE | 2024-12-25 21:38 | ER ---
Nurse's Notes [facility] Name: Orion Barnes Jr Age: 24 yrs Sex: Male : 2000 Arrival Date: 12/25/2024 Time: 19:49 Bed 19 Private MD: Diagnosis: Pain in right lower leg Presentation: 12/25 19:50 Chief complaint: Patient states: my right leg is hurting and I want to make sure its bm8 not broke. 19:50 Coronavirus screen: Vaccine status: Patient reports receiving the 2nd dose of the covid bm8 vaccine. At this time, the client does not indicate any symptoms associated with coronavirus-19. Ebola Screen: Patient negative for fever greater than or equal to 101.5 degrees Fahrenheit, and additional compatible Ebola Virus Disease symptoms Patient denies exposure to infectious person. Patient denies travel to an Ebola-affected area in the 21 days before illness onset. No symptoms or risks identified at this time. Initial Sepsis Screen: Does the patient meet any 2 criteria? No. Patient's initial sepsis screen is negative. Does the patient have a suspected source of infection? No. Patient's initial sepsis screen is negative. Risk Assessment: Do you want to hurt yourself or someone else? Patient reports no desire to harm self or others. Onset of symptoms is unknown. 19:50 Method Of Arrival: EMS: [facility] bm8 19:50 Acuity: MIRZA 3 bm8 19:50 Acuity: MIRZA 4 bm8 Triage Assessment: 19:50 General: Appears in no apparent distress. comfortable, Behavior is calm, cooperative, bm8 appropriate for age. 19:50 Pain: Complains of pain in right leg Pain currently is 7 out of 10 on a pain scale. bm8 EENT: No deficits noted. No signs and/or symptoms were reported regarding the EENT system. Neuro: No deficits noted. Cardiovascular: No deficits noted. Cardiovascular: Capillary refill < 3 seconds in bilateral fingers Patient's skin is warm and dry. Respiratory: No deficits noted. Respiratory: Airway is patent Respiratory effort is even, unlabored, Respiratory pattern is regular, symmetrical. GI: No deficits noted. GI: No signs and/or symptoms were reported involving the gastrointestinal system. : No deficits noted. No signs and/or symptoms were reported regarding the genitourinary system. Derm: No deficits noted. No signs and/or symptoms reported regarding the dermatologic system. Musculoskeletal: Circulation, motion, and sensation intact. Capillary refill Range of motion: intact in all extremities, Reports pain in right leg Pain is 7 out of 10 on a pain scale. Historical: - Allergies: 19:59 DEET; bm8 - Home Meds: 19:59 Oxycodone HCl Oral [Active]; bm8 - PMHx: 19:59 Seizure; bm8 - PSHx: 19:59 Right leg surgery; Right leg surgery; Spinal tap; bm8 - Immunization history:: Adult Immunizations up to date. - Infectious Disease History:: Denies. - Social history:: Smoking status: Patient reports the use of cigarette tobacco products, smokes one pack cigarettes per day. Patient uses alcohol, occasionally. Screenin:05 [facility] ED Fall Risk Assessment (Adult) History of falling in the last 3 months, bm8 including since admission No falls in past 3 months (0 pts) Confusion or Disorientation No (0 pts) Intoxicated or Sedated No (0 pts) Impaired Gait No (0 pts) Mobility Assist Device Used No (0 pt) Altered Elimination No (0 pt) Score/Fall Risk Level 0 - 2 = Low Risk Oriented to surroundings, Maintained a safe environment, Educated pt \T\ family on fall prevention, incl call for assistance when getting out of bed, Assessed \T\ reinforced patient's understanding of fall precautions, Hourly rounding (assess needs \T\ fall precautionary measures) done, Used ambulatory aids as needed (educated on \T\ assisted with), Used gait belt as appropriate. Abuse screen: Denies threats or abuse. Nutritional screening: No deficits noted. Tuberculosis screening: No symptoms or risk factors identified. Assessment: 21:16 Reassessment: Patient appears in no apparent distress at this time. Patient and/or bm8 family updated on plan of care and expected duration. Pain level reassessed. Patient is alert, oriented x 3, equal unlabored respirations, skin warm/dry/pink. pt is lying in bed watching TV with [place] [employer] officer at bedside. NAD at this time. Reassessment: Patient states feeling better. Patient states symptoms have improved. Pain: Complains of pain in right leg Pain currently is 5 out of 10 on a pain scale. Quality of pain is described as burning, aching. Musculoskeletal: Reports pain in right leg Pain is 6 out of 10 on a pain scale. 22:07 Reassessment: Patient appears in no apparent distress at this time. No changes from zm previously documented assessment. Patient and/or family updated on plan of care and expected duration. Pain level reassessed. Patient is alert, oriented x 3, equal unlabored respirations, skin warm/dry/pink. Patient states feeling better. Patient states symptoms have improved. Vital Signs: 19:50 BP 131 / 83; Pulse 82; Resp 17; Temp 98.5; Pulse Ox 100% ; Weight 68.04 kg; Height 5 bm8 ft. 8 in. ; Pain 7/10; 21:16 BP 95 / 68; Pulse 73; Resp 17; Temp 98.5; Pulse Ox 99% ; Pain 5/10; bm8 22:07 BP 135 / 77; Pulse 76; Resp 18; Temp 98.4; Pulse Ox 99% on R/A; Pain 4/10; zm 19:50 Body Mass Index 22.81 (68.04 kg, 172.72 cm) bm8 19:50 Pain Scale: Adult bm8 21:16 Pain Scale: Adult bm8 22:07 Pain Scale: Adult [place] Coma Score: 20:05 Eye Response: spontaneous(4). Motor Response: obeys commands(6). Verbal Response: bm8 oriented(5). Total: 15. 21:16 Eye Response: spontaneous(4). Motor Response: obeys commands(6). Verbal Response: bm8 oriented(5). Total: 15. 22:07 Eye Response: spontaneous(4). Motor Response: obeys commands(6). Verbal Response: zm oriented(5). Total: 15. ED Course: 19:50 Patient arrived in ED. rv1 19:50 Ron Moreira PA-C is [facility]. cp 19:50 Ron Carver MD is Attending Physician. cp 19:50 Arm band placed on right wrist. bm8 19:58 Sandoval Coronado, DINESH is Primary Nurse. bm8 19:59 Triage completed. bm8 20:05 Patient has correct armband on for positive identification. Bed in low position. Call bm8 light in reach. Side rails up X 1. Security at bedside. Client placed on continuous cardiac and pulse oximetry monitoring. NIBP monitoring applied. Pulse ox on. NIBP on. Door closed. Noise minimized. Verbal reassurance given. Head of bed elevated. 20:05 No provider procedures requiring assistance completed. bm8 20:28 US Extremity Venous Unilateral Ltd In Process Unspecified. EDMS 20:47 XRAY Tib Fib RIGHT In Process Unspecified. EDMS 21:18 Patient did not have IV access during this emergency room visit. bm8 22:07 Provided Education on: post ER care. zm Administered Medications: 20:12 Drug: Ibuprofen PO 800 mg PO once Route: PO; bm8 22:12 Follow up: Response: No adverse reaction Medication: 20:05 VIS not applicable for this client. bm8 Outcome: 21:37 Discharge ordered by MD. erick 22:07 Discharged to Law Enforcement 22:07 Condition: stable 22:07 Discharge instructions given to patient, police, Instructed on discharge instructions, follow up and referral plans. no drinking with medication, medication usage, safety practices, Demonstrated understanding of instructions, follow-up care, medications, Prescriptions given X 1, 22:12 Patient left the ED. Signatures: Dispatcher [employer] EDTX Ron Moreira, PAAngel PA-C Archana Youngblood, RN RN Yoly Rosa rv1 Sandoval Coronado, RN RN bm8
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
--- NOTE | 2024-12-25 21:43 | RAD REPORT ---
EXAMINATION: XR Tib Fib Right CLINICAL INDICATION: Male, 24 years old. PAIN TECHNIQUE: 2 view radiograph of the right tibia and fibula were obtained. COMPARISON: 324. FINDINGS: No evidence of acute fracture or dislocation. Stable alignment of internal fixation hardwar e along the proximal tibia. Healing fractures along the mid tibial shaft. No evidence of arthropathy or other focal bone lesion. Soft tissues are unremarkable. IMPRESSION: No acute osseous abnormalities. Stable findings including healing mid tibial shaft fractures as above
== END 2024-12-25 22:12 | disposition home or self-care (01) ==
LOC: ER 19:49
DX: M79.661 Pain in right lower leg (principal)
CPT/HCPCS: 93971; 99284